=== PATIENT | male | born 1945 | race Caucasian/White ===

== ENCOUNTER 2023-02-07 00:52 | Inpatient (IN) | payer BC, MEDICARE ==
[2023-02-07] MEDS ORDERED: LABETALOL 5 MG/ML VIAL MDV IVP STA (01:27)
--- NOTE | 2023-02-07 01:27 | ED ---
Chest Pain HPI - General Chief Complaint: Chest Pain Stated Complaint: Heart Pain Time Seen by Provider: 02/07/23 01:04 Source: patient, RN notes reviewed, old records reviewed Mode of arrival: wheelchair Limitations: no limitations - History of Present Illness Initial Comments: This is a 78-year-old male to the emergency department today. Patient has a for evaluation of chest pain severe anterior chest pain sharp chest pain to his back shoulders and down into his buttock. Patient has history of high blood pressure here in the emergency department. But no heart history no history of high blood pressure cholesterol diabetes or family history or history of smoking. Patient denying current shortness of breath MD Complaint: chest pain -: hour(s) Onset: during rest Pain Location: substernal, left chest Pain Radiation: back Severity: moderate Severity scale (1-10): 7 Quality: sharp Consistency: constant Worsens With: nothing Anginal Symptoms: sense of impending doom Other Symptoms: palpitations Treatments Prior to Arrival: none - Related Data Home Medications Medication Instructions Recorded Confirmed Albuterol Sulfate [Albuterol 2 puff INHALATION RT-Q6H PRN 02/07/23 02/07/23 Sulfate Hfa] Brinzolamide [Brinzolamide 1% 1 drop BOTH EYES BID 02/07/23 02/07/23 Ophth Susp] Carboxymethylcellulose Sodium 1 drop BOTH EYES QID PRN 02/07/23 02/07/23 [Refresh Tears] Glimepiride [Amaryl] 2 mg PO DAILY 02/07/23 02/07/23 Ipratropium/Albuter 20-100Mcg 2 puff INHALATION RT-Q6H PRN 02/07/23 02/07/23 [Combivent Respimat 20-100Mcg Inhaler] Previous Rx's Medication Instructions Recorded Aspirin 81 mg PO DAILY tab 02/10/23 Atorvastatin [Lipitor] 80 mg PO HS 30 Days #30 tab 02/10/23 Losartan [Cozaar] 25 mg PO DAILY 30 Days #30 tab 02/10/23 Metoprolol Succinate (ER) [Toprol 25 mg PO DAILY 30 Days #30 tab 02/10/23 XL] Ticagrelor [Brilinta] 90 mg PO BID 30 Days #60 tab 02/10/23 Allergies Allergy/AdvReac Type Severity Reaction Status Date / Time egg Allergy Anaphylaxis Verified 02/08/23 10:44 Review of Systems ROS Statement: Those systems with pertinent positive or pertinent negative responses have been documented in the HPI. ROS Other: All systems not noted in ROS Statement are negative. EKG Findings - EKG Comments: EKG Findings:: EKG sinus 89 TX 205 QRS 100 QTc 478 - EKG Results: EKG: interpreted by SUELLEN Past Medical History Past Medical History: Prostate Disorder, Sleep Apnea/CPAP/BIPAP Additional Past Medical History / Comment(s): occ irregular heartrate,hernia, no cpap used, hx grout, uses a cane, kidney stone, History of Any Multi-Drug Resistant Organisms: None Reported Past Surgical History: Appendectomy, Orthopedic Surgery, Prostate Surgery, Tonsillectomy Additional Past Surgical History / Comment(s): guerita corneal transplant, guerita cataracts, left knee arthroscopy Additional Past Anesthesia/Blood Transfusion Reaction / Comment(s): "hard time waking up" Past Psychological History: No Psychological Hx Reported Smoking Status: Former smoker Past Alcohol Use History: None Reported Past Drug Use History: None Reported General Exam Limitations: no limitations General appearance: alert, in no apparent distress, anxious Head exam: Present: atraumatic, normocephalic, normal inspection Eye exam: Present: normal appearance, PERRL, EOMI. Absent: scleral icterus, conjunctival injection, periorbital swelling ENT exam: Present: normal exam, mucous membranes moist Neck exam: Present: normal inspection. Absent: tenderness, meningismus, lymphadenopathy Respiratory exam: Present: normal lung sounds bilaterally. Absent: respiratory distress, wheezes, rales, rhonchi, stridor Cardiovascular Exam: Present: normal rhythm, tachycardia, normal heart sounds. Absent: systolic murmur, diastolic murmur, rubs, gallop, clicks GI/Abdominal exam: Present: soft, normal bowel sounds. Absent: distended, tenderness, guarding, rebound, rigid Extremities exam: Present: normal inspection, full ROM, normal capillary refill. Absent: tenderness, pedal edema, joint swelling, calf tenderness Back exam: Present: normal inspection Neurological exam: Present: alert, oriented X3, CN II-XII intact Psychiatric exam: Present: normal affect, normal mood Skin exam: Present: warm, dry, intact, normal color. Absent: rash Course Vital Signs 02/07/23 02/07/23 02/07/23 00:54 02:02 02:40 Temperature 98.3 F Pulse Rate 103 H 73 64 Respiratory 18 16 18 Rate Blood Pressure 212/115 148/73 125/76 O2 Sat by Pulse 98 95 95 Oximetry 02/07/23 02/07/23 02/07/23 03:36 05:05 05:26 Temperature Pulse Rate 67 60 67 Respiratory 16 16 16 Rate Blood Pressure 137/73 149/94 182/94 O2 Sat by Pulse 99 99 97 Oximetry - Reevaluation(s) Reevaluation #1: 02/07/23 03:13 Medical records reviewed Reevaluation #2: 02/07/23 03:13 Patient's symptoms improving 02/07/23 04:43 Reevaluation patient states his chest pain is resolved Reevaluation #3: 02/07/23 03:13 Patient informed results questions answered 02/07/23 05:[address] angios chest is negative for acute disease 1 Reevaluation #4: 02/07/23 03:13 Was pt. sent in by a medical professional or institution (, PA, [facility], urgent care, hospital, or [facility]...) When possible be specific @ -no Did you speak to anyone other than the patient for history (EMS, parent, family, police, friend...)? What history was obtained from this source @ -no Did you review nursing and triage notes (agree or disagree)? Why? @ -agree Are old charts reviewed (outside hosp., previous admission, EMS record, old EKG, old radiological studies, urgent care reports/EKG's, [facility] records)? Report findings @ -yes Differential Diagnosis (chest pain, altered mental status, abdominal pain women, abdominal pain men, vaginal bleeding, weakness, fever, dyspnea, syncope, headache, dizziness, GI bleed, back pain, seizure, CVA, palpatations, mental health, musculoskeletal)? @ -prior EKG interpreted by me (3pts min.). @ -yes X-rays interpreted by me (1pt min.). @ -yes CT interpreted by me (1pt min.). @ -no U/S interpreted by me (1pt. min.). @ -no What testing was considered but not performed or refused? (CT, X-rays, U/S, labs)? Why? @ -none What meds were considered but not given or refused? Why? @ -none Did you discuss the management of the patient with other professionals (professionals i.e. , PA, [facility], lab, RT, psych nurse, hospice social worker, barrel coater, teacher, correction officer supervisor, field case manager)? Give summary @ -no Was smoking cessation discussed for >3mins.? @ -no Was critical care preformed (if so, how long)? @ -yes31 Were there social determinants of health that impacted care today? How? (Homelessness, low income, unemployed, alcoholism, drug addiction, transportation, low edu. Level, literacy, decrease access to med. care, [facility], rehab)? @ -none Was there de-escalation of care discussed even if they declined (Discuss DNR or withdrawal of care, Hospice)? DNR status @ -no What co-morbidities impacted this encounter? (DM, HTN, Smoking, COPD, CAD, Cancer, CVA, ARF, Chemo, Hep., AIDS, mental health diagnosis, sleep apnea, morbid obesity)? @ -none Was patient admitted / discharged? Hospital course, mention meds given and route, prescriptions, significant lab abnormalities, going to OR and other pertinent info. @ - 78 male to the emergency department for evaluation today. Patient presents today for evaluation regards to chest pain severe anterior chest pain started as prior to coming to the ER today. Patient's symptoms began while watching TV pain is in his chest back shoulder blades shoulders arm and down into his buttock. Patient has no CT evidence of dissection does have elevated troponin put on ACS treatment with heparin aspirin and admitted for cardiology Admitted Undiagnosed new problem with uncertain prognosis? @ -no Drug Therapy requiring intensive monitoring for toxicity (Heparin, Nitro, Insulin, Cardizem)? @ -no Were any procedures done? @ -no Diagnosis/symptom? @ -Non-STEMI hypertensive emergency Acute, or Chronic, or Acute on Chronic? @ -Acute Uncomplicated (without systemic symptoms) or Complicated (systemic symptoms)? @ -Complicated Side effects of treatment? @ -no Exacerbation, Progression, or Severe Exacerbation? @ -exacerbation Poses a threat to life or bodily function? How? (Chest pain, USA, VT, pneumonia, PE, COPD, DKA, ARF, appy, cholecystitis, CVA, Diverticulitis, Homicidal, Suicidal, threat to staff... and all critical care pts) @ -yes with ACS Reevaluation #5: 02/07/23 03:13 Differential Chest Pain: Stable Angina, Unstable Angina, STEMI, NSTEMI Aortic Dissection, Pneumothorax, Musculoskeletal, Esophageal Spasm GERD, Cholecystitis, Pancreatitis, Zoster, this is not meant to be an all-inclusive list. - Consultations Consultation #1: Spoke with [facility] were agreeable for this patient Consultation #2: Spoke with Dr. Roque who is aware of patient's EKG is elevated troponin Chest Pain MDM - MDM 78 male to the emergency department for evaluation today. Patient presents today for evaluation regards to chest pain severe anterior chest pain started as prior to coming to the ER today. Patient's symptoms began while watching TV pain is in his chest back shoulder blades shoulders arm and down into his buttock. Patient has no CT evidence of dissection does have elevated troponin put on ACS treatment with heparin aspirin and admitted for cardiology Critical Care Time Critical Care Time: Yes Total Critical Care Time: 31 Disposition Clinical Impression: Chest pain, Acute non-ST elevation myocardial infarction (NSTEMI), Hypertensive emergency Disposition: ADMITTED IP TO THIS HOSP Condition: Serious Is patient prescribed a controlled substance at d/c from ED?: No Time of Disposition: 03:00
[2023-02-07 01:28] LABS: Basophils % (A) 0 %; Eosinophils # (A) 0.1 k/uL (0-0.7); Eosinophils % (A) 1 %; HCT 54.1 % (39.0-53.0); HGB 17.9 gm/dL (13.0-17.5); Lymphocytes # (A) 1.3 k/uL (1.0-4.8); Lymphocytes % (A) 8 %; MCH 29.1 pg (25.0-35.0); MCHC 33.1 g/dL (31.0-37.0); MCV 88.1 fL (80.0-100.0); Mean Platelet Volume 6.9; Monocytes # (A) 0.2 k/uL (0-1.0); Monocytes % (A) 1 %; Neutrophils # (A) 14.7 k/uL (1.3-7.7); Neutrophils % (A) 90 %; Platelet Count 288 k/uL (150-450); RBC 6.13 m/uL (4.30-5.90); RDW 13.6 % (11.5-15.5); WBC 16.4 k/uL (3.8-10.6)
[2023-02-07 01:34] LABS: Glucose,Whole Blood 263 mg/dL (70-110)
[2023-02-07] MEDS: MORPHINE SULFATE 4 MG/ML SYRINGE IVP STA ×2 (01:34→06:02)
[2023-02-07 01:39] LABS: ALT 32 U/L (4-49); AST 44 U/L (17-59); African American GFR (CKD) 83 (>60 ml/min/1.73 sqM); Albumin 4.9 g/dL (3.5-5.0); Alkaline Phosphatase 70 U/L (38-126); Anion Gap 14 mmol/L; Blood Urea Nitrogen 25 mg/dL (9-20); Calcium 10.2 mg/dL (8.4-10.2); Carbon Dioxide 20 mmol/L (22-30); Chloride 101 mmol/L (98-107); Glucose 317 mg/dL (74-99); Lipase 109 U/L (23-300); Magnesium 2.1 mg/dL (1.6-2.3); Non-African American GFR(CKD) 72 (>60 ml/min/1.73 sqM); Potassium 4.6 mmol/L (3.5-5.1); Sodium 135 mmol/L (137-145); Total Bilirubin 0.5 mg/dL (0.2-1.3); Total Protein 8.4 g/dL (6.3-8.2)
[2023-02-07 01:48] LABS: NT-Pro-B-Type Natriuretic Pept 441 pg/mL
[2023-02-07 02:15] LABS: Partial Thromboplastin Time 26.1 sec (22.0-30.0); Prothrombin Time 10.5 sec (9.0-12.0)
--- NOTE | 2023-02-07 02:59 | XR ---
EXAM: XR Chest, 2 Views CLINICAL HISTORY: ITS.REASON XR Reason: Chest Pain TECHNIQUE: Frontal and lateral views of the chest. COMPARISON: No relevant prior studies available. FINDINGS: Lungs: Haziness in the left lower lobe is favored to be secondary to epicardial fat. Pleural space: Unremarkable. No pneumothorax. No pleural effusions. Heart: Unremarkable. No cardiomegaly. Mediastinum: Unremarkable. Bones/joints: No acute osseous abnormalities. IMPRESSION: No acute cardiopulmonary disease.
[2023-02-07] MEDS ORDERED: ASPIRIN 81 MG PO STA (03:10)
[2023-02-07] MEDS ORDERED: MORPHINE SULFATE 4 MG/ML SYRINGE IV PRN (03:10)
[2023-02-07] MEDS ORDERED: HEPARIN SODIUM 1,000 UN/ML (10ML VL) IV PRN (03:10)
[2023-02-07] MEDS ORDERED: HEPARIN SODIUM 1,000 UN/ML (10ML VL) IV ONE (03:10)
[2023-02-07] MEDS ORDERED: HEPARIN SOD,PORK IN 0.45% NACL 25,000 UNIT in 0.45% NACL 1 250ML.BAG IV SCH (03:15)
--- NOTE | 2023-02-07 04:12 | CT ---
EXAM: CT Angiography Chest Without and With Intravenous Contrast CLINICAL HISTORY: ITS.REASON CT Reason: dissection TECHNIQUE: Axial computed tomographic angiography images of the chest without and with intravenous contrast. CTDI is 13.3 mGy and DLP is 935.5 mGy-cm. This CT exam was performed using one or more of the following dose reduction techniques: automated exposure control, adjustment of the mA and/or kV according to patient size, and/or use of iterative reconstruction technique. MIP reconstructed images were created and reviewed. COMPARISON: No relevant prior studies available. FINDINGS: Pulmonary arteries: Unremarkable. No CT evidence of pulmonary embolism. Aorta: Mild atherosclerotic disease of the thoracic aorta without evidence of dissection or aneurysmal dilatation. Lungs: Centrilobular emphysema. Bilateral dependent atelectasis. No mass. Pleural space: Unremarkable. No significant effusion. No pneumothorax. Heart: Unremarkable. No cardiomegaly. No significant pericardial effusion. No evidence of RV dysfunction. Bones/joints: No acute fracture. No dislocation. Soft tissues: Unremarkable. Lymph nodes: Unremarkable. No enlarged lymph nodes. IMPRESSION: 1. Mild atherosclerotic disease of the thoracic aorta without evidence of dissection or aneurysmal dilatation. 2. No CT evidence of pulmonary embolism. EXAM: CT Angiography Abdomen and Pelvis Without and With Intravenous Contrast CLINICAL HISTORY: ITS.REASON CT Reason: dissection TECHNIQUE: Axial computed tomographic angiography images of the abdomen and pelvis without and with intravenous contrast. CTDI is 13.3 mGy and DLP is 935.5 mGy-cm. This CT exam was performed using one or more of the following dose reduction techniques: automated exposure control, adjustment of the mA and/or kV according to patient size, and/or use of iterative reconstruction technique. MIP reconstructed images were created and reviewed. COMPARISON: No relevant prior studies available. FINDINGS: VASCULATURE: Aorta: Moderate diffuse atherosclerotic disease of the infrarenal abdominal aorta with irregular plaque. No aneurysmal dilatation, dissection, or hemodynamically significant stenosis. Celiac trunk and mesenteric arteries: No acute findings. No occlusion or significant stenosis. Renal arteries: No acute findings. No occlusion or significant stenosis. Iliac arteries: 50% stenosis of the proximal right common iliac artery. Mild atherosclerotic disease of the left common iliac artery without hemodynamically significant stenosis. ABDOMEN: Liver: Unremarkable. No mass. Gallbladder and bile ducts: Unremarkable. No calcified stones. No ductal dilation. Pancreas: Unremarkable. No ductal dilation. No mass. Spleen: Unremarkable. No splenomegaly. Adrenals: Unremarkable. No mass. Kidneys and ureters: Simple bilateral renal cysts measuring up to 6.4 cm in the lower pole of the left kidney. No further workup is required. No obstructing stones. No hydronephrosis. Stomach and bowel: Moderate sigmoid diverticulosis without evidence of diverticulitis. No obstruction. PELVIS: Appendix: Appendix is not identified but there are no secondary signs of acute appendicitis. Bladder: Unremarkable. No stones. No mass. Reproductive: Unremarkable as visualized. ABDOMEN and PELVIS: Intraperitoneal space: Unremarkable. No significant fluid collection. No free air. Bones/joints: No acute fracture. No dislocation. Soft tissues: Unremarkable. Lymph nodes: Unremarkable. No enlarged lymph nodes. IMPRESSION: No acute findings in the arteries of the abdomen and pelvis. Moderate diffuse atherosclerotic disease of the infrarenal abdominal aorta with irregular plaque. No aneurysmal dilatation, dissection, or hemodynamically significant stenosis. 50% stenosis of the proximal right common iliac artery. Mild atherosclerotic disease of the left common iliac artery without hemodynamically significant stenosis.
[2023-02-07] MEDS ORDERED: NITROGLYCERIN SL TABS 0.4 MG TAB SUBLINGUAL STA (05:38)
[2023-02-07] MEDS: NITROGLYCERIN OINT 1 INCH/GM PACKET TOPICAL SCH ×3 (05:39→16:44)
[2023-02-07] MEDS ORDERED: NITROGLYCERIN SL TABS 0.4 MG TAB SUBLINGUAL PRN (05:41)
[2023-02-07] MEDS ORDERED: hydrALAZINE HCL 20 MG/ML 1 ML VIAL IVP STA (05:42)
[2023-02-07] MEDS ORDERED: MORPHINE SULFATE 2 MG/ML SYRINGE IVP STA (05:42)
[2023-02-07] MEDS ORDERED: fentaNYL (PF) 50 MCG/ML 2 ML AMP ONE (05:56)
[2023-02-07] MEDS ORDERED: MORPHINE SULFATE 4 MG/ML SYRINGE IVP STA (06:00)
--- NOTE | 2023-02-07 06:02 | P.CRDCN ---
History of Present Illness History of present illness: HISTORY OF PRESENTING ILLNESS Patient is a pleasant 78-year-old male with history of obesity, obstructive sleep apnea, diabetes mellitus type 2, hypertension, family history of coronary artery disease who presents secondary to chest pain which started approximately 10 PM last night. He was changed on some of his blood pressure medications over last week. Apparently the clonidine was discontinued approximately a week and a half ago and he was started on amlodipine 5 mg 2 days ago. When he presented to the ER blood pressure 212/115 and was given labetalol. I was notified with abnormal troponin 1.0 and reviewed EKGs with EKG showing Q waves in 3, aVF with minimal 0.[address] elevation inferiorly. Repeat EKG showing continued Q waves as well as Q wave V1 through V3 , possibly related to be positioning with report by ER the patient had 0 chest pain. Discussed with ER doctor regarding monitoring for any chest pain and heparin drip, aspirin, nitrates, morphine, blood pressure control. I was really notified with increased troponin of 6.8 and upon further questioning by ER staff patient stating he had 4 at 10 chest pressure. Therefore catheterization lab was activated. D-dimer 0.5, creatinine 1.0, proBNP 441, white blood cell count 16.4, hemoglobin 17.9. CT chest abdomen pelvis showed mild atherosclerotic disease of the thoracic aorta with no dissection and no PE, no acute findings of the abdomen and pelvis and 50% stenosis of the right common iliac artery. He has strong family history with father and older brother having bypass as well as another brother having type stents. He has never had any heart catheterization. 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 REVIEW OF SYSTEMS At the time of my exam: CONSTITUTIONAL: Denies fever or chills. CARDIOVASCULAR: +chest pain, +shortness of breath, no orthopnea, PND or palpitations. RESPIRATORY: Denies cough. GASTROINTESTINAL: Denies abdominal pain, diarrhea, constipation, nausea or vomiting. MUSCULOSKELETAL: Denies myalgias. NEUROLOGIC: Denies numbness, tingling or weakness. ENDOCRINE: Denies fatigue, weight change, polydipsia or polyurina. GENITOURINARY: Denies burning, hematuria or urgency with micturation. HEMATOLOGIC: Denies history of anemia or bleeding. PHYSICAL EXAMINATION Vital signs reviewed. CONSTITUTIONAL: No apparent distress. HEENT: Head is normocephalic. Pupils are equal, round. Sclerae anicteric. Mucous membranes of the mouth are moist. No JVD. No carotid bruit. CHEST EXAMINATION: Lungs are clear to auscultation. No chest wall tenderness is noted on palpation or with deep breathing. HEART EXAMINATION: Regular rate and rhythm. S1, S2 heard. No murmurs, gallops or rub. ABDOMEN: Soft, nontender. Positive bowel sounds. EXTREMITIES: 2+ peripheral pulses, no lower extremity edema and no calf tenderness. NEUROLOGIC EXAMINATION: Patient is awake, alert and oriented x3. ASSESSMENT 1. Non-STEMI 2. Hypertensive emergency 3. Diabetes mellitus type 2 4. Abnormal EKG concerning for previous inferior infarct 5. Family history of CAD 6. Obstructive sleep apnea 7. Remote tobacco abuse quit 30 years ago PLAN Patient with non-STEMI and extremely elevated blood pressures. Patient with recent blood pressure changes and initially non-STEMI thought related to type II mechanism from uncontrolled hypertension and reported improvement and chest pain by ER with nitro, morphine. On further investigation patient still having active chest pain 4 out of 10 and therefore urgent heart catheterization. Check 2-D echo. Beta valerie, home blood pressure medications as tolerated. Further recommendations to follow. Past Medical History Past Medical History: Prostate Disorder, Sleep Apnea/CPAP/BIPAP Additional Past Medical History / Comment(s): occ irregular heartrate,hernia, no cpap used, hx grout, uses a cane, kidney stone, History of Any Multi-Drug Resistant Organisms: None Reported Past Surgical History: Appendectomy, Orthopedic Surgery, Prostate Surgery, Tonsillectomy Additional Past Surgical History / Comment(s): guerita corneal transplant, guerita cataracts, left knee arthroscopy Additional Past Anesthesia/Blood Transfusion Reaction / Comment(s): "hard time waking up" Past Psychological History: No Psychological Hx Reported Smoking Status: Former smoker Past Alcohol Use History: None Reported Past Drug Use History: None Reported Medications and Allergies Home Medications Medication Instructions Recorded Confirmed Type Docusate [Colace] 100 mg PO DAILY #30 capsule 08/14/14 Rx Hydrocodone/Acetaminophen [[place] 1 each PO Q6H PRN #60 tab 08/14/14 Rx 10-325] Rivaroxaban [Xarelto] 10 mg PO AC-SUPPER #12 tab 08/14/14 Rx hydrOXYzine pamoate [Vistaril] 25 mg PO Q6HR #60 capsule 08/14/14 Rx polyethylene glycoL 3350 [Miralax] 17 gm PO DAILY #30 packet 08/14/14 Rx Allergies Allergy/AdvReac Type Severity Reaction Status Date / Time eggs-only. Not within food Allergy Unknown Uncoded 02/07/23 00:54 Physical Exam Vitals: Vital Signs Temp Pulse Resp BP Pulse Ox 02/07/23 05:26 67 16 182/94 97 02/07/23 05:05 60 16 149/94 99 02/07/23 03:36 67 16 137/73 99 02/07/23 02:40 64 18 125/76 95 02/07/23 02:02 73 16 148/73 95 02/07/23 00:54 98.3 F 103 H 18 212/115 98 Intake and Output 02/06/23 02/06/23 02/07/23 14:59 22:59 06:59 Other: Weight 108.862 kg Results 02/07/23 01:10 02/07/23 01:10 Cardiac Enzymes 02/07/23 02/07/23 02/07/23 Range/Units 01:10 01:10 04:20 AST 44 (17-59) U/L Troponin I 1.040 H* 6.850 H* (0.000-0.034) ng/mL Coagulation 02/07/23 Range/Units 01:10 PT 10.5 (9.0-12.0) sec APTT 26.1 (22.0-30.0) sec CBC 02/07/23 Range/Units 01:10 WBC 16.4 H (3.8-10.6) k/uL RBC 6.13 H (4.30-5.90) m/uL Hgb 17.9 H (13.0-17.5) gm/dL Hct 54.1 H (39.0-53.0) % Plt Count 288 (150-450) k/uL Comprehensive Metabolic Panel 02/07/23 Range/Units 01:10 Sodium 135 L (137-145) mmol/L Potassium 4.6 (3.5-5.1) mmol/L Chloride 101 (98-107) mmol/L Carbon Dioxide 20 L (22-30) mmol/L BUN 25 H (9-20) mg/dL Creatinine 1.01 (0.66-1.25) mg/dL Glucose 317 H (74-99) mg/dL Calcium 10.2 (8.4-10.2) mg/dL AST 44 (17-59) U/L ALT 32 (4-49) U/L Alkaline Phosphatase 70 (38-126) U/L Total Protein 8.4 H (6.3-8.2) g/dL Albumin 4.9 (3.5-5.0) g/dL Current Medications Generic Name Dose Route Start Last Admin Trade Name Freq PRN Reason Stop Dose Admin Aspirin 325 mg 02/08/23 09:00 Aspirin 325 Mg Tab PO DAILY [facility] Atorvastatin Calcium 80 mg 02/07/23 09:00 Atorvastatin 80 Mg Tab PO DAILY [facility] Heparin Sodium (Porcine) 0 unit 02/07/23 03:10 Heparin Sodium 1,000 Un/Ml (10ml Vl) IV PER PROTOCOL PRN Low PTT Protocol Heparin Sodium/Sodium Chloride 250 mls @ 10 mls/hr 02/07/23 03:15 02/07/23 03:33 25,000 unit/ Sodium Chloride IV 9.186 units/kg/hr .Q24H SUDHEER 10 mls/hr Administration Protocol 9.186 UNITS/KG/HR Metoprolol Tartrate 25 mg 02/07/23 09:00 Metoprolol Tartrate 25 Mg Tab PO BID [facility] Morphine Sulfate 4 mg 02/07/23 03:10 Morphine Sulfate 4 Mg/Ml Syringe IV Q4HR PRN Chest Pain Nitroglycerin 1 inch 02/07/23 06:00 02/07/23 05:39 Nitroglycerin Oint 1 Inch/Gm Packet TOPICAL Not Given Q6HR [facility] Nitroglycerin 0.4 mg 02/07/23 05:41 Nitroglycerin Sl Tabs 0.4 Mg Tab SUBLINGUAL Q5M PRN Chest Pain Intake and Output 02/06/23 02/06/23 02/07/23 14:59 22:59 06:59 Other: Weight 108.862 kg Patient Weight 02/07/23 06:59 Weight 108.862 kg 02/07/23 01:10 02/07/23 01:10
[2023-02-07] MEDS ORDERED: fentaNYL (PF) 50 MCG/1 ML VIAL IVP ONE ×2 (06:03)
[2023-02-07] MEDS ORDERED: MIDAZOLAM 2 MG/2 ML VIAL IVP ONE ×2 (06:03)
[2023-02-07] MEDS ORDERED: LIDOCAINE 1% INJ 10MG/ML (30 ML VIAL-PF) SQ ONE (06:04)
[2023-02-07] MEDS ORDERED: IV FLUID CONTINUATION 1,000 ML IV ONE (06:11)
[2023-02-07] MEDS ORDERED: VERAPAMIL SYRINGE (5 MG/10 ML) INTRAARTER ONE (06:21)
[2023-02-07] MEDS: HEPARIN SODIUM 1,000 UN/ML (10ML VL) IV ONE ×3 (06:25→07:38)
[2023-02-07] MEDS ORDERED: NITROGLYCERIN-D5W PMX 50 MG in DEXTROSE/WATER 1 250ML.BAG IV ONE (06:30)
[2023-02-07] MEDS ORDERED: TICAGRELOR 90 MG TAB ONE (06:38)
[2023-02-07] MEDS ORDERED: TICAGRELOR 90 MG TAB PO ONE (06:40)
[2023-02-07] MEDS ORDERED: NITROGLYCERIN 1000MCG/10ML SYRINGE INTRACORON ONE (06:41)
[2023-02-07] MEDS ORDERED: IOPAMIDOL-370 100ML BTL INJ ONE ×3 (06:48→07:59)
[2023-02-07] MEDS: niCARdipine Syringe (1,000 mcg/10 mL) INTRACORON ONE ×4 (07:31→07:36)
[2023-02-07] MEDS ORDERED: niCARdipine Syringe (1,000 mcg/10 mL) INTRACORON ONE (07:45)
[2023-02-07 08:42] LABS: Glucose,Whole Blood 152 mg/dL (70-110)
[2023-02-07] MEDS ORDERED: ATORVASTATIN 80 MG TAB PO SCH (09:00)
[2023-02-07] MEDS ORDERED: METOPROLOL TARTRATE 25 MG TAB PO SCH (09:00)
--- NOTE | 2023-02-07 09:31 | P.PRCINT ---
Percutaneous Coronary Int. - Percutaneous Coronary Intervention Percutaneous Coronary Intervention: PROCEDURES PERFORMED: Bilateral coronary angiography, ultrasound guided arterial access, PCI mid LAD with a 3.0 x 28 mm Xience ROCKY, PCI apical LAD with a 2.25 x 23mm Xience ROCKY, PCI proximal circumflex with a 3.5 x 18mm Xience ROCKY and mid circumflex with a 3.5 x 15mm Xience ROCKY, IVUS LAD, IVUS circumflex INDICATION: NSTEMI CONSENT:I have discussed the risks, benefits and alternative therapies for the above-mentioned procedure and for both sedation/analgesia as well as necessary blood product administration, if indicated, as they pertain to this patient. The patient has indicated understanding and acceptance of the risks and procedures discussed. PROCEDURE: After the risks, benefits and alternatives of the above mentioned procedure explained in detail with the patient, informed consent was obtained. Patient was taken to the catheterization lab and prepped and draped in usual fashion. Patient initially treated as non-STEMI and initial report of improvement and chest pain however EKG in labor relations or personnel negotiator shows Q waves anterior septal leads. Ultrasound guidance was used to assess for arterial access. 1% lidocaine was used to anesthetize the right radial artery. A 6-[place] sheath was placed in the right radial artery using modified Seldinger technique and ultrasound guidance. There was a right radial loop which was navigated and able to advance the F45 catheter up to the arch however patient had severe tortuosity which was prohibitive for a right approach. Given loop was in the right radial artery decision was made to go left ulnar arterial access. Left coronary angiography was performed with a 5-[place] JL 3.5 catheter and right coronary angiography was performed with a 5-[place] JR5 catheter in various views. Culprit lesion appeared to be LAD with Q waves developing anterior septal leads throughout ER visit. The decision was made to perform PCI of LAD. A 6-[place] CLS 3.5 guide was used to engage the left main. There was dampening noted with engaging the left main. Heparin was given. A 0.014 BMW wire was advanced in the distal LAD. Predilation was performed with a 2.5 x 12 mm balloon and then a 2.5 x 15 mm noncompliant balloon. PCI was performed of the mid LAD just past the diagonal branch with a 3.0 x 28 mm Xience ROCKY. There was additional apical LAD disease and therefore predilation was performed with a 2.0 balloon and then a 2.25 x 23 mm Xience ROCKY was placed in the apical LAD. Intravascular ultrasound showed diffuse disease, well-expanded stents, no dissection as well as ostial LAD 60% stenosis with additional 40% left main stenosis. Preintervention there was 99% mid LAD stenosis and apical LAD 95% stenosis with SRI 2 flow. Postintervention there was less than 10% stenosis with SRI 3 flow. Patient was still having chest pain and felt possibly related to the circumflex disease as well. Therefore decision was made to perform PCI of the circumflex. A 0.014 BMW wire was advanced into the distal OM1 branch. Predilation was performed with a 3.5 x 12 mm balloon. Next a 3.5 x 18 mm Xience ROCKY was placed in the proximal circumflex. There was some no reflow and this was treated with nicardipene. Additionally a 3.5 x 15 mm Xience ROCKY was placed in the mid circumflex. The right radial and left ulnar sheath was removed and a TR band was placed with hemostasis achieved. The patient had developed swelling in the left forearm felt possibly related to bleed from advancing wire through the forearm. Therefore blood pressure cuff was inflated on that side and pressure held. The patient tolerated the procedure well. Patient was transported back to the post catheterization holding area in stable condition. Conscious Sedation: Patient was monitored under the direct supervision of myself for conscious sedation using Versed and fentanyl for a total duration of 106 minutes HEMODYNAMICS: Aorta: 144/76 SELECTIVE CORONARY ARTERIOGRAPHY: LEFT MAIN: The left main is a large caliber vessel which bifurcates into the LAD and circumflex. There is distal left main 40% stenosis LEFT ANTERIOR DESCENDING CORONARY ARTERY: LAD is a large caliber vessel which wraps around to the apex. There is ostial LAD 60% stenosis mainly noted on intravascular ultrasound, 99% mid LAD stenosis just after diagonal 1 branch, diffuse mid 20-30% stenosis, apical LAD 95% stenosis, diagonal 1 70% stenosis. LEFT CIRCUMFLEX CORONARY ARTERY: Left circumflex is a large caliber vessel with a proximal circumflex 95% stenosis followed by a mid circumflex 80% stenosis. There is a 50% stenosis at a tortuous mid to distal circumflex. There are left to right collaterals. RIGHT CORONARY ARTERY: The right coronary artery is a moderate to large caliber vessel which gives off a PDA and PLV branch and is the dominant vessel. There is a high takeoff of an acute marginal branch. Just distal to the marginal branch there is a 100% stenosis of the proximal RCA. FINAL IMPRESSION: 1. CAD as described above including left main 40% stenosis, ostial LAD 60% sten osis, 99% mid LAD stenosis, 95% apical LAD, 95% proximal circumflex, 80% mid circumflex, 100% proximal RCA stenosis 2. S/p PCI mid LAD with a 3.0 x 28 mm Xience ROCKY, PCI apical LAD with a 2.25 x 23mm Xience ROCKY, PCI proximal circumflex with a 3.5 x 18mm Xience ROCKY and mid circumflex with a 3.5 x 15mm Xience ROCKY, IVUS LAD 3. Right radial loop, extreme right subclavian tortuosity PLAN: 1. Aggressive risk factor modification per most recent ACC/AHA guidelines. 2. Continue dual antiplatelets with aspirin and Brilinta for 12 months
[2023-02-07] MEDS ORDERED: ZOLPIDEM 5 MG TAB PO PRN (09:36)
[2023-02-07] MEDS ORDERED: RX INFO: IV CONTRAST WAS GIVEN 1 EACH MISC MISCELLANE PRN (09:36)
[2023-02-07] MEDS ORDERED: LOSARTAN 25 MG TAB PO SCH (09:45)
[2023-02-07] MEDS ORDERED: SODIUM CHLORIDE 0.9% 1,000 ML in EMPTY BAG 1 BAG IV SCH (09:45)
[2023-02-07] MEDS: METOPROLOL SUCCINATE (ER) 25 MG TAB.ER.24H PO SCH (10:24)
--- NOTE | 2023-02-07 14:22 | P.HPIM ---
History of Present Illness H&P Date: 02/07/23 History of present illness; patient is 78-year-old gentleman with past medical h istory significant for obesity, obstructive sleep apnea, diabetes mellitus type 2, hypertension, family history of coronary artery disease who presented to the ER because of chest pain. Patient stated he was all right last night when he developed chest pain was central in location, severe in intensity, radiating to his back. No aggravating or relieving factors associated with chest pain. Denied any shortness of breath at that time. Because this chest pain, patient came to the ER, initial workup in the ER showed patient to have elevated blood pressure Initial lab work done in the ER showed WBC 14, hemoglobin 71 9, platelet count 288, sodium 135, potassium 4.6, BUN 25, creatinine 1.01, troponin 1.040 EKG done in the ER showed heart rate of 99, Q waves in 3 and aVF, no ST segment elevation noticeable. Patient admitted to medicine service REVIEW OF SYSTEMS: CONSTITUTIONAL: No fever, no malaise, no fatigue. HEENT: No recent visual problems or hearing problems. Denied any sore throat. CARDIOVASCULAR: As in HPI PULMONARY: As mentioned in HPI GASTROINTESTINAL: No diarrhea, no nausea, no vomiting, no abdominal pain. NEUROLOGICAL: No headaches, no weakness, no numbness. HEMATOLOGICAL: Denies any bleeding or petechiae. GENITOURINARY: Denies any burning micturition, frequency, or urgency. MUSCULOSKELETAL/RHEUMATOLOGICAL: Denies any joint pain, swelling, or any muscle pain. ENDOCRINE: Denies any polyuria or polydipsia. The rest of the 14-point review of systems is negative. PHYSICAL EXAMINATION: GENERAL: The patient is alert and oriented x3, not in any acute distress. Well developed, well nourished. HEENT: Pupils are round and equally reacting to light. EOMI. No scleral icterus. No conjunctival pallor. Normocephalic, atraumatic. No pharyngeal erythema. No thyromegaly. CARDIOVASCULAR: S1 and S2 present. No murmurs, rubs, or gallops. PULMONARY: Chest is clear to auscultation, no wheezing or crackles. ABDOMEN: Soft, nontender, nondistended, normoactive bowel sounds. No palpable organomegaly. MUSCULOSKELETAL: No joint swelling or deformity. EXTREMITIES: No cyanosis, clubbing, or pedal edema. NEUROLOGICAL: Gross neurological examination did not reveal any focal deficits. SKIN: No rashes. Assessment and plan Non-STEMI Hypertensive emergency Diabetes mellitus type 2 Abnormal EKG concerning for previous inferior infarct Family history of CAD Obstructive sleep apnea Remote tobacco abuse quit 30 years ago Monitor vital signs Monitor CBC Monitor CMP Continue telemetry monitoring Continue pharmacy dose heparin Trend troponins Hand Presser was activated, patient went to cardiac cath showing left main 40% stenosis, ostial LAD 60% stenosis, 99% mid LAD stenosis, 95% apical LAD, 95% proximal circumflex, 80% mid circumflex, 100% proximal RCA stenosis S/p PCI mid LAD with a 3.0 x 28 mm Xience ROCKY, PCI apical LAD with a 2.25 x 23mm Xience ROCKY, PCI proximal circumflex with a 3.5 x 18mm Xience ROCKY and mid circumflex with a 3.5 x 15mm Xience ROCKY, IVUS LAD Continue dual antiplatelets with aspirin and brilinta Cardiology following Critical care Following Labs and medication were reviewed.. Continue same treatment. Continue with symptomatic treatment. Resume home medication. Monitor labs and vitals. DVT and GI prophylaxis. Further recommendations as per clinical course of the patient Dictation was produced using [employer] dictation software. please excuse any grammatical, word or spelling errors. Past Medical History Past Medical History: Prostate Disorder, Sleep Apnea/CPAP/BIPAP Additional Past Medical History / Comment(s): occ irregular heartrate,hernia, no cpap used, hx grout, uses a cane, kidney stone, History of Any Multi-Drug Resistant Organisms: None Reported Past Surgical History: Appendectomy, Orthopedic Surgery, Prostate Surgery, Tonsillectomy Additional Past Surgical History / Comment(s): guerita corneal transplant, guerita cataracts, left knee arthroscopy Additional Past Anesthesia/Blood Transfusion Reaction / Comment(s): "hard time waking up" Past Psychological History: No Psychological Hx Reported Smoking Status: Former smoker Past Alcohol Use History: None Reported Past Drug Use History: None Reported Medications and Allergies Home Medications Medication Instructions Recorded Confirmed Type Albuterol Sulfate [Albuterol 2 puff INHALATION RT-Q6H PRN 02/07/23 02/07/23 History Sulfate Hfa] Brinzolamide [Brinzolamide 1% 1 drop BOTH EYES BID 02/07/23 02/07/23 History Ophth Susp] Carboxymethylcellulose Sodium 1 drop BOTH EYES QID PRN 02/07/23 02/07/23 History [Refresh Tears] Glimepiride [Amaryl] 2 mg PO DAILY 02/07/23 02/07/23 History Ipratropium/Albuter 20-100Mcg 2 puff INHALATION RT-Q6H PRN 02/07/23 02/07/23 History [Combivent Respimat 20-100Mcg Inhaler] Losartan Potassium [Cozaar] 100 mg PO DAILY 02/07/23 02/07/23 History amLODIPine [Norvasc] 5 mg PO DAILY 02/07/23 02/07/23 History cloNIDine HCL [Catapres] 0.1 mg PO BID 02/07/23 02/07/23 History methylPREDNISolone Dose Pack See Taper PO DIRECTED 02/07/23 02/07/23 History [Medrol Dose Pack] Allergies Allergy/AdvReac Type Severity Reaction Status Date / Time eggs-only. Not within food Allergy See comment Uncoded 02/07/23 10:04 Physical Exam Vitals: Vital Signs Temp Pulse Resp BP Pulse Ox 02/07/23 10:30 62 154/93 94 L 02/07/23 10:15 60 150/98 95 02/07/23 10:00 61 20 149/96 94 L 02/07/23 09:45 68 12 145/87 92 L 02/07/23 09:30 22 157/89 95 02/07/23 09:15 67 16 143/89 95 02/07/23 09:00 67 143/89 95 02/07/23 08:45 97.6 F 64 14 144/88 93 L 02/07/23 08:36 66 10 L 02/07/23 05:26 67 16 182/94 97 02/07/23 05:05 60 16 149/94 99 02/07/23 03:36 67 16 137/73 99 02/07/23 02:40 64 18 125/76 95 02/07/23 02:02 73 16 148/73 95 02/07/23 00:54 98.3 F 103 H 18 212/115 98 Intake and Output 02/06/23 02/07/23 02/07/23 22:59 06:59 14:59 Intake Total 500 200 Output Total 175 Balance 500 25 Intake: IV 500 200 Sodium Chloride 0.9% 1, 200 000 ml In Empty Bag 1 bag @ 80 mls/hr IV .[id number] [facility] Rx#:[id number] Output: Urine 175 Other: Weight 108.862 kg Results CBC & Chem 7: 02/07/23 01:10 02/07/23 01:10 Labs: Abnormal Lab Results - Last 24 Hours (Table) 02/07/23 02/07/23 02/07/23 Range/Units 01:10 01:10 01:10 WBC 16.4 H (3.8-10.6) k/uL RBC 6.13 H (4.30-5.90) m/uL Hgb 17.9 H (13.0-17.5) gm/dL Hct 54.1 H (39.0-53.0) % Neutrophils # 14.7 H (1.3-7.7) k/uL Sodium 135 L (137-145) mmol/L Carbon Dioxide 20 L (22-30) mmol/L BUN 25 H (9-20) mg/dL Glucose 317 H (74-99) mg/dL POC Glucose (mg/dL) (70-110) mg/dL Troponin I 1.040 H* (0.000-0.034) ng/mL Total Protein 8.4 H (6.3-8.2) g/dL 02/07/23 02/07/23 02/07/23 Range/Units 01:32 04:20 08:39 WBC (3.8-10.6) k/uL RBC (4.30-5.90) m/uL Hgb (13.0-17.5) gm/dL Hct (39.0-53.0) % Neutrophils # (1.3-7.7) k/uL Sodium (137-145) mmol/L Carbon Dioxide (22-30) mmol/L BUN (9-20) mg/dL Glucose (74-99) mg/dL POC Glucose (mg/dL) 263 H 152 H (70-110) mg/dL Troponin I 6.850 H* (0.000-0.034) ng/mL Total Protein (6.3-8.2) g/dL
--- NOTE | 2023-02-07 14:27 | P.EN ---
Received a page from patient's contract driver Dr.brian sharma [phone], patient was following up outpatient with him again had blood work done, there was concern of GCA. Patient's contract driver was considering doing a temporal artery biopsy and was wondering if that could be entertained at this time. Discussed with him that at this time patient has stents placed in light of his coronary disease, patient needs to be on dual antiplatelet therapy at this time. Decision was made to keep repeating CRP and ESR and consider biopsy outpatient once patient can have it done safely from cardiology perspective
[2023-02-07 14:36] VITALS: BMI 34.4
[2023-02-07 15:35] LABS: HGB 15.6 gm/dL (13.0-17.5); MCH 29.4 pg (25.0-35.0); MCHC 33.2 g/dL (31.0-37.0); MCV 88.6 fL (80.0-100.0); Mean Platelet Volume 6.9; Platelet Count 274 k/uL (150-450); RBC 5.31 m/uL (4.30-5.90); RDW 13.7 % (11.5-15.5); WBC 20.5 k/uL (3.8-10.6)
[2023-02-07 17:11] LABS: Glucose,Whole Blood 147 mg/dL (70-110)
[2023-02-07] MEDS ORDERED: DEXTROSE 50% SYRINGE 50 ML IVP PRN ×2 (19:50)
[2023-02-07 19:52] LABS: Glucose,Whole Blood 207 mg/dL (70-110)
[2023-02-07] MEDS: INSULIN ASPART (NovoLOG) 100 UNIT/ML VIAL SQ SCH (20:51)
[2023-02-07] MEDS: TICAGRELOR 90 MG TAB PO SCH (20:51)
[2023-02-08] MEDS: NITROGLYCERIN OINT 1 INCH/GM PACKET TOPICAL SCH ×4 (03:10→18:38)
[2023-02-08 07:02] LABS: Glucose,Whole Blood 126 mg/dL (70-110)
--- NOTE | 2023-02-08 07:02 | P.PN ---
Subjective Progress Note Date: 02/08/23 HISTORY OF PRESENTING ILLNESS Patient is a pleasant 78-year-old male with history of obesity, obstructive sleep apnea, diabetes mellitus type 2, hypertension, family history of coronary artery disease who presents secondary to chest pain which started approximately 10 PM last night. He was changed on some of his blood pressure medications over last week. Apparently the clonidine was discontinued approximately a week and a half ago and he was started on amlodipine 5 mg 2 days ago. When he presented to the ER blood pressure 212/115 and was given labetalol. I was notified with abnormal troponin 1.0 and reviewed EKGs with EKG showing Q waves in 3, aVF with minimal 0.[address] elevation inferiorly. Repeat EKG showing continued Q waves as well as Q wave V1 through V3 , possibly related to be positioning with report by ER the patient had 0 chest pain. Discussed with ER doctor regarding monitoring for any chest pain and heparin drip, aspirin, nitrates, morphine, blood pressure control. I was really notified with increased troponin of 6.8 and upon further questioning by ER staff patient stating he had 4 at 10 chest pressure. Therefore catheterization lab was activated. D-dimer 0.5, creatinine 1.0, proBNP 441, white blood cell count 16.4, hemoglobin 17.9. CT chest abdomen pelvis showed mild atherosclerotic disease of the thoracic aorta with no dissection and no PE, no acute findings of the abdomen and pelvis and 50% stenosis of the right common iliac artery. He has strong family history with father and older brother having bypass as well as another brother having type stents. He has never had any heart catheterization. He saw planning rn a number of years ago. PHYSICAL EXAMINATION Vital signs reviewed. CONSTITUTIONAL: No apparent distress. HEENT: Head is normocephalic. Pupils are equal, round. Sclerae anicteric. Mucous membranes of the mouth are moist. No JVD. No carotid bruit. CHEST EXAMINATION: Lungs are clear to auscultation. No chest wall tenderness is noted on palpation or with deep breathing. HEART EXAMINATION: Regular rate and rhythm. S1, S2 heard. No murmurs, gallops or rub. ABDOMEN: Soft, nontender. Positive bowel sounds. EXTREMITIES: 2+ peripheral pulses, no lower extremity edema and no calf tenderness. NEUROLOGIC EXAMINATION: Patient is awake, alert and oriented x3. Progress note 02/08/2023 Patient is seen and examined at bedside this a.m. He denies having any chest pain chest pressure or shortness of breath. His right radial access site still be healthy with good healing. Patient reports that overnight he has had hematuria with concerns of passing clots. His hemoglobin has stayed stable overnight. ASSESSMENT 1. Non-STEMI 2. Hypertensive emergency 3. Diabetes mellitus type 2 4. Abnormal EKG concerning for previous inferior infarct 5. Family history of CAD 6. Obstructive sleep apnea 7. Remote tobacco abuse quit 30 years ago PLAN Continue aspirin 81 mg, atorvastatin 80 mg, Brilinta 90 mg twice a day Continue metoprolol tartrate 25 mg twice a day, losartan 25 mg daily Await echocardiogram results Consult urology because of hematuria Objective - Vital Signs Vital signs: Vital Signs Temp 97.3 F L 02/08/23 04:00 Pulse 70 02/08/23 04:00 Resp 17 02/08/23 04:00 BP 149/79 02/08/23 04:00 Pulse Ox 91 L 02/08/23 04:00 FiO2 Intake & Output 02/07/23 02/08/23 02/08/23 18:59 06:59 18:59 Intake Total 520 750 Output Total 550 600 Balance -30 150 Weight 108.862 kg 111.5 kg Intake: IV 520 Sodium Chloride 0.9% 1, 520 000 ml In Empty Bag 1 bag @ 80 mls/hr IV .[id number] [facility] Rx#:[id number] Oral 750 Output: Urine 550 600 Other: Voiding Method Toilet Toilet Urinal Urinal # Voids 1 - Labs CBC & Chem 7: 02/07/23 15:20 02/07/23 01:10 Labs: Abnormal Lab Results - Last 24 Hours (Table) 02/07/23 02/07/23 02/07/23 Range/Units 08:39 15:20 17:09 WBC 20.5 H (3.8-10.6) k/uL POC Glucose (mg/dL) 152 H 147 H (70-110) mg/dL 02/07/23 Range/Units 19:51 WBC (3.8-10.6) k/uL POC Glucose (mg/dL) 207 H (70-110) mg/dL
[2023-02-08] MEDS: INSULIN ASPART (NovoLOG) 100 UNIT/ML VIAL SQ SCH ×4 (08:16→20:20)
[2023-02-08] MEDS: METOPROLOL SUCCINATE (ER) 25 MG TAB.ER.24H PO SCH (08:29)
[2023-02-08] MEDS: ASPIRIN 81 MG PO SCH (08:29)
[2023-02-08] MEDS: LOSARTAN 25 MG TAB PO SCH (08:29)
[2023-02-08] MEDS: TICAGRELOR 90 MG TAB PO SCH ×2 (08:29→20:30)
[2023-02-08] MEDS ORDERED: ASPIRIN 325 MG TAB PO SCH (09:00)
[2023-02-08] MEDS ORDERED: LOSARTAN 50 MG TAB PO SCH (09:00)
[2023-02-08 11:35] LABS: Glucose,Whole Blood 125 mg/dL (70-110)
[2023-02-08 13:00] LABS: Amorphous Sediment,Urine Moderate /hpf; Mucus,Urine Many /hpf; RBC,Urine >182 /hpf (0-5); WBC,Urine >182 /hpf (0-5)
--- NOTE | 2023-02-08 13:01 | P.PN ---
Subjective Progress Note Date: 02/08/23 * 78-year-old gentleman with past medical history significant for obesity, obstructive sleep apnea, diabetes mellitus type 2, hypertension, family history of coronary artery disease who presented to the ER because of chest pain. Patient stated he was all right last night when he developed chest pain was central in location, severe in intensity, radiating to his back. No aggravating or relieving factors associated with chest pain. Denied any shortness of breath at that time. Because this chest pain, patient came to the ER, initial workup in the ER showed patient to have elevated blood pressure * Initial lab work done in the ER showed WBC 14, hemoglobin 71 9, platelet count 288, sodium 135, potassium 4.6, BUN 25, creatinine 1.01, troponin 1.040 * EKG done in the ER showed heart rate of 99, Q waves in 3 and aVF, no ST segment elevation noticeable. Patient admitted to medicine service * 02/08/23: Patient seen and evaluated bedside. Patient underwent cardiac catheterization yesterday. Please see cath report for details. Continue anti-platelet postprocedure. Patient noted to have hematuria requested neurology evaluation. Patient counseled not to leave AGAINST MEDICAL ADVICE.. Patient had lost hematuria and still cannot be discharged if cleared on 10 hematuria resolves Objective - Vital Signs Vital signs: Vital Signs Temp 98.3 F 02/08/23 12:00 Pulse 70 02/08/23 12:00 Resp 12 02/08/23 12:00 BP 104/65 02/08/23 12:00 Pulse Ox 93 L 02/08/23 12:00 FiO2 Intake & Output 02/07/23 02/08/23 02/08/23 18:59 06:59 18:59 Intake Total 520 750 Output Total 550 600 0 Balance -30 150 0 Weight 108.862 kg 111.5 kg Intake: IV 520 Sodium Chloride 0.9% 1, 520 000 ml In Empty Bag 1 bag @ 80 mls/hr IV .[id number] [facility] Rx#:[id number] Oral 750 Output: Urine 550 600 0 Other: Voiding Method Toilet Toilet Toilet Urinal Urinal Urinal # Voids 1 1 - Exam PHYSICAL EXAMINATION: GENERAL: The patient is alert and oriented x3, not in any acute distress. Well developed, well nourished. HEENT: Pupils are round and equally reacting to light. EOMI. No scleral icterus. CARDIOVASCULAR: S1 and S2 present. No murmurs, rubs, or gallops. PULMONARY: Chest is clear to auscultation, no wheezing or crackles. ABDOMEN: Soft, nontender, nondistended, normoactive bowel sounds. No palpable organomegaly. MUSCULOSKELETAL: Bilateral lower extremity edema EXTREMITIES: No cyanosis, clubbing, or pedal edema. NEUROLOGICAL: Gross neurological examination did not reveal any focal deficits. SKIN: Left arm bruising noted. - Labs CBC & Chem 7: 02/07/23 15:20 02/07/23 01:10 Labs: Abnormal Lab Results - Last 24 Hours (Table) 02/07/23 02/07/23 02/07/23 Range/Units 15:20 17:09 19:51 WBC 20.5 H (3.8-10.6) k/uL ESR (0-20) mm/Hr POC Glucose (mg/dL) 147 H 207 H (70-110) mg/dL Hemoglobin A1c (<=6.0) % 02/08/23 02/08/23 02/08/23 Range/Units 05:50 05:50 07:00 WBC (3.8-10.6) k/uL ESR 23 H (0-20) mm/Hr POC Glucose (mg/dL) 126 H (70-110) mg/dL Hemoglobin A1c 6.7 H (<=6.0) % 02/08/23 Range/Units 11:34 WBC (3.8-10.6) k/uL ESR (0-20) mm/Hr POC Glucose (mg/dL) 125 H (70-110) mg/dL Hemoglobin A1c (<=6.0) % Assessment and Plan Assessment: Assessment and plan * Coronary artery disease with Non-STEMI * Hypertensive emergency * Hematuria * Diabetes mellitus type 2 * Obstructive sleep apnea * Remote tobacco abuse quit 30 years ago * In regards to coronary artery disease Objects Conservator was activated, patient went to cardiac cath showing left main 40% stenosis, ostial LAD 60% stenosis, 99% mid LAD stenosis, 95% apical LAD, 95% proximal circumflex, 80% mid circumflex, 100% proximal RCA stenosis S/p PCI mid LAD with a 3.0 x 28 mm Xience ROCKY, PCI apical LAD with a 2.25 x 23mm Xience ROCKY, PCI proximal circumflex with a 3.5 x 18mm Xience ROCKY and mid circumflex with a 3.5 x 15mm Xience ROCKY, IVUS LAD Continue dual antiplatelets with aspirin and brilinta Cardiology following * Regards to hematuria urology consulted, recommendations * In regards to history of diabetes continue patient on correctional insulin. Monitor for hypoglycemia
[2023-02-08 13:11] LABS: Appearance,Urine Bloody (Clear); Color,Urine Dark Red
[2023-02-08 16:26] LABS: Glucose,Whole Blood 95 mg/dL (70-110)
--- NOTE | 2023-02-08 18:53 | CA ---
Transthoracic Echo Report Name: Ganesh Waldrop Age: 78 Gender: M : 1945 Exam Date: 02/07/2023 10:41 Exam Location: [facility] Ht (in): 70 Wt (lb): 240 Ordering Physician: Lauro Roque DO ([email or web address]) Attending/Referring Phys: Case Planner Sherry Stone RDCS Procedure CPT: Indications: re: LV function Cardiac Hx: Technical Quality: Fair, Technically difficult study Contrast 1: Lumason Total Dose (mL): 4 Contrast 2: Total Dose (mL): MEASUREMENTS (Male / Female) Normal Values 2D ECHO LV Diastolic Diameter PLAX 3.6 cm 4.2 - 5.9 / 3.9 - 5.3 cm LV Systolic Diameter PLAX 2.2 cm IVS Diastolic Thickness 1.4 cm 0.6 - 1.0 / 0.6 - 0.9 cm LVPW Diastolic Thickness 1.2 cm 0.6 - 1.0 / 0.6 - 0.9 cm LV Relative Wall Thickness 0.7 RV Internal Dim ED PLAX 2.4 cm LA Volume 53.2 cm??? 18 - 58 / 22 - 52 cm??? LA Volume Index 22.6 cm???/m??? 16 - 28 cm???/m??? M-MODE Aortic Root Diameter MM 3.2 cm LA Systolic Diameter MM 5.8 cm LA Ao Ratio MM 1.8 AV Cusp Separation MM 1.6 cm DOPPLER AV Peak Velocity 154.7 cm/s AV Peak Gradient 9.6 mmHg AV Mean Velocity 104.8 cm/s AV Mean Gradient 5.1 mmHg AV Velocity Time Integral 36.7 cm LVOT Peak Velocity 68.6 cm/s LVOT Peak Gradient 1.9 mmHg LVOT Velocity Time Integral 16.5 cm MV Area PHT 2.9 cm??? Mitral E Point Velocity 30.4 cm/s Mitral A Point Velocity 88.0 cm/s Mitral E to A Ratio 0.3 MV Deceleration Time 260.9 ms MV E' Velocity 3.1 cm/s Mitral E to MV E' Ratio 9.8 FINDINGS Left Ventricle Moderately increased left ventricular wall thickness. Left ventricular cavity size normal. Inferior and inferior septum wall hypokinesis. Apical septal wall hypokinesis. Mildly decreased systolic function. Left ventricular ejection fraction is estimated at 40-45 %. Right Ventricle Normal right ventricular size and function. Right ventricular systolic pressure within normal limits. Right Atrium Right atrium not well visualized. Left Atrium Mildly increased left atrial area. Mitral Valve Structurally normal mitral valve. No mitral stenosis. No evidence for mitral valve prolapse. Trace to mild mitral regurgitation. Aortic Valve No aortic valve stenosis or regurgitation. Tricuspid Valve Structurally normal tricuspid valve. Mild tricuspid regurgitation. Pulmonic Valve Trace pulmonic regurgitation. Pericardium No pericardial effusion. Aorta Normal size aortic root and proximal ascending aorta. CONCLUSIONS Reduced LV systolic function ejection fraction 40-45% Septal akinesis extending to the apex Previewed by: Dr. Eliseo Michele MD (Electronically Signed) Final Date: 08 February 2023 18:52
[2023-02-08 20:09] LABS: Glucose,Whole Blood 136 mg/dL (70-110)
[2023-02-08] MEDS: ATORVASTATIN 80 MG TAB PO SCH (20:30)
[2023-02-09] MEDS: NITROGLYCERIN OINT 1 INCH/GM PACKET TOPICAL SCH ×6 (00:30→22:10)
[2023-02-09 05:21] LABS: HCT 44.7 % (39.0-53.0); HGB 14.6 gm/dL (13.0-17.5); MCH 28.8 pg (25.0-35.0); MCHC 32.6 g/dL (31.0-37.0); MCV 88.5 fL (80.0-100.0); Mean Platelet Volume 6.8; Platelet Count 275 k/uL (150-450); RBC 5.05 m/uL (4.30-5.90); WBC 13.9 k/uL (3.8-10.6)
[2023-02-09 05:37] LABS: African American GFR (CKD) >90 (>60 ml/min/1.73 sqM); Anion Gap 10 mmol/L; Blood Urea Nitrogen 20 mg/dL (9-20); Calcium 8.9 mg/dL (8.4-10.2); Carbon Dioxide 23 mmol/L (22-30); Chloride 102 mmol/L (98-107); Glucose 135 mg/dL (74-99); Non-African American GFR(CKD) 80 (>60 ml/min/1.73 sqM); Potassium 4.2 mmol/L (3.5-5.1); Sodium 135 mmol/L (137-145)
[2023-02-09] MEDS: INSULIN ASPART (NovoLOG) 100 UNIT/ML VIAL SQ SCH ×4 (07:13→20:05)
[2023-02-09] MEDS: METOPROLOL SUCCINATE (ER) 25 MG TAB.ER.24H PO SCH (08:38)
[2023-02-09] MEDS: LOSARTAN 25 MG TAB PO SCH (08:38)
[2023-02-09] MEDS: TICAGRELOR 90 MG TAB PO SCH ×2 (08:38→20:16)
[2023-02-09] MEDS: ASPIRIN 81 MG PO SCH (08:38)
[2023-02-09] MEDS ORDERED: FUROSEMIDE 10 MG/ML 4 ML VIAL IV STA ×2 (09:20→09:24)
[2023-02-09 11:58] LABS: Glucose,Whole Blood 180 mg/dL (70-110)
--- NOTE | 2023-02-09 14:44 | P.GSCN ---
History of Present Illness Consult date: 02/09/23 Reason for Consult: Gross hematuria History of present illness: this is a 78-year-old male that underwent a cardiac cath on February 07. He is currently on dual antiplatelet therapy. Urology is consulted for gross hematuria. He noticed gross hematuria post his cardiac cath. He does have history of BPH and underwent A TURP with Dr Davila. he did have some gross hematuria post operatively, but has not had any since that time. Post TURP he is voiding w/o issue. on presentation he did undergo a CT abdomen and pelvis which showed no upper tract pathology. he did have a Doshi catheter placed yesterday for PVR 500 mL on evaluation this afternoon his urine is light pink, there are some clots in the doshi bag Review of Systems - Constitutional Denies fever, Denies weight loss - EENT Ears, nose, mouth and throat: Denies dysphagia - Cardiovascular Denies chest pain, Denies shortness of breath - Gastrointestinal Reports as per HPI - Genitourinary Reports hematuria, Denies dysuria, Denies flank pain, Denies urinary retention - Integumentary Denies rash, Denies unusual bruising Past Medical History Past Medical History: Prostate Disorder, Sleep Apnea/CPAP/BIPAP Additional Past Medical History / Comment(s): occ irregular heartrate,hernia, no cpap used, hx grout, uses a cane, kidney stone, History of Any Multi-Drug Resistant Organisms: None Reported Past Surgical History: Appendectomy, Orthopedic Surgery, Prostate Surgery, Tonsillectomy Additional Past Surgical History / Comment(s): gueirta corneal transplant, guerita cataracts, left knee arthroscopy Additional Past Anesthesia/Blood Transfusion Reaction / Comm: "hard time waking up" Smoking Status: Former smoker Medications and Allergies Home Medications Medication Instructions Recorded Confirmed Type Albuterol Sulfate [Albuterol 2 puff INHALATION RT-Q6H PRN 02/07/23 02/07/23 History Sulfate Hfa] Brinzolamide [Brinzolamide 1% 1 drop BOTH EYES BID 02/07/23 02/07/23 History Ophth Susp] Carboxymethylcellulose Sodium 1 drop BOTH EYES QID PRN 02/07/23 02/07/23 History [Refresh Tears] Glimepiride [Amaryl] 2 mg PO DAILY 02/07/23 02/07/23 History Ipratropium/Albuter 20-100Mcg 2 puff INHALATION RT-Q6H PRN 02/07/23 02/07/23 History [Combivent Respimat 20-100Mcg Inhaler] Losartan Potassium [Cozaar] 100 mg PO DAILY 02/07/23 02/07/23 History amLODIPine [Norvasc] 5 mg PO DAILY 02/07/23 02/07/23 History cloNIDine HCL [Catapres] 0.1 mg PO BID 02/07/23 02/07/23 History methylPREDNISolone Dose Pack See Taper PO DIRECTED 02/07/23 02/07/23 History [Medrol Dose Pack] Allergies Allergy/AdvReac Type Severity Reaction Status Date / Time egg Allergy Anaphylaxis Verified 02/08/23 10:44 Surgical - Exam Vital Signs Temp Pulse Resp BP Pulse Ox 98.3 F 103 H 18 212/115 98 02/07/23 00:54 02/07/23 00:54 02/07/23 00:54 02/07/23 00:54 02/07/23 00:54 - General no distress, no pain - Eyes normal ocular movement, no pale - ENT normal nares, normal mucosa - Respiratory normal expansion, normal respiratory effort - Abdomen Abdomen: soft, non tender, no distended - Psychiatric oriented to time, oriented to person, oriented to place Results - Labs 02/09/23 04:55 02/09/23 04:55 Abnormal Lab Results - Last 24 Hours (Table) 02/08/23 02/09/23 02/09/23 Range/Units 20:07 04:55 04:55 WBC 13.9 H (3.8-10.6) k/uL Sodium 135 L (137-145) mmol/L Glucose 135 H (74-99) mg/dL POC Glucose (mg/dL) 136 H (70-110) mg/dL 02/09/23 Range/Units 11:52 WBC (3.8-10.6) k/uL Sodium (137-145) mmol/L Glucose (74-99) mg/dL POC Glucose (mg/dL) 180 H (70-110) mg/dL Diabetes panel 02/09/23 Range/Units 04:55 Sodium 135 L (137-145) mmol/L Potassium 4.2 (3.5-5.1) mmol/L Chloride 102 (98-107) mmol/L Carbon Dioxide 23 (22-30) mmol/L BUN 20 (9-20) mg/dL Creatinine 0.92 (0.66-1.25) mg/dL Glucose 135 H (74-99) mg/dL Calcium 8.9 (8.4-10.2) mg/dL Calcium panel 02/09/23 Range/Units 04:55 Calcium 8.9 (8.4-10.2) mg/dL Pituitary panel 02/09/23 Range/Units 04:55 Sodium 135 L (137-145) mmol/L Potassium 4.2 (3.5-5.1) mmol/L Chloride 102 (98-107) mmol/L Carbon Dioxide 23 (22-30) mmol/L BUN 20 (9-20) mg/dL Creatinine 0.92 (0.66-1.25) mg/dL Glucose 135 H (74-99) mg/dL Calcium 8.9 (8.4-10.2) mg/dL Adrenal panel 02/09/23 Range/Units 04:55 Sodium 135 L (137-145) mmol/L Potassium 4.2 (3.5-5.1) mmol/L Chloride 102 (98-107) mmol/L Carbon Dioxide 23 (22-30) mmol/L BUN 20 (9-20) mg/dL Creatinine 0.92 (0.66-1.25) mg/dL Glucose 135 H (74-99) mg/dL Calcium 8.9 (8.4-10.2) mg/dL Assessment and Plan Assessment: 78-year-old male developed gross hematuria post cardiac cath currently on dual antiplatelet therapy. History of TURP with Dr. Davila. His hematuria is resolving, hemoglobin stable. his urinary retention is most likely secondary to clots within the bladder. Given resolving gross hematuria, most likely should be able to void 1. Urinary retention -Doshi can be removed prior to discharge 2. Gross hematuria -Follow-up as an outpatient with Dr. Davila for cystoscopy
[2023-02-09 16:57] LABS: Glucose,Whole Blood 99 mg/dL (70-110)
[2023-02-09] MEDS ORDERED: ACETAMINOPHEN TAB 325 MG TAB PO PRN (17:42)
--- NOTE | 2023-02-09 17:54 | P.PN ---
Subjective Progress Note Date: 02/09/23 * 78-year-old gentleman with past medical history significant for obesity, obstructive sleep apnea, diabetes mellitus type 2, hypertension, family history of coronary artery disease who presented to the ER because of chest pain. Patient stated he was all right last night when he developed chest pain was central in location, severe in intensity, radiating to his back. No aggravating or relieving factors associated with chest pain. Denied any shortness of breath at that time. Because this chest pain, patient came to the ER, initial workup in the ER showed patient to have elevated blood pressure * Initial lab work done in the ER showed WBC 14, hemoglobin 71 9, platelet count 288, sodium 135, potassium 4.6, BUN 25, creatinine 1.01, troponin 1.040 * EKG done in the ER showed heart rate of 99, Q waves in 3 and aVF, no ST segment elevation noticeable. Patient admitted to medicine service * * * 02/09/2023 * Patient is seen and evaluated in room at bedside; complains of back pain; requesting some Tylenol; continues to have hematuria; patient remains on Dual antiplatelet therapy * -- Patient has been evaluated by urology for gross hematuria; patient has history of BPH and underwent TURP with gross hematuria postoperatively but not any since that; CT of the abdomen and pelvis is unremarkable; patient did have a Regalado catheter placed yesterday; urology recommending to continue with Regalado catheter but needs to be removed prior to discharge; patient will follow up with urology as outpatient for cystoscopy Objective - Vital Signs Vital signs: Vital Signs Temp 98 F 02/09/23 16:00 Pulse 76 02/09/23 16:00 Resp 20 02/09/23 16:00 BP 132/73 02/09/23 16:00 Pulse Ox 94 L 02/09/23 16:00 FiO2 Intake & Output 02/08/23 02/09/23 02/09/23 18:59 06:59 18:59 Intake Total 240 Output Total 1150 1950 2500 Balance -1150 -1950 -2260 Intake: Oral 240 Output: Urine 650 1950 2500 Post Void Residual 500 Other: Voiding Method Toilet Toilet Indwelling Catheter Urinal Urinal # Voids 1 - Exam GENERAL: The patient is alert and oriented x3, not in any acute distress. Well developed, well nourished. HEENT: Pupils are round and equally reacting to light. EOMI. No scleral icterus. CARDIOVASCULAR: S1 and S2 present. No murmurs, rubs, or gallops. PULMONARY: Chest is clear to auscultation, no wheezing or crackles. ABDOMEN: Soft, nontender, nondistended, normoactive bowel sounds. No palpable organomegaly. MUSCULOSKELETAL: Bilateral lower extremity edema EXTREMITIES: No cyanosis, clubbing, or pedal edema. NEUROLOGICAL: Gross neurological examination did not reveal any focal deficits. SKIN: Left arm bruising noted. - Labs CBC & Chem 7: 02/09/23 04:55 02/09/23 04:55 Labs: Abnormal Lab Results - Last 24 Hours (Table) 02/08/23 02/09/23 02/09/23 Range/Units 20:07 04:55 04:55 WBC 13.9 H (3.8-10.6) k/uL Sodium 135 L (137-145) mmol/L Glucose 135 H (74-99) mg/dL POC Glucose (mg/dL) 136 H (70-110) mg/dL 02/09/23 Range/Units 11:52 WBC (3.8-10.6) k/uL Sodium (137-145) mmol/L Glucose (74-99) mg/dL POC Glucose (mg/dL) 180 H (70-110) mg/dL Assessment and Plan Assessment: * Coronary artery disease with Non-STEMI * Hypertensive emergency * Hematuria * Diabetes mellitus type 2 * Obstructive sleep apnea * Remote tobacco abuse quit 30 years ago * In regards to coronary artery disease Turbine Subassembler was activated, patient went to cardiac cath showing left main 40% stenosis, ostial LAD 60% stenosis, 99% mid LAD stenosis, 95% apical LAD, 95% proximal circumflex, 80% mid circumflex, 100% proximal RCA stenosis S/p PCI mid LAD with a 3.0 x 28 mm Xience ROCKY, PCI apical LAD with a 2.25 x 23mm Xience ROCKY, PCI proximal circumflex with a 3.5 x 18mm Xience ROCKY and mid circumflex with a 3.5 x 15mm Xience ROCKY, IVUS LAD Continue dual antiplatelets with aspirin and brilinta Cardiology following * Regards to hematuria urology consulted, recommendations * In regards to history of diabetes continue patient on correctional insulin. Monitor for hypoglycemia
--- NOTE | 2023-02-09 18:11 | P.PN ---
Subjective Progress Note Date: 02/09/23 HISTORY OF PRESENTING ILLNESS Patient is a pleasant 78-year-old male with history of obesity, obstructive sleep apnea, diabetes mellitus type 2, hypertension, family history of coronary artery disease who presents secondary to chest pain which started approximately 10 PM last night. He was changed on some of his blood pressure medications over last week. Apparently the clonidine was discontinued approximately a week and a half ago and he was started on amlodipine 5 mg 2 days ago. When he presented to the ER blood pressure 212/115 and was given labetalol. I was notified with abnormal troponin 1.0 and reviewed EKGs with EKG showing Q waves in 3, aVF with minimal 0.[address] elevation inferiorly. Repeat EKG showing continued Q waves as well as Q wave V1 through V3 , possibly related to be positioning with report by ER the patient had 0 chest pain. Discussed with ER doctor regarding monitoring for any chest pain and heparin drip, aspirin, nitrates, morphine, blood pressure control. I was really notified with increased troponin of 6.8 and upon further questioning by ER staff patient stating he had 4 at 10 chest pressure. Therefore catheterization lab was activated. D-dimer 0.5, creatinine 1.0, proBNP 441, white blood cell count 16.4, hemoglobin 17.9. CT chest abdomen pelvis showed mild atherosclerotic disease of the thoracic aorta with no dissection and no PE, no acute findings of the abdomen and pelvis and 50% stenosis of the right common iliac artery. He has strong family history with father and older brother having bypass as well as another brother having type stents. He has never had any heart catheterization. He saw coremaker experimental a number of years ago. PHYSICAL EXAMINATION Vital signs reviewed. CONSTITUTIONAL: No apparent distress. HEENT: Head is normocephalic. Pupils are equal, round. Sclerae anicteric. Mucous membranes of the mouth are moist. No JVD. No carotid bruit. CHEST EXAMINATION: Lungs are clear to auscultation. No chest wall tenderness is noted on palpation or with deep breathing. HEART EXAMINATION: Regular rate and rhythm. S1, S2 heard. No murmurs, gallops or rub. ABDOMEN: Soft, nontender. Positive bowel sounds. EXTREMITIES: 2+ peripheral pulses, no lower extremity edema and no calf tenderness. NEUROLOGIC EXAMINATION: Patient is awake, alert and oriented x3. Progress note 02/08/2023 Patient is seen and examined at bedside this a.m. He denies having any chest pain chest pressure or shortness of breath. His right radial access site still be healthy with good healing. Patient reports that overnight he has had hematuria with concerns of passing clots. His hemoglobin has stayed stable overnight. 02/09/2023 Patient reported having hematuria. He was evaluated by urologist who doesn't feel that he needs better indication at this time. His urine is clearing up. His echo showed an EF of 40-45% with reduced septal wall motion. ASSESSMENT 1. Non-STEMI 2. Hypertensive emergency 3. Diabetes mellitus type 2 4. Abnormal EKG concerning for previous inferior infarct 5. Family history of CAD 6. Obstructive sleep apnea 7. Remote tobacco abuse quit 30 years ago 8. Cardiomyopathy with EF of 40-45% 9. Mild congestive heart failure PLAN Continue aspirin 81 mg, atorvastatin 80 mg, Brilinta 90 mg twice a day Continue metoprolol tartrate 25 mg twice a day, losartan 25 mg daily Start Lasix 40 mg IV daily Consult urology because of hematuria Objective - Vital Signs Vital signs: Vital Signs Temp 98 F 02/09/23 16:00 Pulse 76 02/09/23 16:00 Resp 20 02/09/23 16:00 BP 132/73 02/09/23 16:00 Pulse Ox 94 L 02/09/23 16:00 FiO2 Intake & Output 02/08/23 02/09/23 02/09/23 18:59 06:59 18:59 Intake Total 240 Output Total 1150 1950 2500 Balance -1150 -1950 -2260 Intake: Oral 240 Output: Urine 650 1950 2500 Post Void Residual 500 Other: Voiding Method Toilet Toilet Indwelling Catheter Urinal Urinal # Voids 1 - Labs CBC & Chem 7: 02/09/23 04:55 02/09/23 04:55 Labs: Abnormal Lab Results - Last 24 Hours (Table) 02/08/23 02/09/23 02/09/23 Range/Units 20:07 04:55 04:55 WBC 13.9 H (3.8-10.6) k/uL Sodium 135 L (137-145) mmol/L Glucose 135 H (74-99) mg/dL POC Glucose (mg/dL) 136 H (70-110) mg/dL 02/09/23 Range/Units 11:52 WBC (3.8-10.6) k/uL Sodium (137-145) mmol/L Glucose (74-99) mg/dL POC Glucose (mg/dL) 180 H (70-110) mg/dL
[2023-02-09 20:04] LABS: Glucose,Whole Blood 129 mg/dL (70-110)
[2023-02-09] MEDS: ATORVASTATIN 80 MG TAB PO SCH (20:16)
[2023-02-09 22:25] VITALS: TEMP 97.9
[2023-02-10 05:10] VITALS: RESP 18
[2023-02-10] MEDS: INSULIN ASPART (NovoLOG) 100 UNIT/ML VIAL SQ SCH ×2 (06:02→11:43)
[2023-02-10 06:03] LABS: Glucose,Whole Blood 135 mg/dL (70-110)
[2023-02-10] MEDS: ASPIRIN 81 MG PO SCH (09:11)
[2023-02-10] MEDS: LOSARTAN 25 MG TAB PO SCH (09:11)
[2023-02-10] MEDS: METOPROLOL SUCCINATE (ER) 25 MG TAB.ER.24H PO SCH (09:11)
[2023-02-10] MEDS: TICAGRELOR 90 MG TAB PO SCH (09:11)
--- NOTE | 2023-02-10 10:17 | P.PN ---
Subjective Progress Note Date: 02/10/23 no acute overnight events, urine is clear this morning Objective - Vital Signs Vital signs: Vital Signs Temp 97.9 F 02/09/23 20:00 Pulse 78 02/10/23 08:00 Resp 18 02/10/23 08:00 BP 109/66 02/10/23 08:00 Pulse Ox 95 02/10/23 08:00 FiO2 Intake & Output 02/09/23 02/10/23 02/10/23 18:59 06:59 18:59 Intake Total 600 Output Total 2500 780 Balance -1900 -780 Intake: Oral 600 Output: Urine 2500 780 Other: Voiding Method Indwelling Catheter Indwelling Catheter Indwelling Catheter - Constitutional General appearance: Present: no acute distress - Gastrointestinal General gastrointestinal: Present: soft. Absent: distended, tenderness - Psychiatric Psychiatric: Present: A&O x's 3 - Labs CBC & Chem 7: 02/09/23 04:55 02/09/23 04:55 Labs: Abnormal Lab Results - Last 24 Hours (Table) 02/09/23 02/09/23 02/10/23 Range/Units 11:52 20:03 06:02 POC Glucose (mg/dL) 180 H 129 H 135 H (70-110) mg/dL Assessment and Plan Assessment: 78-year-old male developed gross hematuria post cardiac cath currently on dual antiplatelet therapy. History of TURP with Dr. Davila. His hematuria is resolving, hemoglobin stable. his urinary retention is most likely secondary to clots within the bladder. Urine is clear this morning -Regalado can be removed this morning from urology standpoint, check a postvoid residual -He is okay for discharge from urology standpoint if able to void -Follow-up as an outpatient with Dr. Davila for cystoscopy
[2023-02-10 11:33] LABS: Glucose,Whole Blood 170 mg/dL (70-110)
[2023-02-10] MEDS: NITROGLYCERIN OINT 1 INCH/GM PACKET TOPICAL SCH (11:40)
[2023-02-10 12:26] LABS: Basophils % (A) 0 %; Eosinophils # (A) 0.2 k/uL (0-0.7); Eosinophils % (A) 2 %; HCT 45.6 % (39.0-53.0); HGB 15.3 gm/dL (13.0-17.5); Lymphocytes # (A) 2.6 k/uL (1.0-4.8); Lymphocytes % (A) 19 %; MCH 29.6 pg (25.0-35.0); MCHC 33.5 g/dL (31.0-37.0); MCV 88.4 fL (80.0-100.0); Mean Platelet Volume 6.7; Monocytes # (A) 0.6 k/uL (0-1.0); Monocytes % (A) 4 %; Neutrophils # (A) 10.3 k/uL (1.3-7.7); Neutrophils % (A) 74 %; Platelet Count 294 k/uL (150-450); RBC 5.16 m/uL (4.30-5.90); RDW 13.7 % (11.5-15.5); WBC 13.9 k/uL (3.8-10.6)
[2023-02-10 12:34] LABS: African American GFR (CKD) 83 (>60 ml/min/1.73 sqM); Anion Gap 10 mmol/L; Blood Urea Nitrogen 22 mg/dL (9-20); Calcium 9.2 mg/dL (8.4-10.2); Carbon Dioxide 23 mmol/L (22-30); Chloride 102 mmol/L (98-107); Glucose 156 mg/dL (74-99); Non-African American GFR(CKD) 72 (>60 ml/min/1.73 sqM); Sodium 135 mmol/L (137-145)
[2023-02-10 13:20] VITALS: BP 102/64; PULSE 65
--- NOTE | 2023-02-10 13:29 | P.PN ---
Subjective Progress Note Date: 02/10/23 Progress note Patient isn't cleared by urology to be discharged. He is not having any further hematuria. He is okay to be discharged from cardiac vessel standpoint PHYSICAL EXAMINATION Vital signs reviewed. CONSTITUTIONAL: No apparent distress. HEENT: Head is normocephalic. Pupils are equal, round. Sclerae anicteric. Mucous membranes of the mouth are moist. No JVD. No carotid bruit. CHEST EXAMINATION: Lungs are clear to auscultation. No chest wall tenderness is noted on palpation or with deep breathing. HEART EXAMINATION: Regular rate and rhythm. S1, S2 heard. No murmurs, gallops or rub. ABDOMEN: Soft, nontender. Positive bowel sounds. EXTREMITIES: 2+ peripheral pulses, no lower extremity edema and no calf tenderness. NEUROLOGIC EXAMINATION: Patient is awake, alert and oriented x3. ASSESSMENT 1. Non-STEMI 2. Hypertensive emergency 3. Diabetes mellitus type 2 4. Abnormal EKG concerning for previous inferior infarct 5. Family history of CAD 6. Obstructive sleep apnea 7. Remote tobacco abuse quit 30 years ago 8. Cardiomyopathy with EF of 40-45% 9. Mild congestive heart failure PLAN Patient isn't cleared by urology to be discharged. He is not having any further hematuria. He is okay to be discharged from cardiac vessel standpoint Continue aspirin 81 mg, atorvastatin 80 mg, Brilinta 90 mg twice a day Continue metoprolol tartrate 25 mg twice a day, losartan 25 mg daily Continue Lasix 20mg daily on discharge Outpatient follow-up with Dr. Roque Objective - Vital Signs Vital signs: Vital Signs Temp 97.9 F 02/09/23 20:00 Pulse 65 02/10/23 12:00 Resp 18 02/10/23 12:00 BP 102/64 02/10/23 12:00 Pulse Ox 95 02/10/23 12:00 FiO2 Intake & Output 02/09/23 02/10/23 02/10/23 18:59 06:59 18:59 Intake Total 600 1020 Output Total 2500 780 400 Balance -1900 -780 620 Intake: Oral 600 1020 Output: Urine 2500 780 400 Other: Voiding Method Indwelling Catheter Indwelling Catheter Indwelling Catheter - Labs CBC & Chem 7: 02/10/23 12:12 02/10/23 12:12 Labs: Abnormal Lab Results - Last 24 Hours (Table) 02/09/23 02/10/23 02/10/23 Range/Units 20:03 06:02 11:32 WBC (3.8-10.6) k/uL Neutrophils # (1.3-7.7) k/uL Sodium (137-145) mmol/L BUN (9-20) mg/dL Glucose (74-99) mg/dL POC Glucose (mg/dL) 129 H 135 H 170 H (70-110) mg/dL 02/10/23 02/10/23 Range/Units 12:12 12:12 WBC 13.9 H (3.8-10.6) k/uL Neutrophils # 10.3 H (1.3-7.7) k/uL Sodium 135 L (137-145) mmol/L BUN 22 H (9-20) mg/dL Glucose 156 H (74-99) mg/dL POC Glucose (mg/dL) (70-110) mg/dL
--- NOTE | 2023-02-13 19:43 | CDI ---
Documentation Clarification Form Date: 02/13/2023 07:34:46 PM From: Saray Mccormack Phone: Admit Date: 02/07/2023 03:12:00 AM Patient Name: Ganesh Waldrop Visit Number: [id number] Discharge Date: 02/10/2023 02:19:00 PM ATTENTION: The Clinical Documentation Specialists (CDI) and [facility] Coding Staff appreciate your assistance in clarifying documentation. Please respond to the clarification below the line at the bottom and electronically sign. The CDI & [facility] Coding staff will review the response and follow-up if needed. Please note: Queries are made part of the Legal Health Record. If you have any questions, please contact the author of this message via ITS. Dr. Lang Kat Your patient has the documented diagnosis of Mildcongestive heart failureer Progress Note 02/09. Additional information regarding the type of CHF is requested. History/Risk Factors: 78yo M, Non-STEMI, HTN w emergency, DMII, Hx TN w FHX, SHAKILA, former smoker, CM, CHF Clinical Indicators: VS/Pulse OX: 92-95 per HP BNP: 441 Echocardiogram Results: ReducedLV systolic function ejection fraction 40-45%. Septalakinesisextending to the apex Chest X Ray: No acute cardiopulmonary disease. Treatment: Continue aspirin 81 mg, atorvastatin 80 mg, Brilinta 90 mg 2x day Continue metoprolol tartrate 25 mg 2x day, losartan 25 mg daily. Start Lasix 40 mg IV daily In your professional opinion, can you please clarify the type of CHF if known? [ X] Acute Systolic Heart Failure (reduced EF) [ ] Chronic Systolic Heart Failure (reduced EF) [ ] Acute on Chronic Systolic Heart Failure (reduced EF) [ ] Acute Diastolic Heart Failure (preserved EF) [ ] Chronic Diastolic Heart Failure (preserved EF) [ ] Acute on Chronic Diastolic Heart Failure (preserved EF) [ ] Acute Systolic & Diastolic Heart Failure [ ] Chronic Systolic & Diastolic Heart Failure [ ] Acute on Chronic Heart Failure Systolic & Diastolic Heart Failure [ ] Other, please specify [ ] Unable to determine (Template Last Revised: May 2020) MTDD
== END 2023-02-10 14:19 | disposition home or self-care (01) | DRG 321 ==
LOC: EC 00:52 → 3SCARD 03:12 → 2SICU 06:02 → UNDODISIN 07:08 → 2SICU 07:56 → 3SCARD 02-09 09:47
PROVIDERS: ADMIT Hospitalist; ATTEND Hospitalist
DX: I21.4 Non-ST elevation (NSTEMI) myocardial infarction (principal); I50.21 Acute systolic (congestive) heart failure; I42.9 Cardiomyopathy, unspecified; I16.1 Hypertensive emergency; I11.0 Hypertensive heart disease with heart failure; E66.9 Obesity, unspecified; E11.9 Type 2 diabetes mellitus without complications; I25.10 Atherosclerotic heart disease of native coronary artery without angina pectoris; G47.33 Obstructive sleep apnea (adult) (pediatric); R31.0 Gross hematuria; N40.1 Benign prostatic hyperplasia with lower urinary tract symptoms; R33.8 Other retention of urine; N32.89 Other specified disorders of bladder; Z68.35 Body mass index [BMI] 35.0-35.9, adult; Z79.82 Long term (current) use of aspirin; Z79.02 Long term (current) use of antithrombotics/antiplatelets; Z87.891 Personal history of nicotine dependence; Z79.01 Long term (current) use of anticoagulants; Z82.49 Family history of ischemic heart disease and other diseases of the circulatory system; Z90.79 Acquired absence of other genital organ(s); Z94.7 Corneal transplant status; Z79.84 Long term (current) use of oral hypoglycemic drugs; Z79.899 Other long term (current) drug therapy; Z91.012 Allergy to eggs
CPT/HCPCS: 36415; 71046; 71275; 74174; 80048; 80053; 81001; 83036; 83690; 83735; 83880; 84484; 85025; 85027; 85379; 85610; 85652; 85730; 86140; 92978; 93005; 93306; 93458; 96365; 96366; 96375; 96376; 99291

== ENCOUNTER → 2024-02-20 | Day surgery (SDC) | payer MEDICARE ==
[~2024-02-20] MED LIST: LACTATED RINGERS 1,000 ML IV SCH; TETRACAINE 0.5% OPHTH (PF) DROPS 4 ML BTL OP PRN; fentaNYL (PF) 50 MCG/ML 2 ML AMP ONE
[2024-02-20] MEDS: IV FLUID CONTINUATION 1,000 ML IV ONE (07:46)
[2024-02-20] MEDS: CYCLOPENTOLATE 1% OPHTH SOLN 2 ML BTL OP PRN (07:53)
[2024-02-20] MEDS: PHENYLEPHRINE 2.5% OPHTH DRP 2ML OP PRN (07:58)
[2024-02-20 08:12] LABS: Glucose,Whole Blood 128 mg/dL (70-110)
[2024-02-20 08:14] VITALS: RESP 16; TEMP 97.3
[2024-02-20] MEDS: BALANCED SALT IRRIG SOLN COMB2 15 ML IRRIG.SOLN INTRAOCULA ONE (09:03)
[2024-02-20] MEDS: LIDOCAINE 1% (PF) 10MG/ML VIAL MISCELLANE ONE (09:03)
[2024-02-20] MEDS: MOXIFLOXACIN HCL 0.5% DROPS 3 ML BTL OP PRN (09:04)
[2024-02-20] MEDS: TIMOLOL 0.5% OPHTH DROPS 5 ML BTL OP PRN (09:04)
[2024-02-20] MEDS: EPINEPHrine (PF) 0.3 ML in BALANCED SALT IRRIG SOLN COMB2 500 ML IRRIGATION ONE (09:04)
--- NOTE | 2024-02-20 09:12 | P.OP ---
Date of Procedure: 02/20/24 Preoperative Diagnosis: lens material in anterior chamber occluding vision Postoperative Diagnosis: same Procedure(s) Performed: irrigation and aspiration of anterior chamber contents Implants: none Anesthesia: MAC Surgeon: Emanuel Stevens Pathology: none sent Condition: stable Disposition: same day Indications for Procedure: occluded vision Operative Findings: no complications
[2024-02-20 09:33] VITALS: BP 123/73; PULSE 73
--- NOTE | 2024-02-20 19:07 | OP ---
OPERATIVE REPORT DATE OF SERVICE : 02/20/2024 PROCEDURE: Irrigation and aspiration of lens cortical material of the right eye. PREOPERATIVE DIAGNOSIS: Blurred vision, secondary to lenticular cortical material in the anterior chamber. POSTOPERATIVE DIAGNOSIS: Blurred vision, secondary to lenticular cortical material in the anterior chamber. ANESTHESIA: Topical. ESTIMATED BLOOD LOSS: None. SPECIMEN TAKEN: None. DESCRIPTION OF PROCEDURE: After obtaining the appropriate consent, the patient was brought to the operating room. There, he was placed under cardiac monitoring, prepped and draped in the usual sterile manner. He was approached from his right temporal side, and at the 11 o'clock position, an MVR blade was used to create a paracentesis port. Through this opening, 1% Xylocaine MPF 50:50 mix with balanced salt solution was injected into the anterior chamber. At the 9 o'clock position, a 2.5 mm keratome was used to create a self- sealing corneal flap incision. Under irrigation and aspiration, the cortical material from within the anterior chamber that was able to be identified and removed with the irrigation instrument was accomplished with little difficulty. The intraocular lens was gently probed for stability. Any remaining cortical material between the lens and the anterior capsular leaflet was also checked for stability, and a vacuum was drawn on it to attempt to remove any remaining cortical remnants from the previous cataract surgery. Once the irrigation aspiration tip was removed, the eye was brought to normal intraocular pressure through the paracentesis port. All wounds were confirmed watertight. At this point, he received 2 drops of 0.5% timolol, followed by 2 drops of 0.5% moxifloxacin and he was lightly patched and shielded in the usual manner. There were no complications from the procedure. He tolerated the procedure well and was returned to [facility] in good condition. MMODL / IJN: [id number] /
== END | disposition home or self-care (01) ==
LOC: OR 07:04
PROVIDERS: ATTEND Ophthalmology

== ENCOUNTER 2024-03-05 05:56 | Day surgery (SDC) | payer MEDICARE ==
[2024-02-29 12:42] VITALS: BMI 33.0
[2024-03-05] MEDS ORDERED: NITROGLYCERIN SL TABS 0.4 MG TAB SUBLINGUAL PRN (06:10)
[2024-03-05] MEDS ORDERED: ALPRAZolam 0.5 MG TAB PO PRN (06:10)
[2024-03-05] MEDS ORDERED: HEPARIN SODIUM,PORCINE (1 ML) 2,500 UNIT in SODIUM CHLORIDE 0.9% 250 ML IRRIGATION PRN (06:10)
[2024-03-05] MEDS ORDERED: ALPRAZolam 0.25 MG TAB PO PRN (06:10)
[2024-03-05] MEDS ORDERED: HEPARIN SODIUM,PORCINE 10,000 UNIT in SODIUM CHLORIDE 0.9% 1,000 ML IRRIGATION PRN (06:10)
[2024-03-05] MEDS ORDERED: ASPIRIN 325 MG TAB PO STA (06:10)
[2024-03-05] MEDS ORDERED: ATORVASTATIN 80 MG TAB PO STA (06:10)
[2024-03-05 06:25] LABS: Glucose,Whole Blood 113 mg/dL (70-110)
[2024-03-05] MEDS: SODIUM CHLORIDE 0.9% 1,000 ML in EMPTY BAG 1 BAG IV SCH (06:36)
[2024-03-05 06:37] VITALS: RESP 18; TEMP 98.4
[2024-03-05] MEDS: IV FLUID CONTINUATION 1,000 ML IV ONE (06:37)
[2024-03-05 06:38] LABS: Basophils # (A) 0.1 k/uL (0-0.2); Basophils % (A) 1 %; Eosinophils # (A) 0.2 k/uL (0-0.7); Eosinophils % (A) 2 %; HCT 45.7 % (39.0-53.0); HGB 14.3 gm/dL (13.0-17.5); Hypochromasia Slight; Lymphocytes # (A) 2.6 k/uL (1.0-4.8); Lymphocytes % (A) 28 %; MCH 26.8 pg (25.0-35.0); MCHC 31.3 g/dL (31.0-37.0); MCV 85.6 fL (80.0-100.0); Mean Platelet Volume 6.8; Monocytes # (A) 0.5 k/uL (0-1.0); Monocytes % (A) 6 %; Neutrophils # (A) 5.8 k/uL (1.3-7.7); Neutrophils % (A) 62 %; Platelet Count 279 k/uL (150-450); RBC 5.35 m/uL (4.30-5.90); WBC 9.4 k/uL (3.8-10.6)
[2024-03-05 07:01] LABS: African American GFR (CKD) 73 (>60 ml/min/1.73 sqM); Anion Gap 9 mmol/L; Blood Urea Nitrogen 14 mg/dL (9-20); Calcium 9.6 mg/dL (8.4-10.2); Carbon Dioxide 24 mmol/L (22-30); Chloride 105 mmol/L (98-107); Glucose 125 mg/dL (74-99); Non-African American GFR(CKD) 63 (>60 ml/min/1.73 sqM); Potassium 4.6 mmol/L (3.5-5.1); Sodium 138 mmol/L (137-145)
[2024-03-05] MEDS: fentaNYL (PF) 50 MCG/ML 2 ML AMP IVP ONE (07:47)
[2024-03-05] MEDS: MIDAZOLAM 2 MG/2 ML VIAL IVP ONE (07:47)
[2024-03-05] MEDS: LIDOCAINE 1% INJ 10MG/ML (20 ML MDV) SQ ONE (07:52)
[2024-03-05] MEDS: VERAPAMIL SYRINGE (5 MG/10 ML) INTRAARTER ONE (07:54)
[2024-03-05] MEDS: HEPARIN SODIUM 1,000 UN/ML (10ML VL) IVP ONE (07:59)
[2024-03-05] MEDS: IOPAMIDOL-370 100ML BTL INJ ONE (08:34)
--- NOTE | 2024-03-05 08:58 | IR ---
EXAMINATION TYPE: IR angio carotid cerv BILAT DATE OF EXAM: 03/05/2024 COMPARISON: NONE CLINICAL INDICATION: Male, 79 years old with history of Possible stenosis, 9.9m/56.2DAP Lt radial 15c c; Fluoroscopy was provided to the referring clinician. [facility], , 03/05/2024 8:56 AM
--- NOTE | 2024-03-05 09:43 | P.CARDCATH ---
Description of Procedure: PROCEDURES PERFORMED: Left heart catheterization, bilateral coronary angiography, ultrasound guided arterial access, iFR left main, left carotid angiogram, ascending aortic angiogram INDICATION: Unstable angina, abnormal carotid artery ultrasound CONSENT:I have discussed the risks, benefits and alternative therapies for the above-mentioned procedure and for both sedation/analgesia as well as necessary blood product administration, if indicated, as they pertain to this patient. The patient has indicated understanding and acceptance of the risks and procedures discussed. PROCEDURE: After the risks, benefits and alternatives of the above mentioned procedure explained in detail with the patient, informed consent was obtained. Patient was taken to the catheterization lab and prepped and draped in usual fashion. Ultrasound guidance was used to assess for arterial access. Patient previously has significant tortuosity from the right radial approach and therefore left radial was used. 1% lidocaine was used to anesthetize the left radial artery. A 6-Pashto sheath was placed in the left radial artery using modified Seldinger technique and ultrasound guidance. Left coronary angiography was performed with a 5-Pashto JL 4.0 catheter and right coronary angiography was performed with a 5-Pashto FR5 catheter in various views. A 5-Pashto FR5 catheter was inserted into the left ventricle and pressure measurements were obtained. The decision was made to perform functional assessment of the left main. Heparin was given. A 0.014 pressure wire was advanced into the proximal left main and normalized. It was then advanced into the proximal LAD and was initially normal at 0.91. It was then renormalized and advanced into the proximal circumflex and this was abnormal at 0.88. An ascending aortic angiogram was performed with a 5Fr pigtail catheter. Next a Sim 2 catheter was used to engage the left common carotid artery. Left carotid angiogram was performed. The left radial sheath was removed and a TR band was placed with hemostasis achieved. The patient tolerated the procedure well. Patient was transported back to the post catheterization holding area in stable condition. Conscious Sedation: Patient was monitored under the direct supervision of myself for conscious sedation using Versed and fentanyl for a total duration of 41 minutes HEMODYNAMICS: Ao: 95/78 LV: 100/10, LVEDP 22 SELECTIVE CORONARY ARTERIOGRAPHY: LEFT MAIN: The left main is a large caliber vessel which bifurcates into the LAD and circumflex. There is distal left main 50% stenosis. LEFT ANTERIOR DESCENDING CORONARY ARTERY: LAD is a large caliber vessel which wraps around to the apex. There is mild diffuse 20-30% proximal LAD stenosis and patent mid LAD stent as well as distal LAD stent. There is a mid LAD 60-70% stenosis in between the stents. Diagonal 1 has 40-50% proximal stenosis and diagonal 2 has proximal 40-50% stenosis. There are left to right collaterals to the PDA. LEFT CIRCUMFLEX CORONARY ARTERY: Left circumflex is a moderate caliber vessel with OM1 patent stents proximally and at the distal edge of the stent, 90% mid OM1 stenosis. After OM1, the circumflex gives off a small caliber AV groove branch. RIGHT CORONARY ARTERY: The right coronary artery is a large caliber vessel which gives off a PDA and PLV branch and is the dominant vessel. There is high bifurcation and after giving off PLV branch there is 100% RCA stenosis which appears to give off the PDA (collateralized by the LAD). Ascending aortic angiogram: There is no significant aneurysm or dissection. There is a bovine arch. Left carotid angiogram: The common carotid has no significant stenosis. The internal carotid artery has a 99% stenosis. FINAL IMPRESSION: 1. CAD as described above including 50% left main, mid LAD 60-70% stenosis, OM1 90%, RCA 100% with left to right collaterals. 2. iFR left main to LAD 0.91, iFR left main to circumflex 0.88 3. 99% left internal carotid artery stenosis 4. Elevated left sided filling pressures PLAN: 1. Aggressive risk factor modification per most recent ACC/AHA guidelines. 2. CABG eval given left main disease. If felt higher risk, or poor targets, culprit artery appears to be OM1 and consider PCI OM1, possible carotid stenting vs endarterectomy.
[2024-03-05] MEDS: ACETAMINOPHEN TAB 500 MG TAB PO PRN (10:02)
--- NOTE | 2024-03-05 11:26 | P.GSCN ---
History of Present Illness Consult date: 03/05/24 Reason for Consult: Coronary artery disease Requesting physician: Lauro Roque History of present illness: This is a 79-year-old gentleman who follows outpatient with Dr. Villarreal for primary care and Dr. Roque for cardiology. He has a previous medical history of coronary artery disease with previous myocardial infarction and PCI, hypertension, hyperlipidemia with statin/Repatha/Zetia intolerance, severe left internal carotid artery stenosis, headaches with recommendation for biopsy to rule out giant cell arteritis, type 2 diabetes, obstructive sleep apnea without home CPAP use, BPH, previous heavy tobacco dependence, and significant family history of coronary artery disease including premature coronary artery disease as his brother had open heart surgery in his 40s. This gentleman experienced chest pain and shortness of breath in January 2023, he came into the hospital and was ruled in for non-STEMI, taken to the [facility] with stents placed to the LAD as well as circumflex coronary artery. He is continue to follow-up with Dr. Roque since then. Unfortunately he continues to experience chest pain and shortness of breath with exertion as well as occasional lightheadedness. He was brought in for elective heart catheterization and left carotid angiogram by Dr. Roque. He was found to have coronary artery disease including 50% left main, mid LAD 60 to 70% stenosis, OM1 90% stenosis, RCA 100% stenosis with szdp-nx-tyels collaterals, IFR of the left main to the LAD was 0.91, IFR of the left main to the circumflex was 0.88, and left internal carotid artery stenosis was 99%. Due to these findings consultation was placed to Dr. Polanco from cardiothoracic surgery for revascularization recommendations. Of note patient had a transthoracic echocardiogram at the cardiology office on January 22, 2024 revealing normal left ventricular systolic function with EF 55 to 60%, mild aortic stenosis with valve area 1.63 cm along with peak/mean gradient 13/7 mmHg, mild mitral regurgitation, and mild tricuspid regurgitation. Carotid dopplers have also been completed. Review of Systems Review of systems was completed and was negative except as noted - Cardiovascular Reports as per HPI, Reports chest pain, Reports dyspnea on exertion Past Medical History Past Medical History: Coronary Artery Disease (CAD), Chest Pain / Angina, Diabetes Mellitus, Eye Disorder, Hyperlipidemia, Hypertension, Myocardial Infarction (RI), Prostate Disorder, Sleep Apnea/CPAP/BIPAP Additional Past Medical History / Comment(s): Occasional irregular heart rate("extra beat"), hernia, no cpap used, hx gout, kidney stone. Last Myocardial Infarction Date:: 02/07/23 History of Any Multi-Drug Resistant Organisms: None Reported Past Surgical History: Appendectomy, Heart Catheterization With Stent, Orthopedic Surgery, Prostate Surgery, Tonsillectomy Additional Past Surgical History / Comment(s): Bilateral corneal transplant, bilateral cataract surgery, left knee replacement,TURP, cardiac stents X4, 2nd right eye surgery after cataract removed. Past Anesthesia/Blood Transfusion Reactions: No Reported Reaction Additional Past Anesthesia/Blood Transfusion Reaction / Comm: "Hard time waking up." - with one surgery. Date of Last Stent Placement:: 02/07/23 Past Psychological History: No Psychological Hx Reported Smoking Status: Former smoker Past Alcohol Use History: None Reported Past Drug Use History: None Reported Additional History: Quit smoking in 1982, prior to that smoked 3 packs/day for 15 years - Past Family History Father Family Medical History: Coronary Artery Disease (CAD) Additional Family Medical History / Comment(s): Triple bypass in his 80s ( at 93 years old) Brother(s) Family Medical History: Coronary Artery Disease (CAD) Additional Family Medical History / Comment(s): Triple bypass in his 40s (still alive in his 80s) Mother Additional Family Medical History / Comment(s): Medications and Allergies Home Medications Medication Instructions Recorded Confirmed Type Albuterol Sulfate [Albuterol 2 puff INHALATION RT-Q6H PRN 02/07/23 03/05/24 History Sulfate Hfa] Brinzolamide [Brinzolamide 1% 1 drop BOTH EYES BID 02/07/23 03/05/24 History Ophth Susp] Carboxymethylcellulose Sodium 1 drop BOTH EYES QID PRN 02/07/23 03/05/24 History [Refresh Tears] Glimepiride [Amaryl] 2 mg PO DAILY 02/07/23 03/05/24 History Aspirin 81 mg PO DAILY tab 02/10/23 03/05/24 Rx Metoprolol Succinate (ER) [Toprol 25 mg PO DAILY 30 Days #30 tab 02/10/23 03/05/24 Rx XL] Clopidogrel [Plavix] 75 mg PO HS 02/19/24 03/05/24 History Losartan [Cozaar] 25 mg PO HS 02/19/24 03/05/24 History Nitroglycerin 1 tab SL DIRECTED PRN 02/19/24 03/05/24 History Umeclidinium Brm/Vilanterol Tr 1 inh INHALATION BID PRN 02/19/24 03/05/24 History [Anoro Ellipta 62.5-25 Mcg INH] Allergies Allergy/AdvReac Type Severity Reaction Status Date / Time No Known Allergies Allergy Verified 03/05/24 06:17 Surgical - Exam Vital Signs Temp Pulse Resp BP Pulse Ox 98.4 F 56 L 18 146/81 94 L 03/05/24 06:33 03/05/24 06:33 03/05/24 06:33 03/05/24 06:33 03/05/24 06:33 CONSTITUTIONAL: Awake and alert, appears comfortable, cooperative, well- developed, well-nourished, no pain, no acute distress EYES: Pupils equal, round, normal ocular movement ENT: Moist mucous membranes without oral lesions present NECK: No masses, no bruits, trachea midline RESPIRATORY: Lungs sounds clear to auscultation bilaterally. Respirations even , nonlabored. Currently on room air with oxygen saturation 90%. Strong cough. No chest wall deformities. No clubbing or cyanosis present CARDIOVASCULAR: S1, S2 present. Regular rate and rhythm, sinus rhythm on telemetry. Palpable peripheral pulses bilaterally. No edema present. No calf pain or tenderness noted. No significant lower extremity varicosities noted GASTROINTESTINAL: Abdomen soft, nontender, nondistended without masses or organomegaly noted. There is no rebound or guarding present. Active bowel sounds present 4 quadrants. GENITOURINARY: Deferred INTEGUMENTARY: Skin is warm and dry NEUROLOGIC: Cranial nerves II through XII intact, normal coordination, no obvious motor or sensory deficits, speech is normal MUSKULOSKELETAL: Able to move all extremities, strength equal bilaterally, normal posture PSYCHIATRIC: Alert and oriented to person place and time, appropriate affect, intact judgment and insight CLINICAL FRAILTY SCORE 5 Results - Labs 03/05/24 06:15 03/05/24 06:15 Abnormal Lab Results - Last 24 Hours (Table) 03/05/24 03/05/24 Range/Units 06:15 06:24 Glucose 125 H (74-99) mg/dL POC Glucose (mg/dL) 113 H (70-110) mg/dL Diabetes panel 03/05/24 Range/Units 06:15 Sodium 138 (137-145) mmol/L Potassium 4.6 (3.5-5.1) mmol/L Chloride 105 (98-107) mmol/L Carbon Dioxide 24 (22-30) mmol/L BUN 14 (9-20) mg/dL Creatinine 1.12 (0.66-1.25) mg/dL Glucose 125 H (74-99) mg/dL Calcium 9.6 (8.4-10.2) mg/dL Calcium panel 03/05/24 Range/Units 06:15 Calcium 9.6 (8.4-10.2) mg/dL Pituitary panel 03/05/24 Range/Units 06:15 Sodium 138 (137-145) mmol/L Potassium 4.6 (3.5-5.1) mmol/L Chloride 105 (98-107) mmol/L Carbon Dioxide 24 (22-30) mmol/L BUN 14 (9-20) mg/dL Creatinine 1.12 (0.66-1.25) mg/dL Glucose 125 H (74-99) mg/dL Calcium 9.6 (8.4-10.2) mg/dL Adrenal panel 03/05/24 Range/Units 06:15 Sodium 138 (137-145) mmol/L Potassium 4.6 (3.5-5.1) mmol/L Chloride 105 (98-107) mmol/L Carbon Dioxide 24 (22-30) mmol/L BUN 14 (9-20) mg/dL Creatinine 1.12 (0.66-1.25) mg/dL Glucose 125 H (74-99) mg/dL Calcium 9.6 (8.4-10.2) mg/dL - Imaging Additional studies: Heart catheterization films reviewed Assessment and Plan Assessment: Coronary artery disease with previous myocardial infarction and PCI Severe left internal carotid artery stenosis History of hypertension Hyperlipidemia with statin/Repatha/Zetia intolerance Headaches with recommendation for biopsy to rule out giant cell arteritis Type 2 diabetes Obstructive sleep apnea without home CPAP use BPH Previous heavy tobacco dependence Significant family history of coronary artery disease including premature coronary artery disease as his brother had open heart surgery in his 40s Plan: The patient was seen and examined in the Extended Stay unit sitting up on a cart in no acute distress. Currently in sinus rhythm, hemodynamically stable. States his symptomology is chest pain and shortness of breath with exertion only, he does admit to headaches and occasional lightheadedness. Denies symptoms at rest. The usual perioperative course of open-heart surgery was discussed with the patient, risks and benefits were reviewed, all questions were answered. Will discuss the case with Dr. Polanco and make further recommendations as appropriate. Recommend continuing to maximize medical therapy with aspirin, Plavix, beta-valerie. Would prefer patient be on a statin medication, however the patient is insistent he is not willing to take statins/Zetia/Repatha as he has severe weakness and intolerance when trying these medications in the past. Patient may be discharged to home once seen by Dr. Polanco. More recommendations to follow. Thank you Dr. Roque for this consult. I have personally seen and examined the patient, performed the documentation and the assessment and plan as written. Number of minutes spent on the visit: 30. MARYAM Song
[2024-03-05 15:11] VITALS: BP 140/82; PULSE 65
== END 2024-03-05 15:28 | disposition home or self-care (01) ==
LOC: CATHCVL 05:56
PROVIDERS: ATTEND Internal Medicine
DX: I25.110 Atherosclerotic heart disease of native coronary artery with unstable angina pectoris (principal); I65.22 Occlusion and stenosis of left carotid artery; I25.5 Ischemic cardiomyopathy; E78.2 Mixed hyperlipidemia; I10 Essential (primary) hypertension; G47.33 Obstructive sleep apnea (adult) (pediatric); E11.9 Type 2 diabetes mellitus without complications; F17.200 Nicotine dependence, unspecified, uncomplicated; Z79.84 Long term (current) use of oral hypoglycemic drugs; Z79.899 Other long term (current) drug therapy
CPT/HCPCS: 80048; 85025; 93458; 99152; 99153; J2250; J2003; J3010; J1644; Q9967; 36222; 93567; 93799

== ENCOUNTER 2024-03-19 06:56 | Inpatient (IN) | payer MEDICARE ==
[~2024-03-19 06:56] MED LIST changes: +ALPRAZolam 0.25 MG TAB PO PRN; +ALPRAZolam 0.5 MG TAB PO PRN; -LACTATED RINGERS 1,000 ML IV SCH; +NITROGLYCERIN SL TABS 0.4 MG TAB SUBLINGUAL PRN; -TETRACAINE 0.5% OPHTH (PF) DROPS 4 ML BTL OP PRN; -fentaNYL (PF) 50 MCG/ML 2 ML AMP ONE
[2024-03-19] MEDS ORDERED: CLOPIDOGREL 75 MG TAB PO PRN (07:00)
[2024-03-19] MEDS: SODIUM CHLORIDE 0.9% 1,000 ML in EMPTY BAG 1 BAG IV ONE (07:32)
[2024-03-19] MEDS: ASPIRIN 81 MG PO PRN (07:32)
[2024-03-19] MEDS: IV FLUID CONTINUATION 1,000 ML IV ONE (07:35)
[2024-03-19 07:38] LABS: Glucose,Whole Blood 101 mg/dL (70-110)
[2024-03-19] MEDS ORDERED: RX INFO: IV CONTRAST WAS GIVEN 1 EACH MISC MISCELLANE PRN (09:00)
[2024-03-19] MEDS: LIDOCAINE 1% INJ 10MG/ML (20 ML MDV) SQ ONE ×2 (09:23→09:25)
[2024-03-19] MEDS: VERAPAMIL SYRINGE (5 MG/10 ML) INTRAARTER ONE (09:30)
[2024-03-19] MEDS: MIDAZOLAM 2 MG/2 ML VIAL IVP ONE (09:45)
[2024-03-19] MEDS: fentaNYL (PF) 50 MCG/ML 2 ML AMP IVP ONE (09:45)
[2024-03-19] MEDS: HEPARIN SODIUM 1,000 UN/ML (10ML VL) IV ONE (09:56)
[2024-03-19] MEDS: ATROPINE SULFATE 0.1 MG/ML 10ML SYRINGE IVP ONE (10:26)
[2024-03-19] MEDS: CLOPIDOGREL 75 MG TAB PO ONE (10:30)
[2024-03-19] MEDS: IOPAMIDOL-370 100ML BTL INJ ONE (10:40)
[2024-03-19] MEDS ORDERED: ALBUTEROL NEBULIZED 2.5 MG/3 ML INHALATION PRN (10:48)
[2024-03-19] MEDS ORDERED: ARTIFICIAL TEARS-HYPROMELLOSE DROPS 15 ML BTL BOTH EYES PRN (10:48)
[2024-03-19] MEDS ORDERED: FORMOTEROL FUMARATE 20 MCG/2 ML NEBU INHALATION PRN (10:48)
[2024-03-19] MEDS ORDERED: ATROPINE SULFATE 0.1 MG/ML 10ML SYRINGE IV PRN (10:50)
--- NOTE | 2024-03-19 12:55 | IR ---
EXAMINATION TYPE: IR stent intravas non coronary DATE OF EXAM: 03/19/2024 10:59 AM COMPARISON: Pre Operative Images if available both CT/MRI or plain film CLINICAL INDICATION: Male, 79 years old with history of left carotid stenosis, 13.8min fluoro, 41.407 1GYcm2; TECHNIQUE: IR stent intravas non coronary, multiple fluoroscopic images provided for procedure. Total fluoroscopy time: 13.8 min Total submitted images to PACS: [id number] DAP: 41.4071 mGym2 Gycm2 uGym2 cGycm2 or equivalent. FINDINGS: IMPRESSION: 1. Report was generated for administrative purposes only. 2. Please see the operative/procedural note for further details. [facility], , 03/19/2024 12:53 PM
[2024-03-19] MEDS: ACETAMINOPHEN TAB 325 MG TAB PO PRN (13:01)
[2024-03-19] MEDS ORDERED: IPRATROPIUM 0.5 MG/2.5 ML NEBU INHALATION PRN (14:39)
[2024-03-19 16:20] LABS: Glucose,Whole Blood 103 mg/dL (70-110)
--- NOTE | 2024-03-19 17:19 | P.PCN ---
Description of Procedure: DESCRIPTION OF PROCEDURE(S): PROCEDURES PERFORMED: Ultrasound guided access, left selective carotid angiography, left carotid stent with a 6 x 8 x 40mm XACT stent post dilated with a 5.0mm balloon INDICATION: Severe symptomatic left carotid stenosis HISTORY: Patient is a pleasant 79 yo male with history of CAD and carotid disease. He was deemed high risk for both CABG and high risk for CEA. Therefore recommended to undergo carotid stenting. He has been having new onset of TIA symptoms with episodes of decreased speech and expressive aphasia. CONSENT:I have discussed the risks, benefits and alternative therapies for the above-mentioned procedure and for both sedation/analgesia as well as necessary blood product administration, if indicated, as they pertain to this patient. The patient has indicated understanding and acceptance of the risks and procedures discussed. PROCEDURE: After the risks, benefits and alternatives of the above mentioned procedure explained in detail with the patient, informed consent was obtained. Patient was taken to the catheterization lab and prepped and draped in usual fashion. 1% lidocaine was used to anesthetize the right radial area initially given a bovine arch and Type 3 aortic arch. A 6-Colombian sheath was placed in the right radial artery using modified Seldinger technique and ultrasound. Patient did have significant right radial loop with ability to pass a guide wire however difficulty advancing catheters. Advanced a microcatheter and unable to engage the left common carotid and therefore decided to perform femoral approach. A 6Fr sheath was placed in the right femoral artery. Next using VTK catheter the proximal left common carotid artery was engaged and selective angiography was performed. Angiography showed severe LICA disease. Therefore decision was made to perform stent. A 0.035 stiff glide was advanced into the left external carotid artery. A d estination sheath was advanced to the left common carotid. Heparin was given. A filter wire and filter were advanced into the petrous portion of the left internal carotid artery. Pre dilation was performed with a 3.0mm balloon. A 6-8-40mm XACT stent was placed from the common carotid into the LICA. The stent was post dilated with a 5.0mm balloon. Final angiograms were performed. Preintervention there was 99% stenosis with sluggish antegrade flow and post intervention there was unimpeded blood flow with < 10% stenosis. A right femoral angiogram was performed and anatomoy was suitable for closure. A 6Fr Angioseal was placed with hemostasis achieved. The patient tolerated the procedure well. Patient was transported back to the post catheterization holding area in stable condition. Conscious Sedation: Patient was monitored under the direct supervision of vision of myself for conscious sedation using Versed and fentanyl for a total duration of [] minutes ASCENDING AORTA: There is no significant aneurysm or stenosis. Left common carotid: No significant stenosis Left internal carotid artery: 99% proximal stenosis FINAL IMPRESSION: 1. 99% proximal left internal carotid artery stenosis 2. S/p left carotid stent with a 6 x 8 x 40mm XACT stent post dilated with a 5.0mm balloon PLAN: 1. Aggressive risk factor modification per most recent ACC/AHA guidelines. 2. Continue dual antiplatelets with aspirin and Plavix for 6 months.
[2024-03-19 19:57] LABS: Glucose,Whole Blood 124 mg/dL (70-110)
[2024-03-19] MEDS: DORZOLAMIDE HCL 2% DROPS 10 ML BTL BOTH EYES SCH (20:52)
[2024-03-19] MEDS: LOSARTAN 25 MG TAB PO SCH (20:52)
[2024-03-19] MEDS: CLOPIDOGREL 75 MG TAB PO SCH (20:52)
[2024-03-19] MEDS: ATORVASTATIN 40 MG TAB PO SCH (20:52)
[2024-03-20] MEDS: MAG HYDROX/AL HYDROX/SIMETH 30 ML CUP PO PRN (03:27)
[2024-03-20 05:50] LABS: Glucose,Whole Blood 93 mg/dL (70-110)
[2024-03-20 07:48] LABS: African American GFR (CKD) 84 (>60 ml/min/1.73 sqM); Anion Gap 5 mmol/L; Blood Urea Nitrogen 15 mg/dL (9-20); Calcium 8.4 mg/dL (8.4-10.2); Carbon Dioxide 23 mmol/L (22-30); Chloride 107 mmol/L (98-107); Glucose 92 mg/dL (74-99); Non-African American GFR(CKD) 73 (>60 ml/min/1.73 sqM); Potassium 3.8 mmol/L (3.5-5.1); Sodium 135 mmol/L (137-145)
[2024-03-20 07:53] LABS: Basophils % (A) 1 %; Eosinophils # (A) 0.1 k/uL (0-0.7); Eosinophils % (A) 1 %; HCT 35.2 % (39.0-53.0); Hypochromasia Moderate; Lymphocytes # (A) 1.8 k/uL (1.0-4.8); Lymphocytes % (A) 22 %; MCH 26.4 pg (25.0-35.0); MCHC 31.2 g/dL (31.0-37.0); MCV 84.6 fL (80.0-100.0); Mean Platelet Volume 6.9; Monocytes # (A) 0.4 k/uL (0-1.0); Monocytes % (A) 4 %; Neutrophils # (A) 5.9 k/uL (1.3-7.7); Neutrophils % (A) 71 %; Platelet Count 278 k/uL (150-450); RBC 4.16 m/uL (4.30-5.90); RDW 14.5 % (11.5-15.5); WBC 8.3 k/uL (3.8-10.6)
[2024-03-20] MEDS: ASPIRIN 81 MG PO SCH (09:18)
[2024-03-20] MEDS: GLIMEPIRIDE 2 MG TAB PO SCH (09:18)
[2024-03-20] MEDS: METOPROLOL SUCCINATE (ER) 25 MG TAB.ER.24H PO SCH (09:18)
[2024-03-20 10:45] VITALS: BP 107/62; PULSE 63; RESP 18; TEMP 97.9
[2024-03-20 11:15] LABS: Glucose,Whole Blood 119 mg/dL (70-110)
== END 2024-03-20 12:37 | disposition home or self-care (01) | DRG 36 ==
LOC: 2ORMAIN 06:56 → 3SCARD 14:30
PROVIDERS: ADMIT Internal Medicine; ATTEND Internal Medicine
PROC: B3171ZZ Fluoroscopy of Left Internal Carotid Artery using Low Osmolar Contrast (ICD-10-PCS; 2024-03-19)
PROC: B41F1ZZ Fluoroscopy of Right Lower Extremity Arteries using Low Osmolar Contrast (ICD-10-PCS; 2024-03-19)
PROC: 037L3DZ Dilation of Left Internal Carotid Artery with Intraluminal Device, Percutaneous Approach (ICD-10-PCS; principal; 2024-03-19 09:00)
DX: I65.22 Occlusion and stenosis of left carotid artery (principal); I25.10 Atherosclerotic heart disease of native coronary artery without angina pectoris; E66.9 Obesity, unspecified; G47.33 Obstructive sleep apnea (adult) (pediatric); E11.9 Type 2 diabetes mellitus without complications; I10 Essential (primary) hypertension; I25.5 Ischemic cardiomyopathy; E78.2 Mixed hyperlipidemia; Z98.61 Coronary angioplasty status; Z79.84 Long term (current) use of oral hypoglycemic drugs; Z79.51 Long term (current) use of inhaled steroids; Z79.02 Long term (current) use of antithrombotics/antiplatelets; Z79.899 Other long term (current) drug therapy; Z79.82 Long term (current) use of aspirin; Z68.32 Body mass index [BMI] 32.0-32.9, adult; Z82.49 Family history of ischemic heart disease and other diseases of the circulatory system
CPT/HCPCS: 37215; 80048; 85025

== ENCOUNTER 2024-04-02 10:01 | Day surgery (SDC) | payer MEDICARE ==
[~2024-04-02 10:01] MED LIST changes: +ASPIRIN 325 MG TAB PO ONE; +ATORVASTATIN 80 MG TAB PO ONE
[2024-04-02 10:34] VITALS: RESP 18; TEMP 97
[2024-04-02 10:35] LABS: Glucose,Whole Blood 99 mg/dL (70-110)
[2024-04-02] MEDS: IV FLUID CONTINUATION 1,000 ML IV ONE ×2 (10:37→15:00)
[2024-04-02] MEDS: SODIUM CHLORIDE 0.9% 1,000 ML in EMPTY BAG 1 BAG IV SCH (10:37)
[2024-04-02] MEDS: fentaNYL (PF) 50 MCG/1 ML VIAL IVP ONE (12:10)
[2024-04-02] MEDS: MIDAZOLAM 2 MG/2 ML VIAL IVP ONE (12:10)
[2024-04-02] MEDS: LIDOCAINE 1% INJ 10MG/ML (20 ML MDV) SQ ONE ×2 (12:10→12:11)
[2024-04-02] MEDS: HEPARIN SODIUM 1,000 UN/ML (10ML VL) IV ONE (12:16)
[2024-04-02] MEDS: VERAPAMIL SYRINGE (5 MG/10 ML) INTRAARTER ONE (12:16)
[2024-04-02] MEDS: HEPARIN SODIUM,PORCINE (1 ML) 2,500 UNIT in SODIUM CHLORIDE 0.9% 250 ML IRRIGATION PRN (12:17)
[2024-04-02] MEDS: HEPARIN SODIUM,PORCINE 10,000 UNIT in SODIUM CHLORIDE 0.9% 1,000 ML IRRIGATION PRN (12:17)
[2024-04-02] MEDS: NITROGLYCERIN 1000MCG/10ML SYRINGE INTRACORON ONE (12:32)
[2024-04-02] MEDS: IOPAMIDOL-370 100ML BTL INJ ONE ×2 (12:36→12:45)
[2024-04-02] MEDS ORDERED: ARTIFICIAL TEARS-HYPROMELLOSE DROPS 15 ML BTL BOTH EYES PRN (12:51)
[2024-04-02] MEDS ORDERED: IBUPROFEN 400 MG TAB PO PRN (12:51)
[2024-04-02] MEDS ORDERED: NITROGLYCERIN SL TABS 0.4 MG TAB SUBLINGUAL PRN (12:51)
[2024-04-02] MEDS ORDERED: ALBUTEROL NEBULIZED 2.5 MG/3 ML INHALATION PRN (12:51)
[2024-04-02] MEDS ORDERED: MAG HYDROX/AL HYDROX/SIMETH 30 ML CUP PO PRN (12:53)
[2024-04-02] MEDS ORDERED: ATROPINE SULFATE 0.1 MG/ML 10ML SYRINGE IV PRN (12:53)
[2024-04-02] MEDS ORDERED: RX INFO: IV CONTRAST WAS GIVEN 1 EACH MISC MISCELLANE PRN (12:53)
[2024-04-02] MEDS ORDERED: ZOLPIDEM 5 MG TAB PO PRN (12:53)
--- NOTE | 2024-04-02 14:31 | P.PRCINT ---
Percutaneous Coronary Int. - Percutaneous Coronary Intervention Percutaneous Coronary Intervention: PROCEDURES PERFORMED: Left coronary angiography, ultrasound guided arterial access, PCI circumflex with a 3.25 x 8mm Xience ROCKY INDICATION: NYHA class 3 symptoms, CAD CONSENT:I have discussed the risks, benefits and alternative therapies for the above-mentioned procedure and for both sedation/analgesia as well as necessary blood product administration, if indicated, as they pertain to this patient. The patient has indicated understanding and acceptance of the risks and procedures discussed. PROCEDURE: After the risks, benefits and alternatives of the above mentioned procedure explained in detail with the patient, informed consent was obtained. Patient was taken to the catheterization lab and prepped and draped in usual fashion. Ultrasound guidance was used to assess for arterial access. 1% lidocaine was used to anesthetize the right radial artery. A 6-Qatari sheath was placed in the left radial artery using modified Seldinger technique and ultrasound guidance. The decision was made to perform PCI of the circumflex. Heparin was given. A 6-Qatari FL 4.0 guide was used to engage the left main. There was dampening ventricularization when deep-seated. A 0.014 BMW wire 2 was placed into the d istal circumflex. Predilation was performed with a 1.5 and then a 2.5 by 8 mm balloon. Next PCI was performed with a 3.25 x 8 mm Xience ROCKY. Final angiograms were performed. Prevention there was 90% stenosis with SRI 3 flow and postintervention there was less than 10% stenosis with SRI 3 flow. The radial sheath was removed and a TR band was placed with hemostasis achieved. The patient tolerated the procedure well. Patient was transported back to the post catheterization holding area in stable condition. Conscious Sedation: Patient was monitored under the direct supervision of myself for conscious sedation using Versed and fentanyl for a total duration of 42 minutes HEMODYNAMICS: Ao: 112/71 SELECTIVE CORONARY ARTERIOGRAPHY: LEFT MAIN: The left main is a large caliber vessel which bifurcates into the LAD and circumflex. There is distal left main 50-60% stenosis. LEFT ANTERIOR DESCENDING CORONARY ARTERY: LAD is a large caliber vessel which wraps around to the apex. There is mild diffuse 20-30% proximal LAD stenosis and patent mid LAD stent as well as distal LAD stent. There is a mid LAD 60-70% stenosis in between the stents. Diagonal 1 has 40-50% proximal stenosis and diagonal 2 has proximal 40-50% stenosis. There are left to right collaterals to the PDA. LEFT CIRCUMFLEX CORONARY ARTERY: Left circumflex is a moderate caliber vessel with OM1 patent stents proximally and at the distal edge of the stent, 90% mid OM1 stenosis. After OM1, the circumflex gives off a small caliber AV groove branch. RIGHT CORONARY ARTERY: The right coronary artery is a large caliber vessel which gives off a PDA and PLV branch and is the dominant vessel. There is high bifurcation and after giving off PLV branch there is 100% RCA stenosis which appears to give off the PDA (collateralized by the LAD). FINAL IMPRESSION: 1. CAD as described above including left main 50-60% stenosis, mid LAD 60-70% stenosis, diagonal 40-50% stenosis, 90% mid OM1 stenosis, 100% RCA with left-to- right collaterals. 2. S/p PCI circumflex with a 3.25 x 8mm Xience ROCKY PLAN: 1. Aggressive risk factor modification per most recent ACC/AHA guidelines. 2. If still significantly symptomatic may consider complex PCI left main. 3. Continue dual antiplatelets with aspirin and Plavix for 6 months.
[2024-04-02 16:26] VITALS: BP 104/56; PULSE 74
[2024-04-02] MEDS ORDERED: IPRATROPIUM 0.5 MG/2.5 ML NEBU INHALATION SCH (20:00)
[2024-04-02] MEDS ORDERED: SYMBICORT 160-4.5 MCG INHALER INHALATION SCH (20:00)
[2024-04-02] MEDS ORDERED: METOPROLOL SUCCINATE (ER) 25 MG TAB.ER.24H PO SCH (21:00)
[2024-04-02] MEDS ORDERED: GLIMEPIRIDE 2 MG TAB PO SCH (21:00)
[2024-04-02] MEDS ORDERED: CLOPIDOGREL 75 MG TAB PO SCH (21:00)
[2024-04-02] MEDS ORDERED: LOSARTAN 25 MG TAB PO SCH (21:00)
[2024-04-03] MEDS ORDERED: ATORVASTATIN 40 MG TAB PO SCH (21:00)
[2024-04-03] MEDS ORDERED: ASPIRIN 81 MG PO SCH (21:00)
== END 2024-04-02 16:55 | disposition home or self-care (01) ==
LOC: CATHCVL 10:01
PROVIDERS: ATTEND Internal Medicine
DX: I25.10 Atherosclerotic heart disease of native coronary artery without angina pectoris (principal); Z79.02 Long term (current) use of antithrombotics/antiplatelets; Z95.5 Presence of coronary angioplasty implant and graft
CPT/HCPCS: 99152; 99153; 93454; C1769 ×4; C9600; C1887; C1894 ×2; C1725 ×2; C1874; J2250; J1644 ×3; J2003; Q9967; J3010; J2305

== ENCOUNTER 2024-04-04 12:15 | Inpatient (IN) | payer MEDICARE ==
--- NOTE | 2024-04-04 12:57 | ED ---
General Adult HPI - General Chief complaint: Chest Pain Stated complaint: Chest pain,PRERNA Time Seen by Provider: 04/04/24 12:40 Source: patient, family, RN notes reviewed, old records reviewed Mode of arrival: wheelchair Limitations: no limitations - History of Present Illness Initial comments: Is a 79-year-old male who presents to the emergency department with 5 stents in the past. Patient also has diabetes and hypertension. Patient states he starte d having chest pain and difficulty breathing 5 days ago. Patient states it does worsen with exertion. Patient states the pain radiates down both arms. Patient denies any diaphoretic episodes. Patient denies any nausea. Patient denies any abdominal pain. Patient denies a headache. Patient states that he has had no recent fever chills or cough. Patient states she has been a little more swell ing in his legs - Related Data Home Medications Medication Instructions Recorded Confirmed Albuterol Sulfate [Albuterol 2 puff INHALATION RT-Q6H PRN 02/07/23 04/04/24 Sulfate Hfa] Carboxymethylcellulose Sodium 1 drop BOTH EYES QID PRN 02/07/23 04/04/24 [Refresh Tears] Glimepiride [Amaryl] 2 mg PO HS 02/07/23 04/04/24 Clopidogrel [Plavix] 75 mg PO HS 02/19/24 04/04/24 Losartan [Cozaar] 25 mg PO HS 02/19/24 04/04/24 Nitroglycerin 0.4 mg SL Q5M PRN 02/19/24 04/04/24 Aspirin 81 mg PO HS 03/28/24 04/04/24 Fluticasone/Umeclidin/Vilanter 1 puff INHALATION RT-HS 03/28/24 04/04/24 [Trelegy Ellipta 200-62.5-25] Ibuprofen [Motrin Ib] 400 mg PO Q6H PRN 03/28/24 04/04/24 Metoprolol Succinate (ER) [Toprol 25 mg PO HS 03/28/24 04/04/24 XL] Previous Rx's Medication Instructions Recorded Atorvastatin [Lipitor] 40 mg PO HS #90 tab 03/20/24 Allergies Allergy/AdvReac Type Severity Reaction Status Date / Time No Known Allergies Allergy Verified 04/04/24 13:59 Review of Systems ROS Statement: Those systems with pertinent positive or pertinent negative responses have been documented in the HPI. ROS Other: All systems not noted in ROS Statement are negative. Past Medical History Past Medical History: Coronary Artery Disease (CAD), Chest Pain / Angina, Diabetes Mellitus, Eye Disorder, Hyperlipidemia, Hypertension, Myocardial Infarction ([place]), Prostate Disorder, Sleep Apnea/CPAP/BIPAP Additional Past Medical History / Comment(s): occ irregular heartrate, no cpap used- lost wt, hx grout, kidney stone, glaucoma. Last Myocardial Infarction Date:: unk History of Any Multi-Drug Resistant Organisms: None Reported Past Surgical History: Appendectomy, Heart Catheterization With Stent, Orthopedic Surgery, Prostate Surgery, Tonsillectomy Additional Past Surgical History / Comment(s): Bilateral corneal transplant, bilateral cataract surgery, left knee replacement,TURP, cardiac stents X4, 2nd right eye surgery after cataract removed. cartoid stent left 02/2024 Additional Past Anesthesia/Blood Transfusion Reaction / Comment(s): "hard time waking up" Past Psychological History: No Psychological Hx Reported Smoking Status: Former smoker Past Alcohol Use History: None Reported Past Drug Use History: None Reported - Past Family History Father Additional Family Medical History / Comment(s): Triple bypass in his 80s ( at 93 years old) Brother(s) Additional Family Medical History / Comment(s): Triple bypass in his 40s (still alive in his 80s) Mother Additional Family Medical History / Comment(s): General Exam - General Exam Comments Initial Comments: GENERAL: Patient is well-developed and well-nourished. Patient is nontoxic and well- hydrated and is in mild distress. ENT: Neck is soft and supple. No significant lymphadenopathy is noted. Oropharynx is clear. Moist mucous membranes. Neck has full range of motion without eliciting any pain. EYES: The sclera were anicteric and conjunctiva were pink and moist. Extraocular movements were intact and pupils were equal round and reactive to light. Eyelids were unremarkable. PULMONARY: Unlabored respirations. Good breath sounds bilaterally. No audible rales rhonchi or wheezing was noted. CARDIOVASCULAR: There is a regular rate and rhythm without any murmurs gallops or rubs. ABDOMEN: Soft and nontender with normal bowel sounds. SKIN: Skin is clear with no lesions or rashes and otherwise unremarkable. NEUROLOGIC: Patient is alert and oriented x3. Cranial nerves II through XII are grossly intact. Motor and sensory are also intact. Normal speech, volume and content. Symmetrical smile. MUSCULOSKELETAL: Normal extremities with adequate strength and full range of motion. 1+ edema bilateral LYMPHATICS: No significant lymphadenopathy is noted PSYCHIATRIC: Normal psychiatric evaluation. Limitations: no limitations Course Vital Signs 04/04/24 12:24 Temperature 97.8 F Pulse Rate 125 H Respiratory 22 Rate Blood Pressure 93/67 O2 Sat by Pulse 94 L Oximetry Medical Decision Making - Medical Decision Making EKG is interpreted by myself. EKG shows sinus rhythm at 97 bpm. No interval is 213 QRS 104 QT interval 357 QTc is 411. Patient's EKG shows no ST segment elevation or depression. Was pt. sent in by a medical professional or institution (, REJI, STRUCTURAL ANALYSIS ENGINEER, urgent ca re, hospital, or care home...) When possible be specific @ -No Did you speak to anyone other than the patient for history (EMS, parent, family, police, friend...)? What history was obtained from this source @ -No Did you review nursing and triage notes (agree or disagree)? Why? @ -I reviewed and agree with nursing and triage notes Were old charts reviewed (outside hosp., previous admission, EMS record, old EKG, old radiological studies, urgent care reports/EKG's, care home records)? Report findings @ -No old charts were reviewed Differential Diagnosis? @ -Differential Chest Pain: Stable Angina, Unstable Angina, STEMI, NSTEMI Aortic Dissection, Pneumothorax, Musculoskeletal, Esophageal Spasm GERD, Cholecystitis, Pancreatitis, Zoster, this is not meant to be an all-inclusive list. EKG interpreted by me (3pts min.). @ -As above X-rays interpreted by me (1pt min.). @ -Chest x-ray shows no acute abnormality CT interpreted by me (1pt min.). @ -None done U/S interpreted by me (1pt. min.). @ -None done What testing was considered but not performed or refused? (CT, X-rays, U/S, la bs)? Why? @ -None What meds were considered but not given or refused? Why? @ -None Did you discuss the management of the patient with other professionals (professionals i.e. , REJI, STRUCTURAL ANALYSIS ENGINEER, lab, RT, psych nurse, social media project manager, bead trimmer, teacher, immigration services officer, transplant case manager)? Give summary @ -Spoke with [facility] hospitalist they agreed admit the patient admit the patient wrote admitting her Was smoking cessation discussed for >3mins.? @ -No Was critical care preformed (if so, how long)? @ -No Were there social determinants of health that impacted care today? How? (Homelessness, low income, unemployed, alcoholism, drug addiction, transportation, low edu. Level, literacy, decrease access to med. care, group home, rehab)? @ -No Was there de-escalation of care discussed even if they declined (Discuss DNR or withdrawal of care, Hospice)? DNR status @ -No What co-morbidities impacted this encounter? (DM, HTN, Smoking, COPD, CAD, Cancer, CVA, ARF, Chemo, Hep., AIDS, mental health diagnosis, sleep apnea, morbid obesity)? @ -None Was patient admitted / discharged? Hospital course, mention meds given and route, prescriptions, significant lab abnormalities, going to OR and other pertinent info. @ -Patient will not be placed on heparin because of the decrease in hemoglobin patient has an elevated troponin even though he had a cardiac catheterization 2 days ago which he neglected to tell me about when I first saw the patient today. [facility] Undiagnosed new problem with uncertain prognosis? @ -No Drug Therapy requiring intensive monitoring for toxicity (Heparin, Nitro, Insulin, Cardizem)? @ -No Were any procedures done? @ -No Diagnosis/symptom? @ -NSTEMI Acute, or Chronic, or Acute on Chronic? @ -Acute Uncomplicated (without systemic symptoms) or Complicated (systemic symptoms)? @ -Complicated Side effects of treatment? @ -No Exacerbation, Progression, or Severe Exacerbation? @ -No Poses a threat to life or bodily function? How? (Chest pain, USA, IA, pneumonia, PE, COPD, DKA, ARF, appy, cholecystitis, CVA, Diverticulitis, Homicidal, Suicidal, threat to staff... and all critical care pts) @ -Yes this can lead to dysfunction of the heart and poor perfusion with endorgan dysfunction Diagnosis/symptom? @ -Anemia Acute, or Chronic, or Acute on Chronic? @ -Acute Uncomplicated (without systemic symptoms) or Complicated (systemic symptoms)? @ -Complicated Side effects of treatment? @ -None Exacerbation, Progression, or Severe Exacerbation] @ -No Poses a threat to life or bodily function? @ -No - Lab Data Result diagrams: 04/04/24 12:53 04/04/24 12:53 Lab Results 04/04/24 04/04/24 04/04/24 Range/Units 12:53 12:53 12:53 WBC 8.4 (3.8-10.6) k/uL RBC 3.75 L (4.30-5.90) m/uL Hgb 9.5 L D (13.0-17.5) gm/dL Hct 30.6 L (39.0-53.0) % MCV 81.6 (80.0-100.0) fL MCH 25.4 (25.0-35.0) pg MCHC 31.2 (31.0-37.0) g/dL RDW 15.1 (11.5-15.5) % Plt Count 359 (150-450) k/uL MPV 7.0 Neutrophils % 81 % Lymphocytes % 13 % Monocytes % 5 % Eosinophils % 1 % Basophils % 0 % Neutrophils # 6.8 (1.3-7.7) k/uL Lymphocytes # 1.1 (1.0-4.8) k/uL Monocytes # 0.4 (0-1.0) k/uL Eosinophils # 0.1 (0-0.7) k/uL Basophils # 0.0 (0-0.2) k/uL Hypochromasia Marked Poikilocytosis Slight PT 11.6 (10.0-12.5) sec INR 1.1 (<1.2) APTT 27.0 (22.0-30.0) sec Sodium 137 (137-145) mmol/L Potassium 3.8 (3.5-5.1) mmol/L Chloride 104 (98-107) mmol/L Carbon Dioxide 20 L (22-30) mmol/L Anion Gap 13 mmol/L BUN 14 (9-20) mg/dL Creatinine 1.00 (0.66-1.25) mg/dL Est GFR (CKD-EPI)AfAm 83 (>60 ml/min/1.73 sqM) Est GFR (CKD-EPI)NonAf 72 (>60 ml/min/1.73 sqM) Glucose 188 H (74-99) mg/dL Calcium 8.9 (8.4-10.2) mg/dL Magnesium 2.1 (1.6-2.3) mg/dL Total Bilirubin 0.7 (0.2-1.3) mg/dL AST 24 (17-59) U/L ALT 14 (4-49) U/L Alkaline Phosphatase 52 (38-126) U/L Troponin I (0.000-0.034) ng/mL Total Protein 6.8 (6.3-8.2) g/dL Albumin 4.1 (3.5-5.0) g/dL 04/04/24 Range/Units 12:53 WBC (3.8-10.6) k/uL RBC (4.30-5.90) m/uL Hgb (13.0-17.5) gm/dL Hct (39.0-53.0) % MCV (80.0-100.0) fL MCH (25.0-35.0) pg MCHC (31.0-37.0) g/dL RDW (11.5-15.5) % Plt Count (150-450) k/uL MPV Neutrophils % % Lymphocytes % % Monocytes % % Eosinophils % % Basophils % % Neutrophils # (1.3-7.7) k/uL Lymphocytes # (1.0-4.8) k/uL Monocytes # (0-1.0) k/uL Eosinophils # (0-0.7) k/uL Basophils # (0-0.2) k/uL Hypochromasia Poikilocytosis PT (10.0-12.5) sec INR (<1.2) APTT (22.0-30.0) sec Sodium (137-145) mmol/L Potassium (3.5-5.1) mmol/L Chloride (98-107) mmol/L Carbon Dioxide (22-30) mmol/L Anion Gap mmol/L BUN (9-20) mg/dL Creatinine (0.66-1.25) mg/dL Est GFR (CKD-EPI)AfAm (>60 ml/min/1.73 sqM) Est GFR (CKD-EPI)NonAf (>60 ml/min/1.73 sqM) Glucose (74-99) mg/dL Calcium (8.4-10.2) mg/dL Magnesium (1.6-2.3) mg/dL Total Bilirubin (0.2-1.3) mg/dL AST (17-59) U/L ALT (4-49) U/L Alkaline Phosphatase (38-126) U/L Troponin I 0.590 H* (0.000-0.034) ng/mL Total Protein (6.3-8.2) g/dL Albumin (3.5-5.0) g/dL Critical Care Time Critical Care Time: Yes Total Critical Care Time: 35 Disposition Clinical Impression: Acute non-ST elevation myocardial infarction (NSTEMI), Anemia Disposition: ADMITTED IP TO THIS HOSP Referrals: Alex Villarreal DO [Primary Care Provider] - 1-2 days Time of Disposition: 14:04
[2024-04-04] MEDS: ASPIRIN 81 MG PO STA (13:01)
[2024-04-04] MEDS: NITROGLYCERIN OINT 1 INCH/GM PACKET TOPICAL STA (13:02)
[2024-04-04 13:06] LABS: Basophils % (A) 0 %; Eosinophils # (A) 0.1 k/uL (0-0.7); Eosinophils % (A) 1 %; HCT 30.6 % (39.0-53.0); Hypochromasia Marked; Lymphocytes # (A) 1.1 k/uL (1.0-4.8); Lymphocytes % (A) 13 %; MCH 25.4 pg (25.0-35.0); MCHC 31.2 g/dL (31.0-37.0); MCV 81.6 fL (80.0-100.0); Monocytes # (A) 0.4 k/uL (0-1.0); Monocytes % (A) 5 %; Neutrophils # (A) 6.8 k/uL (1.3-7.7); Neutrophils % (A) 81 %; Platelet Count 359 k/uL (150-450); Poikilocytosis Slight; RBC 3.75 m/uL (4.30-5.90); RDW 15.1 % (11.5-15.5); WBC 8.4 k/uL (3.8-10.6)
[2024-04-04 13:14] LABS: ALT 14 U/L (4-49); AST 24 U/L (17-59); African American GFR (CKD) 83 (>60 ml/min/1.73 sqM); Albumin 4.1 g/dL (3.5-5.0); Alkaline Phosphatase 52 U/L (38-126); Anion Gap 13 mmol/L; Blood Urea Nitrogen 14 mg/dL (9-20); Calcium 8.9 mg/dL (8.4-10.2); Carbon Dioxide 20 mmol/L (22-30); Chloride 104 mmol/L (98-107); Glucose 188 mg/dL (74-99); Magnesium 2.1 mg/dL (1.6-2.3); Non-African American GFR(CKD) 72 (>60 ml/min/1.73 sqM); Potassium 3.8 mmol/L (3.5-5.1); Sodium 137 mmol/L (137-145); Total Bilirubin 0.7 mg/dL (0.2-1.3); Total Protein 6.8 g/dL (6.3-8.2)
--- NOTE | 2024-04-04 13:17 | XR ---
EXAMINATION TYPE: XR chest 2V DATE OF EXAM: 04/04/2024 1:11 PM COMPARISON: Chest radiographs from 02/07/2023 CLINICAL INDICATION: Male, 79 years old with history of Chest Pain; TECHNIQUE: XR chest 2V Frontal and lateral views of the chest. FINDINGS: Lungs/Pleura: Prominent interstitial lung markings are seen scattered throughout the lungs. No eviden ce of focal consolidation, pneumothorax or pleural effusion. Pulmonary vascularity: Unremarkable. Heart/mediastinum: Cardiomediastinal silhouette is unremarkable. Musculoskeletal: No acute osseous pathology. IMPRESSION: Chronic changes without acute pulmonary process. No significant change from prior. [facility], , 04/04/2024 1:14 PM
[2024-04-04 13:21] LABS: HGB 9.5 gm/dL (13.0-17.5)
[2024-04-04 13:45] LABS: INR 1.1 (<1.2); Prothrombin Time 11.6 sec (10.0-12.5)
[2024-04-04] MEDS ORDERED: NITROGLYCERIN SL TABS 0.4 MG TAB SUBLINGUAL PRN (16:25)
[2024-04-04] MEDS: NITROGLYCERIN OINT 1 INCH/GM PACKET TOPICAL SCH (18:27)
[2024-04-04] MEDS: HEPARIN SOD,PORK IN 0.45% NACL 25,000 UNIT in 0.45% NACL 1 250ML.BAG IV SCH (18:31)
[2024-04-04] MEDS: HEPARIN SODIUM 1,000 UN/ML (10ML VL) IV ONE (18:33)
[2024-04-04 19:31] LABS: Basophils # (A) 0.1 k/uL (0-0.2); Basophils % (A) 1 %; Eosinophils # (A) 0.1 k/uL (0-0.7); Eosinophils % (A) 2 %; HCT 30.5 % (39.0-53.0); HGB 9.4 gm/dL (13.0-17.5); Hypochromasia Marked; Lymphocytes # (A) 1.9 k/uL (1.0-4.8); Lymphocytes % (A) 23 %; MCH 25.2 pg (25.0-35.0); MCHC 30.8 g/dL (31.0-37.0); MCV 81.8 fL (80.0-100.0); Mean Platelet Volume 6.8; Monocytes # (A) 0.4 k/uL (0-1.0); Monocytes % (A) 5 %; Neutrophils # (A) 5.7 k/uL (1.3-7.7); Neutrophils % (A) 69 %; Platelet Count 354 k/uL (150-450); Poikilocytosis Slight; RBC 3.73 m/uL (4.30-5.90); RDW 15.2 % (11.5-15.5); WBC 8.2 k/uL (3.8-10.6)
[2024-04-04] MEDS ORDERED: NON FORMULARY DRUG (Fluticasone/Umeclidin/Vilanter [Trelegy Ellipta 200-62.5-25] 1 EACH Bl INHALATION SCH (20:00)
[2024-04-04] MEDS: IPRATROPIUM 0.5 MG/2.5 ML NEBU INHALATION SCH (20:15)
[2024-04-04] MEDS: SYMBICORT 160-4.5 MCG INHALER INHALATION SCH (20:15)
[2024-04-04 20:36] LABS: Glucose,Whole Blood 170 mg/dL (70-110)
[2024-04-04] MEDS: LOSARTAN 25 MG TAB PO SCH (20:42)
[2024-04-04] MEDS: METOPROLOL SUCCINATE (ER) 25 MG TAB.ER.24H PO SCH (20:42)
[2024-04-04] MEDS: ATORVASTATIN 40 MG TAB PO SCH (20:43)
[2024-04-04] MEDS: INSULIN ASPART (NovoLOG) 100 UNIT/ML VIAL SQ SCH (20:43)
[2024-04-05 00:46] LABS: Basophils # (A) 0.1 k/uL (0-0.2); Basophils % (A) 1 %; Eosinophils # (A) 0.1 k/uL (0-0.7); Eosinophils % (A) 1 %; HCT 30.2 % (39.0-53.0); HGB 9.2 gm/dL (13.0-17.5); Hypochromasia Marked; Lymphocytes # (A) 1.8 k/uL (1.0-4.8); Lymphocytes % (A) 20 %; MCH 24.9 pg (25.0-35.0); MCHC 30.4 g/dL (31.0-37.0); Mean Platelet Volume 7.4; Monocytes # (A) 0.5 k/uL (0-1.0); Monocytes % (A) 5 %; Neutrophils # (A) 6.3 k/uL (1.3-7.7); Neutrophils % (A) 71 %; Platelet Count 370 k/uL (150-450); Poikilocytosis Moderate; RBC 3.68 m/uL (4.30-5.90); WBC 8.8 k/uL (3.8-10.6)
[2024-04-05] MEDS: HEPARIN SODIUM 1,000 UN/ML (10ML VL) IV PRN (01:26)
[2024-04-05 03:59] LABS: Appearance,Urine Cloudy (Clear); Bacteria,Urine Rare /hpf; Bilirubin,Urine Negative (Negative); Blood,Urine Moderate (Negative); Color,Urine Yellow; Glucose,Urine (UA) Negative (Negative); Ketones,Urine Negative (Negative); Leukocyte Esterase,Urine Moderate (Negative); Mucus,Urine Many /hpf; Nitrite,Urine Negative (Negative); PH, Urine 5.5 (5.0-8.0); Protein,Urine Trace (Negative); RBC,Urine >182 /hpf (0-5); Specific Gravity,Urine 1.019 (1.001-1.035); Squamous Epithelial Cell,Urine 3 /hpf (0-4); Urobilinogen,Urine <2.0 mg/dL (<2.0); WBC,Urine 40 /hpf (0-5)
[2024-04-05 06:14] LABS: Glucose,Whole Blood 104 mg/dL (70-110)
[2024-04-05 07:34] LABS: African American GFR (CKD) 74 (>60 ml/min/1.73 sqM); Anion Gap 8 mmol/L; Blood Urea Nitrogen 16 mg/dL (9-20); Calcium 8.8 mg/dL (8.4-10.2); Carbon Dioxide 22 mmol/L (22-30); Chloride 107 mmol/L (98-107); Glucose 106 mg/dL (74-99); Non-African American GFR(CKD) 64 (>60 ml/min/1.73 sqM); Potassium 3.8 mmol/L (3.5-5.1); Sodium 137 mmol/L (137-145)
[2024-04-05] MEDS: ASPIRIN 325 MG TAB PO SCH (08:19)
[2024-04-05] MEDS: ASPIRIN 81 MG PO SCH (09:18)
[2024-04-05] MEDS: CLOPIDOGREL 75 MG TAB PO SCH (09:23)
--- NOTE | 2024-04-05 11:06 | P.CRDCN ---
History of Present Illness Consult date: 04/05/24 Reason for Consult (text): NSTEMI History of present illness: This is a 79-year-old male patient of Dr. Roque with past medical history of coronary artery disease, carotid artery disease, obesity, obstructive sleep apnea, diabetes mellitus type 2, hypertension. We have been asked to evaluate the patient for NSTEMI. Patient states that he had onset of chest pain on the day after having cardiac catheterization and stent placement. On Sunday, 04/02, patient underwent cardiac catheterization which revealed left main 50 to 60% stenosis, mid LAD 60 to 70% stenosis, diagonal 40 to 50% stenosis, 90% mid OM1 stenosis, 100% RCA with [id number] collaterals. Patient underwent PCI of the circumflex with ROCKY. Patient had a previous cardiac catheterization on 02/03/2024 and he was referred to cardiothoracic surgery for CABG evaluation of the left main disease. He met with Dr. Polanco and was deemed high risk and therefore referred for stenting and not CABG. Patient states the chest pain started on at home. It did not seem to be too bad and then on Sunday he decided to come into the hospital for evaluation. Nitropaste did not take the pain away. He states the chest pain is now gone. He also states he has had lower extremity edema ever since he had the stent of the carotid done on 03/19. Patient has been started on a heparin drip. Blood pressure 99/58, heart rate 68, pulse ox 97% on room air. Patient has been started on a heparin drip. -EKG: Sinus rhythm with first-degree block -Chest x-ray: Chronic changes without acute pulmonary process. No significant change from prior. -Laboratory studies: WBC 8.8, hemoglobin 9.2. Electrolytes within normal limits. Creatinine 1.1. Troponin 0.59, 1.18, 1.5. Urinalysis positive for RBCs and WBCs. -Home cardiac medications: Aspirin 81 mg daily, atorvastatin 40 mg at bedtime, Plavix 75 mg at bedtime, losartan 25 mg at bedtime, Toprol XL 25 mg at bedtime, nitroglycerin sublingual. -03/19/2024: Carotid artery stenosis 99% proximal left internal status post left carotid stent. -Echocardiogram performed in the office on 01/18/2024 revealed EF of 55 to 60%, severe LVH, mild aortic stenosis, mild mitral regurgitation, mild tricuspid regurgitation, PASP 42 mmHg. Review Of Systems: At the time of my exam: CONSTITUTIONAL: Denies fever or chills. HEENT: Denies blurred vision, vision changes, or eye pain. Denies hemoptysis CARDIOVASCULAR: Denies chest pain. Denies orthopnea. Denies PND. Denies palpitations RESPIRATORY: Denies shortness of breath. GASTROINTESTINAL: Denies abdominal pain. Denies nausea or vomiting. HEMATOLOGIC: Denies bleeding disorders. GENITOURINARY: Denies any blood in urine. SKIN: Denies puritis. Denies rash. Physical examination: Gen: This is a 79-year-old male patient in no acute distress VS: reviewed HEENT: Head is atraumatic, normocephalic. Pupils equal, round. Sclerae is anicteric. NECK: Supple. No JVD. LUNGS: Clear to auscultation. No wheezes or rhonchi. No intercostal retractions. HEART: Regular rate and rhythm. No murmur. ABDOMEN: Soft No tenderness. EXTREMITIES: No pedal edema. No calf tenderness. Diminished pulses bilateral radial and bilateral femoral NEUROLOGICAL: Patient is awake, alert and oriented x3. Assessment: NSTEMI History of NSTEMI with PCI of the LAD and circumflex 02/07/2023 PCI of the circumflex 04/02/2024 History of mild ischemic cardiomyopathy with previous EF of 40 to 45% Hypertension Hyperlipidemia Obstructive sleep apnea Diabetes mellitus type 2 Carotid artery surgery with left carotid stent 03/19/2024 Plan: Resume patient's home cardiac medications except hold losartan due to low blood pressure readings Continue heparin drip Continue Nitropaste Make patient n.p.o. for possible left heart cath Obtain 2-D echocardiogram and Doppler study to assess cardiac structure and function Further recommendations to follow based upon clinical course Thank you kindly for this consultation. Nurse practitioner note has been reviewed, I agree with documented findings and plan of care. Patient was seen and examined. Past Medical History Past Medical History: Coronary Artery Disease (CAD), Chest Pain / Angina, Diabetes Mellitus, Eye Disorder, Hyperlipidemia, Hypertension, Myocardial Infarction ([place]), Prostate Disorder, Sleep Apnea/CPAP/BIPAP Additional Past Medical History / Comment(s): occ irregular heartrate, no cpap used- lost wt, hx grout, kidney stone, glaucoma. Last Myocardial Infarction Date:: unk History of Any Multi-Drug Resistant Organisms: None Reported Past Surgical History: Appendectomy, Heart Catheterization With Stent, Orthopedic Surgery, Prostate Surgery, Tonsillectomy Additional Past Surgical History / Comment(s): Bilateral corneal transplant, bilateral cataract surgery, left knee replacement,TURP, cardiac stents X4, 2nd right eye surgery after cataract removed. cartoid stent left 02/2024 Additional Past Anesthesia/Blood Transfusion Reaction / Comment(s): "hard time waking up" Date of Last Stent Placement:: 04/02/2024 Past Psychological History: No Psychological Hx Reported Smoking Status: Former smoker Past Alcohol Use History: None Reported Past Drug Use History: None Reported - Past Family History Father Additional Family Medical History / Comment(s): Triple bypass in his 80s ( at 93 years old) Brother(s) Additional Family Medical History / Comment(s): Triple bypass in his 40s (still alive in his 80s) Mother Additional Family Medical History / Comment(s): Medications and Allergies Home Medications Medication Instructions Recorded Confirmed Type Albuterol Sulfate [Albuterol 2 puff INHALATION RT-Q6H PRN 02/07/23 04/04/24 History Sulfate Hfa] Carboxymethylcellulose Sodium 1 drop BOTH EYES QID PRN 02/07/23 04/04/24 History [Refresh Tears] Glimepiride [Amaryl] 2 mg PO HS 02/07/23 04/04/24 History Clopidogrel [Plavix] 75 mg PO HS 02/19/24 04/04/24 History Losartan [Cozaar] 25 mg PO HS 02/19/24 04/04/24 History Nitroglycerin 0.4 mg SL Q5M PRN 02/19/24 04/04/24 History Atorvastatin [Lipitor] 40 mg PO HS #90 tab 03/20/24 04/04/24 Rx Aspirin 81 mg PO HS 03/28/24 04/04/24 History Fluticasone/Umeclidin/Vilanter 1 puff INHALATION RT-HS 03/28/24 04/04/24 History [Trelegy Ellipta 200-62.5-25] Ibuprofen [Motrin Ib] 400 mg PO Q6H PRN 03/28/24 04/04/24 History Metoprolol Succinate (ER) [Toprol 25 mg PO HS 03/28/24 04/04/24 History XL] Allergies Allergy/AdvReac Type Severity Reaction Status Date / Time No Known Allergies Allergy Verified 04/04/24 13:59 Physical Exam Vitals: Vital Signs Temp Pulse Pulse Resp BP BP Pulse Ox 04/05/24 08:06 70 04/05/24 07:54 68 04/05/24 05:00 99/58 04/05/24 04:00 68 16 83/54 97 04/04/24 23:15 98.3 F 78 16 115/66 91 L 04/04/24 22:23 98.1 F 77 19 100/69 94 L 04/04/24 22:18 98.1 F 77 19 100/69 94 L 04/04/24 20:22 70 04/04/24 20:17 68 04/04/24 18:39 98.0 F 73 19 116/73 100 04/04/24 14:26 82 17 100/80 99 04/04/24 12:24 97.8 F 125 H 22 93/67 94 L Intake and Output 04/04/24 04/05/24 04/05/24 22:59 06:59 14:59 Intake Total 309.361 Balance 309.361 Intake: Intake, IV Titration 69.361 Amount Heparin Sod,Pork in 0.45% 69.361 NaCl 25,000 unit In 0.45 % NaCl 1 250ml.bag @ 9.89 UNITS/KG/HR 10.004 mls/ hr IV .Q24H COUNTS INCLUDE 234 BEDS AT THE [facility] Rx#: [id number] Oral 240 Other: Voiding Method Toilet # Voids 1 Weight 101.151 kg 101.9 kg Results 04/05/24 00:12 04/05/24 05:56 Cardiac Enzymes 04/04/24 04/04/24 04/04/24 Range/Units 12:53 12:53 16:38 AST 24 (17-59) U/L Troponin I 0.590 H* 1.180 H* (0.000-0.034) ng/mL 04/04/24 Range/Units 19:10 AST (17-59) U/L Troponin I 1.500 H* (0.000-0.034) ng/mL Coagulation 04/04/24 04/05/24 04/05/24 Range/Units 12:53 00:04 05:56 PT 11.6 (10.0-12.5) sec APTT 27.0 36.6 H 58.8 H (22.0-30.0) sec CBC 04/04/24 04/04/24 04/05/24 Range/Units 12:53 19:10 00:12 WBC 8.4 8.2 8.8 (3.8-10.6) k/uL RBC 3.75 L 3.73 L 3.68 L (4.30-5.90) m/uL Hgb 9.5 L D 9.4 L 9.2 L (13.0-17.5) gm/dL Hct 30.6 L 30.5 L 30.2 L (39.0-53.0) % Plt Count 359 354 370 (150-450) k/uL Comprehensive Metabolic Panel 04/04/24 04/05/24 Range/Units 12:53 05:56 Sodium 137 137 (137-145) mmol/L Potassium 3.8 3.8 (3.5-5.1) mmol/L Chloride 104 107 (98-107) mmol/L Carbon Dioxide 20 L 22 (22-30) mmol/L BUN 14 16 (9-20) mg/dL Creatinine 1.00 1.10 (0.66-1.25) mg/dL Glucose 188 H 106 H (74-99) mg/dL Calcium 8.9 8.8 (8.4-10.2) mg/dL AST 24 (17-59) U/L ALT 14 (4-49) U/L Alkaline Phosphatase 52 (38-126) U/L Total Protein 6.8 (6.3-8.2) g/dL Albumin 4.1 (3.5-5.0) g/dL Current Medications Generic Name Dose Route Start Last Admin Trade Name Freq PRN Reason Stop Dose Admin Aspirin 325 mg 04/05/24 09:00 04/05/24 08:19 Aspirin 325 Mg Tab PO 325 mg DAILY SUDHEER Administration Atorvastatin Calcium 40 mg 04/04/24 21:00 04/04/24 20:43 Atorvastatin 40 Mg Tab PO 40 mg HS SUDHEER Administration Budesonide/Formoterol Fumarate 2 puff 04/04/24 20:00 04/05/24 07:51 Symbicort 160-4.5 Mcg Inhaler INHALATION 2 puff RT-BID SUDHEER Administration Heparin Sodium (Porcine) 0 unit 04/04/24 17:30 04/05/24 01:26 Heparin Sodium 1,000 Un/Ml (10ml Vl) IV 2,500 unit PER PROTOCOL PRN Administration Low PTT Protocol Heparin Sodium/Sodium Chloride 250 mls @ 10.004 mls/hr 04/04/24 17:30 04/05/24 01:27 25,000 unit/ Sodium Chloride IV 11.89 units/kg/hr .Q24H SUDHEER 12.027 mls/hr Titration Protocol 9.89 UNITS/KG/HR Insulin Aspart 0 unit 04/04/24 21:00 04/05/24 06:13 Insulin Aspart (Novolog) 100 Unit/Ml Vial SQ 04/11/24 20:59 Not Given ACHS COUNTS INCLUDE 234 BEDS AT THE [facility] Protocol Ipratropium Canmer 0.5 mg 04/04/24 20:00 04/05/24 07:51 Ipratropium 0.5 Mg/2.5 Ml Nebu INHALATION 0.5 mg RT-QID SUDHEER Administration Losartan Potassium 25 mg 04/04/24 21:00 04/04/24 20:42 Losartan 25 Mg Tab PO 25 mg HS SUDHEER Administration Metoprolol Succinate 25 mg 04/04/24 21:00 04/04/24 20:42 Metoprolol Succinate (Er) 25 Mg Tab.Er.24h PO 25 mg HS SUDHEER Administration Nitroglycerin 0.4 mg 04/04/24 16:25 Nitroglycerin Sl Tabs 0.4 Mg Tab SUBLINGUAL Q5M PRN Chest Pain Nitroglycerin 1 inch 04/04/24 18:00 04/05/24 05:57 Nitroglycerin Oint 1 Inch/Gm Packet TOPICAL Not Given Q6HR SUDHEER Intake and Output 04/04/24 04/05/24 04/05/24 22:59 06:59 14:59 Intake Total 309.361 Balance 309.361 Intake: Intake, IV Titration 69.361 Amount Heparin Sod,Pork in 0.45% 69.361 NaCl 25,000 unit In 0.45 % NaCl 1 250ml.bag @ 9.89 UNITS/KG/HR 10.004 mls/ hr IV .Q24H SUDHEER Rx#: [id number] Oral 240 Other: Voiding Method Toilet # Voids 1 Weight 101.151 kg 101.9 kg 04/05/24 00:12 04/05/24 05:56
[2024-04-05 11:35] LABS: Glucose,Whole Blood 181 mg/dL (70-110)
[2024-04-05 13:43] LABS: Chol/HDL Ratio 5.53 Ratio; LDL Cholesterol,Calculated 95.3 mg/dL (0.0-131.0)
--- NOTE | 2024-04-05 15:36 | P.HPIM ---
History of Present Illness H&P Date: 04/04/24 Chief Complaint: Chest pain/PRERNA 79-year-old male, history of coronary artery disease, carotid artery disease, obstructive sleep apnea, diabetes mellitus type 2, hypertension, who presents to the emergency department with history of recent cardiac catheterization on 02/03/2024 with 5 stents in the past. Patient states he started having chest pain and difficulty breathing 5 days ago. Patient states it does worsen with exertion. Patient states the pain radiates down both arms. Patient denies any diaphoretic episodes. Patient denies any nausea. Patient denies any abdominal pain. Patient denies a headache. Patient states that he has had no recent fever chills or cough. Patient states she has been a little more swelling in his legs Patient had a previous cardiac catheterization on 02/03/2024 and he was referred to cardiothoracic surgery for CABG evaluation of the left main disease. He met with Dr. Polanco and was deemed high risk and therefore referred for stenting and not CABG. Patient states the chest pain started on at home. It did not seem to be too bad and then on Sunday he decided to come into the hospital for evaluation. Nitropaste did not take the pain away. He states the chest pain is now gone. He also states he has had lower extremity edema ever since he had the stent of the carotid done on 03/19. Patient has been started on a h eparin drip. Blood pressure 99/58, heart rate 68, pulse ox 97% on room air. Patient has been started on a heparin drip. -EKG: Sinus rhythm with first-degree block -Chest x-ray: Chronic changes without acute pulmonary process. No significant change from prior. -Laboratory studies: WBC 8.8, hemoglobin 9.2. Electrolytes within normal limits. Creatinine 1.1. Troponin 0.59, 1.18, 1.5. Urinalysis positive for RBCs and WBCs. -Home cardiac medications: Aspirin 81 mg daily, atorvastatin 40 mg at bedtime, Plavix 75 mg at bedtime, losartan 25 mg at bedtime, Toprol XL 25 mg at bedtime, nitroglycerin sublingual. -03/19/2024: Carotid artery stenosis 99% proximal left internal status post left carotid stent. -Echocardiogram performed in the office on 01/18/2024 revealed EF of 55 to 60%, severe LVH, mild aortic stenosis, mild mitral regurgitation, mild tricuspid regurgitation, PASP 42 mmHg. Review of Systems REVIEW OF SYSTEMS: CONSTITUTIONAL: No fever, no malaise, no fatigue. HEENT: No recent visual problems or hearing problems. Denied any sore throat. CARDIOVASCULAR: No chest pain, orthopnea, PND, no palpitations, no syncope. PULMONARY: No shortness of breath, no cough, no hemoptysis. GASTROINTESTINAL: No diarrhea, no nausea, no vomiting, no abdominal pain. NEUROLOGICAL: No headaches, no weakness, no numbness. HEMATOLOGICAL: Denies any bleeding or petechiae. GENITOURINARY: Denies any burning micturition, frequency, or urgency. MUSCULOSKELETAL/RHEUMATOLOGICAL: Denies any joint pain, swelling, or any muscle pain. ENDOCRINE: Denies any polyuria or polydipsia. The rest of the 14-point review of systems is negative. Past Medical History Past Medical History: Coronary Artery Disease (CAD), Chest Pain / Angina, Diabetes Mellitus, Eye Disorder, Hyperlipidemia, Hypertension, Myocardial Infarction (AK), Prostate Disorder, Sleep Apnea/CPAP/BIPAP Additional Past Medical History / Comment(s): occ irregular heartrate, no cpap used- lost wt, hx grout, kidney stone, glaucoma. Last Myocardial Infarction Date:: unk History of Any Multi-Drug Resistant Organisms: None Reported Past Surgical History: Appendectomy, Heart Catheterization With Stent, Orthopedic Surgery, Prostate Surgery, Tonsillectomy Additional Past Surgical History / Comment(s): Bilateral corneal transplant, bilateral cataract surgery, left knee replacement,TURP, cardiac stents X4, 2nd right eye surgery after cataract removed. cartoid stent left 02/2024 Additional Past Anesthesia/Blood Transfusion Reaction / Comment(s): "hard time waking up" Past Psychological History: No Psychological Hx Reported Smoking Status: Former smoker Past Alcohol Use History: None Reported Past Drug Use History: None Reported - Past Family History Father Additional Family Medical History / Comment(s): Triple bypass in his 80s ( at 93 years old) Brother(s) Additional Family Medical History / Comment(s): Triple bypass in his 40s (still alive in his 80s) Mother Additional Family Medical History / Comment(s): Medications and Allergies Home Medications Medication Instructions Recorded Confirmed Type Albuterol Sulfate [Albuterol 2 puff INHALATION RT-Q6H PRN 02/07/23 04/04/24 History Sulfate Hfa] Carboxymethylcellulose Sodium 1 drop BOTH EYES QID PRN 02/07/23 04/04/24 History [Refresh Tears] Glimepiride [Amaryl] 2 mg PO HS 02/07/23 04/04/24 History Clopidogrel [Plavix] 75 mg PO HS 02/19/24 04/04/24 History Losartan [Cozaar] 25 mg PO HS 02/19/24 04/04/24 History Nitroglycerin 0.4 mg SL Q5M PRN 02/19/24 04/04/24 History Atorvastatin [Lipitor] 40 mg PO HS #90 tab 03/20/24 04/04/24 Rx Aspirin 81 mg PO HS 03/28/24 04/04/24 History Fluticasone/Umeclidin/Vilanter 1 puff INHALATION RT-HS 03/28/24 04/04/24 History [Trelegy Ellipta 200-62.5-25] Ibuprofen [Motrin Ib] 400 mg PO Q6H PRN 03/28/24 04/04/24 History Metoprolol Succinate (ER) [Toprol 25 mg PO HS 03/28/24 04/04/24 History XL] Allergies Allergy/AdvReac Type Severity Reaction Status Date / Time No Known Allergies Allergy Verified 04/04/24 13:59 Physical Exam Vitals: Vital Signs Temp Pulse Resp BP Pulse Ox 04/04/24 14:26 82 17 100/80 99 04/04/24 12:24 97.8 F 125 H 22 93/67 94 L Intake and Output 04/04/24 04/04/24 04/04/24 06:59 14:59 22:59 Other: Weight 101.151 kg VS: reviewed HEENT: Head is atraumatic, normocephalic. Pupils equal, round. Sclerae is anicteric. NECK: Supple. No JVD. LUNGS: Clear to auscultation. No wheezes or rhonchi. No intercostal retraction s. HEART: Regular rate and rhythm. No murmur. ABDOMEN: Soft No tenderness. EXTREMITIES: No pedal edema. No calf tenderness. Diminished pulses bilateral radial and bilateral femoral NEUROLOGICAL: Patient is awake, alert and oriented x3. Results CBC & Chem 7: 04/05/24 00:12 04/05/24 05:56 Labs: Abnormal Lab Results - Last 24 Hours (Table) 04/04/24 04/04/24 04/04/24 Range/Units 12:53 12:53 12:53 RBC 3.75 L (4.30-5.90) m/uL Hgb 9.5 L D (13.0-17.5) gm/dL Hct 30.6 L (39.0-53.0) % Carbon Dioxide 20 L (22-30) mmol/L Glucose 188 H (74-99) mg/dL Troponin I 0.590 H* (0.000-0.034) ng/mL 04/04/24 Range/Units 16:38 RBC (4.30-5.90) m/uL Hgb (13.0-17.5) gm/dL Hct (39.0-53.0) % Carbon Dioxide (22-30) mmol/L Glucose (74-99) mg/dL Troponin I 1.180 H* (0.000-0.034) ng/mL Assessment and Plan Assessment: 1. Chest pain/NSTEMI -History of NSTEMI with PCI of the LAD and circumflex 02/07/2023 PCI of the circumflex 04/02/2024 History of mild ischemic cardiomyopathy with previous EF of 40 to 45% -- Patient has been admitted to telemetry; monitor EKG and trend troponin; currently on IV heparin infusion and Nitropaste in ED -Patient is currently on aspirin, Lipitor, Plavix and metoprolol -Cardiology consulted 2. Hyperglycemia/diabetes mellitus; patient takes Amaryl 2 mg p.o. nightly which will be placed on hold while inpatient; -- we will plan to monitor Accu-Cheks before every meal and at bedtime with insulin sliding scale while inpatient 3. Hypertension; metoprolol XL 25 mg p.o. nightly; losartan 25 mg nightly 4. COPD/asthma; Symbicort 160-4.5 mcg 2 puffs twice daily; Atrovent nebulizer treatments 4 times daily and as needed 5. Hyperlipidemia; Lipitor 40 mg daily DVT prophylaxis; SCDs/IV heparin CODE STATUS; full code
--- NOTE | 2024-04-05 15:37 | P.PN ---
Subjective Progress Note Date: 04/05/24 79-year-old male, history of coronary artery disease, carotid artery disease, obstructive sleep apnea, diabetes mellitus type 2, hypertension, who presents to the emergency department with history of recent cardiac catheterization on 02/03/2024 with 5 stents in the past. Patient states he started having chest pain and difficulty breathing 5 days ago. Patient states it does worsen with exertion. Patient states the pain radiates down both arms. Patient denies any diaphoretic episodes. Patient denies any nausea. Patient denies any abdominal pain. Patient denies a headache. Patient states that he has had no recent fever chills or cough. Patient states she has been a little more swelling in his legs Patient had a previous cardiac catheterization on 02/03/2024 and he was referred to cardiothoracic surgery for CABG evaluation of the left main disease. He met with Dr. Polanco and was deemed high risk and therefore referred for stenting and not CABG. Patient states the chest pain started on at home. It did not seem to be too bad and then on Sunday he decided to come into the hospital for evaluation. Nitropaste did not take the pain away. He states the chest pain is now gone. He also states he has had lower extremity edema ever since he had the stent of the carotid done on 03/19. Patient has been started on a heparin drip. Blood pressure 99/58, heart rate 68, pulse ox 97% on room air. Patient has been started on a heparin drip. -EKG: Sinus rhythm with first-degree block -Chest x-ray: Chronic changes without acute pulmonary process. No significant change from prior. -Laboratory studies: WBC 8.8, hemoglobin 9.2. Electrolytes within normal limits. Creatinine 1.1. Troponin 0.59, 1.18, 1.5. Urinalysis positive for RBCs and WBCs. -Home cardiac medications: Aspirin 81 mg daily, atorvastatin 40 mg at bedtime, Plavix 75 mg at bedtime, losartan 25 mg at bedtime, Toprol XL 25 mg at bedtime, nitroglycerin sublingual. -03/19/2024: Carotid artery stenosis 99% proximal left internal status post left carotid stent. -Echocardiogram performed in the office on 01/18/2024 revealed EF of 55 to 60%, severe LVH, mild aortic stenosis, mild mitral regurgitation, mild tricuspid regurgitation, PASP 42 mmHg. Objective - Vital Signs Vital signs: Vital Signs Temp 97.8 F 04/05/24 08:15 Pulse 70 04/05/24 12:30 Resp 18 04/05/24 12:00 BP 83/59 04/05/24 12:00 Pulse Ox 93 L 04/05/24 12:00 FiO2 Intake & Output 04/04/24 04/05/24 04/05/24 18:59 06:59 18:59 Intake Total 309.361 Balance 309.361 Weight 101.151 kg 101.9 kg Intake: Intake, IV Titration 69.361 Amount Heparin Sod,Pork in 0.45% 69.361 NaCl 25,000 unit In 0.45 % NaCl 1 250ml.bag @ 9.89 UNITS/KG/HR 10.004 mls/ hr IV .Q24H [facility] Rx#: [id number] Oral 240 Other: Voiding Method Toilet Toilet # Voids 1 - Exam VS: reviewed HEENT: Head is atraumatic, normocephalic. Pupils equal, round. Sclerae is anicteric. NECK: Supple. No JVD. LUNGS: Clear to auscultation. No wheezes or rhonchi. No intercostal retractions. HEART: Regular rate and rhythm. No murmur. ABDOMEN: Soft No tenderness. EXTREMITIES: No pedal edema. No calf tenderness. Diminished pulses bilateral radial and bilateral femoral NEUROLOGICAL: Patient is awake, alert and oriented x3. - Labs CBC & Chem 7: 04/05/24 00:12 04/05/24 05:56 Labs: Abnormal Lab Results - Last 24 Hours (Table) 04/04/24 04/04/24 04/04/24 Range/Units 12:53 12:53 12:53 RBC 3.75 L (4.30-5.90) m/uL Hgb 9.5 L D (13.0-17.5) gm/dL Hct 30.6 L (39.0-53.0) % MCH (25.0-35.0) pg MCHC (31.0-37.0) g/dL APTT (22.0-30.0) sec Carbon Dioxide 20 L (22-30) mmol/L Glucose 188 H (74-99) mg/dL POC Glucose (mg/dL) (70-110) mg/dL Troponin I 0.590 H* (0.000-0.034) ng/mL Urine Protein (Negative) Urine Blood (Negative) Ur Leukocyte Esterase (Negative) Urine RBC (0-5) /hpf Urine WBC (0-5) /hpf Urine Bacteria (None) /hpf Urine Mucus (None) /hpf 04/04/24 04/04/24 04/04/24 Range/Units 16:38 19:10 19:10 RBC 3.73 L (4.30-5.90) m/uL Hgb 9.4 L (13.0-17.5) gm/dL Hct 30.5 L (39.0-53.0) % MCH (25.0-35.0) pg MCHC 30.8 L (31.0-37.0) g/dL APTT (22.0-30.0) sec Carbon Dioxide (22-30) mmol/L Glucose (74-99) mg/dL POC Glucose (mg/dL) (70-110) mg/dL Troponin I 1.180 H* 1.500 H* (0.000-0.034) ng/mL Urine Protein (Negative) Urine Blood (Negative) Ur Leukocyte Esterase (Negative) Urine RBC (0-5) /hpf Urine WBC (0-5) /hpf Urine Bacteria (None) /hpf Urine Mucus (None) /hpf 04/04/24 04/05/24 04/05/24 Range/Units 20:35 00:04 00:12 RBC 3.68 L (4.30-5.90) m/uL Hgb 9.2 L (13.0-17.5) gm/dL Hct 30.2 L (39.0-53.0) % MCH 24.9 L (25.0-35.0) pg MCHC 30.4 L (31.0-37.0) g/dL APTT 36.6 H (22.0-30.0) sec Carbon Dioxide (22-30) mmol/L Glucose (74-99) mg/dL POC Glucose (mg/dL) 170 H (70-110) mg/dL Troponin I (0.000-0.034) ng/mL Urine Protein (Negative) Urine Blood (Negative) Ur Leukocyte Esterase (Negative) Urine RBC (0-5) /hpf Urine WBC (0-5) /hpf Urine Bacteria (None) /hpf Urine Mucus (None) /hpf 04/05/24 04/05/24 04/05/24 Range/Units 03:40 05:56 05:56 RBC (4.30-5.90) m/uL Hgb (13.0-17.5) gm/dL Hct (39.0-53.0) % MCH (25.0-35.0) pg MCHC (31.0-37.0) g/dL APTT 58.8 H (22.0-30.0) sec Carbon Dioxide (22-30) mmol/L Glucose 106 H (74-99) mg/dL POC Glucose (mg/dL) (70-110) mg/dL Troponin I (0.000-0.034) ng/mL Urine Protein Trace H (Negative) Urine Blood Moderate H (Negative) Ur Leukocyte Esterase Moderate H (Negative) Urine RBC >182 H (0-5) /hpf Urine WBC 40 H (0-5) /hpf Urine Bacteria Rare H (None) /hpf Urine Mucus Many H (None) /hpf 04/05/24 Range/Units 11:33 RBC (4.30-5.90) m/uL Hgb (13.0-17.5) gm/dL Hct (39.0-53.0) % MCH (25.0-35.0) pg MCHC (31.0-37.0) g/dL APTT (22.0-30.0) sec Carbon Dioxide (22-30) mmol/L Glucose (74-99) mg/dL POC Glucose (mg/dL) 181 H (70-110) mg/dL Troponin I (0.000-0.034) ng/mL Urine Protein (Negative) Urine Blood (Negative) Ur Leukocyte Esterase (Negative) Urine RBC (0-5) /hpf Urine WBC (0-5) /hpf Urine Bacteria (None) /hpf Urine Mucus (None) /hpf Assessment and Plan Assessment: 1. Chest pain/NSTEMI -History of NSTEMI with PCI of the LAD and circumflex 02/07/2023 PCI of the circumflex 04/02/2024 History of mild ischemic cardiomyopathy with previous EF of 40 to 45% -- Patient has been admitted to telemetry; monitor EKG and trend troponin; currently on IV heparin infusion and Nitropaste in ED -Patient is currently on aspirin, Lipitor, Plavix and metoprolol -Cardiology consulted 2. Hyperglycemia/diabetes mellitus; patient takes Amaryl 2 mg p.o. nightly which will be placed on hold while inpatient; -- we will plan to monitor Accu-Cheks before every meal and at bedtime with insulin sliding scale while inpatient 3. Hypertension; metoprolol XL 25 mg p.o. nightly; losartan 25 mg nightly 4. COPD/asthma; Symbicort 160-4.5 mcg 2 puffs twice daily; Atrovent nebulizer treatments 4 times daily and as needed 5. Hyperlipidemia; Lipitor 40 mg daily DVT prophylaxis; SCDs/IV heparin CODE STATUS; full code
[2024-04-05 16:15] LABS: Glucose,Whole Blood 158 mg/dL (70-110)
[2024-04-05 20:20] LABS: Glucose,Whole Blood 133 mg/dL (70-110)
[2024-04-06 06:05] LABS: Glucose,Whole Blood 136 mg/dL (70-110)
[2024-04-06 08:12] LABS: HCT 25.5 % (39.0-53.0); HGB 7.8 gm/dL (13.0-17.5); Hypochromasia Marked; MCH 24.5 pg (25.0-35.0); MCHC 30.5 g/dL (31.0-37.0); MCV 80.4 fL (80.0-100.0); Mean Platelet Volume 7.7; Platelet Count 325 k/uL (150-450); Poikilocytosis Moderate; RBC 3.17 m/uL (4.30-5.90); RDW 15.1 % (11.5-15.5); WBC 9.6 k/uL (3.8-10.6)
[2024-04-06 08:20] LABS: African American GFR (CKD) 81 (>60 ml/min/1.73 sqM); Anion Gap 5 mmol/L; Blood Urea Nitrogen 16 mg/dL (9-20); Calcium 8.4 mg/dL (8.4-10.2); Carbon Dioxide 23 mmol/L (22-30); Chloride 108 mmol/L (98-107); Glucose 125 mg/dL (74-99); Non-African American GFR(CKD) 70 (>60 ml/min/1.73 sqM); Potassium 3.8 mmol/L (3.5-5.1); Sodium 136 mmol/L (137-145)
--- NOTE | 2024-04-06 09:13 | CA ---
Transthoracic Echo Report Name: Ganesh Waldrop Age: 79 Gender: M : 1945 Exam Date: 04/05/2024 11:33 Exam Location: [facility] Ht (in): 69 Wt (lb): 224 Ordering Physician: Divya Mustafa Attending/Referring Phys: [id number], [employer] Worker Maren Mcneil RDCS Procedure CPT: Indications: LVH, MV Cardiac Hx: Technical Quality: Fair Contrast 1: Total Dose (mL): Contrast 2: Total Dose (mL): MEASUREMENTS (Male / Female) Normal Values 2D ECHO LV Diastolic Diameter PLAX 5.4 cm 4.2 - 5.9 / 3.9 - 5.3 cm LV Systolic Diameter PLAX 3.3 cm IVS Diastolic Thickness 1.3 cm 0.6 - 1.0 / 0.6 - 0.9 cm LVPW Diastolic Thickness 1.3 cm 0.6 - 1.0 / 0.6 - 0.9 cm LV Relative Wall Thickness 0.5 RV Internal Dim ED PLAX 3.5 cm LVOT Diameter 2.2 cm LA Systolic Diameter LX 4.6 cm 3.0 - 4.0 / 2.7 - 3.8 cm LA Volume 125.2 cm??? 18 - 58 / 22 - 52 cm??? LA Volume Index 55.4 cm???/m??? 16 - 28 cm???/m??? M-MODE Aortic Root Diameter MM 3.5 cm AV Cusp Separation MM 1.7 cm DOPPLER AV Peak Velocity 199.3 cm/s AV Peak Gradient 15.9 mmHg AV Mean Velocity 121.6 cm/s AV Mean Gradient 7.0 mmHg AV Velocity Time Integral 37.5 cm LVOT Peak Velocity 98.0 cm/s LVOT Peak Gradient 3.8 mmHg LVOT Velocity Time Integral 23.0 cm LVOT Stroke Volume 88.1 cm??? LVOT Stroke Volume Index 40.7 ml/m??? LVOT Cardiac Index 3239.2 cm???/min???m??? AV Area Cont Eq vti 2.3 cm??? AV Area Cont Eq pk 1.9 cm??? MV Area PHT 4.8 cm??? MR Peak Velocity 518.7 cm/s MR Peak Gradient 107.6 mmHg Mitral E Point Velocity 145.6 cm/s Mitral A Point Velocity 121.1 cm/s Mitral E to A Ratio 1.2 MV Deceleration Time 156.5 ms TR Peak Velocity 417.3 cm/s TR Peak Gradient 69.7 mmHg Right Ventricular Systolic Press 74.6 mmHg FINDINGS Left Ventricle Left ventricular ejection fraction is estimated at 60-65 %. Left ventricular cavity size normal. Mild concentric left ventricular hypertrophy. Normal left ventricular wall motion. Right Ventricle Right ventricular dilatation. Severe pulmonary hypertension. Right ventricular systolic pressure estimated at 75 mm hg. Right Atrium Normal right atrial size. No right atrial thrombus or mass seen. Left Atrium Mildly increased left atrial diameter. Severely increased left atrial volume. Moderately increased left atrial area. Mitral Valve Prolapse of the anterior mitral valve leaflet. Vzmnfqae-uw-hwerwh mitral regurgitation. Posteriorly directed mitral regurgitation jet. Aortic Valve Trileaflet aortic valve. Thickened aortic valve without stenosis. Tricuspid Valve Structurally normal tricuspid valve. [id number] tricuspid regurgitation. Pulmonic Valve Structurally normal pulmonic valve. No pulmonic regurgitation. Pericardium No pericardial or pleural effusion. Aorta Normal size aortic root and proximal ascending aorta. CONCLUSIONS Normal LV systolic function with an ejection fraction of 60% Severe pulmonary hypertension Moderate to severe mitral regurgitation Mild to moderate tricuspid regurgitation Previewed by: Dr. Leonardo Pena MD (Electronically Signed) Final Date: 06 April 2024 09:12
[2024-04-06] MEDS ORDERED: ALPRAZolam 0.25 MG TAB PO PRN (09:48)
[2024-04-06] MEDS ORDERED: NITROGLYCERIN SL TABS 0.4 MG TAB SUBLINGUAL PRN (09:48)
[2024-04-06] MEDS ORDERED: ALPRAZolam 0.5 MG TAB PO PRN (09:48)
[2024-04-06 11:44] LABS: Glucose,Whole Blood 138 mg/dL (70-110)
[2024-04-06] MEDS: ACETAMINOPHEN TAB 325 MG TAB PO PRN (12:06)
[2024-04-06] MEDS: PANTOPRAZOLE 40 MG/10 ML VIAL IVP SCH (12:07)
[2024-04-06 12:24] LABS: HCT 26.8 % (39.0-53.0); HGB 8.3 gm/dL (13.0-17.5); Hypochromasia Marked; MCH 25.1 pg (25.0-35.0); MCHC 31.2 g/dL (31.0-37.0); MCV 80.4 fL (80.0-100.0); Mean Platelet Volume 7.3; Platelet Count 334 k/uL (150-450); Poikilocytosis Slight; RBC 3.33 m/uL (4.30-5.90); RDW 15.2 % (11.5-15.5); WBC 8.9 k/uL (3.8-10.6)
--- NOTE | 2024-04-06 12:27 | P.PN ---
Subjective Progress Note Date: 04/06/24 Reason for Consult (text): NSTEMI History of present illness: This is a 79-year-old male patient of Dr. Roque with past medical history of coronary artery disease, carotid artery disease, obesity, obstructive sleep apnea, diabetes mellitus type 2, hypertension. We have been asked to evaluate the patient for NSTEMI. Patient states that he had onset of chest pain on the day after having cardiac catheterization and stent placement. On , 04/02, patient underwent cardiac catheterization which revealed left main 50 to 60% stenosis, mid LAD 60 to 70% stenosis, diagonal 40 to 50% stenosis, 90% mid OM1 stenosis, 100% RCA with pyth-zx-pwier collaterals. Patient underwent PCI of the circumflex with ROCKY. Patient had a previous [facility] catheterization on 02/03/2024 and he was referred to cardiothoracic surgery for CABG evaluation of the left main disease. He met with Dr. Polanco and was deemed high risk and therefore referred for stenting and not CABG. Patient states the chest pain started on at home. It did not seem to be too bad and then on Sunday he decided to come into the hospital for evaluation. Nitropaste did not take the pain away. He states the chest pain is now gone. He also states he has had lower extremity edema ever since he had the stent of the carotid done on 03/19. Patient has been started on a heparin drip. Blood pressure 99/58, heart rate 68, pulse ox 97% on room air. Patient has been started on a heparin drip. -EKG: Sinus rhythm with first-degree block -Chest x-ray: Chronic changes without acute pulmonary process. No significant change from prior. -Laboratory studies: WBC 8.8, hemoglobin 9.2. Electrolytes within normal limits. Creatinine 1.1. Troponin 0.59, 1.18, 1.5. Urinalysis positive for RBCs and WBCs. -Home cardiac medications: Aspirin 81 mg daily, atorvastatin 40 mg at bedtime, Plavix 75 mg at bedtime, losartan 25 mg at bedtime, Toprol XL 25 mg at bedtime, nitroglycerin sublingual. -03/19/2024: Carotid artery stenosis 99% proximal left internal status post left carotid stent. -Echocardiogram performed in the office on 01/18/2024 revealed EF of 55 to 60%, severe LVH, mild aortic stenosis, mild mitral regurgitation, mild tricuspid regurgitation, PASP 42 mmHg. 04/06/2024 Patient seen and examined. Patient denies having any chest pain no shortness of breath. He has been maintained on a heparin drip. Patient is on nitro paste which seems to control his chest pain. Blood pressure 102/66, heart rate 77, pulse ox 94% on room air. Repeat blood work reveals hemoglobin 7.8, sodium 136, potassium 3.8, BUN 16 creatinine 1.02. Echocardiogram reveals EF of 60 to 65%, severe pulmonary hypertension, moderate to severe mitral regurgitation, mild to moderate tricuspid regurgitation. Physical examination: Gen: This is a 79-year-old male patient in no acute distress VS: reviewed HEENT: Head is atraumatic, normocephalic. Pupils equal, round. Sclerae is anic teric. NECK: Supple. No JVD. LUNGS: Clear to auscultation. No wheezes or rhonchi. No intercostal retractions. HEART: Regular rate and rhythm. No murmur. ABDOMEN: Soft No tenderness. EXTREMITIES: No pedal edema. No calf tenderness. Diminished pulses bilateral radial and bilateral femoral NEUROLOGICAL: Patient is awake, alert and oriented x3. Assessment: NSTEMI History of NSTEMI with PCI of the LAD and circumflex 02/07/2023 PCI of the circumflex 04/02/2024 History of mild ischemic cardiomyopathy with previous EF of 40 to 45%, EF now 60 to 65% Hypertension Hyperlipidemia Obstructive sleep apnea Diabetes mellitus type 2 Carotid artery surgery with left carotid stent 03/19/2024 Severe pulmonary hypertension Moderate to severe mitral regurgitation and mild to moderate tricuspid regurgita tion Anemia Plan: Continue patient's home cardiac medications except hold losartan due to low blood pressure readings Continue heparin drip Continue Nitropaste Make patient n.p.o. after midnight Schedule patient for left heart cath on Sunday with Dr. Roque Recheck lab work prior to cardiac catheterization Further recommendations to follow based upon clinical course Nurse practitioner note has been reviewed, I agree with documented findings and plan of care. Patient was seen and examined. Objective - Vital Signs Vital signs: Vital Signs Temp 98 F 04/06/24 08:20 Pulse 77 04/06/24 08:20 Resp 18 04/06/24 08:20 BP 102/66 04/06/24 08:20 Pulse Ox 94 L 04/06/24 08:20 FiO2 Intake & Output 04/05/24 04/06/24 04/06/24 18:59 06:59 18:59 Intake Total 389.18 540 Output Total 550 Balance -160.82 540 Weight 102.4 kg Intake: Intake, IV Titration 169.18 Amount Heparin Sod,Pork in 0.45% 169.18 NaCl 25,000 unit In 0.45 % NaCl 1 250ml.bag @ 9.89 UNITS/KG/HR 10.004 mls/ hr IV .Q24H [facility] Rx#: [id number] Oral 220 540 Output: Urine 550 Other: Voiding Method Toilet Toilet Toilet # Voids 1 - Labs CBC & Chem 7: 04/06/24 07:44 04/06/24 07:44 Labs: Abnormal Lab Results - Last 24 Hours (Table) 04/05/24 04/05/24 04/05/24 Range/Units 05:56 11:33 16:13 RBC (4.30-5.90) m/uL Hgb (13.0-17.5) gm/dL Hct (39.0-53.0) % MCH (25.0-35.0) pg MCHC (31.0-37.0) g/dL APTT (22.0-30.0) sec Sodium (137-145) mmol/L Chloride (98-107) mmol/L Glucose (74-99) mg/dL POC Glucose (mg/dL) 181 H 158 H (70-110) mg/dL HDL Cholesterol 25.70 L (40.00-60.00) mg/dL 04/05/24 04/06/24 04/06/24 Range/Units 20:19 06:03 07:44 RBC (4.30-5.90) m/uL Hgb (13.0-17.5) gm/dL Hct (39.0-53.0) % MCH (25.0-35.0) pg MCHC (31.0-37.0) g/dL APTT (22.0-30.0) sec Sodium 136 L (137-145) mmol/L Chloride 108 H (98-107) mmol/L Glucose 125 H (74-99) mg/dL POC Glucose (mg/dL) 133 H 136 H (70-110) mg/dL HDL Cholesterol (40.00-60.00) mg/dL 04/06/24 04/06/24 Range/Units 07:44 07:44 RBC 3.17 L (4.30-5.90) m/uL Hgb 7.8 L (13.0-17.5) gm/dL Hct 25.5 L (39.0-53.0) % MCH 24.5 L (25.0-35.0) pg MCHC 30.5 L (31.0-37.0) g/dL APTT 45.8 H (22.0-30.0) sec Sodium (137-145) mmol/L Chloride (98-107) mmol/L Glucose (74-99) mg/dL POC Glucose (mg/dL) (70-110) mg/dL HDL Cholesterol (40.00-60.00) mg/dL
--- NOTE | 2024-04-06 15:48 | P.PN ---
Subjective Progress Note Date: 04/06/24 79-year-old male, history of coronary artery disease, carotid artery disease, obstructive sleep apnea, diabetes mellitus type 2, hypertension, who presents to the emergency department with history of recent cardiac catheterization on 02/03/2024 with 5 stents in the past. Patient states he started having chest pain and difficulty breathing 5 days ago. Patient states it does worsen with exertion. Patient states the pain radiates down both arms. Patient denies any diaphoretic episodes. Patient denies any nausea. Patient denies any abdominal pain. Patient denies a headache. Patient states that he has had no recent fever chills or cough. Patient states she has been a little more swelling in his legs Patient had a previous cardiac catheterization on 02/03/2024 and he was referred to cardiothoracic surgery for CABG evaluation of the left main disease. He met with Dr. Polanco and was deemed high risk and therefore referred for stenting and not CABG. Patient states the chest pain started on at home. It did not seem to be too bad and then on Sunday he decided to come into the hospital for evaluation. Nitropaste did not take the pain away. He states the chest pain is now gone. He also states he has had lower extremity edema ever since he had the stent of the carotid done on 03/19. Patient has been started on a heparin drip. Blood pressure 99/58, heart rate 68, pulse ox 97% on room air. Patient has been started on a heparin drip. -EKG: Sinus rhythm with first-degree block -Chest x-ray: Chronic changes without acute pulmonary process. No significant change from prior. -Laboratory studies: WBC 8.8, hemoglobin 9.2. Electrolytes within normal limits. Creatinine 1.1. Troponin 0.59, 1.18, 1.5. Urinalysis positive for RBCs and WBCs. -Home cardiac medications: Aspirin 81 mg daily, atorvastatin 40 mg at bedtime, Plavix 75 mg at bedtime, losartan 25 mg at bedtime, Toprol XL 25 mg at bedtime, nitroglycerin sublingual. -03/19/2024: Carotid artery stenosis 99% proximal left internal status post left carotid stent. -Echocardiogram performed in the office on 01/18/2024 revealed EF of 55 to 60%, severe LVH, mild aortic stenosis, mild mitral regurgitation, mild tricuspid regurgitation, PASP 42 mmHg. 24-hour interval change 04/06/2024 Patient seen and examined in room at bedside. Patient denies having any chest pain no shortness of breath. He has been maintained on a heparin drip. Patient is on nitro paste which seems to control his chest pain. Vital signs are reviewed and remained stable with blood pressure 102/66, heart rate 77, pulse ox 94% on room air. -- blood work reveals hemoglobin 7.8, sodium 136, potassium 3.8, BUN 16 cr eatinine 1.02. - Echocardiogram reveals EF of 60 to 65%, severe pulmonary hypertension, moderate to severe mitral regurgitation, mild to moderate tricuspid regurgitation. Make patient n.p.o. after midnight Schedule patient for left heart cath on Sunday with Dr. Roque Objective - Vital Signs Vital signs: Vital Signs Temp 98 F 04/06/24 08:20 Pulse 77 04/06/24 08:20 Resp 18 04/06/24 08:20 BP 102/66 04/06/24 08:20 Pulse Ox 94 L 04/06/24 08:20 FiO2 Intake & Output 04/05/24 04/06/24 04/06/24 18:59 06:59 18:59 Intake Total 389.18 540 Output Total 550 Balance -160.82 540 Weight 102.4 kg Intake: Intake, IV Titration 169.18 Amount Heparin Sod,Pork in 0.45% 169.18 NaCl 25,000 unit In 0.45 % NaCl 1 250ml.bag @ 9.89 UNITS/KG/HR 10.004 mls/ hr IV .Q24H [facility] Rx#: [id number] Oral 220 540 Output: Urine 550 Other: Voiding Method Toilet Toilet Toilet # Voids 1 - Exam VS: reviewed HEENT: Head is atraumatic, normocephalic. Pupils equal, round. Sclerae is anicteric. NECK: Supple. No JVD. LUNGS: Clear to auscultation. No wheezes or rhonchi. No intercostal retractions. HEART: Regular rate and rhythm. No murmur. ABDOMEN: Soft No tenderness. EXTREMITIES: No pedal edema. No calf tenderness. Diminished pulses bilateral radial and bilateral femoral NEUROLOGICAL: Patient is awake, alert and oriented x3. - Labs CBC & Chem 7: 04/06/24 12:06 04/06/24 07:44 Labs: Abnormal Lab Results - Last 24 Hours (Table) 04/05/24 04/05/24 04/05/24 Range/Units 05:56 11:33 16:13 RBC (4.30-5.90) m/uL Hgb (13.0-17.5) gm/dL Hct (39.0-53.0) % MCH (25.0-35.0) pg MCHC (31.0-37.0) g/dL APTT (22.0-30.0) sec Sodium (137-145) mmol/L Chloride (98-107) mmol/L Glucose (74-99) mg/dL POC Glucose (mg/dL) 181 H 158 H (70-110) mg/dL HDL Cholesterol 25.70 L (40.00-60.00) mg/dL 04/05/24 04/06/24 04/06/24 Range/Units 20:19 06:03 07:44 RBC (4.30-5.90) m/uL Hgb (13.0-17.5) gm/dL Hct (39.0-53.0) % MCH (25.0-35.0) pg MCHC (31.0-37.0) g/dL APTT (22.0-30.0) sec Sodium 136 L (137-145) mmol/L Chloride 108 H (98-107) mmol/L Glucose 125 H (74-99) mg/dL POC Glucose (mg/dL) 133 H 136 H (70-110) mg/dL HDL Cholesterol (40.00-60.00) mg/dL 04/06/24 04/06/24 Range/Units 07:44 07:44 RBC 3.17 L (4.30-5.90) m/uL Hgb 7.8 L (13.0-17.5) gm/dL Hct 25.5 L (39.0-53.0) % MCH 24.5 L (25.0-35.0) pg MCHC 30.5 L (31.0-37.0) g/dL APTT 45.8 H (22.0-30.0) sec Sodium (137-145) mmol/L Chloride (98-107) mmol/L Glucose (74-99) mg/dL POC Glucose (mg/dL) (70-110) mg/dL HDL Cholesterol (40.00-60.00) mg/dL Assessment and Plan Assessment: 1. Chest pain/NSTEMI -History of NSTEMI with PCI of the LAD and circumflex 02/07/2023 PCI of the circumflex 04/02/2024 History of mild ischemic cardiomyopathy with previous EF of 40 to 45% -- Patient has been admitted to telemetry; monitor EKG and trend troponin; currently on IV heparin infusion and Nitropaste in ED -Patient is currently on aspirin, Lipitor, Plavix and metoprolol -Cardiology consulted 2. Hyperglycemia/diabetes mellitus; patient takes Amaryl 2 mg p.o. nightly which will be placed on hold while inpatient; -- we will plan to monitor Accu-Cheks before every meal and at bedtime with insulin sliding scale while inpatient 3. Hypertension; metoprolol XL 25 mg p.o. nightly; losartan 25 mg nightly 4. COPD/asthma; Symbicort 160-4.5 mcg 2 puffs twice daily; Atrovent nebulizer treatments 4 times daily and as needed 5. Hyperlipidemia; Lipitor 40 mg daily DVT prophylaxis; SCDs/IV heparin CODE STATUS; full code
[2024-04-06 16:46] LABS: Glucose,Whole Blood 201 mg/dL (70-110)
[2024-04-06 20:17] LABS: Glucose,Whole Blood 100 mg/dL (70-110)
[2024-04-07] MEDS: SODIUM CHLORIDE 0.9% 1,000 ML in EMPTY BAG 1 BAG IV SCH (01:08)
[2024-04-07] MEDS: ASPIRIN 325 MG TAB PO ONE (05:02)
[2024-04-07] MEDS: ATORVASTATIN 80 MG TAB PO ONE (05:02)
[2024-04-07 06:28] LABS: Glucose,Whole Blood 151 mg/dL (70-110)
[2024-04-07 08:05] LABS: African American GFR (CKD) 78 (>60 ml/min/1.73 sqM); Anion Gap 13 mmol/L; Blood Urea Nitrogen 14 mg/dL (9-20); Calcium 8.4 mg/dL (8.4-10.2); Carbon Dioxide 18 mmol/L (22-30); Chloride 108 mmol/L (98-107); Glucose 133 mg/dL (74-99); Non-African American GFR(CKD) 67 (>60 ml/min/1.73 sqM); Potassium 4.3 mmol/L (3.5-5.1); Sodium 139 mmol/L (137-145)
[2024-04-07 08:23] LABS: Basophils # (A) 0.1 k/uL (0-0.2); Basophils % (A) 1 %; Eosinophils # (A) 0.1 k/uL (0-0.7); Eosinophils % (A) 1 %; HCT 29.6 % (39.0-53.0); HGB 8.5 gm/dL (13.0-17.5); Hypochromasia Marked; Lymphocytes # (A) 1.4 k/uL (1.0-4.8); Lymphocytes % (A) 18 %; MCH 25.2 pg (25.0-35.0); MCHC 28.5 g/dL (31.0-37.0); Mean Platelet Volume 7.6; Monocytes # (A) 0.4 k/uL (0-1.0); Monocytes % (A) 5 %; Neutrophils # (A) 5.4 k/uL (1.3-7.7); Neutrophils % (A) 72 %; Platelet Count 308 k/uL (150-450); Poikilocytosis Slight; RBC 3.36 m/uL (4.30-5.90); RDW 15.2 % (11.5-15.5); WBC 7.5 k/uL (3.8-10.6)
[2024-04-07 08:24] LABS: MCV 88.3 fL (80.0-100.0)
[2024-04-07] MEDS ORDERED: polyethylene glycoL 3350 17 GM POWD.PACK PO PRN (09:27)
[2024-04-07] MEDS: bisacodyL 10 MG SUPP RECTAL STA (09:37)
[2024-04-07] MEDS: FUROSEMIDE 10 MG/ML 4 ML VIAL IV STA (09:37)
--- NOTE | 2024-04-07 09:39 | P.PN ---
Subjective 79-year-old male, history of coronary artery disease, carotid artery disease, obstructive sleep apnea, diabetes mellitus type 2, hypertension, who presents to the emergency department with history of recent cardiac catheterization on 02/03/2024 with 5 stents in the past. Patient states he started having chest pain and difficulty breathing 5 days ago. Patient states it does worsen with exertion. Patient states the pain radiates down both arms. Patient denies any diaphoretic episodes. Patient denies any nausea. Patient denies any abdominal pain. Patient denies a headache. Patient states that he has had no recent fever chills or cough. Patient states she has been a little more swelling in his legs Patient had a previous cardiac catheterization on 02/03/2024 and he was referred to cardiothoracic surgery for CABG evaluation of the left main disease. He met with Dr. Polanco and was deemed high risk and therefore referred for stenting and not CABG. Patient states the chest pain started on at home. It did not seem to be too bad and then on Sunday he decided to come into the hospital for evaluation. Nitropaste did not take the pain away. He states the chest pain is now gone. He also states he has had lower extremity edema ever since he had the stent of the carotid done on 03/19. Patient has been started on a heparin drip. Blood pressure 99/58, heart rate 68, pulse ox 97% on room air. Patient has been started on a heparin drip. -EKG: Sinus rhythm with first-degree block -Chest x-ray: Chronic changes without acute pulmonary process. No significant change from prior. -Laboratory studies: WBC 8.8, hemoglobin 9.2. Electrolytes within normal limits. Creatinine 1.1. Troponin 0.59, 1.18, 1.5. Urinalysis positive for RBCs and WBCs. -Home cardiac medications: Aspirin 81 mg daily, atorvastatin 40 mg at bedtime, Plavix 75 mg at bedtime, losartan 25 mg at bedtime, Toprol XL 25 mg at bedtime, nitroglycerin sublingual. -03/19/2024: Carotid artery stenosis 99% proximal left internal status post left carotid stent. -Echocardiogram performed in the office on 01/18/2024 revealed EF of 55 to 60%, severe LVH, mild aortic stenosis, mild mitral regurgitation, mild tricuspid regurgitation, PASP 42 mmHg. 24-hour interval change 04/06/2024 Patient seen and examined in room at bedside. Patient denies having any chest pain no shortness of breath. He has been maintained on a heparin drip. Patient is on nitro paste which seems to control his chest pain. Vital signs are reviewed and remained stable with blood pressure 102/66, heart rate 77, pulse ox 94% on room air. -- blood work reveals hemoglobin 7.8, sodium 136, potassium 3.8, BUN 16 creatinine 1.02. - Echocardiogram reveals EF of 60 to 65%, severe pulmonary hypertension, moderate to severe mitral regurgitation, mild to moderate tricuspid regurgitation. Make patient n.p.o. after midnight Schedule patient for left heart cath on Sunday with Dr. Roque 04/07 This is a pleasant 79 years old male who presents with signs symptoms of chest pain suspicious for non-STEMI. He had recently diagnosed with non-STEMI and he underwent PCI to left circumflex on 04/02 Also patient had shortness of breath on admission and coughing up blood. Chest x-ray on admission read as chronic changes without acute pulmonary process per radiologist. Today he still complaining from shortness of breath. We are going to repeat the chest x-ray Cardiology team also planning to repeat cardiac cath today. Patient confirms to me he has been using aspirin and Plavix at home which are resumed currently. Also he is on a heparin drip. Anemia this admission is 8-9.5, he had recent baseline about 14-15 more than 1 month ago. Patient denies any signs of overt bleeding recently. Patient states he has been constipated since last Sunday. Will going to start him on laxative Will do an anemia workup Echocardiogram is showing EF 60 to 65% with severe pulmonary hypertension and moderate to severe mitral regurgitation and mild to moderate tricuspid regurgitation Review of systems CONSTITUTIONAL: No fever, no malaise, no fatigue. HEENT: No recent visual problems or hearing problems. Denied any sore throat. GASTROINTESTINAL: No diarrhea, no nausea, no vomiting, no abdominal pain. Normoactive bowel sounds. NEUROLOGICAL: No headaches, no weakness, no numbness. HEMATOLOGICAL: Denies any bleeding or petechiae. GENITOURINARY: Denies any burning micturition, frequency, or urgency. Active Medications Generic Name Dose Route Start Last Admin Trade Name Freq PRN Reason Stop Dose Admin Acetaminophen 650 mg 04/06/24 12:02 04/06/24 12:06 Acetaminophen Tab 325 Mg Tab PO 650 mg Q6HR PRN Administration Fever and/ or Pain Alprazolam 0.25 mg 04/06/24 09:48 Alprazolam 0.25 Mg Tab PO Q6HR PRN Mild Anxiety Alprazolam 0.5 mg 04/06/24 09:48 Alprazolam 0.5 Mg Tab PO Q6HR PRN Moderate Anxiety Aspirin 81 mg 04/05/24 09:15 04/07/24 08:41 Aspirin 81 Mg PO 81 mg DAILY SUDHEER Administration Atorvastatin Calcium 40 mg 04/04/24 21:00 04/06/24 20:26 Atorvastatin 40 Mg Tab PO 40 mg HS SUDHEER Administration Budesonide/Formoterol Fumarate 2 puff 04/04/24 20:00 04/07/24 08:54 Symbicort 160-4.5 Mcg Inhaler INHALATION 2 puff RT-BID SUDHEER Administration Clopidogrel Bisulfate 75 mg 04/05/24 09:15 04/07/24 08:41 Clopidogrel 75 Mg Tab PO 75 mg DAILY SUDHEER Administration Docusate Sodium 100 mg 04/07/24 21:00 Docusate 100 Mg Cap PO BID SUDHEER Heparin Sodium (Porcine) 0 unit 04/04/24 17:30 04/05/24 01:26 Heparin Sodium 1,000 Un/Ml (10ml Vl) IV 2,500 unit PER PROTOCOL PRN Administration Low PTT Protocol Heparin Sodium/Sodium Chloride 250 mls @ 10.004 mls/hr 04/04/24 17:30 04/07/24 08:41 25,000 unit/ Sodium Chloride IV 13.89 units/kg/hr .Q24H SUDHEER 14.05 mls/hr Administration Protocol 9.89 UNITS/KG/HR Heparin Sodium (Porcine) 10, 1,001 mls @ 999 mls/hr 04/07/24 07:00 000 unit/ Sodium Chloride IRRIGATION 04/07/24 23:00 ONCE PRN INTRA-OP Heparin Sodium (Porcine) 2,500 250.5 mls @ 250 mls/hr 04/07/24 07:00 unit/ Sodium Chloride IRRIGATION 04/07/24 23:00 ONCE PRN INTRA-OP Sodium Chloride 1,000 ml/ IV 1,000 mls @ 102.4 mls/hr 04/06/24 10:00 04/07/24 05:03 Solution IV Not Given .Q9H46M SUDHEER 1 ML/KG/HR Insulin Aspart 0 unit 04/04/24 21:00 04/07/24 06:34 Insulin Aspart (Novolog) 100 Unit/Ml Vial SQ 04/11/24 20:59 Not Given ACHS [facility] Protocol Ipratropium [place] 0.5 mg 04/04/24 20:00 04/07/24 08:54 Ipratropium 0.5 Mg/2.5 Ml Nebu INHALATION 0.5 mg RT-QID SUDHEER Administration Metoprolol Succinate 25 mg 04/04/24 21:00 04/06/24 20:26 Metoprolol Succinate (Er) 25 Mg Tab.Er.24h PO 25 mg HS SUDHEER Administration Nitroglycerin 0.4 mg 04/04/24 16:25 Nitroglycerin Sl Tabs 0.4 Mg Tab SUBLINGUAL Q5M PRN Chest Pain Nitroglycerin 1 inch 04/04/24 18:00 04/07/24 05:02 Nitroglycerin Oint 1 Inch/Gm Packet TOPICAL 1 inch Q6HR SUDHEER Administration Pantoprazole Sodium 40 mg 04/06/24 11:30 04/07/24 08:41 Pantoprazole 40 Mg/10 Ml Vial IVP 40 mg DAILY SUDHEER Administration Polyethylene Glycol 17 gm 04/07/24 09:27 Polyethylene Glycol 3350 17 Gm Powd.Pack PO DAILY PRN Constipation Objective - Vital Signs Vital signs: Vital Signs Temp 98.2 F 04/06/24 20:10 Pulse 84 04/07/24 09:08 Resp 16 04/07/24 09:08 BP 92/58 04/07/24 03:30 Pulse Ox 90 L 04/07/24 03:30 FiO2 Intake & Output 04/06/24 04/07/24 04/07/24 18:59 06:59 18:59 Intake Total 250 218.097 Balance 250 218.097 Weight 103.7 kg Intake: Intake, IV Titration 250 218.097 Amount Heparin Sod,Pork in 0.45% 250 218.097 NaCl 25,000 unit In 0.45 % NaCl 1 250ml.bag @ 9.89 UNITS/KG/HR 10.004 mls/ hr IV .Q24H [facility] Rx#: [id number] Other: Voiding Method Toilet Toilet # Voids 1 - Exam -GENERAL: The patient is alert and oriented x3, not in any acute distress. Well developed, well nourished. Obese HEENT: Pupils are round and equally reacting to light. EOMI. No scleral icterus. No conjunctival pallor. Normocephalic, atraumatic. No pharyngeal erythema. No thyromegaly. CARDIOVASCULAR: S1 and S2 present. No murmurs, rubs, or gallops. -PULMONARY: Chest is clear to auscultation, no wheezing , bilateral basal crackles. Tachypneic ABDOMEN: Soft, nontender, nondistended, normoactive bowel sounds. No palpable organomegaly. MUSCULOSKELETAL: No joint swelling or deformity. EXTREMITIES: No cyanosis, clubbing, or pedal edema. NEUROLOGICAL: Gross neurological examination did not reveal any focal deficits. SKIN: No rashes. no petechiae. - Labs CBC & Chem 7: 04/07/24 06:21 04/07/24 06:21 Labs: Abnormal Lab Results - Last 24 Hours (Table) 04/06/24 04/06/24 04/06/24 Range/Units 11:43 12:06 16:44 RBC 3.33 L (4.30-5.90) m/uL Hgb 8.3 L (13.0-17.5) gm/dL Hct 26.8 L (39.0-53.0) % MCHC (31.0-37.0) g/dL APTT (22.0-30.0) sec Chloride (98-107) mmol/L Carbon Dioxide (22-30) mmol/L Glucose (74-99) mg/dL POC Glucose (mg/dL) 138 H 201 H (70-110) mg/dL 04/07/24 04/07/24 04/07/24 Range/Units 06:21 06:21 06:21 RBC 3.36 L (4.30-5.90) m/uL Hgb 8.5 L (13.0-17.5) gm/dL Hct 29.6 L (39.0-53.0) % MCHC 28.5 L (31.0-37.0) g/dL APTT 37.9 H (22.0-30.0) sec Chloride 108 H (98-107) mmol/L Carbon Dioxide 18 L (22-30) mmol/L Glucose 133 H (74-99) mg/dL POC Glucose (mg/dL) (70-110) mg/dL 04/07/24 Range/Units 06:27 RBC (4.30-5.90) m/uL Hgb (13.0-17.5) gm/dL Hct (39.0-53.0) % MCHC (31.0-37.0) g/dL APTT (22.0-30.0) sec Chloride (98-107) mmol/L Carbon Dioxide (22-30) mmol/L Glucose (74-99) mg/dL POC Glucose (mg/dL) 151 H (70-110) mg/dL Microbiology - Last 24 Hours (Table) 04/05/24 03:40 Urine Culture - Final Urine,Voided Assessment and Plan Assessment: #. Chest pain/NSTEMI -History of NSTEMI with PCI of the LAD and circumflex 02/07/2023 #. possible Acute systolic CHF ,with ischemic cardiomyopathy with EF of 45% #. Normochromic, normocytic anemia #. Hyperglycemia/diabetes mellitus; sliding scale while inpatient #. Hypertension; #. COPD/asthma; #. Hyperlipidemia; DVT prophylaxis; SCDs/IV heparin CODE STATUS; full code Plan: Continue with heparin drip Continue with dual antiplatelet therapy of aspirin and Plavix which are home medication MRI is on hold, will start insulin sliding scale, glucose currently controlled Plan for cardiac cath today with cardiology team Repeat chest x-ray Monitor hemoglobin and do anemia workup Give laxative Cardiology team following closely with plan for cardiac cath to be repeated on 04/07 Labs and medication were reviewed.. Continue same treatment. Continue with symptomatic treatment. Resume home medication. Monitor labs and vitals. DVT and GI prophylaxis. Further recommendations as per clinical course of the patient DVT prophylaxis: heparin GI Prophylaxis: protonix Prognosis is guarded
[2024-04-07] MEDS: IV FLUID CONTINUATION 1,000 ML IV ONE (11:10)
[2024-04-07] MEDS: MIDAZOLAM 2 MG/2 ML VIAL IVP ONE (11:21)
[2024-04-07] MEDS: fentaNYL (PF) 50 MCG/ML 2 ML AMP IVP ONE (11:23)
[2024-04-07] MEDS: LIDOCAINE 1% INJ 10MG/ML (20 ML MDV) SQ ONE (11:25)
[2024-04-07] MEDS: HEPARIN SODIUM,PORCINE 10,000 UNIT in SODIUM CHLORIDE 0.9% 1,000 ML IRRIGATION PRN (11:26)
[2024-04-07] MEDS: HEPARIN SODIUM,PORCINE (1 ML) 2,500 UNIT in SODIUM CHLORIDE 0.9% 250 ML IRRIGATION PRN (11:26)
[2024-04-07] MEDS: SODIUM CHLORIDE 0.9% 1,000 ML IV ONE ×2 (11:30→17:42)
[2024-04-07] MEDS: NITROGLYCERIN 1000MCG/10ML SYRINGE INTRACORON ONE (12:08)
[2024-04-07] MEDS: IOPAMIDOL-370 100ML BTL INJ ONE ×2 (13:11→13:38)
[2024-04-07] MEDS: SODIUM CHLORIDE 0.9% 250 ML IV ONE (13:15)
[2024-04-07] MEDS ORDERED: ATROPINE SULFATE 0.1 MG/ML 10ML SYRINGE IV PRN (13:45)
[2024-04-07] MEDS ORDERED: ZOLPIDEM 5 MG TAB PO PRN (13:45)
[2024-04-07] MEDS ORDERED: MAG HYDROX/AL HYDROX/SIMETH 30 ML CUP PO PRN (13:45)
[2024-04-07] MEDS ORDERED: RX INFO: IV CONTRAST WAS GIVEN 1 EACH MISC MISCELLANE PRN (13:45)
[2024-04-07 14:17] LABS: Glucose,Whole Blood 134 mg/dL (70-110)
[2024-04-07 15:20] LABS: Ferritin 36.6 ng/mL (22.0-322.0); Iron 16 UG/DL (65-175); Total Iron Binding Capacity 364 UG/DL (228-460)
--- NOTE | 2024-04-07 15:51 | P.PRCINT ---
Percutaneous Coronary Int. - Percutaneous Coronary Intervention Percutaneous Coronary Intervention: PROCEDURES PERFORMED: Left heart catheterization, bilateral coronary angiography, ultrasound guided arterial access, Impella protected PCI left main into LAD/ circumflex using DK crush technique with 3.5 x 15mm Xience ROCKY into circumflex and 4.0 x 18mm Xience ROCKY left main into LAD, post dilated with 4.5mm NC balloon proximally, Shockwave lithotripsy left main 4.0mm balloon, IVUS left main, LAD and circumflex INDICATION: NSTEMI, deemed high surgical risk for CABG CONSENT:I have discussed the risks, benefits and alternative therapies for the above-mentioned procedure and for both sedation/analgesia as well as necessary blood product administration, if indicated, as they pertain to this patient. The patient has indicated understanding and acceptance of the risks and procedures discussed. PROCEDURE: After the risks, benefits and alternatives of the above mentioned procedure explained in detail with the patient, informed consent was obtained. Patient was taken to the catheterization lab and prepped and draped in usual fashion. Ultrasound guidance was used to assess for arterial access. 1% lidocaine was used to anesthetize the right femoral artery. A 6-[place] sheath was placed in the right femoral artery using modified Seldinger technique and ultrasound guidance. Left coronary angiography was performed with a 6-[place] JL 4.0 catheter and right coronary angiography was performed with a 6-[place] FR4 catheter in various views. A 6-[place] FR4 catheter was inserted into the left ventricle and pressure measurements were obtained. Remainder of patient's anatomy appeared similar to prior angiograms with major significant CAD mainly of the left main into LAD. I had prior discussions of high risk PCI left main and given no other significant progression with patent stents. 2 Percloses at the 10:00 and 2 o'clock position were placed in the right femoral artery. Over the stiff 0.035 wire a 14-[place] sheath was placed. Next a pigtail catheter was placed the left ventricle and over a 0.018 wire this was exchanged for an in [place] CP device. The and [place] CP was turned on with adequate function and output. Decision was made to perform PCI of the left main. A 0.014 BMW wire was advanced the distal LAD and then an additional 0.014 BMW wire was advanced the distal circumflex. Predilatation was performed both the circumflex as well as LAD with a 3.0 mm balloon. Next annual vascular ultrasound showed reference vessel 4.5 mm in the left main, 4.0 mm of LAD and 3.5 mm in the circumflex. There was diffuse distal left main calcification therefore lithotripsy was recommended. Shock wave lithotripsy was performed 2 runs the left main with a 4.0 balloon. A 3.5 x 15 mm drug-eluting stent was placed from the origin of the left main and of the circumflex. The proximal portion of the stent was crushed with a 3.5 x 12 mm noncompliant balloon in the left main and LAD. A 0.014 whisper wire was used to recross the crushed stent. The stent was postdilated with a 1.5 then 2.5 mm balloon. Next first casein balloon angioplasty was performed with a 3.5 by 8mm NC balloon in the circumflex and a 3.5 x 12 mm noncompliant balloon in the left main and LAD. Next a 4.0 x 18 mm Xience ROCKY was placed from the left main into the LAD. The 0.014 wire was used to recross the circumflex. Predilation was performed with 1.5 and 2.5 mm balloons. Next a 3.5 x 8 mm noncompliant balloon was placed in the circumflex and an additional 3.5 x 12 mm noncompliant balloon was placed in the left main and LAD and second kissing balloon angioplasty was performed. The proximal left main portion of the stent was postdilated with a 4.5 x 8 mm noncompliant balloon. Repeat intravascular ultrasound showed excellent stent apposition with no dissection and no significant stenosis. Final angiograms were performed. Preintervention there was 70% left main stenosis and SRI-3 flow and postintervention there is less than 10% stenosis with SRI 3 flow. The pre-close per closes were deployed with hemostasis achieved. The patient tolerated the procedure well. Patient was transported back to the post catheterization holding area in stable condition. Conscious Sedation: Patient was monitored under the direct supervision of myself for conscious sedation using Versed and fentanyl for a total duration of 137 minutes HEMODYNAMICS: Ao: 109/71 LV: 104/12, LVEDP 24 SELECTIVE CORONARY ARTERIOGRAPHY: LEFT MAIN: The left main is a large caliber vessel which bifurcates into the LAD and circumflex. There is distal left main 70% stenosis. LEFT ANTERIOR DESCENDING CORONARY ARTERY: LAD is a large caliber vessel which wraps around to the apex. There is mild diffuse 20-30% proximal LAD stenosis and patent mid LAD stent as well as distal LAD stent. There is a mid LAD 60-70% stenosis in between the stents. Diagonal 1 has 40-50% proximal stenosis and diagonal 2 has proximal 40-50% stenosis. There are left to right collaterals to the PDA. LEFT CIRCUMFLEX CORONARY ARTERY: Left circumflex is a moderate caliber vessel with OM1 patent stents proximally and at the distal stent is patent with mild 30% stenosis. After OM1, the circumflex gives off a small caliber AV groove branch. RIGHT CORONARY ARTERY: The right coronary artery is a large caliber vessel which gives off a PDA and PLV branch and is the dominant vessel. There is high bifurcation and after giving off PLV branch there is 100% RCA stenosis which appears to give off the PDA (collateralized by the LAD). FINAL IMPRESSION: 1. CAD as described above including 70% left main stenosis, 20-30% proximal LAD stenosis, mid LAD 60-70% stenosis, circumflex 30% stenosis, RCA 100% stenosis with left to right collaterals 2. Elevated left sided filling pressures 3. S/p Impella protected PCI left main into LAD/ circumflex using DK crush technique with 3.5 x 15mm Xience ROCKY into circumflex and 4.0 x 18mm Xience ROCKY left main into LAD, post dilated with 4.5mm NC balloon proximally PLAN: 1. Aggressive risk factor modification per most recent ACC/AHA guidelines. 2. Continue dual antiplatelets with aspirin and Plavix for 12 months.
[2024-04-07] MEDS: SODIUM CHLORIDE 0.9% 500 ML 500 ML IV ONE (16:00)
[2024-04-07 16:04] LABS: Glucose,Whole Blood 137 mg/dL (70-110)
--- NOTE | 2024-04-07 16:35 | CT ---
EXAMINATION TYPE: CODE STROKE: CT brain wo contr DATE OF EXAM: 04/07/2024 4:30 PM COMPARISON: None. 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 Contrast used: None. Oral contrast used: None. CT DLP: 1197.4 mGycm, Automated exposure control for dose reduction was used. FINDINGS: Brain: Extra-axial spaces: No abnormal extra-axial fluid collections. Ventricular system: Within normal limits Cerebral parenchyma: Cerebral atrophy. No acute intraparenchymal hemorrhage or mass effect. The bermeo -white junction is well differentiated. Scattered hypoattenuating areas are seen within the white mat ter. Cerebellum: Unremarkable. Mass effect: No evidence of midline shift. Intracranial vasculature: Atherosclerotic calcifications of the intracranial vessels. Soft tissues: Normal. Calvarium/osseous structures: No depressed skull fracture. Paranasal sinuses and mastoid air cells: Mild scattered paranasal sinus disease. Visualized orbits: Orbital contents are intact. IMPRESSION: 1. No acute intracranial process. 2. Nonspecific white matter changes, likely secondary to chronic small vessel ischemic disease. [facility], , 04/07/2024 4:33 PM
[2024-04-07 17:24] LABS: Glucose,Whole Blood 127 mg/dL (70-110)
[2024-04-07] MEDS: SODIUM CHLORIDE 0.9% 1,000 ML IV SCH ×2 (17:42→21:00)
[2024-04-07 18:27] LABS: Mucus,Urine Rare /hpf; RBC,Urine >182 /hpf (0-5); Squamous Epithelial Cell,Urine <1 /hpf (0-4); WBC,Urine 5 /hpf (0-5)
[2024-04-07 18:45] LABS: Appearance,Urine Clear (Clear); Color,Urine Colorless; Specific Gravity,Urine 1.033 (1.001-1.035)
[2024-04-07 18:46] LABS: Bilirubin,Urine Negative (Negative); Blood,Urine Negative (Negative); Glucose,Urine (UA) Negative (Negative); Ketones,Urine Negative (Negative); Leukocyte Esterase,Urine Negative (Negative); Nitrite,Urine Negative (Negative); Protein,Urine Negative (Negative); Urobilinogen,Urine <2.0 mg/dL (<2.0)
[2024-04-07] MEDS: NOREPINEPHRINE 4 MG in SODIUM CHLORIDE 0.9% 250 ML IV SCH (21:13)
[2024-04-07] MEDS: DOCUSATE 100 MG CAP PO SCH (21:17)
--- NOTE | 2024-04-07 21:30 | XR ---
EXAMINATION TYPE: XR chest 1V DATE OF EXAM: 04/07/2024 7:49 PM CLINICAL INDICATION:Male, 79 years old with history of sob; [facility] COMPARISON: Chest radiographs from 04/04/2024. TECHNIQUE: XR chest 1V Frontal view of the chest. FINDINGS: Lungs/Pleura: Low lung volumes are present with more conspicuous prominence of the interstitial nader ngs. There is no evidence of pneumothorax. Pulmonary vascularity: Unremarkable. Heart/mediastinum: Cardiomediastinal silhouette is unremarkable. Musculoskeletal: No acute osseous pathology. Other findings: None IMPRESSION: Mild prominence of the interstitial markings when compared to the recent chest x-ray may relate to de veloping infectious/inflammatory process. Correlate with clinical evaluation. [facility], , 04/07/2024 9:28 PM
[2024-04-07 21:32] LABS: Glucose,Whole Blood 137 mg/dL (70-110)
--- NOTE | 2024-04-07 21:41 | US ---
EXAMINATION TYPE: US carotid duplex BILAT DATE OF EXAM: 04/07/2024 COMPARISON: NONE CLINICAL INDICATION: Male, 79 years old with history of stroke symptoms; Patient states left stent pl aced on Sunday Additional History: .... TECHNIQUE: Grayscale, color Doppler and spectral Doppler evaluation of the bilateral carotid systems and vertebral arteries. Indirect Doppler criteria was utilized. FINDINGS: EXAM MEASUREMENTS: RIGHT: Peak Systolic Velocity (PSV) cm/sec ----- Right CCA: 103.1 ----- Right ICA: 111.8 ----- Right ECA: 119.4 ICA/CCA ratio: 1.1 RIGHT: End Diastole cm/sec ----- Right CCA: 18.8 ----- Right ICA: 24.6 ----- Right ECA: 0.0 LEFT: Peak Systolic Velocity (PSV) cm/sec ----- Left CCA: 82.2 ----- Left ICA: 103.2 ----- Left ECA: 104.8 ICA/CCA ratio: 1.3 LEFT: End Diastole cm/sec ----- Left CCA: 20.8 ----- Left ICA: 28.9 ----- Left ECA: 0.0 VERTEBRALS (direction of flow): Right Vertebral: Unable to visualize Left Vertebral: Antegrade Rhythm: Normal SAW OFFBEARER NOTES: Exam done portable in ICU. Slightly limited due to movement with breathing No si gnificant velocity elevations visualized today. Left stent visualized. Color Doppler imaging shows patency with blood flow throughout the carotid artery. Spectral waveforms are within normal limits. IMPRESSION: Right: No hemodynamically significant stenosis. Left: No hemodynamically significant stenosis. Left common carotid artery stent noted. The right vertebral artery was not visualized on exam. Further evaluation and characterization can be obtained with dedicated CTA neck if clinically warranted. [facility], , 04/07/2024 9:38 PM
--- NOTE | 2024-04-08 00:03 | P.PCN ---
Date of Procedure: 04/08/24 Preoperative Diagnosis: Symptomatic hypotension requiring vasopressors Postoperative Diagnosis: Symptomatic hypotension requiring vasopressors Procedure(s) Performed: Insertion of a left radial arterial line Indications for Procedure: Hemodynamic monitoring Description of Procedure: Informed consent was obtained, and a procedural timeout was performed . The patient was placed in supine position. The left radial region was prepared in a sterile fashion, and a sterile drape was applied. Left radial area was locally anesthetized with 1% lidocaine. The left radial artery was palpated, easily cannulated, and a guidewire was placed. A Cook catheter was inserted over the guidewire, and the guidewire was removed. There was good arterial blood flow, good arterial waveform, and no complications. The line was secured with using a 3-0 silk suture.
[2024-04-08 04:21] LABS: Basophils # (A) 0.1 k/uL (0-0.2); Basophils % (A) 1 %; Eosinophils # (A) 0.1 k/uL (0-0.7); Eosinophils % (A) 1 %; HCT 23.7 % (39.0-53.0); HGB 7.3 gm/dL (13.0-17.5); Hypochromasia Marked; Lymphocytes # (A) 1.9 k/uL (1.0-4.8); Lymphocytes % (A) 17 %; MCH 24.9 pg (25.0-35.0); MCHC 30.7 g/dL (31.0-37.0); Mean Platelet Volume 8.1; Monocytes # (A) 0.5 k/uL (0-1.0); Monocytes % (A) 5 %; Neutrophils # (A) 8.4 k/uL (1.3-7.7); Neutrophils % (A) 76 %; Platelet Count 342 k/uL (150-450); Poikilocytosis Slight; RBC 2.92 m/uL (4.30-5.90); RDW 15.5 % (11.5-15.5); WBC 11.1 k/uL (3.8-10.6)
[2024-04-08 04:32] LABS: ALT 16 U/L (4-49); AST 25 U/L (17-59); African American GFR (CKD) 84 (>60 ml/min/1.73 sqM); Albumin 3.3 g/dL (3.5-5.0); Alkaline Phosphatase 52 U/L (38-126); Anion Gap 9 mmol/L; Bilirubin, Delta 0.1 mg/dL (0.0-0.2); Bilirubin,Unconjugated 0.7 mg/dL (0.0-1.1); Blood Urea Nitrogen 13 mg/dL (9-20); Carbon Dioxide 13 mmol/L (22-30); Chloride 112 mmol/L (98-107); Glucose 175 mg/dL (74-99); Non-African American GFR(CKD) 73 (>60 ml/min/1.73 sqM); Sodium 134 mmol/L (137-145); Total Bilirubin 0.8 mg/dL (0.2-1.3); Total Protein 5.7 g/dL (6.3-8.2)
--- NOTE | 2024-04-08 05:07 | P.CNPUL ---
History of Present Illness Consult date: 04/08/24 Requesting physician: Ronaldo Ortiz Reason for consult: other (ICU management: Vasopressor management) Chief complaint: Chest pain, shortness of breath History of present illness: Patient is a 79-year-old male with past medical history significant for coronary artery disease with previous PCI/stenting, carotid artery disease with previous left carotid stent, diabetes mellitus, hypertension, hyperlipidemia, previous TURP, SHAKILA no longer using CPAP at home, former tobacco smoker. Of note, patient states that he has significant coronary artery disease with previous 4 stents done in January 2023. More recently, in February patient was brought and had a heart catheterization done March 05, 2024. He is found to have coronary disease including 50% stenosis left main, mid LAD 60 to 70% stenosis, OM1 90% stenosis, RCA night 100% stenosis with collaterals. He was also found to have 99% stenosis of left internal carotid artery. Patient was evaluated by cardiothoracic surgery, felt to be a poor surgical candidate. On March 19, 2024 patient was brought in and underwent left carotid artery stenting and balloon angioplasty. Patient was brought in April 02 and received a stent to the left circumflex artery. While at home, patient developed substernal chest pain and difficulty in breathing, which was worse on exertion. He did present to the ED back on 04/04/2024. He was found to have non-ST elevation NC. Echocardiogram estimating left ventricular ejection fraction of 60 to 65%. Mild concentric LVH. Moderate to severe mitral regurgitation as well as severe pu lmonary hypertension and mild to moderate tricuspid regurgitation. Patient had subsequent heart catheterization which was Impella assisted, he had PCI/stenting x 2 to the left main into LAD/circumflex. He was brought to the intensive care unit following the procedure. At 1535 patient developed CVI/TIA symptoms including left-sided facial droop and dysarthria. His NIH was initially scored at an 8 per nursing. Code stroke was called. Brain CT did not show any acute findings. Patient's blood pressure was noted to be hypotensive during this event. Blood pressure was reportedly 80s over 40s. He did receive 1.5 L fluid bolus in the form of normal saline. Blood pressure remains marginal. Neurology recommended vasopressors to improve hypotension and hopefully neurological symptoms. Follow-up carotid Doppler did not show any hemodynamically significant stenosis of right or left internal carotid arteries. The left common carotid artery stent was noted. Right vertebral artery was not visualized. Patient was started on norepinephrine which is infusing at 0.1 mcg/kg/min. Blood pressure is currently 96/58 mmHg. I did insert a left wrist radial arterial line. Patient is currently being evaluated in the intensive care unit room 258. He is alert and oriented at this time. No focal neurologic deficit on my evaluation. On 2 L/min nasal cannula. No respiratory distress. Follow-up chest x-ray showing interstitial prominence, possible pulmonary edema. He does have 2+ pitting edema to his lower extremities. He does have a urinary catheter with small amount of hematuria and urine output is in the order of 40 ml/hr. Most recent CBC: WBC count 7.5, hemoglobin 8.5, hematocrit 29.6, platelets 308. BMP: Sodium 139, testing 4.3, chloride 108, serum bicarb 18, BUN 14, creatinine 1.06, glucose 133. Troponins on arrival are elevated at 0.59, 1.18, and 1.5 respectively. Heparin since been discontinued after his heart catheterization, currently on dual antiplatelet medications including Plavix and aspirin. Right femoral access site is soft without hematoma. Review of Systems Constitutional: Reports fatigue, Reports weight gain, Denies chills, Denies fever, Denies poor appetite, Denies weight loss Ears, nose, mouth and throat: Denies epistaxis, Denies nasal congestion, Denies nasal discharge, Denies post-nasal drip, Denies sinus pain, Denies sinus pressure, Denies sore throat Cardiovascular: Reports leg edema, Denies chest pain, Denies irregular heart beat, Denies lightheadedness, Denies orthopnea, Denies palpitations, Denies paroxysmal nocturnal dyspnea, Denies syncope Respiratory: Denies congestion, Denies cough, Denies home oxygen, Denies wheezing Gastrointestinal: Denies abdominal pain, Denies change in bowel habits, Denies hematochezia, Denies melena, Denies nausea, Denies vomiting Genitourinary: Denies dysuria Musculoskeletal: Denies limitation of motion Integumentary: Denies rash, Denies unusual bruising Neurological: Reports paresthesias, Denies ataxia, Denies confusion, Denies head injury, Denies headaches, Denies hearing difficulties, Denies numbness, Denies paralysis, Denies seizures, Denies syncope, Denies tremors, Denies visual changes Psychiatric: Denies anxiety, Denies depression Past Medical History Past Medical History: Coronary Artery Disease (CAD), Chest Pain / Angina, Diabetes Mellitus, Eye Disorder, Hyperlipidemia, Hypertension, Myocardial Infarction (NC), Prostate Disorder, Sleep Apnea/CPAP/BIPAP Additional Past Medical History / Comment(s): occ irregular heartrate, no cpap used- lost wt, hx grout, kidney stone, glaucoma. Last Myocardial Infarction Date:: unk History of Any Multi-Drug Resistant Organisms: None Reported Past Surgical History: Appendectomy, Heart Catheterization With Stent, Orthope dic Surgery, Prostate Surgery, Tonsillectomy Additional Past Surgical History / Comment(s): Bilateral corneal transplant, bilateral cataract surgery, left knee replacement,TURP, cardiac stents X4, 2nd right eye surgery after cataract removed. cartoid stent left 02/2024 Additional Past Anesthesia/Blood Transfusion Reaction / Comment(s): "hard time w aking up" Date of Last Stent Placement:: 04/02/2024 Past Psychological History: No Psychological Hx Reported Smoking Status: Former smoker Past Alcohol Use History: None Reported Past Drug Use History: None Reported - Past Family History Father Additional Family Medical History / Comment(s): Triple bypass in his 80s ( at 93 years old) Brother(s) Additional Family Medical History / Comment(s): Triple bypass in his 40s (still alive in his 80s) Mother Additional Family Medical History / Comment(s): Medications and Allergies Home Medications Medication Instructions Recorded Confirmed Type Albuterol Sulfate [Albuterol 2 puff INHALATION RT-Q6H PRN 02/07/23 04/04/24 History Sulfate Hfa] Carboxymethylcellulose Sodium 1 drop BOTH EYES QID PRN 02/07/23 04/04/24 History [Refresh Tears] Glimepiride [Amaryl] 2 mg PO HS 02/07/23 04/04/24 History Clopidogrel [Plavix] 75 mg PO HS 02/19/24 04/04/24 History Losartan [Cozaar] 25 mg PO HS 02/19/24 04/04/24 History Nitroglycerin 0.4 mg SL Q5M PRN 02/19/24 04/04/24 History Atorvastatin [Lipitor] 40 mg PO HS #90 tab 03/20/24 04/04/24 Rx Aspirin 81 mg PO HS 03/28/24 04/04/24 History Fluticasone/Umeclidin/Vilanter 1 puff INHALATION RT-HS 03/28/24 04/04/24 History [Trelegy Ellipta 200-62.5-25] Ibuprofen [Motrin Ib] 400 mg PO Q6H PRN 03/28/24 04/04/24 History Metoprolol Succinate (ER) [Toprol 25 mg PO HS 03/28/24 04/04/24 History XL] Allergies Allergy/AdvReac Type Severity Reaction Status Date / Time No Known Allergies Allergy Verified 04/04/24 13:59 Physical Exam Vitals: Vital Signs Temp Pulse Pulse Pulse Resp BP BP 04/07/24 23:15 71 18 96/58 04/07/24 23:00 74 19 117/50 04/07/24 22:45 80 21 110/72 04/07/24 22:30 80 12 108/60 04/07/24 22:15 74 18 102/79 04/07/24 22:00 81 17 117/82 04/07/24 21:45 74 15 118/66 04/07/24 21:30 77 17 111/68 04/07/24 21:15 78 12 95/58 04/07/24 21:00 79 15 104/72 04/07/24 20:45 74 14 109/74 04/07/24 20:30 77 15 111/56 04/07/24 20:15 79 16 104/56 04/07/24 20:00 98.7 F 68 22 99/57 04/07/24 19:45 78 22 100/61 04/07/24 19:30 72 20 109/56 04/07/24 19:15 77 23 105/71 04/07/24 19:00 78 23 102/61 04/07/24 18:45 77 17 90/54 04/07/24 18:30 76 21 98/58 04/07/24 18:15 67 16 102/58 04/07/24 18:00 72 18 96/50 04/07/24 17:45 74 20 99/59 04/07/24 17:30 77 15 98/57 04/07/24 17:15 78 19 105/61 04/07/24 17:00 80 16 109/68 04/07/24 16:45 81 19 103/71 04/07/24 16:30 78 103/61 04/07/24 16:15 78 103/68 04/07/24 16:00 80 18 87/56 04/07/24 15:45 70 17 91/57 04/07/24 15:30 79 21 87/59 04/07/24 15:15 98.3 F 79 20 96/57 04/07/24 14:45 73 18 93/62 04/07/24 14:31 77 22 04/07/24 14:13 80 22 92/61 04/07/24 11:00 77 16 100/60 04/07/24 09:08 84 16 04/07/24 08:54 74 16 04/07/24 08:00 98 F 78 18 92/57 04/07/24 03:30 79 18 92/58 Pulse Ox 04/07/24 23:15 98 04/07/24 23:00 100 04/07/24 22:45 100 04/07/24 22:30 97 04/07/24 22:15 97 04/07/24 22:00 100 04/07/24 21:45 98 04/07/24 21:30 99 04/07/24 21:15 95 04/07/24 21:00 98 04/07/24 20:45 100 04/07/24 20:30 95 04/07/24 20:15 96 04/07/24 20:00 97 04/07/24 19:45 96 04/07/24 19:30 96 04/07/24 19:15 95 04/07/24 19:00 97 04/07/24 18:45 93 L 04/07/24 18:30 94 L 04/07/24 18:15 100 04/07/24 18:00 100 04/07/24 17:45 99 04/07/24 17:30 100 04/07/24 17:15 100 04/07/24 17:00 99 04/07/24 16:45 100 04/07/24 16:30 04/07/24 16:15 04/07/24 16:00 96 04/07/24 15:45 99 04/07/24 15:30 94 L 04/07/24 15:15 94 L 04/07/24 14:45 94 L 04/07/24 14:31 93 L 04/07/24 14:13 93 L 04/07/24 11:00 96 04/07/24 09:08 04/07/24 08:54 04/07/24 08:00 92 L 04/07/24 03:30 90 L Intake and Output 04/07/24 04/07/24 04/08/24 14:59 22:59 06:59 Intake Total 195.874 0510.028 Output Total 1400 Balance 248.603 8476.028 Intake: IV 350 525 Sodium Chloride 0.9% 1, 300 000 ml @ 100 mls/hr IV . Q10H SUDHEER Rx#:[id number] ns 225 Intake, IV Titration 739.392 5900.028 Amount Heparin Sod,Pork in 0.45% 249.241 NaCl 25,000 unit In 0.45 % NaCl 1 250ml.bag @ 9.89 UNITS/KG/HR 10.004 mls/ hr IV .Q24H SUDHEER Rx#: [id number] Norepinephrine 4 mg In 30.028 Sodium Chloride 0.9% 250 ml @ 0.03 MCG/KG/MIN 11. 853 mls/hr IV .[id number] [facility] Rx#:[id number] Sodium Chloride 0.9% 1, 150 000 ml @ 75 mls/hr IV . [id number] [facility] Rx#:[id number] Sodium Chloride 0.9% 1, 1000 000 ml @ 999 mls/hr IV . Q1H1M ONE Rx#:[id number] Sodium Chloride 0.9% 1, 75 000 ml In Empty Bag 1 bag @ 100 mls/hr IV .Q10H SUDHEER Rx#:[id number] Sodium Chloride 0.9% 500 500 ml 500 ml @ 999 mls/hr IV .Q31M ONE Rx#:[id number] Oral 240 240 Output: Urine 1400 Other: Voiding Method Toilet # Voids 1 GENERAL EXAM: Alert, 79-year-old obese male, comfortable in no apparent distress. HEAD: Normocephalic and atraumatic EYES: Normal reaction of pupils, equal size. No nystagmus. Nonicteric sclera. NOSE: Clear with pink turbinates. THROAT: No erythema or exudates. NECK: No masses, no JVD. CHEST: No chest wall deformity. LUNGS: Equal air entry with no crackles, wheeze, rhonchi or dullness. On 2 L/min nasal cannula. No conversational dyspnea or accessory muscle use.. CVS: S1 and S2 normal with grade 2 harsh systolic murmur, regular rhythm. No other extra heart sounds ABDOMEN: No hepatosplenomegaly, active bowel sounds, no guarding or rigidity. SPINE: No scoliosis or deformity SKIN: No rashes CENTRAL NERVOUS SYSTEM: Alert and oriented. No dysarthria. Cranial nerves II through XII intact. Bilateral upper and lower extremities without focal weakness, strength 5/5 throughout. No ataxia. Right patellar DTR 2, left patellar DTR nonreactive, previous surgical knee incision noted. EXTREMITIES: There is bilateral lower extremity 2+ pitting edema. No clubbing, or cyanosis. Peripheral pulses are intact. Prior right femoral access site is soft without hematoma. Results - Laboratory Findings CBC and BMP: 04/07/24 06:21 04/08/24 03:55 ABG WBC 7.5 k/uL (3.8-10.6) 04/07/24 06:21 RBC 3.36 m/uL (4.30-5.90) L 04/07/24 06:21 Hgb 8.5 gm/dL (13.0-17.5) L 04/07/24 06:21 Hct 29.6 % (39.0-53.0) L 04/07/24 06:21 MCV 88.3 fL (80.0-100.0) D 04/07/24 06:21 MCH 25.2 pg (25.0-35.0) 04/07/24 06:21 MCHC 28.5 g/dL (31.0-37.0) L 04/07/24 06:21 RDW 15.2 % (11.5-15.5) 04/07/24 06:21 Plt Count 308 k/uL (150-450) 04/07/24 06:21 MPV 7.6 04/07/24 06:21 Neutrophils % 72 % 04/07/24 06:21 Lymphocytes % 18 % 04/07/24 06:21 Monocytes % 5 % 04/07/24 06:21 Eosinophils % 1 % 04/07/24 06:21 Basophils % 1 % 04/07/24 06:21 Neutrophils # 5.4 k/uL (1.3-7.7) 04/07/24 06:21 Lymphocytes # 1.4 k/uL (1.0-4.8) 04/07/24 06:21 Monocytes # 0.4 k/uL (0-1.0) 04/07/24 06:21 Eosinophils # 0.1 k/uL (0-0.7) 04/07/24 06:21 Basophils # 0.1 k/uL (0-0.2) 04/07/24 06:21 Hypochromasia Marked 04/07/24 06:21 Poikilocytosis Slight 04/07/24 06:21 PT 11.6 sec (10.0-12.5) 04/04/24 12:53 INR 1.1 (<1.2) 04/04/24 12:53 APTT 37.9 sec (22.0-30.0) H 04/07/24 06:21 Sodium 139 mmol/L (137-145) 04/07/24 06:21 Potassium 4.3 mmol/L (3.5-5.1) 04/07/24 06:21 Chloride 108 mmol/L (98-107) H 04/07/24 06:21 Carbon Dioxide 18 mmol/L (22-30) L 04/07/24 06:21 Anion Gap 13 mmol/L 04/07/24 06:21 BUN 14 mg/dL (9-20) 04/07/24 06:21 Creatinine 1.06 mg/dL (0.66-1.25) 04/07/24 06:21 Est GFR (CKD-EPI)AfAm 78 (>60 ml/min/1.73 sqM) 04/07/24 06:21 Est GFR (CKD-EPI)NonAf 67 (>60 ml/min/1.73 sqM) 04/07/24 06:21 Glucose 133 mg/dL (74-99) H 04/07/24 06:21 POC Glucose (mg/dL) 137 mg/dL (70-110) H 04/07/24 21:30 POC Glu Character Artist ID Shea Ham 04/07/24 21:30 Calcium 8.4 mg/dL (8.4-10.2) 04/07/24 06:21 Magnesium 2.1 mg/dL (1.6-2.3) 04/04/24 12:53 Iron 16 UG/DL (65-175) L 04/07/24 06:21 TIBC 364 UG/DL (228-460) 04/07/24 06:21 % Saturation 4.40 (15.00-50.00) L 04/07/24 06:21 Transferrin 260.0 mg/dL (204.0-354.0) 04/07/24 06:21 Ferritin 36.6 ng/mL (22.0-322.0) 04/07/24 06:21 Total Bilirubin 0.7 mg/dL (0.2-1.3) 04/04/24 12:53 AST 24 U/L (17-59) 04/04/24 12:53 ALT 14 U/L (4-49) 04/04/24 12:53 Alkaline Phosphatase 52 U/L (38-126) 04/04/24 12:53 Troponin I 1.500 ng/mL (0.000-0.034) H* 04/04/24 19:10 Total Protein 6.8 g/dL (6.3-8.2) 04/04/24 12:53 Albumin 4.1 g/dL (3.5-5.0) 04/04/24 12:53 Triglycerides 105.00 mg/dL (0.00-149.00) 04/05/24 05:56 Cholesterol 142.00 mg/dL (0.00-200.00) 04/05/24 05:56 LDL Cholesterol, Calc 95.3 mg/dL (0.0-131.0) 04/05/24 05:56 VLDL Cholesterol, Calc 21.00 mg/dL (5.00-40.00) 04/05/24 05:56 HDL Cholesterol 25.70 mg/dL (40.00-60.00) L 04/05/24 05:56 Cholesterol/HDL Ratio 5.53 Ratio 04/05/24 05:56 Vitamin B12 380.0 pg/mL (200.0-944.0) 04/07/24 06:21 Folate 14.00 ng/mL (4.40-31.00) 04/07/24 06:21 Urine Color Colorless 04/07/24 17:30 Urine Appearance Clear (Clear) 04/07/24 17:30 Urine pH 5.0 (5.0-8.0) 04/07/24 17:30 Ur Specific [place] 1.033 (1.001-1.035) 04/07/24 17:30 Urine Protein Negative (Negative) 04/07/24 17:30 Urine Glucose (UA) Negative (Negative) 04/07/24 17:30 Urine Ketones Negative (Negative) 04/07/24 17:30 Urine Blood Negative (Negative) 04/07/24 17:30 Urine Nitrite Negative (Negative) 04/07/24 17:30 Urine Bilirubin Negative (Negative) 04/07/24 17:30 Urine Urobilinogen <2.0 mg/dL (<2.0) 04/07/24 17:30 Ur Leukocyte Esterase Negative (Negative) 04/07/24 17:30 Urine RBC >182 /hpf (0-5) H 04/07/24 17:30 Urine WBC 5 /hpf (0-5) 04/07/24 17:30 Ur Squamous Epith Cells <1 /hpf (0-4) 04/07/24 17:30 Urine Bacteria Rare /hpf (None) H 04/05/24 03:40 Urine Mucus Rare /hpf (None) H 04/07/24 17:30 PT/INR, D-dimer PT 11.6 sec (10.0-12.5) 04/04/24 12:53 INR 1.1 (<1.2) 04/04/24 12:53 Abnormal lab findings: Abnormal Labs 04/04/24 04/04/24 04/04/24 12:53 12:53 12:53 RBC 3.75 L Hgb 9.5 L D Hct 30.6 L MCH MCHC APTT Sodium Chloride Carbon Dioxide 20 L Glucose 188 H POC Glucose (mg/dL) Iron % Saturation Troponin I 0.590 H* HDL Cholesterol Urine Protein Urine Blood Ur Leukocyte Esterase Urine RBC Urine WBC Urine Bacteria Urine Mucus 04/04/24 04/04/24 04/04/24 16:38 19:10 19:10 RBC 3.73 L Hgb 9.4 L Hct 30.5 L MCH MCHC 30.8 L APTT Sodium Chloride Carbon Dioxide Glucose POC Glucose (mg/dL) Iron % Saturation Troponin I 1.180 H* 1.500 H* HDL Cholesterol Urine Protein Urine Blood Ur Leukocyte Esterase Urine RBC Urine WBC Urine Bacteria Urine Mucus 04/04/24 04/05/24 04/05/24 20:35 00:04 00:12 RBC 3.68 L Hgb 9.2 L Hct 30.2 L MCH 24.9 L MCHC 30.4 L APTT 36.6 H Sodium Chloride Carbon Dioxide Glucose POC Glucose (mg/dL) 170 H Iron % Saturation Troponin I HDL Cholesterol Urine Protein Urine Blood Ur Leukocyte Esterase Urine RBC Urine WBC Urine Bacteria Urine Mucus 04/05/24 04/05/24 04/05/24 03:40 05:56 05:56 RBC Hgb Hct MCH MCHC APTT 58.8 H Sodium Chloride Carbon Dioxide Glucose 106 H POC Glucose (mg/dL) Iron % Saturation Troponin I HDL Cholesterol 25.70 L Urine Protein Trace H Urine Blood Moderate H Ur Leukocyte Esterase Moderate H Urine RBC >182 H Urine WBC 40 H Urine Bacteria Rare H Urine Mucus Many H 04/05/24 04/05/24 04/05/24 11:33 16:13 20:19 RBC Hgb Hct MCH MCHC APTT Sodium Chloride Carbon Dioxide Glucose POC Glucose (mg/dL) 181 H 158 H 133 H Iron % Saturation Troponin I HDL Cholesterol Urine Protein Urine Blood Ur Leukocyte Esterase Urine RBC Urine WBC Urine Bacteria Urine Mucus 04/06/24 04/06/24 04/06/24 06:03 07:44 07:44 RBC Hgb Hct MCH MCHC APTT 45.8 H Sodium 136 L Chloride 108 H Carbon Dioxide Glucose 125 H POC Glucose (mg/dL) 136 H Iron % Saturation Troponin I HDL Cholesterol Urine Protein Urine Blood Ur Leukocyte Esterase Urine RBC Urine WBC Urine Bacteria Urine Mucus 04/06/24 04/06/24 04/06/24 07:44 11:43 12:06 RBC 3.17 L 3.33 L Hgb 7.8 L 8.3 L Hct 25.5 L 26.8 L MCH 24.5 L MCHC 30.5 L APTT Sodium Chloride Carbon Dioxide Glucose POC Glucose (mg/dL) 138 H Iron % Saturation Troponin I HDL Cholesterol Urine Protein Urine Blood Ur Leukocyte Esterase Urine RBC Urine WBC Urine Bacteria Urine Mucus 04/06/24 04/07/24 04/07/24 16:44 06:21 06:21 RBC Hgb Hct MCH MCHC APTT 37.9 H Sodium Chloride 108 H Carbon Dioxide 18 L Glucose 133 H POC Glucose (mg/dL) 201 H Iron 16 L % Saturation 4.40 L Troponin I HDL Cholesterol Urine Protein Urine Blood Ur Leukocyte Esterase Urine RBC Urine WBC Urine Bacteria Urine Mucus 04/07/24 04/07/24 04/07/24 06:21 06:27 14:16 RBC 3.36 L Hgb 8.5 L Hct 29.6 L MCH MCHC 28.5 L APTT Sodium Chloride Carbon Dioxide Glucose POC Glucose (mg/dL) 151 H 134 H Iron % Saturation Troponin I HDL Cholesterol Urine Protein Urine Blood Ur Leukocyte Esterase Urine RBC Urine WBC Urine Bacteria Urine Mucus 04/07/24 04/07/24 04/07/24 16:00 17:22 17:30 RBC Hgb Hct MCH MCHC APTT Sodium Chloride Carbon Dioxide Glucose POC Glucose (mg/dL) 137 H 127 H Iron % Saturation Troponin I HDL Cholesterol Urine Protein Urine Blood Ur Leukocyte Esterase Urine RBC >182 H Urine WBC Urine Bacteria Urine Mucus Rare H 04/07/24 21:30 RBC Hgb Hct MCH MCHC APTT Sodium Chloride Carbon Dioxide Glucose POC Glucose (mg/dL) 137 H Iron % Saturation Troponin I HDL Cholesterol Urine Protein Urine Blood Ur Leukocyte Esterase Urine RBC Urine WBC Urine Bacteria Urine Mucus - Diagnostic Findings Chest x-ray: image reviewed Assessment and Plan Assessment: Acute non-ST elevation NC status postoperative day #1 following Impella assisted heart catheterization involving PCI to the left main into the LAD/circumflex using DK crush technique with 3.5 x 1.5 mm Xience ROCKY into circumflex and 4.0 x 18 mm Xience ROCKY left main into LAD, postdilated with 4.5 mm in CE balloon proximally. Possible TIA, patient reportedly had focal neurological deficits noted at 1535 yesterday afternoon, patient underwent code stroke protocol, brain CT did not show any acute findings. Patient was noted to be hypotensive during this event, he was fluid resuscitated with a total of 1.5 L crystalloid fluid. Subsequently, neurology had recommended vasopressors to maintain a SBP of 140- 160. Symptomatic hypotension, currently requiring norepinephrine infusion History of left carotid artery stenosis status post carotid artery stent done March 19, 2024. Follow-up Carotid artery Doppler did not show any hemodynamically significant stenosis of right or left internal carotid arteries. The left common carotid artery stent was noted. Right vertebral artery was not visualized. Severe multivessel coronary artery disease, patient has had multiple PCI/stents. Previously worked up by cardiothoracic surgery and not felt to be a good surgical candidate, subsequently going additional PCI/stenting on April 02 to the left circumflex artery and subsequently on this hospitalization as noted above Acute hypoxemic respiratory failure, currently on 2 L/min nasal cannula, chest x-ray showing cardiomegaly with interstitial densities, consistent with Diastolic CHF Echocardiogram estimating left ventricular ejection fraction of 60 to 65%. Mild concentric LVH. Moderate to severe mitral regurgitation, as well as, severe pulmonary hypertension, and mild to moderate tricuspid regurgitation. Anemia, without any acute blood loss noted History of diabetes mellitus History of hypertension History of hyperlipidemia History of TURP History of obstructive sleep apnea, no longer uses CPAP at home Obesity, with a BMI of 33.8 kg/m Former tobacco dependence, quit smoking in 1983. Plan: Patient's medications, labs, chest x-ray reviewed Continue norepinephrine to maintain SBP between 140 and 160 per neurology recommendation I did insert a left radial arterial line for close blood pressure monitoring Neurochecks per protocol Follow-up brain MRI is planned Neurology is following Continue on supplemental oxygen maintain oxygen saturation of 92% or greater Beta-valerie has been resumed, losartan on hold due to hypotension, and patient started on dual antiplatelet medication in the form of Plavix and aspirin Cardiology is following We will also continue to follow the patient while in the intensive care unit I have personally seen and examined the patient, performed the documentation and the assessment and plan as written. Number of minutes spent on the visit:20 Time with Patient: Greater than 30
[2024-04-08 05:35] LABS: MCV 81.2 fL (80.0-100.0)
[2024-04-08 06:22] LABS: Glucose,Whole Blood 198 mg/dL (70-110)
[2024-04-08] MEDS: bisacodyL 5 MG TABLET.DR PO PRN (08:42)
--- NOTE | 2024-04-08 08:54 | P.PN ---
Subjective 79-year-old male, history of coronary artery disease, carotid artery disease, obstructive sleep apnea, diabetes mellitus type 2, hypertension, who presents to the emergency department with history of recent cardiac catheterization on 02/03/2024 with 5 stents in the past. Patient states he started having chest pain and difficulty breathing 5 days ago. Patient states it does worsen with exertion. Patient states the pain radiates down both arms. Patient denies any diaphoretic episodes. Patient denies any nausea. Patient denies any abdominal pain. Patient denies a headache. Patient states that he has had no recent fever chills or cough. Patient states she has been a little more swelling in his legs Patient had a previous cardiac catheterization on 02/03/2024 and he was referred to cardiothoracic surgery for CABG evaluation of the left main disease. He met with Dr. Polanco and was deemed high risk and therefore referred for stenting and not CABG. Patient states the chest pain started on at home. It did not seem to be too bad and then on Sunday he decided to come into the hospital for evaluation. Nitropaste did not take the pain away. He states the chest pain is now gone. He also states he has had lower extremity edema ever since he had the stent of the carotid done on 03/19. Patient has been started on a heparin drip. Blood pressure 99/58, heart rate 68, pulse ox 97% on room air. Patient has been started on a heparin drip. -EKG: Sinus rhythm with first-degree block -Chest x-ray: Chronic changes without acute pulmonary process. No significant change from prior. -Laboratory studies: WBC 8.8, hemoglobin 9.2. Electrolytes within normal limits. Creatinine 1.1. Troponin 0.59, 1.18, 1.5. Urinalysis positive for RBCs and WBCs. -Home cardiac medications: Aspirin 81 mg daily, atorvastatin 40 mg at bedtime, Plavix 75 mg at bedtime, losartan 25 mg at bedtime, Toprol XL 25 mg at bedtime, nitroglycerin sublingual. -03/19/2024: Carotid artery stenosis 99% proximal left internal status post left carotid stent. -Echocardiogram performed in the office on 01/18/2024 revealed EF of 55 to 60%, severe LVH, mild aortic stenosis, mild mitral regurgitation, mild tricuspid regurgitation, PASP 42 mmHg. 24-hour interval change 04/06/2024 Patient seen and examined in room at bedside. Patient denies having any chest pain no shortness of breath. He has been maintained on a heparin drip. Patient is on nitro paste which seems to control his chest pain. Vital signs are reviewed and remained stable with blood pressure 102/66, heart rate 77, pulse ox 94% on room air. -- blood work reveals hemoglobin 7.8, sodium 136, potassium 3.8, BUN 16 creatinine 1.02. - Echocardiogram reveals EF of 60 to 65%, severe pulmonary hypertension, moderate to severe mitral regurgitation, mild to moderate tricuspid regurgitation. Make patient n.p.o. after midnight Schedule patient for left heart cath on Sunday with Dr. Roque 04/07 This is a pleasant 79 years old male who presents with signs symptoms of chest pain suspicious for non-STEMI. He had recently diagnosed with non-STEMI and he underwent PCI to left circumflex on 04/02 Also patient had shortness of breath on admission and coughing up blood. Chest x-ray on admission read as chronic changes without acute pulmonary process per radiologist. Today he still complaining from shortness of breath. We are going to repeat the chest x-ray Cardiology team also planning to repeat cardiac cath today. Patient confirms to me he has been using aspirin and Plavix at home which are resumed currently. Also he is on a heparin drip. Anemia this admission is 8-9.5, he had recent baseline about 14-15 more than 1 month ago. Patient denies any signs of overt bleeding recently. Patient states he has been constipated since last Sunday. Will going to start him on laxative Will do an anemia workup Echocardiogram is showing EF 60 to 65% with severe pulmonary hypertension and moderate to severe mitral regurgitation and mild to moderate tricuspid regurgitation 04/08 Patient yesterday underwent cardiac cath per cardiology team showing coronary artery disease with 70% left main stenosis, 20 to 30% proximal LAD stenosis, 60 to 70% mid LAD stenosis, 30% stenosis of the circumflex artery and 100% stenosis of the right coronary artery. Patient is S/p Impella protected PCI left main into LAD/ circumflex using DK crush technique with 3.5 x 15mm Xience ROCKY into circumflex and 4.0 x 18mm Xience ROCKY left main into LAD After the procedure patient was sent to the ICU where he had transient symptoms of difficulty talking and slurred speech associated with mild weakness on the right side as patient tells me, the symptoms lasted for about an hour. Code stroke was called and CT of the brain and carotid duplex ordered which were basically negative for acute findings to explain patient's symptoms. Neurology was contacted and recommended to keep her blood pressure elevated so patient was started on Levophed. However patient chronically blood pressure is 90s to 100. Prior to the procedure patient was already on aspirin, Plavix and heparin drip Hemoglobin is 7.3, anemia workup showing iron deficiency anemia. Vitamin B12 also borderline. Will give one-time dose of Furric gluconate. Monitor hemoglobin closely Review of systems CONSTITUTIONAL: No fever, + fatigue. HEENT: No recent visual problems or hearing problems. Denied any sore throat. GASTROINTESTINAL: No diarrhea, no nausea, no vomiting, no abdominal pain. Normoactive bowel sounds. NEUROLOGICAL: No headaches, no weakness, no numbness. HEMATOLOGICAL: Denies any bleeding or petechiae. GENITOURINARY: Denies any burning micturition, frequency, or urgency. Active Medications Generic Name Dose Route Start Last Admin Trade Name Mayra PRN Reason Stop Dose Admin Acetaminophen 650 mg 04/06/24 12:02 04/07/24 21:17 Acetaminophen Tab 325 Mg Tab PO 650 mg Q6HR PRN Administration Fever and/ or Pain Al Hydroxide/Mg Hydroxide 30 ml 04/07/24 13:45 Mag Hydrox/Al Hydrox/Simeth 30 Ml Cup PO Q4HR PRN Heartburn Alprazolam 0.25 mg 04/06/24 09:48 Alprazolam 0.25 Mg Tab PO Q6HR PRN Mild Anxiety Alprazolam 0.5 mg 04/06/24 09:48 Alprazolam 0.5 Mg Tab PO Q6HR PRN Moderate Anxiety Aspirin 81 mg 04/05/24 09:15 04/08/24 08:39 Aspirin 81 Mg PO 81 mg DAILY [facility] Administration Atorvastatin Calcium 40 mg 04/04/24 21:00 04/07/24 21:18 Atorvastatin 40 Mg Tab PO 40 mg HS [facility] Administration Atropine Sulfate 0.5 mg 04/07/24 13:45 Atropine Sulfate 0.1 Mg/Ml 10ml Syringe IV ONCE PRN Symptomatic Bradycardia Bisacodyl 10 mg 04/08/24 08:30 04/08/24 08:42 Bisacodyl 5 Mg Tablet.Dr PO 10 mg DAILY PRN Administration Constipation Budesonide/Formoterol Fumarate 2 puff 04/04/24 20:00 04/08/24 08:14 Symbicort 160-4.5 Mcg Inhaler INHALATION 2 puff RT-BID [facility] Administration Clopidogrel Bisulfate 75 mg 04/05/24 09:15 04/08/24 08:39 Clopidogrel 75 Mg Tab PO 75 mg DAILY [facility] Administration Docusate Sodium 100 mg 04/07/24 21:00 04/08/24 08:39 Docusate 100 Mg Cap PO 100 mg BID [facility] Administration Heparin Sodium (Porcine) 0 unit 04/04/24 17:30 04/05/24 01:26 Heparin Sodium 1,000 Un/Ml (10ml Vl) IV 2,500 unit PER PROTOCOL PRN Administration Low PTT Protocol Heparin Sodium/Sodium Chloride 250 mls @ 10.004 mls/hr 04/04/24 17:30 04/07/24 10:54 25,000 unit/ Sodium Chloride IV 0 units/kg/hr .Q24H [facility] 0 mls/hr Titration Protocol 9.89 UNITS/KG/HR Sodium Chloride 1,000 mls @ 20 mls/hr 04/07/24 19:45 04/08/24 06:59 Saline 0.9% IV Not Given .Q24H [facility] Norepinephrine Bitartrate 4 mg 254 mls @ 11.853 mls/hr 04/07/24 21:00 04/08/24 08:28 / Sodium Chloride IV 0.18 mcg/kg/min .[id number] [facility] 71.117 mls/hr Titration Protocol 0.03 MCG/KG/MIN Insulin Aspart 0 unit 04/04/24 21:00 04/08/24 07:04 Insulin Aspart (Novolog) 100 Unit/Ml Vial SQ 04/11/24 20:59 2 unit ACHS [facility] Administration Protocol Ipratropium Mora 0.5 mg 04/04/24 20:00 04/08/24 08:14 Ipratropium 0.5 Mg/2.5 Ml Nebu INHALATION 0.5 mg RT-QID [facility] Administration Metoprolol Succinate 25 mg 04/04/24 21:00 04/07/24 22:34 Metoprolol Succinate (Er) 25 Mg Tab.Er.24h PO Not Given HS [facility] Miscellaneous Information 1 each 04/07/24 13:45 Rx Info: Iv Contrast Was Given 1 Each Misc MISCELLANE 04/09/24 13:46 DAILY PRN Per Protocol Nitroglycerin 0.4 mg 04/04/24 16:25 Nitroglycerin Sl Tabs 0.4 Mg Tab SUBLINGUAL Q5M PRN Chest Pain Nitroglycerin 1 inch 04/04/24 18:00 04/08/24 07:01 Nitroglycerin Oint 1 Inch/Gm Packet TOPICAL Not Given Q6HR [facility] Pantoprazole Sodium 40 mg 04/06/24 11:30 04/08/24 08:39 Pantoprazole 40 Mg/10 Ml Vial IVP 40 mg DAILY [facility] Administration Polyethylene Glycol 17 gm 04/07/24 09:27 Polyethylene Glycol 3350 17 Gm Powd.Pack PO DAILY PRN Constipation Zolpidem Tartrate 5 mg 04/07/24 13:45 Zolpidem 5 Mg Tab PO HS PRN Insomnia Objective - Vital Signs Vital signs: Vital Signs Temp 98.5 F 04/08/24 04:00 Pulse 96 04/08/24 08:26 Resp 14 04/08/24 07:15 BP 127/85 04/08/24 07:15 Pulse Ox 99 04/08/24 08:16 FiO2 Intake & Output 04/07/24 04/08/24 04/08/24 18:59 06:59 18:59 Intake Total 2954.241 1636.702 132.602 Output Total 975 670 0 Balance 1979.241 966.702 132.602 Weight 110 kg Intake: IV 575 940 20 Sodium Chloride 0.9% 1, 940 20 000 ml @ 20 mls/hr IV . Q24H [facility] Rx#:[id number] ns 225 Intake, IV Titration 1899.241 546.702 112.602 Amount Heparin Sod,Pork in 0.45% 249.241 NaCl 25,000 unit In 0.45 % NaCl 1 250ml.bag @ 9.89 UNITS/KG/HR 10.004 mls/ hr IV .Q24H [facility] Rx#: [id number] Norepinephrine 4 mg In 471.702 112.602 Sodium Chloride 0.9% 250 ml @ 0.03 MCG/KG/MIN 11. 853 mls/hr IV .[id number] [facility] Rx#:[id number] Sodium Chloride 0.9% 1, 75 75 000 ml @ 75 mls/hr IV . [id number] [facility] Rx#:[id number] Sodium Chloride 0.9% 1, 1000 000 ml @ 999 mls/hr IV . Q1H1M [facility] Rx#:[id number] Sodium Chloride 0.9% 1, 75 000 ml In Empty Bag 1 bag @ 100 mls/hr IV .Q10H [facility] Rx#:[id number] Sodium Chloride 0.9% 500 500 ml 500 ml @ 999 mls/hr IV .Q31M [facility] Rx#:[id number] Oral 480 150 Output: Urine 975 670 0 Other: Voiding Method Toilet Indwelling Catheter # Voids 1 ABP, PAP, CO, CI - Last Documented Arterial Blood Pressure 127/58 - Exam -GENERAL: The patient is alert and oriented x3, not in any acute distress. Well developed, well nourished. Obese HEENT: Pupils are round and equally reacting to light. EOMI. No scleral icterus. No conjunctival pallor. Normocephalic, atraumatic. No pharyngeal erythema. No thyromegaly. CARDIOVASCULAR: S1 and S2 present. No murmurs, rubs, or gallops. -PULMONARY: Chest is clear to auscultation, no wheezing , bilateral basal crackles. Tachypneic ABDOMEN: Soft, nontender, nondistended, normoactive bowel sounds. No palpable organomegaly. MUSCULOSKELETAL: No joint swelling or deformity. EXTREMITIES: No cyanosis, clubbing, or pedal edema. NEUROLOGICAL: Gross neurological examination did not reveal any focal deficits. SKIN: No rashes. no petechiae. - Labs CBC & Chem 7: 04/08/24 03:55 04/08/24 03:55 Labs: Abnormal Lab Results - Last 24 Hours (Table) 04/07/24 04/07/24 04/07/24 Range/Units 06:21 14:16 16:00 WBC (3.8-10.6) k/uL RBC (4.30-5.90) m/uL Hgb (13.0-17.5) gm/dL Hct (39.0-53.0) % MCH (25.0-35.0) pg MCHC (31.0-37.0) g/dL Neutrophils # (1.3-7.7) k/uL Sodium (137-145) mmol/L Chloride (98-107) mmol/L Carbon Dioxide (22-30) mmol/L Glucose (74-99) mg/dL POC Glucose (mg/dL) 134 H 137 H (70-110) mg/dL Calcium (8.4-10.2) mg/dL Iron 16 L (65-175) UG/DL % Saturation 4.40 L (15.00-50.00) Total Protein (6.3-8.2) g/dL Albumin (3.5-5.0) g/dL Urine RBC (0-5) /hpf Urine Mucus (None) /hpf 04/07/24 04/07/24 04/07/24 Range/Units 17:22 17:30 21:30 WBC (3.8-10.6) k/uL RBC (4.30-5.90) m/uL Hgb (13.0-17.5) gm/dL Hct (39.0-53.0) % MCH (25.0-35.0) pg MCHC (31.0-37.0) g/dL Neutrophils # (1.3-7.7) k/uL Sodium (137-145) mmol/L Chloride (98-107) mmol/L Carbon Dioxide (22-30) mmol/L Glucose (74-99) mg/dL POC Glucose (mg/dL) 127 H 137 H (70-110) mg/dL Calcium (8.4-10.2) mg/dL Iron (65-175) UG/DL % Saturation (15.00-50.00) Total Protein (6.3-8.2) g/dL Albumin (3.5-5.0) g/dL Urine RBC >182 H (0-5) /hpf Urine Mucus Rare H (None) /hpf 04/08/24 04/08/24 04/08/24 Range/Units 03:55 03:55 06:21 WBC 11.1 H (3.8-10.6) k/uL RBC 2.92 L (4.30-5.90) m/uL Hgb 7.3 L (13.0-17.5) gm/dL Hct 23.7 L (39.0-53.0) % MCH 24.9 L (25.0-35.0) pg MCHC 30.7 L (31.0-37.0) g/dL Neutrophils # 8.4 H (1.3-7.7) k/uL Sodium 134 L (137-145) mmol/L Chloride 112 H (98-107) mmol/L Carbon Dioxide 13 L (22-30) mmol/L Glucose 175 H (74-99) mg/dL POC Glucose (mg/dL) 198 H (70-110) mg/dL Calcium 8.0 L (8.4-10.2) mg/dL Iron (65-175) UG/DL % Saturation (15.00-50.00) Total Protein 5.7 L (6.3-8.2) g/dL Albumin 3.3 L (3.5-5.0) g/dL Urine RBC (0-5) /hpf Urine Mucus (None) /hpf Assessment and Plan Assessment: #. Chest pain/NSTEMI -History of NSTEMI with PCI of the LAD and circumflex 02/07/2023 -Patient had cardiac cath on 04/07: Showing 70% left main stenosis, 20 to 30% proximal LAD stenosis, 60 to 70% mid LAD stenosis, 30% stenosis of the circumflex artery and 100% stenosis of the right coronary artery. Patient is S/p Impella protected PCI left main into LAD/ circumflex using DK crush technique with 3.5 x 15mm Xience ROCKY into circumflex and 4.0 x 18mm Xience ROCKY left main into LAD #. Postcardiac cath neurological symptoms of slurred speech and mild right side weakness, currently completely resolved. CT of the brain is negative. Neurology consulted to rule out stroke or others. -Could be related to hypotension postprocedure. #. possible Acute systolic CHF ,with ischemic cardiomyopathy with EF of 45% #. Normochromic, normocytic anemia, workup showing iron deficiency anemia #. Hyperglycemia/diabetes mellitus; sliding scale while inpatient #. Hypertension; #. COPD/asthma; #. Hyperlipidemia; DVT prophylaxis; SCDs/IV heparin CODE STATUS; full code Plan: Continue patient in the ICU with pulmonary/critical care team consult Continue with heparin drip per cardiology team recommendation Continue with dual antiplatelet therapy of aspirin and Plavix which are home medication. Blood pressure stable condition A amaryl is on hold, c/w insulin sliding scale, glucose currently controlled s/p cardiac cath with cardiology team (04/07) Repeat chest x-ray Monitor hemoglobin and do anemia workup. Transfuse if hemoglobin less than 7 or if patient becomes symptomatic Give laxative Neurology consult Labs and medication were reviewed.. Continue same treatment. Continue with symptomatic treatment. Resume home medication. Monitor labs and vitals. DVT and GI prophylaxis. Further recommendations as per clinical course of the patient DVT prophylaxis: heparin GI Prophylaxis: protonix Prognosis is guarded
--- NOTE | 2024-04-08 10:06 | P.PN ---
Subjective Progress Note Date: 04/08/24 Patient is a 79-year-old male who is currently admitted with a non-ST elevated myocardial infarction. Yesterday he underwent stenting of his left main and left circumflex with Dr. Roque. This was a long, complex procedure with Impella. Patient did well. Patient states his chest pain has resolved. He still has shortness of breath. He states upon returning from the OR he did have speech disturbances and will be undergoing MRI later today GENERAL: Well-appearing, well-nourished and in no acute distress. NECK: Supple without JVD or thyromegaly. LUNGS: Breath sounds clear to auscultation bilaterally. Respiration equal and unlabored. No wheezes, rales or rhonchi. HEART: Regular rate and rhythm. Systolic murmur. No rubs or gallops. S1 and S2 heard. EXTREMITIES: Normal range of motion, no edema. No clubbing or cyanosis. Peripheral pulses intact and strong. TELEMETRY: Sinus rhythm overnight IMPRESSION: NSTEMI Status post stenting of the left main and left circumflex History of mild ischemic cardiomyopathy, EF 60 to 65% Possible TIA, MRI pending Obstructive sleep apnea Diabetes mellitus type 2 Carotid artery surgery with left carotid stent 03/19/2024 Severe pulmonary hypertension Moderate to severe mitral regurgitation and mild to moderate tricuspid regurgitation Anemia PLAN: Continue supportive treatment Wean off of Levophed Further recommendations to be based upon clinical course I am dictating on behalf of Dr Eliseo Michele's history/physical and assessment/plan. Objective - Vital Signs Vital signs: Vital Signs Temp 98.5 F 04/08/24 04:00 Pulse 96 04/08/24 08:26 Resp 14 04/08/24 07:15 BP 127/85 04/08/24 07:15 Pulse Ox 99 04/08/24 08:16 FiO2 Intake & Output 04/07/24 04/08/24 04/08/24 18:59 06:59 18:59 Intake Total 2954.241 1636.702 132.602 Output Total 975 670 0 Balance 1979.241 966.702 132.602 Weight 110 kg Intake: IV 575 940 20 Sodium Chloride 0.9% 1, 940 20 000 ml @ 20 mls/hr IV . Q24H [facility] Rx#:[id number] ns 225 Intake, IV Titration 1899.241 546.702 112.602 Amount Heparin Sod,Pork in 0.45% 249.241 NaCl 25,000 unit In 0.45 % NaCl 1 250ml.bag @ 9.89 UNITS/KG/HR 10.004 mls/ hr IV .Q24H [facility] Rx#: [id number] Norepinephrine 4 mg In 471.702 112.602 Sodium Chloride 0.9% 250 ml @ 0.03 MCG/KG/MIN 11. 853 mls/hr IV .[id number] [facility] Rx#:[id number] Sodium Chloride 0.9% 1, 75 75 000 ml @ 75 mls/hr IV . [id number] [facility] Rx#:[id number] Sodium Chloride 0.9% 1, 1000 000 ml @ 999 mls/hr IV . Q1H1M [facility] Rx#:[id number] Sodium Chloride 0.9% 1, 75 000 ml In Empty Bag 1 bag @ 100 mls/hr IV .Q10H [facility] Rx#:[id number] Sodium Chloride 0.9% 500 500 ml 500 ml @ 999 mls/hr IV .Q31M [facility] Rx#:[id number] Oral 480 150 Output: Urine 975 670 0 Other: Voiding Method Toilet Indwelling Catheter # Voids 1 ABP, PAP, CO, CI - Last Documented Arterial Blood Pressure 127/58 - Labs CBC & Chem 7: 04/08/24 03:55 04/08/24 03:55 Labs: Abnormal Lab Results - Last 24 Hours (Table) 04/07/24 04/07/24 04/07/24 Range/Units 06:21 14:16 16:00 WBC (3.8-10.6) k/uL RBC (4.30-5.90) m/uL Hgb (13.0-17.5) gm/dL Hct (39.0-53.0) % MCH (25.0-35.0) pg MCHC (31.0-37.0) g/dL Neutrophils # (1.3-7.7) k/uL Sodium (137-145) mmol/L Chloride (98-107) mmol/L Carbon Dioxide (22-30) mmol/L Glucose (74-99) mg/dL POC Glucose (mg/dL) 134 H 137 H (70-110) mg/dL Calcium (8.4-10.2) mg/dL Iron 16 L (65-175) UG/DL % Saturation 4.40 L (15.00-50.00) Total Protein (6.3-8.2) g/dL Albumin (3.5-5.0) g/dL Urine RBC (0-5) /hpf Urine Mucus (None) /hpf 04/07/24 04/07/24 04/07/24 Range/Units 17:22 17:30 21:30 WBC (3.8-10.6) k/uL RBC (4.30-5.90) m/uL Hgb (13.0-17.5) gm/dL Hct (39.0-53.0) % MCH (25.0-35.0) pg MCHC (31.0-37.0) g/dL Neutrophils # (1.3-7.7) k/uL Sodium (137-145) mmol/L Chloride (98-107) mmol/L Carbon Dioxide (22-30) mmol/L Glucose (74-99) mg/dL POC Glucose (mg/dL) 127 H 137 H (70-110) mg/dL Calcium (8.4-10.2) mg/dL Iron (65-175) UG/DL % Saturation (15.00-50.00) Total Protein (6.3-8.2) g/dL Albumin (3.5-5.0) g/dL Urine RBC >182 H (0-5) /hpf Urine Mucus Rare H (None) /hpf 04/08/24 04/08/24 04/08/24 Range/Units 03:55 03:55 06:21 WBC 11.1 H (3.8-10.6) k/uL RBC 2.92 L (4.30-5.90) m/uL Hgb 7.3 L (13.0-17.5) gm/dL Hct 23.7 L (39.0-53.0) % MCH 24.9 L (25.0-35.0) pg MCHC 30.7 L (31.0-37.0) g/dL Neutrophils # 8.4 H (1.3-7.7) k/uL Sodium 134 L (137-145) mmol/L Chloride 112 H (98-107) mmol/L Carbon Dioxide 13 L (22-30) mmol/L Glucose 175 H (74-99) mg/dL POC Glucose (mg/dL) 198 H (70-110) mg/dL Calcium 8.0 L (8.4-10.2) mg/dL Iron (65-175) UG/DL % Saturation (15.00-50.00) Total Protein 5.7 L (6.3-8.2) g/dL Albumin 3.3 L (3.5-5.0) g/dL Urine RBC (0-5) /hpf Urine Mucus (None) /hpf
[2024-04-08] MEDS: SODIUM FERRIC GLUCONAT-SUCROSE 125 MG in SODIUM CHLORIDE 0.9% 100 ML IVPB ONE (10:33)
[2024-04-08 11:34] LABS: Glucose,Whole Blood 199 mg/dL (70-110)
[2024-04-08 12:57] LABS: Chol/HDL Ratio 4.68 Ratio; LDL Cholesterol,Calculated 76.8 mg/dL (0.0-131.0)
[2024-04-08 16:54] LABS: Glucose,Whole Blood 189 mg/dL (70-110)
--- NOTE | 2024-04-08 17:13 | P.CNNES ---
History of Present Illness Consult date: 04/08/24 Requesting physician: Ronaldo Ortiz Reason for Consult: stroke symptoms History of Present Illness: This is a 79-year-old gentleman significant cardiac issues who presented to the emergency department on 04/04/2024 for chest pain and difficulty breathing for 5 days prior to present to hospital. Neurology is consulted for strokelike symptoms. Some of the history is obtained from the patient's nurse was at bedside. According to the nurse yesterday after his cardiac stent he was doing fine in the ICU then around 430 he developed left facial weakness and was slurring his speech. His last normal was around 4 PM. His NIH stroke scale was a 8 yesterday but currently he is back to baseline. Patient denies any history of stroke. As stated earlier patient has significant cardiac issues and he has significant coronary artery disease at multiple vessel. He has a history of diabetes, hypertension hyperlipidemia obstructive sleep apnea. He had a recent carotid stenting by the miner operator on March 19, 2024. Seems March for patient received stent to the left circumflex artery and then discharged home and while at home he developed substernal chest pain difficulty breathing worsen with exertion. He was found to be an non-STEMI. Patient went for cardiac cath yesterday and had Impella assisted and had PCI/stenting x 2 to the left main LAD/circumflex and per the ICU attending it seems the patient symptoms began at 335 with left facial droop and dysarthria. And per the ICU attending it seems that NIH stroke scale was an 8 as a result a code stroke was activated. CT of the head was negative for any acute process. Patient was noted to be hypotensive 80s over 40s and he received fluids. Patient continues to be norepinephrine to keep the blood pressure elevated. No IV thrombolytic since patient is back to baseline and patient had recent surgery as well as received heparin drip. He is currently on aspirin and Plavix. Some of the workup during this hospital visit consisted of: Lipid panel is triglyceride of 127, cholesterol 130, LDL 76 and HDL is 27 Vitamin B12 is 380 Folate is 14 Patient hemoglobin is trending down currently 7.3. CT of the head is reported as no acute intracranial process. I personally reviewed the CT and I agree with the report. Carotid duplex is reported as no hemodynamic significant stenosis over the right or left. Left common carotid artery stent is noted. The right vertebral artery was not visualized on exam. 2D echo was reported as normal left ventricle systolic function with ejection fraction of 60%. Severe pulmonary hypertension. Moderate to severe mitral regurgitation. Review of Systems As per HPI. Past Medical History Past Medical History: Coronary Artery Disease (CAD), Chest Pain / Angina, Diabetes Mellitus, Eye Disorder, Hyperlipidemia, Hypertension, Myocardial Infarction (NC), Prostate Disorder, Sleep Apnea/CPAP/BIPAP Additional Past Medical History / Comment(s): occ irregular heartrate, no cpap used- lost wt, hx grout, kidney stone, glaucoma. Last Myocardial Infarction Date:: unk History of Any Multi-Drug Resistant Organisms: None Reported Past Surgical History: Appendectomy, Heart Catheterization With Stent, Orthopedic Surgery, Prostate Surgery, Tonsillectomy Additional Past Surgical History / Comment(s): Bilateral corneal transplant, bilateral cataract surgery, left knee replacement,TURP, cardiac stents X4, 2nd right eye surgery after cataract removed. cartoid stent left 02/2024 Additional Past Anesthesia/Blood Transfusion Reaction / Comment(s): "hard time waking up" Date of Last Stent Placement:: 04/02/2024 Past Psychological History: No Psychological Hx Reported Smoking Status: Former smoker Past Alcohol Use History: None Reported Past Drug Use History: None Reported - Past Family History Father Additional Family Medical History / Comment(s): Triple bypass in his 80s ( at 93 years old) Brother(s) Additional Family Medical History / Comment(s): Triple bypass in his 40s (still alive in his 80s) Mother Additional Family Medical History / Comment(s): Medications and Allergies Home Medications Medication Instructions Recorded Confirmed Type Albuterol Sulfate [Albuterol 2 puff INHALATION RT-Q6H PRN 02/07/23 04/04/24 History Sulfate Hfa] Carboxymethylcellulose Sodium 1 drop BOTH EYES QID PRN 02/07/23 04/04/24 History [Refresh Tears] Glimepiride [Amaryl] 2 mg PO HS 02/07/23 04/04/24 History Clopidogrel [Plavix] 75 mg PO HS 02/19/24 04/04/24 History Losartan [Cozaar] 25 mg PO HS 02/19/24 04/04/24 History Nitroglycerin 0.4 mg SL Q5M PRN 02/19/24 04/04/24 History Atorvastatin [Lipitor] 40 mg PO HS #90 tab 03/20/24 04/04/24 Rx Aspirin 81 mg PO HS 03/28/24 04/04/24 History Fluticasone/Umeclidin/Vilanter 1 puff INHALATION RT-HS 03/28/24 04/04/24 History [Trelegy Ellipta 200-62.5-25] Ibuprofen [Motrin Ib] 400 mg PO Q6H PRN 03/28/24 04/04/24 History Metoprolol Succinate (ER) [Toprol 25 mg PO HS 03/28/24 04/04/24 History XL] Allergies Allergy/AdvReac Type Severity Reaction Status Date / Time No Known Allergies Allergy Verified 04/04/24 13:59 Physical Examination - Vital Signs Vital Signs: Vital Signs Temp Pulse Pulse Resp BP BP Pulse Ox 04/08/24 16:23 92 04/08/24 16:15 90 04/08/24 16:00 97.2 F L 82 17 95 04/08/24 15:45 79 16 95 04/08/24 15:30 84 29 H 98 04/08/24 15:15 82 22 131/77 96 04/08/24 15:00 82 25 H 123/65 96 04/08/24 14:45 83 18 123/65 96 04/08/24 14:30 87 16 114/89 95 04/08/24 14:15 80 23 114/89 97 04/08/24 14:00 98.5 F 80 15 119/65 97 04/08/24 13:45 86 27 H 119/65 87 L 04/08/24 13:30 89 22 136/74 95 04/08/24 13:15 94 29 H 136/74 97 04/08/24 13:00 80 20 128/66 96 04/08/24 12:45 74 21 128/66 97 04/08/24 12:30 84 18 111/74 96 04/08/24 12:15 78 16 111/74 94 L 04/08/24 12:00 85 26 H 96 04/08/24 11:59 82 04/08/24 11:49 84 04/08/24 11:45 85 16 96 04/08/24 11:15 81 14 94 L 04/08/24 11:00 77 15 111/72 93 L 04/08/24 10:45 87 18 111/72 93 L 04/08/24 10:30 85 20 126/81 93 L 04/08/24 10:15 87 19 126/81 93 L 04/08/24 10:00 83 22 109/85 93 L 04/08/24 09:45 76 16 109/85 90 L 04/08/24 09:30 82 17 118/76 96 04/08/24 09:15 87 23 118/76 95 04/08/24 09:00 99 23 127/72 97 04/08/24 08:45 96 18 127/72 94 L 04/08/24 08:30 94 27 H 125/76 96 04/08/24 08:26 96 04/08/24 08:16 96 99 04/08/24 08:15 94 18 116/62 99 04/08/24 08:00 98.9 F 86 19 128/82 99 04/08/24 07:45 88 22 105/81 99 04/08/24 07:30 90 17 117/36 98 04/08/24 07:15 84 14 127/85 97 04/08/24 07:00 86 12 109/97 95 04/08/24 06:45 75 18 98 04/08/24 06:30 80 16 104/82 98 04/08/24 06:15 99 18 105/54 98 04/08/24 06:00 92 16 99/60 99 04/08/24 05:45 82 15 132/58 100 04/08/24 05:30 83 12 135/78 97 04/08/24 05:15 80 14 114/63 96 04/08/24 05:00 84 22 118/87 96 04/08/24 04:45 73 17 135/78 96 04/08/24 04:30 17 139/129 94 L 04/08/24 04:15 92 18 117/78 04/08/24 04:00 98.5 F 17 93/79 94 L 04/08/24 03:45 101 H 18 121/77 95 04/08/24 03:30 88 14 97 04/08/24 03:15 93 16 112/73 96 04/08/24 03:00 86 12 96 04/08/24 02:45 84 16 93 L 04/08/24 02:30 91 15 131/68 96 04/08/24 02:15 85 13 131/68 96 04/08/24 02:00 87 16 124/71 95 04/08/24 01:45 86 21 97 04/08/24 01:31 81 20 123/59 98 04/08/24 01:30 84 20 101/62 98 04/08/24 01:15 84 15 99 04/08/24 01:05 80 04/08/24 01:00 78 20 99 04/08/24 00:45 79 22 100 04/08/24 00:30 83 15 100 04/08/24 00:15 82 22 97 04/08/24 00:00 98.5 F 86 19 120/79 99 04/07/24 23:45 84 18 100 04/07/24 23:30 86 20 107/72 97 04/07/24 23:17 66 19 98 04/07/24 23:15 71 18 96/58 98 04/07/24 23:00 74 19 117/50 100 04/07/24 22:45 80 21 110/72 100 04/07/24 22:30 80 12 108/60 97 04/07/24 22:15 74 18 102/79 97 04/07/24 22:00 81 17 117/82 100 04/07/24 21:45 74 15 118/66 98 04/07/24 21:30 77 17 111/68 99 04/07/24 21:15 78 12 95/58 95 04/07/24 21:00 79 15 104/72 98 04/07/24 20:45 74 14 109/74 100 04/07/24 20:30 77 15 111/56 95 04/07/24 20:15 79 16 104/56 96 04/07/24 20:00 98.7 F 68 22 99/57 97 04/07/24 19:45 78 22 100/61 96 04/07/24 19:30 72 20 109/56 96 04/07/24 19:15 77 23 105/71 95 04/07/24 19:00 78 23 102/61 97 04/07/24 18:45 77 17 90/54 93 L 04/07/24 18:30 76 21 98/58 94 L 04/07/24 18:15 67 16 102/58 100 04/07/24 18:00 72 18 96/50 100 04/07/24 17:45 74 20 99/59 99 04/07/24 17:30 77 15 98/57 100 04/07/24 17:15 78 19 105/61 100 04/07/24 17:00 80 16 109/68 99 Intake and Output 04/08/24 04/08/24 04/08/24 06:59 14:59 22:59 Intake Total 1231.674 474.000 306.182 Output Total 245 500 0 Balance 986.674 -26.000 306.182 Intake: IV 640 20 40 Sodium Chloride 0.9% 1, 640 20 40 000 ml @ 20 mls/hr IV . Q24H [facility] Rx#:[id number] Intake, IV Titration 441.674 254.000 266.182 Amount Norepinephrine 4 mg In 441.674 254.000 266.182 Sodium Chloride 0.9% 250 ml @ 0.03 MCG/KG/MIN 11. 853 mls/hr IV .[id number] [facility] Rx#:[id number] Oral 150 200 Output: Urine 245 500 0 Other: Voiding Method Indwelling Catheter Urinal # Bowel Movements 0 Weight 110 kg 110 kg ABP, PAP, CO, CI - Last 8 Hours Arterial Blood Pressure 127/50 Arterial Blood Pressure 139/57 Arterial Blood Pressure 128/56 Arterial Blood Pressure 123/53 Arterial Blood Pressure 124/57 Arterial Blood Pressure 125/56 Arterial Blood Pressure 117/52 Arterial Blood Pressure 124/56 Arterial Blood Pressure 110/52 Arterial Blood Pressure 118/56 Arterial Blood Pressure 108/57 Arterial Blood Pressure 116/63 Arterial Blood Pressure 135/59 Arterial Blood Pressure 130/56 Arterial Blood Pressure 113/57 Arterial Blood Pressure 134/59 Arterial Blood Pressure 132/60 Arterial Blood Pressure 128/58 Arterial Blood Pressure 129/59 Arterial Blood Pressure 134/58 Arterial Blood Pressure 124/61 Arterial Blood Pressure 118/57 Arterial Blood Pressure 130/58 Arterial Blood Pressure 111/54 Arterial Blood Pressure 134/60 Arterial Blood Pressure 123/63 Arterial Blood Pressure 116/59 Arterial Blood Pressure 141/69 GENERAL: The patient is lying in bed and is not in acute distress. LUNG: Slight dyspneic (per nurse this is chronic). NEUROLOGICAL: Higher mental function: The patient is awake, alert, oriented to self, place and time. Patient is following commands. No aphasia and no neglect. Cranial nerves: The pupils are round, equal and reactive to light and accommodation. Visual wiggins are full to confrontation throughout. Extraocular movement is intact no nystagmus is noted. Facial sensation is normal to touch throughout. The facial strength is normal throughout. Hearing is moderately decreased bilaterally to hand rub. Tongue is midline and moved [id number] without any difficulty. No dysarthria is noted. Shoulder shrug is normal bilaterally. Motor: The strength is 5 over 5 throughout. Normal tone and bulk. Cerebellum: Normal finger to nose bilaterally. Sensation: Sensation is normal to touch throughout. Reflexes (right/left): 2+ throughout. Plantars are downgoing bilaterally. Results - Laboratory Findings CBC and BMP: 04/08/24 03:55 04/08/24 03:55 Abnormal Lab Findings: Abnormal Labs 04/04/24 04/04/24 04/04/24 12:53 12:53 12:53 WBC RBC 3.75 L Hgb 9.5 L D Hct 30.6 L MCH MCHC Neutrophils # APTT Sodium Chloride Carbon Dioxide 20 L Glucose 188 H POC Glucose (mg/dL) Calcium Iron % Saturation Troponin I 0.590 H* Total Protein Albumin HDL Cholesterol Urine Protein Urine Blood Ur Leukocyte Esterase Urine RBC Urine WBC Urine Bacteria Urine Mucus 04/04/24 04/04/24 04/04/24 16:38 19:10 19:10 WBC RBC 3.73 L Hgb 9.4 L Hct 30.5 L MCH MCHC 30.8 L Neutrophils # APTT Sodium Chloride Carbon Dioxide Glucose POC Glucose (mg/dL) Calcium Iron % Saturation Troponin I 1.180 H* 1.500 H* Total Protein Albumin HDL Cholesterol Urine Protein Urine Blood Ur Leukocyte Esterase Urine RBC Urine WBC Urine Bacteria Urine Mucus 04/04/24 04/05/24 04/05/24 20:35 00:04 00:12 WBC RBC 3.68 L Hgb 9.2 L Hct 30.2 L MCH 24.9 L MCHC 30.4 L Neutrophils # APTT 36.6 H Sodium Chloride Carbon Dioxide Glucose POC Glucose (mg/dL) 170 H Calcium Iron % Saturation Troponin I Total Protein Albumin HDL Cholesterol Urine Protein Urine Blood Ur Leukocyte Esterase Urine RBC Urine WBC Urine Bacteria Urine Mucus 04/05/24 04/05/24 04/05/24 03:40 05:56 05:56 WBC RBC Hgb Hct MCH MCHC Neutrophils # APTT 58.8 H Sodium Chloride Carbon Dioxide Glucose 106 H POC Glucose (mg/dL) Calcium Iron % Saturation Troponin I Total Protein Albumin HDL Cholesterol 25.70 L Urine Protein Trace H Urine Blood Moderate H Ur Leukocyte Esterase Moderate H Urine RBC >182 H Urine WBC 40 H Urine Bacteria Rare H Urine Mucus Many H 04/05/24 04/05/24 04/05/24 11:33 16:13 20:19 WBC RBC Hgb Hct MCH MCHC Neutrophils # APTT Sodium Chloride Carbon Dioxide Glucose POC Glucose (mg/dL) 181 H 158 H 133 H Calcium Iron % Saturation Troponin I Total Protein Albumin HDL Cholesterol Urine Protein Urine Blood Ur Leukocyte Esterase Urine RBC Urine WBC Urine Bacteria Urine Mucus 04/06/24 04/06/24 04/06/24 06:03 07:44 07:44 WBC RBC Hgb Hct MCH MCHC Neutrophils # APTT 45.8 H Sodium 136 L Chloride 108 H Carbon Dioxide Glucose 125 H POC Glucose (mg/dL) 136 H Calcium Iron % Saturation Troponin I Total Protein Albumin HDL Cholesterol Urine Protein Urine Blood Ur Leukocyte Esterase Urine RBC Urine WBC Urine Bacteria Urine Mucus 04/06/24 04/06/24 04/06/24 07:44 11:43 12:06 WBC RBC 3.17 L 3.33 L Hgb 7.8 L 8.3 L Hct 25.5 L 26.8 L MCH 24.5 L MCHC 30.5 L Neutrophils # APTT Sodium Chloride Carbon Dioxide Glucose POC Glucose (mg/dL) 138 H Calcium Iron % Saturation Troponin I Total Protein Albumin HDL Cholesterol Urine Protein Urine Blood Ur Leukocyte Esterase Urine RBC Urine WBC Urine Bacteria Urine Mucus 04/06/24 04/07/24 04/07/24 16:44 06:21 06:21 WBC RBC Hgb Hct MCH MCHC Neutrophils # APTT 37.9 H Sodium Chloride 108 H Carbon Dioxide 18 L Glucose 133 H POC Glucose (mg/dL) 201 H Calcium Iron 16 L % Saturation 4.40 L Troponin I Total Protein Albumin HDL Cholesterol Urine Protein Urine Blood Ur Leukocyte Esterase Urine RBC Urine WBC Urine Bacteria Urine Mucus 04/07/24 04/07/24 04/07/24 06:21 06:21 06:27 WBC RBC 3.36 L Hgb 8.5 L Hct 29.6 L MCH MCHC 28.5 L Neutrophils # APTT Sodium Chloride Carbon Dioxide Glucose POC Glucose (mg/dL) 151 H Calcium Iron % Saturation Troponin I Total Protein Albumin HDL Cholesterol 27.80 L Urine Protein Urine Blood Ur Leukocyte Esterase Urine RBC Urine WBC Urine Bacteria Urine Mucus 04/07/24 04/07/24 04/07/24 14:16 16:00 17:22 WBC RBC Hgb Hct MCH MCHC Neutrophils # APTT Sodium Chloride Carbon Dioxide Glucose POC Glucose (mg/dL) 134 H 137 H 127 H Calcium Iron % Saturation Troponin I Total Protein Albumin HDL Cholesterol Urine Protein Urine Blood Ur Leukocyte Esterase Urine RBC Urine WBC Urine Bacteria Urine Mucus 04/07/24 04/07/24 04/08/24 17:30 21:30 03:55 WBC 11.1 H RBC 2.92 L Hgb 7.3 L Hct 23.7 L MCH 24.9 L MCHC 30.7 L Neutrophils # 8.4 H APTT Sodium Chloride Carbon Dioxide Glucose POC Glucose (mg/dL) 137 H Calcium Iron % Saturation Troponin I Total Protein Albumin HDL Cholesterol Urine Protein Urine Blood Ur Leukocyte Esterase Urine RBC >182 H Urine WBC Urine Bacteria Urine Mucus Rare H 04/08/24 04/08/24 04/08/24 03:55 06:21 11:32 WBC RBC Hgb Hct MCH MCHC Neutrophils # APTT Sodium 134 L Chloride 112 H Carbon Dioxide 13 L Glucose 175 H POC Glucose (mg/dL) 198 H 199 H Calcium 8.0 L Iron % Saturation Troponin I Total Protein 5.7 L Albumin 3.3 L HDL Cholesterol Urine Protein Urine Blood Ur Leukocyte Esterase Urine RBC Urine WBC Urine Bacteria Urine Mucus Assessment and Plan Assessment: This is a 79-year-old gentleman with significant cardiac issues who presents emergency department on 04/04/2024 for shortness of breath and chest pain. Patient had cardiac cath yesterday and had stenting while in the ICU he had dysarthria and left facial droop. His NIH stroke scale was 7 and a code stroke was activated. His symptoms has resolved. Patient has hypotensive episodes and he is on norepinephrine as well as he has slight hypoxia some tachypnea Probable transient ischemic stroke Acute non-STEMI and patient had Impella assisted cardiac cath PCI to the left main LAD/circumflex on 04/07/2024 Somatic hypotension and patient is on norepinephrine Recent history of left carotid stent over the carotid artery on March 19, 2020 Severe multivessel coronary artery disease had multiple PCI/stents Acute hypoxic respiratory failure on nasal cannula Diastolic heart failure Anemia History of diabetes History of hypertension History of TURP History of obstructive sleep apnean Plan: The patient is more stable then recommend the patient to pursue MRI of the brain. I will obtain a repeat CT of the head tomorrow morning to assess if there is any acute or subacute changes not seen on initial CT. Is on aspirin 81 mg as well as Plavix 75 mg per the cardiology team. Patient is on Lipitor 40 mg nightly. Continue neurochecks Cardiac monitoring Recommend avoiding hypotensive episode and patient is currently on norepinephrine recommend a blood pressure goal to be between 120-1 60. PT OT are consulted as will as I consulted [facility] Cardiology is on board For the rest of the medical management the primary and other specialist For DVT prophylaxis patient was on heparin drip but seems it was stopped. Recommend Lovenox or subcu heparin and will defer management to the primary/cardiology team Plan discussed with the patient and the ICU nurse Thank for the consultation Time with Patient: Greater than 30
[2024-04-08 18:43] LABS: HCT 23.3 % (39.0-53.0); HGB 7.2 gm/dL (13.0-17.5); Hypochromasia Marked; MCV 80.8 fL (80.0-100.0); Mean Platelet Volume 8.3; Platelet Count 296 k/uL (150-450); Poikilocytosis Moderate; RBC 2.88 m/uL (4.30-5.90); RDW 15.4 % (11.5-15.5); WBC 10.5 k/uL (3.8-10.6)
[2024-04-08] MEDS: FUROSEMIDE 10 MG/ML 2 ML VIAL IV ONE (19:55)
[2024-04-08] MEDS: SODIUM BICARB 8.4% 50 ML SYR (1 MEQ/ML) IV STA (19:56)
[2024-04-08 20:10] LABS: Glucose,Whole Blood 191 mg/dL (70-110)
[2024-04-09 05:07] LABS: Basophils % (A) 0 %; Eosinophils % (A) 0 %; Hypochromasia Marked; Lymphocytes # (A) 1.3 k/uL (1.0-4.8); Lymphocytes % (A) 12 %; MCH 23.7 pg (25.0-35.0); MCHC 29.6 g/dL (31.0-37.0); MCV 79.9 fL (80.0-100.0); Mean Platelet Volume 7.9; Monocytes # (A) 0.6 k/uL (0-1.0); Monocytes % (A) 6 %; Neutrophils # (A) 8.7 k/uL (1.3-7.7); Neutrophils % (A) 80 %; Platelet Count 309 k/uL (150-450); Poikilocytosis Moderate; RBC 2.88 m/uL (4.30-5.90); RDW 15.6 % (11.5-15.5); WBC 10.9 k/uL (3.8-10.6)
[2024-04-09 05:24] LABS: African American GFR (CKD) >90 (>60 ml/min/1.73 sqM); Anion Gap 9 mmol/L; Blood Urea Nitrogen 8 mg/dL (9-20); Calcium 8.1 mg/dL (8.4-10.2); Carbon Dioxide 18 mmol/L (22-30); Chloride 108 mmol/L (98-107); Glucose 190 mg/dL (74-99); Non-African American GFR(CKD) 83 (>60 ml/min/1.73 sqM); Potassium 3.5 mmol/L (3.5-5.1); Sodium 135 mmol/L (137-145)
[2024-04-09 05:34] LABS: HGB 6.8 gm/dL (13.0-17.5)
[2024-04-09] MEDS ORDERED: Potassium Replacement Protocol 1 EACH MISC MISCELLANE PRN ×2 (05:34→22:28)
[2024-04-09] MEDS: POTASSIUM CHLORIDE ER 20 MEQ TAB.ER PO SCH ×3 (06:07→22:57)
--- NOTE | 2024-04-09 08:34 | P.PN ---
Subjective 79-year-old male, history of coronary artery disease, carotid artery disease, obstructive sleep apnea, diabetes mellitus type 2, hypertension, who presents to the emergency department with history of recent cardiac catheterization on 02/03/2024 with 5 stents in the past. Patient states he started having chest pain and difficulty breathing 5 days ago. Patient states it does worsen with exertion. Patient states the pain radiates down both arms. Patient denies any diaphoretic episodes. Patient denies any nausea. Patient denies any abdominal pain. Patient denies a headache. Patient states that he has had no recent fever chills or cough. Patient states she has been a little more swelling in his legs Patient had a previous cardiac catheterization on 02/03/2024 and he was referred to cardiothoracic surgery for CABG evaluation of the left main disease. He met with Dr. Polanco and was deemed high risk and therefore referred for stenting and not CABG. Patient states the chest pain started on at home. It did not seem to be too bad and then on Sunday he decided to come into the hospital for evaluation. Nitropaste did not take the pain away. He states the chest pain is now gone. He also states he has had lower extremity edema ever since he had the stent of the carotid done on 03/19. Patient has been started on a heparin drip. Blood pressure 99/58, heart rate 68, pulse ox 97% on room air. Patient has been started on a heparin drip. -EKG: Sinus rhythm with first-degree block -Chest x-ray: Chronic changes without acute pulmonary process. No significant change from prior. -Laboratory studies: WBC 8.8, hemoglobin 9.2. Electrolytes within normal limits. Creatinine 1.1. Troponin 0.59, 1.18, 1.5. Urinalysis positive for RBCs and WBCs. -Home cardiac medications: Aspirin 81 mg daily, atorvastatin 40 mg at bedtime, Plavix 75 mg at bedtime, losartan 25 mg at bedtime, Toprol XL 25 mg at bedtime, nitroglycerin sublingual. -03/19/2024: Carotid artery stenosis 99% proximal left internal status post left carotid stent. -Echocardiogram performed in the office on 01/18/2024 revealed EF of 55 to 60%, severe LVH, mild aortic stenosis, mild mitral regurgitation, mild tricuspid regurgitation, PASP 42 mmHg. 24-hour interval change 04/06/2024 Patient seen and examined in room at bedside. Patient denies having any chest pain no shortness of breath. He has been maintained on a heparin drip. Patient is on nitro paste which seems to control his chest pain. Vital signs are reviewed and remained stable with blood pressure 102/66, heart rate 77, pulse ox 94% on room air. -- blood work reveals hemoglobin 7.8, sodium 136, potassium 3.8, BUN 16 creatinine 1.02. - Echocardiogram reveals EF of 60 to 65%, severe pulmonary hypertension, moderate to severe mitral regurgitation, mild to moderate tricuspid regurgitation. Make patient n.p.o. after midnight Schedule patient for left heart cath on Sunday with Dr. Roque 04/07 This is a pleasant 79 years old male who presents with signs symptoms of chest pain suspicious for non-STEMI. He had recently diagnosed with non-STEMI and he underwent PCI to left circumflex on 04/02 Also patient had shortness of breath on admission and coughing up blood. Chest x-ray on admission read as chronic changes without acute pulmonary process per radiologist. Today he still complaining from shortness of breath. We are going to repeat the chest x-ray Cardiology team also planning to repeat cardiac cath today. Patient confirms to me he has been using aspirin and Plavix at home which are resumed currently. Also he is on a heparin drip. Anemia this admission is 8-9.5, he had recent baseline about 14-15 more than 1 month ago. Patient denies any signs of overt bleeding recently. Patient states he has been constipated since last Sunday. Will going to start him on laxative Will do an anemia workup Echocardiogram is showing EF 60 to 65% with severe pulmonary hypertension and moderate to severe mitral regurgitation and mild to moderate tricuspid regurgitation 04/08 Patient yesterday underwent cardiac cath per cardiology team showing coronary artery disease with 70% left main stenosis, 20 to 30% proximal LAD stenosis, 60 to 70% mid LAD stenosis, 30% stenosis of the circumflex artery and 100% stenosis of the right coronary artery. Patient is S/p Impella protected PCI left main into LAD/ circumflex using DK crush technique with 3.5 x 15mm Xience ROCKY into circumflex and 4.0 x 18mm Xience ROCKY left main into LAD After the procedure patient was sent to the ICU where he had transient symptoms of difficulty talking and slurred speech associated with mild weakness on the right side as patient tells me, the symptoms lasted for about an hour. Code stroke was called and CT of the brain and carotid duplex ordered which were basically negative for acute findings to explain patient's symptoms. Neurology was contacted and recommended to keep her blood pressure elevated so patient was started on Levophed. However patient chronically blood pressure is 90s to 100. Prior to the procedure patient was already on aspirin, Plavix and heparin drip Hemoglobin is 7.3, anemia workup showing iron deficiency anemia. Vitamin B12 also borderline. Will give one-time dose of Furric gluconate. Monitor hemoglobin closely 06/10 Patient is tachypneic this morning with no chest pain He denies bleeding from anywhere. Hemoglobin today 6.8, 1 unit of blood transfusion is ordered. He received small dose of IV Lasix 20 mg yesterday. Currently blood pressure 118/78, also he is on Levophed 0.3 to support blood pressure given his stroke symptoms post cardiac cath. Patient is mildly tachycardic. Afebrile. Has good oxygen saturation 99 4% on 3 L. Other labs looks unremarkable. We will increase Protonix to twice daily CT of the brain and MRI of the brain are pending for his recent neurological symptoms which looks resolved now with the control of the blood pressure. I discussed with the patient his problem and management plan and all his que stions were answered Review of systems CONSTITUTIONAL: No fever, + fatigue. HEENT: No recent visual problems or hearing problems. Denied any sore throat. GASTROINTESTINAL: No diarrhea, no nausea, no vomiting, no abdominal pain. Normoactive bowel sounds. NEUROLOGICAL: No headaches, no new weakness, no numbness. HEMATOLOGICAL: Denies any bleeding or petechiae. GENITOURINARY: Denies any burning micturition, frequency, or urgency. Active Medications Generic Name Dose Route Start Last Admin Trade Name Freq PRN Reason Stop Dose Admin Acetaminophen 650 mg 04/06/24 12:02 04/07/24 21:17 Acetaminophen Tab 325 Mg Tab PO 650 mg Q6HR PRN Administration Fever and/ or Pain Al Hydroxide/Mg Hydroxide 30 ml 04/07/24 13:45 Mag Hydrox/Al Hydrox/Simeth 30 Ml Cup PO Q4HR PRN Heartburn Alprazolam 0.25 mg 04/06/24 09:48 Alprazolam 0.25 Mg Tab PO Q6HR PRN Mild Anxiety Alprazolam 0.5 mg 04/06/24 09:48 Alprazolam 0.5 Mg Tab PO Q6HR PRN Moderate Anxiety Aspirin 81 mg 04/05/24 09:15 04/08/24 08:39 Aspirin 81 Mg PO 81 mg DAILY [facility] Administration Atorvastatin Calcium 40 mg 04/04/24 21:00 04/08/24 20:59 Atorvastatin 40 Mg Tab PO 40 mg HS [facility] Administration Atropine Sulfate 0.5 mg 04/07/24 13:45 Atropine Sulfate 0.1 Mg/Ml 10ml Syringe IV ONCE PRN Symptomatic Bradycardia Bisacodyl 10 mg 04/08/24 08:30 04/08/24 08:42 Bisacodyl 5 Mg Tablet.Dr PO 10 mg DAILY PRN Administration Constipation Budesonide/Formoterol Fumarate 2 puff 04/04/24 20:00 04/08/24 21:59 Symbicort 160-4.5 Mcg Inhaler INHALATION 2 puff RT-BID [facility] Administration Clopidogrel Bisulfate 75 mg 04/05/24 09:15 04/08/24 08:39 Clopidogrel 75 Mg Tab PO 75 mg DAILY [facility] Administration Docusate Sodium 100 mg 04/07/24 21:00 04/08/24 20:59 Docusate 100 Mg Cap PO 100 mg BID [facility] Administration Sodium Chloride 1,000 mls @ 20 mls/hr 04/07/24 19:45 04/09/24 07:03 Saline 0.9% IV Not Given .Q24H [facility] Norepinephrine Bitartrate 4 mg 254 mls @ 11.853 mls/hr 04/07/24 21:00 04/09/24 01:52 / Sodium Chloride IV 0.2 mcg/kg/min .[id number] [facility] 79.019 mls/hr Administration Protocol 0.03 MCG/KG/MIN Insulin Aspart 0 unit 04/04/24 21:00 04/09/24 06:08 Insulin Aspart (Novolog) 100 Unit/Ml Vial SQ 04/11/24 20:59 3 unit ACHS [facility] Administration Protocol Ipratropium [place] 0.5 mg 04/04/24 20:00 04/08/24 21:59 Ipratropium 0.5 Mg/2.5 Ml Nebu INHALATION 0.5 mg RT-QID [facility] Administration Metoprolol Succinate 25 mg 04/04/24 21:00 04/08/24 21:00 Metoprolol Succinate (Er) 25 Mg Tab.Er.24h PO Not Given HS [facility] Miscellaneous Information 1 each 04/07/24 13:45 Rx Info: Iv Contrast Was Given 1 Each [facility] 04/09/24 13:46 DAILY PRN Per Protocol Miscellaneous Information 1 each 04/09/24 05:34 Potassium Replacement Protocol 1 Each [facility] [place] [facility] DAILY PRN Per Protocol Protocol Nitroglycerin 0.4 mg 04/04/24 16:25 Nitroglycerin Sl Tabs 0.4 Mg Tab SUBLINGUAL Q5M PRN Chest Pain Nitroglycerin 1 inch 04/04/24 18:00 04/09/24 05:38 Nitroglycerin Oint 1 Inch/Gm Packet TOPICAL Not Given Q6HR [facility] Pantoprazole Sodium 40 mg 04/09/24 09:00 Pantoprazole 40 Mg/10 Ml Vial IVP BID [facility] Polyethylene Glycol 17 gm 04/07/24 09:27 Polyethylene Glycol 3350 17 Gm Powd.Pack PO DAILY PRN Constipation Zolpidem Tartrate 5 mg 04/07/24 13:45 Zolpidem 5 Mg Tab PO HS PRN Insomnia Objective - Vital Signs Vital signs: Vital Signs Temp 97.9 F 04/09/24 00:00 Pulse 103 H 04/09/24 07:00 Resp 24 04/09/24 07:00 BP 118/78 04/09/24 07:00 Pulse Ox 99 04/09/24 07:00 FiO2 Intake & Output 04/08/24 04/09/24 04/09/24 18:59 06:59 18:59 Intake Total 1210.563 394 520 Output Total 500 1700 600 Balance 710.563 -1306 -80 Weight 110 kg 111.4 kg Intake: IV 120 140 20 Sodium Chloride 0.9% 1, 120 140 20 000 ml @ 20 mls/hr IV . Q24H [facility] Rx#:[id number] Intake, IV Titration 650.563 254 Amount Norepinephrine 4 mg In 650.563 254 Sodium Chloride 0.9% 250 ml @ 0.03 MCG/KG/MIN 11. 853 mls/hr IV .[id number] [facility] Rx#:[id number] Oral 440 500 Output: Urine 500 1700 600 Other: Voiding Method Urinal Urinal # Bowel Movements 0 ABP, PAP, CO, CI - Last Documented Arterial Blood Pressure 112/56 - Exam -GENERAL: The patient is alert and oriented x3, not in any acute distress. Well developed, well nourished. Obese HEENT: Pupils are round and equally reacting to light. EOMI. No scleral icterus. No conjunctival pallor. Normocephalic, atraumatic. No pharyngeal erythema. No thyromegaly. CARDIOVASCULAR: S1 and S2 present. No murmurs, rubs, or gallops. -PULMONARY: Chest is clear to auscultation, no wheezing , bilateral basal crackles. Tachypneic ABDOMEN: Soft, nontender, nondistended, normoactive bowel sounds. No palpable organomegaly. MUSCULOSKELETAL: No joint swelling or deformity. EXTREMITIES: No cyanosis, clubbing, or pedal edema. NEUROLOGICAL: Gross neurological examination did not reveal any focal deficits. SKIN: No rashes. no petechiae. - Labs CBC & Chem 7: 04/09/24 04:46 04/09/24 04:46 Labs: Abnormal Lab Results - Last 24 Hours (Table) 04/07/24 04/08/24 04/08/24 Range/Units 06:21 11:32 16:52 WBC (3.8-10.6) k/uL RBC (4.30-5.90) m/uL Hgb (13.0-17.5) gm/dL Hct (39.0-53.0) % MCV (80.0-100.0) fL MCH (25.0-35.0) pg MCHC (31.0-37.0) g/dL RDW (11.5-15.5) % Neutrophils # (1.3-7.7) k/uL Sodium (137-145) mmol/L Chloride (98-107) mmol/L Carbon Dioxide (22-30) mmol/L BUN (9-20) mg/dL Glucose (74-99) mg/dL POC Glucose (mg/dL) 199 H 189 H (70-110) mg/dL Calcium (8.4-10.2) mg/dL HDL Cholesterol 27.80 L (40.00-60.00) mg/dL Crossmatch 04/08/24 04/08/24 04/09/24 Range/Units 18:00 20:09 04:46 WBC 10.9 H (3.8-10.6) k/uL RBC 2.88 L 2.88 L (4.30-5.90) m/uL Hgb 7.2 L 6.8 L* (13.0-17.5) gm/dL Hct 23.3 L 23.0 L (39.0-53.0) % MCV 79.9 L (80.0-100.0) fL MCH 23.7 L (25.0-35.0) pg MCHC 29.6 L (31.0-37.0) g/dL RDW 15.6 H (11.5-15.5) % Neutrophils # 8.7 H (1.3-7.7) k/uL Sodium (137-145) mmol/L Chloride (98-107) mmol/L Carbon Dioxide (22-30) mmol/L BUN (9-20) mg/dL Glucose (74-99) mg/dL POC Glucose (mg/dL) 191 H (70-110) mg/dL Calcium (8.4-10.2) mg/dL HDL Cholesterol (40.00-60.00) mg/dL Crossmatch 04/09/24 04/09/24 Range/Units 04:46 06:37 WBC (3.8-10.6) k/uL RBC (4.30-5.90) m/uL Hgb (13.0-17.5) gm/dL Hct (39.0-53.0) % MCV (80.0-100.0) fL MCH (25.0-35.0) pg MCHC (31.0-37.0) g/dL RDW (11.5-15.5) % Neutrophils # (1.3-7.7) k/uL Sodium 135 L (137-145) mmol/L Chloride 108 H (98-107) mmol/L Carbon Dioxide 18 L (22-30) mmol/L BUN 8 L (9-20) mg/dL Glucose 190 H (74-99) mg/dL POC Glucose (mg/dL) (70-110) mg/dL Calcium 8.1 L (8.4-10.2) mg/dL HDL Cholesterol (40.00-60.00) mg/dL Crossmatch See Detail Assessment and Plan Assessment: #. Chest pain/NSTEMI -History of NSTEMI with PCI of the LAD and circumflex 02/07/2023 -Patient had cardiac cath on 04/07: Showing 70% left main stenosis, 20 to 30% proximal LAD stenosis, 60 to 70% mid LAD stenosis, 30% stenosis of the circumf [place] artery and 100% stenosis of the right coronary artery. Patient is S/p Impella protected PCI left main into LAD/ circumflex using DK crush technique with 3.5 x 15mm Xience ROCKY into circumflex and 4.0 x 18mm Xience ROCKY left main into LAD #. Postcardiac cath neurological symptoms of slurred speech and mild right side weakness, currently completely resolved. CT of the brain is negative. Neuro logy consulted to rule out stroke or others. -Could be related to hypotension postprocedure. #. Acute systolic CHF ,with ischemic cardiomyopathy with EF of 45% #. Normochromic, normocytic anemia, workup showing iron deficiency anemia. Patient s/p 1 unit of blood transfusion on 04/09 #. Hyperglycemia/diabetes mellitus; sliding scale while inpatient #. Hypertension; #. COPD/asthma; #. Hyperlipidemia; DVT prophylaxis; SCDs/IV heparin CODE STATUS; full code Plan: Continue patient in the ICU with pulmonary/critical care team consult Continue with heparin drip per cardiology team recommendation Continue with dual antiplatelet therapy of aspirin and Plavix which are home medication. Blood pressure stable condition A amaryl is on hold, c/w insulin sliding scale, glucose currently controlled s/p cardiac cath with cardiology team (04/07) Repeat chest x-ray Monitor hemoglobin and do anemia workup. Transfuse if hemoglobin less than 7 or if patient becomes symptomatic Give laxative Neurology consult Labs and medication were reviewed.. Continue same treatment. Continue with symptomatic treatment. Resume home medication. Monitor labs and vitals. DVT and GI prophylaxis. Further recommendations as per clinical course of the patient DVT prophylaxis: heparin GI Prophylaxis: protonix Prognosis is guarded
[2024-04-09] MEDS ORDERED: FUROSEMIDE 10 MG/ML 2 ML VIAL IV ONE (09:32)
--- NOTE | 2024-04-09 09:40 | P.PN ---
Subjective Progress Note Date: 04/09/24 The patient is a 79-year-old male who is currently admitted with a non-ST elevated myocardial infarction. Yesterday he underwent stenting of his left main and left circumflex with Dr. Roque. This was a long, complex procedure with Impella. Yesterday the patient developed worsening shortness of breath. He was given an amp of bicarbonate as well as furosemide with improvement in his breathing. His hemoglobin dropped this morning to 6.8 and he is currently receiving 1 unit of packed RBCs His labored breathing has worsened and he reports having shortness of breath. No current chest discomfort. GENERAL: Ill-appearing, well-nourished with labored breathing. NECK: Supple without JVD or thyromegaly. LUNGS: Breath sounds diminished to auscultation bilaterally. Respiration equal and labored. No wheezes, rales or rhonchi. HEART: Regular rate and rhythm. Systolic murmur. No rubs or gallops. S1 and S2 heard. EXTREMITIES: Normal range of motion, no edema. No clubbing or cyanosis. Peripheral pulses intact and strong. TELEMETRY: Sinus rhythm overnight IMPRESSION: NSTEMI Status post stenting of the left main and left circumflex History of mild ischemic cardiomyopathy, EF 60 to 65% Possible TIA, MRI pending Obstructive sleep apnea Diabetes mellitus type 2 Carotid artery surgery with left carotid stent 03/19/2024 Severe pulmonary hypertension Moderate to severe mitral regurgitation and mild to moderate tricuspid regurgitation Anemia, 2 g drop in hemoglobin PLAN: 20 mg of Lasix to be given post blood transfusion CT scan abdomen and pelvis to assess for hematoma and rule out retroperitoneal bleed Continue to wean vasopressors as tolerated Further recommendations to be based upon clinical course I am dictating on behalf of Dr Eliseo Michele's history/physical and assessment/plan. Objective - Vital Signs Vital signs: Vital Signs Temp 97.9 F 04/09/24 08:45 Pulse 105 H 04/09/24 09:00 Resp 27 H 04/09/24 09:00 BP 102/71 04/09/24 09:00 Pulse Ox 99 04/09/24 09:00 FiO2 Intake & Output 04/08/24 04/09/24 04/09/24 18:59 06:59 18:59 Intake Total 1210.563 394 520 Output Total 500 1700 600 Balance 710.563 -1306 -80 Weight 110 kg 111.4 kg Intake: IV 120 140 20 Sodium Chloride 0.9% 1, 120 140 20 000 ml @ 20 mls/hr IV . Q24H [facility] Rx#:[id number] Intake, IV Titration 650.563 254 Amount Norepinephrine 4 mg In 650.563 254 Sodium Chloride 0.9% 250 ml @ 0.03 MCG/KG/MIN 11. 853 mls/hr IV .[id number] [facility] Rx#:[id number] Oral 440 500 Blood Product 0 Unit 0 Output: Urine 500 1700 600 Other: Voiding Method Urinal Urinal # Bowel Movements 0 ABP, PAP, CO, CI - Last Documented Arterial Blood Pressure 108/55 - Labs CBC & Chem 7: 04/09/24 04:46 04/09/24 04:46 Labs: Abnormal Lab Results - Last 24 Hours (Table) 04/07/24 04/08/24 04/08/24 Range/Units 06:21 11:32 16:52 WBC (3.8-10.6) k/uL RBC (4.30-5.90) m/uL Hgb (13.0-17.5) gm/dL Hct (39.0-53.0) % MCV (80.0-100.0) fL MCH (25.0-35.0) pg MCHC (31.0-37.0) g/dL RDW (11.5-15.5) % Neutrophils # (1.3-7.7) k/uL Sodium (137-145) mmol/L Chloride (98-107) mmol/L Carbon Dioxide (22-30) mmol/L BUN (9-20) mg/dL Glucose (74-99) mg/dL POC Glucose (mg/dL) 199 H 189 H (70-110) mg/dL Calcium (8.4-10.2) mg/dL HDL Cholesterol 27.80 L (40.00-60.00) mg/dL Crossmatch 04/08/24 04/08/24 04/09/24 Range/Units 18:00 20:09 04:46 WBC 10.9 H (3.8-10.6) k/uL RBC 2.88 L 2.88 L (4.30-5.90) m/uL Hgb 7.2 L 6.8 L* (13.0-17.5) gm/dL Hct 23.3 L 23.0 L (39.0-53.0) % MCV 79.9 L (80.0-100.0) fL MCH 23.7 L (25.0-35.0) pg MCHC 29.6 L (31.0-37.0) g/dL RDW 15.6 H (11.5-15.5) % Neutrophils # 8.7 H (1.3-7.7) k/uL Sodium (137-145) mmol/L Chloride (98-107) mmol/L Carbon Dioxide (22-30) mmol/L BUN (9-20) mg/dL Glucose (74-99) mg/dL POC Glucose (mg/dL) 191 H (70-110) mg/dL Calcium (8.4-10.2) mg/dL HDL Cholesterol (40.00-60.00) mg/dL Crossmatch 04/09/24 04/09/24 Range/Units 04:46 06:37 WBC (3.8-10.6) k/uL RBC (4.30-5.90) m/uL Hgb (13.0-17.5) gm/dL Hct (39.0-53.0) % MCV (80.0-100.0) fL MCH (25.0-35.0) pg MCHC (31.0-37.0) g/dL RDW (11.5-15.5) % Neutrophils # (1.3-7.7) k/uL Sodium 135 L (137-145) mmol/L Chloride 108 H (98-107) mmol/L Carbon Dioxide 18 L (22-30) mmol/L BUN 8 L (9-20) mg/dL Glucose 190 H (74-99) mg/dL POC Glucose (mg/dL) (70-110) mg/dL Calcium 8.1 L (8.4-10.2) mg/dL HDL Cholesterol (40.00-60.00) mg/dL Crossmatch See Detail
[2024-04-09] MEDS: FUROSEMIDE 10 MG/ML 10 ML VIAL IVP ONE (10:11)
--- NOTE | 2024-04-09 11:39 | XR ---
EXAMINATION TYPE: XR chest 1V portable DATE OF EXAM: 04/09/2024 11:30 AM COMPARISON: Chest radiographs from 04/07/2024 CLINICAL INDICATION: Male, 79 years old with history of dyspnea; TECHNIQUE: XR chest 1V portable Frontal view of the chest. FINDINGS: Lungs/Pleura: Similar multifocal airspace opacities. No evidence of pneumothorax or pleural effusion. Pulmonary vascularity: Unremarkable. Heart/mediastinum: Cardiomediastinal silhouette is unremarkable. Musculoskeletal: No acute osseous pathology. Other findings: None Lines/Tubes: Left internal jugular central venous catheter with distal tip at the cavoatrial junction. IMPRESSION: 1. Central venous catheter appropriate position. 2. Similar multifocal airspace opacities. [facility], , 04/09/2024 11:36 AM
[2024-04-09] MEDS: PANTOPRAZOLE 40 MG/10 ML VIAL IVP SCH (11:40)
[2024-04-09 11:46] LABS: Glucose,Whole Blood 236 mg/dL (70-110)
[2024-04-09 11:49] LABS: HCT 25.8 % (39.0-53.0); HGB 8.2 gm/dL (13.0-17.5); Hypochromasia Marked; MCH 26.2 pg (25.0-35.0); MCHC 31.9 g/dL (31.0-37.0); MCV 81.9 fL (80.0-100.0); Mean Platelet Volume 7.4; Platelet Count 331 k/uL (150-450); Poikilocytosis Marked; RBC 3.15 m/uL (4.30-5.90); RDW 15.8 % (11.5-15.5); WBC 14.3 k/uL (3.8-10.6)
--- NOTE | 2024-04-09 11:58 | PCN ---
PROCEDURE NOTE PROCEDURE PERFORMED: Left internal jugular triple-lumen catheter. PREOPERATIVE DIAGNOSIS: Administration of fluids and pressors. POSTOPERATIVE DIAGNOSIS: Administration of fluids and pressors. OPERATORS: Dr. Garcia, Dr. Hilliard and Dr. Helm. There was informed consent and universal timeout. The patient's procedure took place in room 258. TRIPLE LUMEN CATHETER PLACEMENT: Indication: Hemodynamic monitoring/Intravenous access. A time-out was completed verifying correct patient, procedure, site, positioning, and implant(s) or special equipment if applicable. The patient was placed in a dependent position appropriate for triple lumen catheter placement based on the vein to be cannulated. The patient's left shoulder or left neck or left groin was prepped and draped in sterile fashion. 1% Lidocaine was used to anesthetize the surrounding skin area. A triple lumen 9F Cordis catheter was introduced into the left internal jugular vein using Seldinger technique. The catheter was threaded smoothly over the guide wire and appropriate blood return was obtained. Each lumen of the catheter was evacuated of air and flushed with sterile saline. The catheter was then sutured in place to the skin and a sterile dressing applied. Perfusion to the extremity distal to the point of catheter insertion was checked and found to be adequate. We did a posterior approach. There was good blood return from all 3 ports. The catheter was sutured in place. Sterile dressing was applied by the nurse. There was no immediate complication. The patient tolerated the procedure well and a sterile dressing was applied by the nurse. A chest x-ray was ordered. The tip of the catheter was seen at the junction of the superior vena cava and right atrium. MMODL / IJN: [id number] /
[2024-04-09 12:01] LABS: Magnesium 1.8 mg/dL (1.6-2.3); Potassium 3.7 mmol/L (3.5-5.1)
[2024-04-09] MEDS ORDERED: Magnesium Replacement Protocol 1 EACH MISC MISCELLANE PRN (12:12)
[2024-04-09] MEDS: MAGNESIUM SULFATE-D5W PMX 1 GM in DEXTROSE/WATER 1 100ML.BAG IVPB ONE ×2 (12:22→18:56)
[2024-04-09] MEDS: POTASSIUM CHLORIDE 10 MEQ in WATER FOR INJECTION 1 100ML.BAG IVPB SCH (12:22)
[2024-04-09] MEDS: NOREPINEPHRINE 32 MG in SODIUM CHLORIDE 0.9% 218 ML IV SCH (12:35)
--- NOTE | 2024-04-09 14:05 | P.PN ---
Subjective Progress Note Date: 04/09/24 Principal diagnosis: Non-ST segment elevation myocardial infarction. Patient is a 79-year-old male with past medical history significant for coronary artery disease with previous PCI/stenting, carotid artery disease with previous left carotid stent, diabetes mellitus, hypertension, hyperlipidemia, previous TURP, SHAKILA no longer using CPAP at home, former tobacco smoker. Of note, patient states that he has significant coronary artery disease with previous 4 stents do ne in January 2023. More recently, in February patient was brought and had a heart catheterization done March 05, 2024. He is found to have coronary disease including 50% stenosis left main, mid LAD 60 to 70% stenosis, OM1 90% stenosis, RCA night 100% stenosis with collaterals. He was also found to have 99% stenosis of left internal carotid artery. Patient was evaluated by cardiothoracic surgery, felt to be a poor surgical candidate. On March 19, 2024 patient was brought in and underwent left carotid artery stenting and balloon angioplasty. Patient was brought in April 02 and received a stent to the left circumflex artery. While at home, patient developed substernal chest pain and difficulty in breathing, which was worse on exertion. He did present to the ED back on 04/04/2024. He was found to have non-ST elevation MS. Echocardiogram estimating left ventricular ejection fraction of 60 to 65%. Mild concentric LVH. Moderate to severe mitral regurgitation as well as severe pulmonary hypertension and mild to moderate tricuspid regurgitation. Patient had subsequent heart catheterization which was Impella assisted, he had PCI/stenting x 2 to the left main into LAD/circumflex. He was brought to the intensive care unit following the procedure. At 1535 patient developed CVI/TIA symptoms including left-sided facial droop and dysarthria. His NIH was initially scored at an 8 per nursing. Code stroke was called. Brain CT did not show any acute findings. Patient's blood pressure was noted to be hypotensive during this event. Blood pressure was reportedly 80s over 40s. He did receive 1.5 L fluid bolus in the form of normal saline. Blood pressure remains kwaku inal. Neurology recommended vasopressors to improve hypotension and hopefully neurological symptoms. Follow-up carotid Doppler did not show any hemodynamically significant stenosis of right or left internal carotid arteries. The left common carotid artery stent was noted. Right vertebral artery was not visualized. Patient was started on norepinephrine which is infusing at 0.1 mcg/kg/min. Blood pressure is currently 96/58 mmHg. I did insert a left wrist radial arterial line. Patient is currently being evaluated in the intensive care unit room 258. He is alert and oriented at this time. No focal neurologic deficit on my evaluation. On 2 L/min nasal cannula. No respiratory distress. Follow-up chest x-ray showing interstitial prominence, possible pulmonary edema. He does have 2+ pitting edema to his lower extremities. He does have a urinary catheter with small amount of hematuria and urine output is in the order of 40 ml/hr. Most recent CBC: WBC count 7.5, hemoglobin 8.5, hematocrit 29.6, platelets 308. BMP: Sodium 139, testing 4.3, chloride 108, serum bicarb 18, BUN 14, creatinine 1.06, glucose 133. Troponins on arrival are elevated at 0.59, 1.18, and 1.5 respectively. Heparin since been discontinued after his heart catheterization, currently on dual antiplatelet medications including Plavix and aspirin. Right femoral access site is soft without hematoma. Progress note dated April 09, 2024. This is a 79-year-old male who is seen in room 258. He was seen in consultation yesterday. Please see the note above. He was admitted with a diagnosis of non- ST segment elevation myocardial infarction. Subsequent to that, he developed left facial droop, and dysarthria. He was thought to have a CVA. Brain scan was negative. The patient is currently on 3 L of oxygen. He is receiving 1 unit of packed red blood cells. His hemoglobin this morning was 6.8. The patient is also on Levophed at 31 mcg/min. The patient will get Lasix 60 mg IV push. Because of his high vasopressor requirements, the patient will get a TSH level checked, and cortisol level checked. Current labs include a white count 14.3, hemoglobin 8.2, hematocrit 25.8, and a platelet count of 331,000. Sodium 135, potassium 3.7, chlorides 108, CO2 18, anion gap 9, BUN 8, creatinine 0.88. Glucose is 236. Calcium 8.1. Magnesium 1.8. Chest x-ray shows a properly placed central venous catheter. There is diffuse opacities in both lungs. Objective - Vital Signs Vital signs: Vital Signs Temp 98.3 F 04/09/24 12:00 Pulse 98 12/11/24 12:06 Resp 24 04/09/24 12:06 BP 119/58 04/09/24 10:40 Pulse Ox 100 04/09/24 12:00 FiO2 Intake & Output 04/08/24 04/09/24 04/09/24 18:59 06:59 18:59 Intake Total 1210.221 708 3541.632 Output Total 500 1700 2700 Balance 710.563 -1306 -23.368 Weight 110 kg 111.4 kg Intake: IV 120 140 20 Sodium Chloride 0.9% 1, 120 140 20 000 ml @ 20 mls/hr IV . Q24H [facility] Rx#:[id number] Intake, IV Titration 650.563 254 791.632 Amount Norepinephrine 4 mg In 650.563 254 791.632 Sodium Chloride 0.9% 250 ml @ 0.03 MCG/KG/MIN 11. 853 mls/hr IV .[id number] [facility] Rx#:[id number] Oral 440 1580 Blood Product 285 Rc Pheresis 2 As3 Unit 285 [id number] Output: Urine 500 1700 2700 Other: Voiding Method Urinal Urinal Indwelling Catheter # Bowel Movements 0 ABP, PAP, CO, CI - Last Documented Arterial Blood Pressure 119/52 - Exam No acute distress, oriented 3. No respiratory distress. The patient is currently on 3 L. HEENT examination is grossly unremarkable. Mucous membranes are moist. No oral lesions. Neck supple. Full range of motion. No adenopathy thyromegaly or neck vein d istention. Cardiovascular examination reveals regular rhythm rate. S1-S2 normal. No S3 or S4. Harsh systolic murmur is noted. Lungs reveal minimal basilar crackles. No wheezes. No rhonchi. Breath sounds equal. Abdomen soft bowel sounds are heard. No masses or tenderness. Extremities are intact. No cyanosis or clubbing. 2+ lower extremity pitting edema is noted. Skin is without rash or lesion. Neurologic examination is brief but nonfocal. - Labs CBC & Chem 7: 04/09/24 11:30 04/09/24 11:30 Labs: Abnormal Lab Results - Last 24 Hours (Table) 04/08/24 04/08/24 04/08/24 Range/Units 16:52 18:00 20:09 WBC (3.8-10.6) k/uL RBC 2.88 L (4.30-5.90) m/uL Hgb 7.2 L (13.0-17.5) gm/dL Hct 23.3 L (39.0-53.0) % MCV (80.0-100.0) fL MCH (25.0-35.0) pg MCHC (31.0-37.0) g/dL RDW (11.5-15.5) % Neutrophils # (1.3-7.7) k/uL Sodium (137-145) mmol/L Chloride (98-107) mmol/L Carbon Dioxide (22-30) mmol/L BUN (9-20) mg/dL Glucose (74-99) mg/dL POC Glucose (mg/dL) 189 H 191 H (70-110) mg/dL Calcium (8.4-10.2) mg/dL Crossmatch 04/09/24 04/09/24 04/09/24 Range/Units 04:46 04:46 06:37 WBC 10.9 H (3.8-10.6) k/uL RBC 2.88 L (4.30-5.90) m/uL Hgb 6.8 L* (13.0-17.5) gm/dL Hct 23.0 L (39.0-53.0) % MCV 79.9 L (80.0-100.0) fL MCH 23.7 L (25.0-35.0) pg MCHC 29.6 L (31.0-37.0) g/dL RDW 15.6 H (11.5-15.5) % Neutrophils # 8.7 H (1.3-7.7) k/uL Sodium 135 L (137-145) mmol/L Chloride 108 H (98-107) mmol/L Carbon Dioxide 18 L (22-30) mmol/L BUN 8 L (9-20) mg/dL Glucose 190 H (74-99) mg/dL POC Glucose (mg/dL) (70-110) mg/dL Calcium 8.1 L (8.4-10.2) mg/dL Crossmatch See Detail 04/09/24 04/09/24 Range/Units 11:30 11:44 WBC 14.3 H (3.8-10.6) k/uL RBC 3.15 L (4.30-5.90) m/uL Hgb 8.2 L (13.0-17.5) gm/dL Hct 25.8 L (39.0-53.0) % MCV (80.0-100.0) fL MCH (25.0-35.0) pg MCHC (31.0-37.0) g/dL RDW 15.8 H (11.5-15.5) % Neutrophils # (1.3-7.7) k/uL Sodium (137-145) mmol/L Chloride (98-107) mmol/L Carbon Dioxide (22-30) mmol/L BUN (9-20) mg/dL Glucose (74-99) mg/dL POC Glucose (mg/dL) 236 H (70-110) mg/dL Calcium (8.4-10.2) mg/dL Crossmatch Assessment and Plan Assessment: Acute non-ST elevation MS status postoperative day #2 following Impella assisted heart catheterization involving PCI to the left main into the LAD/circumflex using DK crush technique with 3.5 x 1.5 mm Xience ROCYK into circumflex and 4.0 x 18 mm Xience ROCKY left main into LAD. Possible TIA. Symptomatic hypotension. History of left carotid artery stenosis status post carotid artery stent done March 19, 2024. Severe multivessel coronary artery disease, patient has had multiple PCI/stents. Acute hypoxemic respiratory failure. Echocardiogram estimating left ventricular ejection fraction of 60 to 65%. Mild concentric LVH. Moderate to severe mitral regurgitation, as well as, severe pulmonary hypertension, and mild to moderate tricuspid regurgitation. Anemia, chronic. History of diabetes mellitus. History of hypertension. History of hyperlipidemia. History of TURP. History of obstructive sleep apnea, no longer uses CPAP at home. Obesity, with a BMI of 33.8 kg/m. Former tobacco dependence, quit smoking in 1983. Plan: Plan dated April 09, 2024. The patient is seen today in room 258. We placed a left internal jugular triple-lumen catheter in the place. The patient needed the catheter, for fluid administration, blood draws, etc. The patient tolerated the procedure well and there was no pneumothorax after the procedure. The patient is seen today in room 258. He is on 3 L of oxygen. He is receiving 1 unit of PRBCs for hemoglobin of 6.8. He is on norepinephrine at 31 mcg/min. Will check a TSH level, and a cortisol level. In addition, the patient takes Lasix, 60 mg IV push. Labs, x-rays, medications are reviewed. Prognosis is guarded. Will continue to follow the patient, make recommendations along the way. Time with Patient: Greater than 30
--- NOTE | 2024-04-09 14:43 | CT ---
EXAMINATION TYPE: CT brain wo con CT DLP: 1176.4 mGycm, Automated exposure control for dose reduction was used. DATE OF EXAM: 04/09/2024 2:36 PM COMPARISON: Prior CT Brain from 04/07/2024. CLINICAL INDICATION:Male, 79 years old with history of stroke. left facial droop and dysarthria, str omega. left facial droop and dysarthria, recent heart cath TECHNIQUE: Brain: Multiple axial CT images of the brain were obtained without IV contrast. . Coronal and sagitta l reformats reviewed. FINDINGS: Brain: Extra-axial spaces: No abnormal extra-axial fluid collections. Ventricular system: Within normal limits Cerebral parenchyma: Cerebral atrophy. No acute intraparenchymal hemorrhage or mass effect. The bermeo -white junction is well differentiated. Scattered hypoattenuating areas are seen within the periventr icular white matter. Cerebellum: Unremarkable. Mass effect: No evidence of midline shift. Intracranial vasculature: Atherosclerotic calcifications of the intracranial vessels. Soft tissues: Normal. Calvarium/osseous structures: No depressed skull fracture. Paranasal sinuses and mastoid air cells: Clear Visualized orbits: Bilateral aphakia IMPRESSION: 1. No acute intracranial process or significant change from prior. 2. Nonspecific white matter changes, likely secondary to chronic small vessel ischemic disease. [facility], , 04/09/2024 2:41 PM
--- NOTE | 2024-04-09 14:56 | CT ---
EXAMINATION TYPE: CT abdomen pelvis wo con CT DLP: 1347.4 mGycm, Automated exposure control for dose reduction was used. DATE OF EXAM: 04/09/2024 2:36 PM COMPARISON: No direct comparisons. CLINICAL INDICATION:Male, 79 years old with history of hematoma; recent surgery through femoral arter y. Abdominal hematoma TECHNIQUE: Standard CT of the abdomen and pelvis without IV or oral contrast. Lack of IV or oral co ntrast limits evaluation of solid and hollow organ viscera. Coronal and sagittal reformats were perfo rmed. FINDINGS: LOWER CHEST: Moderate bilateral pleural effusions with associated atelectasis. Trace perihilar patchy opacities. Aortic valvular calcifications. Moderate coronary arterial calcifications. No pericardial effusion. ABDOMEN LIVER: Unremarkable noncontrast appearance GALLBLADDER AND BILE DUCTS: Layering hyperintensity within the gallbladder. No inflammatory changes. No biliary duct dilatation. PANCREAS: Lipomatous pseudohypertrophy changes. SPLEEN: Unremarkable noncontrast appearance ADRENAL GLANDS: Unremarkable noncontrast appearance. KIDNEYS AND URETERS: No evidence of hydronephrosis or renal calculus. Bilateral renal cysts with lar gest measuring from the left kidney measuring up to 6.8 cm PELVIS BLADDER: Nondistended with Regalado catheter in place. REPRODUCTIVE: Prostate is enlarged in size measuring 5.2 cm in transverse dimension. ABDOMEN & PELVIS STOMACH AND BOWEL: Stomach and duodenum are unremarkable. Scattered distal colonic diverticulosis wit hout evidence for acute diverticulitis. No focal bowel wall thickening or surrounding inflammatory ch anges. No evidence of bowel obstruction. PERITONEUM/RETROPERITONEUM: No evidence of pneumoperitoneum or free fluid. No evidence for retroperit watson hemorrhage. VASCULATURE: Mild atherosclerotic calcifications are present throughout the abdominal aorta and its b ranches. No evidence of aortic aneurysm. MUSCULOSKELETAL: No acute osseous abnormalities. Degenerative changes of the pubic symphysis. Mild mu ltilevel degenerative disc disease. LYMPH NODES: No gross evidence for lymphadenopathy. SOFT TISSUE/ABDOMINAL WALL: Mild diffuse anasarca. Trace hemorrhage changes identified within the rig ht inguinal canal related to prior vascular access. No sizable hematoma/fluid collection. Small fat f illed umbilical hernia. IMPRESSION: 1. Post right femoral access changes with trace hemorrhage changes within the right inguinal region. No sizable hematoma/fluid collection. No evidence for retroperitoneal hemorrhage. 2. Colonic diverticulosis without evidence for acute diverticulitis. 3. Moderate bilateral pleural effusions with associated atelectasis. Additionally there is mild diff use anasarca. Trace perihilar opacity which may represent pulmonary edema. Correlate for volume overl oad. 4. Layering attenuation within the gallbladder which may represent gallstones and/or vicarious excre tion of contrast from prior heart cath. [facility], , 04/09/2024 2:54 PM
[2024-04-09 17:02] LABS: Glucose,Whole Blood 216 mg/dL (70-110)
[2024-04-09 18:08] LABS: Anisocytosis Slight; HCT 25.9 % (39.0-53.0); HGB 8.3 gm/dL (13.0-17.5); Hypochromasia Marked; MCH 25.3 pg (25.0-35.0); MCHC 31.9 g/dL (31.0-37.0); MCV 79.4 fL (80.0-100.0); Mean Platelet Volume 8.5; Platelet Count 313 k/uL (150-450); Poikilocytosis Marked; RBC 3.27 m/uL (4.30-5.90); RDW 16.4 % (11.5-15.5); WBC 15.2 k/uL (3.8-10.6)
--- NOTE | 2024-04-09 18:22 | P.PN ---
Subjective Progress Note Date: 04/09/24 I am following up with the patient and he denies any new neurological issues. He continues to be on norepinephrine. Objective - Vital Signs Vital signs: Vital Signs Temp 98.2 F 04/09/24 16:00 Pulse 101 H 04/09/24 18:00 Resp 23 04/09/24 18:00 BP 119/58 04/09/24 10:40 Pulse Ox 97 04/09/24 18:00 FiO2 Intake & Output 04/08/24 04/09/24 04/09/24 18:59 06:59 18:59 Intake Total 1210.655 129 3531.632 Output Total 500 1700 6000 Balance 710.563 -1306 -2993.368 Weight 110 kg 111.4 kg Intake: IV 120 140 350 0.9 3cc/hr Pressure Bag 30 Magnesium Sulfate-D5w Pmx 100 1 gm In Dextrose/Water 1 100ml.bag @ 100 mls/hr IVPB ONCE ONE Rx#: [id number] Potassium Chloride 10 meq 200 In Water For Injection 1 100ml.bag @ 100 mls/hr IVPB Q1H [facility] Rx#: [id number] Sodium Chloride 0.9% 1, 120 140 20 000 ml @ 20 mls/hr IV . Q24H [facility] Rx#:[id number] Intake, IV Titration 650.563 254 791.632 Amount Norepinephrine 4 mg In 650.563 254 791.632 Sodium Chloride 0.9% 250 ml @ 0.03 MCG/KG/MIN 11. 853 mls/hr IV .[id number] [facility] Rx#:[id number] Oral 440 1580 Blood Product 285 Rc Pheresis 2 As3 Unit 285 [id number] Output: Urine 500 1700 6000 Other: Voiding Method Urinal Urinal Indwelling Catheter # Bowel Movements 0 0 ABP, PAP, CO, CI - Last Documented Arterial Blood Pressure 121/60 - Exam GENERAL: The patient is lying in bed and is not in acute distress. NEUROLOGICAL: Higher mental function: The patient is awake, alert, oriented to self, place and time. Patient is following commands. No aphasia and no neglect. Cranial nerves: The pupils are round, equal and reactive to light and accommodation. Visual wiggins are full to confrontation throughout. Extraocular movement is intact no nystagmus is noted. Facial sensation is normal to touch throughout. The facial strength is normal throughout. Hearing is moderately decreased bilaterally to hand rub. Tongue is midline and moved [id number] without any difficulty. No dysarthria is noted. Shoulder shrug is normal bilaterally. Motor: The strength is 5 over 5 throughout. Normal tone and bulk. Cerebellum: Normal finger to nose bilaterally. Sensation: Sensation is normal to touch throughout. Reflexes (right/left): 2+ throughout. Plantars are downgoing bilaterally. Some of the workup during this hospital visit consisted of: Lipid panel is triglyceride of 127, cholesterol 130, LDL 76 and HDL is 27 Vitamin B12 is 380 Folate is 14 Patient hemoglobin is trending down currently 7.3. CT of the head is reported as no acute intracranial process. I personally reviewed the CT and I agree with the report. Carotid duplex is reported as no hemodynamic significant stenosis over the right or left. Left common carotid artery stent is noted. The right vertebral artery was not visualized on exam. 2D echo was reported as normal left ventricle systolic function with ejection fraction of 60%. Severe pulmonary hypertension. Moderate to severe mitral regurgitation. Repeat CT of the head is reported as no acute intracranial process or significant change from prior. - Labs CBC & Chem 7: 04/09/24 17:56 04/09/24 11:30 Labs: Abnormal Lab Results - Last 24 Hours (Table) 04/08/24 04/08/24 04/09/24 Range/Units 18:00 20:09 04:46 WBC 10.9 H (3.8-10.6) k/uL RBC 2.88 L 2.88 L (4.30-5.90) m/uL Hgb 7.2 L 6.8 L* (13.0-17.5) gm/dL Hct 23.3 L 23.0 L (39.0-53.0) % MCV 79.9 L (80.0-100.0) fL MCH 23.7 L (25.0-35.0) pg MCHC 29.6 L (31.0-37.0) g/dL RDW 15.6 H (11.5-15.5) % Neutrophils # 8.7 H (1.3-7.7) k/uL Sodium (137-145) mmol/L Chloride (98-107) mmol/L Carbon Dioxide (22-30) mmol/L BUN (9-20) mg/dL Glucose (74-99) mg/dL POC Glucose (mg/dL) 191 H (70-110) mg/dL Calcium (8.4-10.2) mg/dL Crossmatch 04/09/24 04/09/24 04/09/24 Range/Units 04:46 06:37 11:30 WBC 14.3 H (3.8-10.6) k/uL RBC 3.15 L (4.30-5.90) m/uL Hgb 8.2 L (13.0-17.5) gm/dL Hct 25.8 L (39.0-53.0) % MCV (80.0-100.0) fL MCH (25.0-35.0) pg MCHC (31.0-37.0) g/dL RDW 15.8 H (11.5-15.5) % Neutrophils # (1.3-7.7) k/uL Sodium 135 L (137-145) mmol/L Chloride 108 H (98-107) mmol/L Carbon Dioxide 18 L (22-30) mmol/L BUN 8 L (9-20) mg/dL Glucose 190 H (74-99) mg/dL POC Glucose (mg/dL) (70-110) mg/dL Calcium 8.1 L (8.4-10.2) mg/dL Crossmatch See Detail 04/09/24 04/09/24 04/09/24 Range/Units 11:44 17:01 17:56 WBC 15.2 H (3.8-10.6) k/uL RBC 3.27 L (4.30-5.90) m/uL Hgb 8.3 L (13.0-17.5) gm/dL Hct 25.9 L (39.0-53.0) % MCV 79.4 L (80.0-100.0) fL MCH (25.0-35.0) pg MCHC (31.0-37.0) g/dL RDW 16.4 H (11.5-15.5) % Neutrophils # (1.3-7.7) k/uL Sodium (137-145) mmol/L Chloride (98-107) mmol/L Carbon Dioxide (22-30) mmol/L BUN (9-20) mg/dL Glucose (74-99) mg/dL POC Glucose (mg/dL) 236 H 216 H (70-110) mg/dL Calcium (8.4-10.2) mg/dL Crossmatch Assessment and Plan Assessment: This is a 79-year-old gentleman with significant cardiac issues who presents emergency department on 04/04/2024 for shortness of breath and chest pain. Patient had cardiac cath yesterday and had stenting while in the ICU he had dysarthria and left facial droop. His NIH stroke scale was 7 and a code stroke was activated. His symptoms has resolved. Patient has hypotensive episodes and he is on norepinephrine as well as he has slight hypoxia some tachypnea Probable transient ischemic stroke Acute non-STEMI and patient had Impella assisted cardiac cath PCI to the left main LAD/circumflex on 04/07/2024 Somatic hypotension and patient is on norepinephrine Recent history of left carotid stent over the carotid artery on March 19, 2020 Severe multivessel coronary artery disease had multiple PCI/stents Acute hypoxic respiratory failure on nasal cannula Diastolic heart failure Anemia History of diabetes History of hypertension History of TURP History of obstructive sleep apnean Plan: Once the patient is more stable then recommend the patient to pursue MRI of the brain. Is on aspirin 81 mg as well as Plavix 75 mg per the cardiology team. Patient is on Lipitor 40 mg nightly. Continue neurochecks Cardiac monitoring Recommend avoiding hypotensive episode and patient is currently on norepinephrine recommend a blood pressure goal to be between 120-1 60. 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 Time with Patient: Less than 30
[2024-04-09 18:26] LABS: Magnesium 1.9 mg/dL (1.6-2.3); Potassium 3.5 mmol/L (3.5-5.1)
[2024-04-09 21:03] LABS: Glucose,Whole Blood 218 mg/dL (70-110)
[2024-04-09 21:54] LABS: Magnesium 2.1 mg/dL (1.6-2.3); Potassium 3.6 mmol/L (3.5-5.1)
[2024-04-09] MEDS: VASOPRESSIN 60 UNIT in SODIUM CHLORIDE 0.9% 150 ML IV SCH (23:15)
[2024-04-09 23:53] LABS: Glucose,Whole Blood 243 mg/dL (70-110)
[2024-04-10 05:15] LABS: Anisocytosis Slight; Basophils # (A) 0.1 k/uL (0-0.2); Basophils % (A) 0 %; Eosinophils # (A) 0.1 k/uL (0-0.7); Eosinophils % (A) 0 %; HCT 25.5 % (39.0-53.0); Hypochromasia Marked; Lymphocytes # (A) 1.4 k/uL (1.0-4.8); Lymphocytes % (A) 8 %; MCH 25.5 pg (25.0-35.0); MCHC 31.3 g/dL (31.0-37.0); MCV 81.6 fL (80.0-100.0); Mean Platelet Volume 7.3; Monocytes % (A) 6 %; Neutrophils # (A) 13.4 k/uL (1.3-7.7); Neutrophils % (A) 83 %; Platelet Count 316 k/uL (150-450); Poikilocytosis Marked; RBC 3.12 m/uL (4.30-5.90); RDW 16.9 % (11.5-15.5); WBC 16.2 k/uL (3.8-10.6)
[2024-04-10 05:28] LABS: ALT 17 U/L (4-49); AST 21 U/L (17-59); African American GFR (CKD) >90 (>60 ml/min/1.73 sqM); Albumin 3.4 g/dL (3.5-5.0); Alkaline Phosphatase 62 U/L (38-126); Anion Gap 7 mmol/L; Blood Urea Nitrogen 9 mg/dL (9-20); Calcium 8.4 mg/dL (8.4-10.2); Carbon Dioxide 21 mmol/L (22-30); Chloride 104 mmol/L (98-107); Glucose 229 mg/dL (74-99); Non-African American GFR(CKD) 84 (>60 ml/min/1.73 sqM); Potassium 4.1 mmol/L (3.5-5.1); Sodium 132 mmol/L (137-145); Total Bilirubin 1.6 mg/dL (0.2-1.3); Total Protein 5.8 g/dL (6.3-8.2)
[2024-04-10] MEDS ORDERED: Magnesium Replacement Protocol 1 EACH MISC MISCELLANE PRN (06:13)
[2024-04-10] MEDS: MAGNESIUM SULFATE-D5W PMX 1 GM in DEXTROSE/WATER 1 100ML.BAG IVPB ONE (06:27)
--- NOTE | 2024-04-10 08:28 | XR ---
EXAMINATION TYPE: XR chest 1V portable DATE OF EXAM: 04/10/2024 5:17 AM COMPARISON: Chest radiographs from CLINICAL INDICATION: Male, 79 years old with history of dyspnea, bilateral pleural effusions; [facility] TECHNIQUE: XR chest 1V portable Frontal view of the chest. FINDINGS: Lungs/Pleura: Similar multifocal airspace opacities. No evidence of pneumothorax or pleural effusion. Pulmonary vascularity: Unremarkable. Heart/mediastinum: Cardiomediastinal silhouette is unremarkable. Musculoskeletal: No acute osseous pathology. Other findings: None Lines/Tubes: Left internal jugular central venous catheter with distal tip at the cavoatrial junction. IMPRESSION: 1. Central venous catheter appropriate position. 2. Similar multifocal airspace opacities. [facility], , 04/10/2024 8:26 AM
--- NOTE | 2024-04-10 09:35 | P.PN ---
Subjective Progress Note Date: 04/10/24 The patient is a 79-year-old male who is currently admitted with a non-ST elevated myocardial infarction. Yesterday he underwent stenting of his left main and left circumflex with Dr. Roque. This was a long, complex procedure with Impella. Yesterday the patient's hemoglobin dropped and he underwent blood transfusion. Patient's hematoma in right groin also appeared to have worsened. CT scan of the abdomen and pelvis showed no sizable hematoma or fluid collection and no evidence for retroperitoneal hemorrhage. Patient was noted to have moderate bilateral pleural effusions with atelectasis and mild diffuse anasarca. Overnight the patient was started on vasopressin for low blood pressure in a ddition to his Levophed. The patient believes his breathing has improved today. No current chest d iscomfort. GENERAL: Ill-appearing, well-nourished with labored breathing. NECK: Supple without JVD or thyromegaly. LUNGS: Breath sounds diminished to auscultation bilaterally. Respiration equal and labored. No wheezes, rales or rhonchi. HEART: Regular rate and rhythm. Systolic murmur. No rubs or gallops. S1 and S2 heard. EXTREMITIES: Normal range of motion, no edema. No clubbing or cyanosis. Peripheral pulses intact and strong. TELEMETRY: Sinus rhythm overnight LABS: WBC 16.2, hemoglobin 8.0, hematocrit 25.5, platelet 316, sodium 132, potassium 4.1, BUN 9, creatinine 0.85, magnesium 1.9, AST 17, ALT 62 IMPRESSION: NSTEMI Status post stenting of the left main and left circumflex History of mild ischemic cardiomyopathy, EF 60 to 65% Possible TIA, MRI pending Obstructive sleep apnea Diabetes mellitus type 2 Carotid artery surgery with left carotid stent 03/19/2024 Severe pulmonary hypertension Moderate to severe mitral regurgitation and mild to moderate tricuspid regurgitation Anemia, 2 g drop in hemoglobin PLAN: Discontinue vasopressin Titrate vasopressors off of cuff pressures and wean as tolerated Further recommendations to be based on clinical course I am dictating on behalf of Dr Eliseo Michele's history/physical and assessment/plan. Objective - Vital Signs Vital signs: Vital Signs Temp 98.2 F 04/10/24 08:00 Pulse 113 H 04/10/24 08:00 Resp 14 04/10/24 08:00 BP 133/100 04/10/24 08:00 Pulse Ox 96 04/10/24 08:00 FiO2 Intake & Output 04/09/24 04/10/24 04/10/24 18:59 06:59 18:59 Intake Total 3009.632 508.852 6 Output Total 6100 1150 240 Balance -3090.368 -641.148 -234 Weight 110.2 kg Intake: IV 353 33 6 0.9 3cc/hr Pressure Bag 33 33 6 Magnesium Sulfate-D5w Pmx 100 1 gm In Dextrose/Water 1 100ml.bag @ 100 mls/hr IVPB ONCE ONE Rx#: [id number] Potassium Chloride 10 meq 200 In Water For Injection 1 100ml.bag @ 100 mls/hr IVPB Q1H [facility] Rx#: [id number] Sodium Chloride 0.9% 1, 20 000 ml @ 20 mls/hr IV . Q24H [facility] Rx#:[id number] Intake, IV Titration 791.632 225.852 Amount Norepinephrine 32 mg In 225.852 Sodium Chloride 0.9% 218 ml @ 0.03 MCG/KG/MIN 1. 567 mls/hr IV .Q24H [facility] Rx#:[id number] Norepinephrine 4 mg In 791.632 Sodium Chloride 0.9% 250 ml @ 0.03 MCG/KG/MIN 11. 853 mls/hr IV .[id number] [facility] Rx#:[id number] Oral 1580 250 Blood Product 285 Rc Pheresis 2 As3 Unit 285 [id number] Output: Urine 6100 1150 240 Other: Voiding Method Indwelling Catheter Indwelling Catheter Indwelling Catheter # Bowel Movements 0 ABP, PAP, CO, CI - Last Documented Arterial Blood Pressure 115/64 - Labs CBC & Chem 7: 04/11/24 03:55 04/11/24 03:55 Labs: Abnormal Lab Results - Last 24 Hours (Table) 04/09/24 04/09/24 04/09/24 Range/Units 06:37 11:30 11:44 WBC 14.3 H (3.8-10.6) k/uL RBC 3.15 L (4.30-5.90) m/uL Hgb 8.2 L (13.0-17.5) gm/dL Hct 25.8 L (39.0-53.0) % MCV (80.0-100.0) fL RDW 15.8 H (11.5-15.5) % Neutrophils # (1.3-7.7) k/uL Sodium (137-145) mmol/L Carbon Dioxide (22-30) mmol/L Glucose (74-99) mg/dL POC Glucose (mg/dL) 236 H (70-110) mg/dL Total Bilirubin (0.2-1.3) mg/dL Total Protein (6.3-8.2) g/dL Albumin (3.5-5.0) g/dL Crossmatch See Detail 04/09/24 04/09/24 04/09/24 Range/Units 17:01 17:56 20:59 WBC 15.2 H (3.8-10.6) k/uL RBC 3.27 L (4.30-5.90) m/uL Hgb 8.3 L (13.0-17.5) gm/dL Hct 25.9 L (39.0-53.0) % MCV 79.4 L (80.0-100.0) fL RDW 16.4 H (11.5-15.5) % Neutrophils # (1.3-7.7) k/uL Sodium (137-145) mmol/L Carbon Dioxide (22-30) mmol/L Glucose (74-99) mg/dL POC Glucose (mg/dL) 216 H 218 H (70-110) mg/dL Total Bilirubin (0.2-1.3) mg/dL Total Protein (6.3-8.2) g/dL Albumin (3.5-5.0) g/dL Crossmatch 04/09/24 04/10/24 04/10/24 Range/Units 23:51 04:45 04:45 WBC 16.2 H (3.8-10.6) k/uL RBC 3.12 L (4.30-5.90) m/uL Hgb 8.0 L (13.0-17.5) gm/dL Hct 25.5 L (39.0-53.0) % MCV (80.0-100.0) fL RDW 16.9 H (11.5-15.5) % Neutrophils # 13.4 H (1.3-7.7) k/uL Sodium 132 L (137-145) mmol/L Carbon Dioxide 21 L (22-30) mmol/L Glucose 229 H (74-99) mg/dL POC Glucose (mg/dL) 243 H (70-110) mg/dL Total Bilirubin 1.6 H (0.2-1.3) mg/dL Total Protein 5.8 L (6.3-8.2) g/dL Albumin 3.4 L (3.5-5.0) g/dL Crossmatch
[2024-04-10] MEDS: HYDROCORTISONE SUCCINATE 100 MG/2 ML VIAL IVP ONE (09:51)
[2024-04-10 11:34] LABS: Glucose,Whole Blood 260 mg/dL (70-110)
[2024-04-10] MEDS: MIDODRINE 5 MG TAB PO SCH (12:25)
--- NOTE | 2024-04-10 12:39 | P.PN ---
Subjective Progress Note Date: 04/10/24 Principal diagnosis: Non-ST segment elevation myocardial infarction. Patient is a 79-year-old male with past medical history significant for coronary artery disease with previous PCI/stenting, carotid artery disease with previous left carotid stent, diabetes mellitus, hypertension, hyperlipidemia, previous TURP, SHAKILA no longer using CPAP at home, former tobacco smoker. Of note, patient states that he has significant coronary artery disease with previous 4 stents do ne in January 2023. More recently, in February patient was brought and had a heart catheterization done March 05, 2024. He is found to have coronary disease including 50% stenosis left main, mid LAD 60 to 70% stenosis, OM1 90% stenosis, RCA night 100% stenosis with collaterals. He was also found to have 99% stenosis of left internal carotid artery. Patient was evaluated by cardiothoracic surgery, felt to be a poor surgical candidate. On March 19, 2024 patient was brought in and underwent left carotid artery stenting and balloon angioplasty. Patient was brought in April 02 and received a stent to the left circumflex artery. While at home, patient developed substernal chest pain and difficulty in breathing, which was worse on exertion. He did present to the ED back on 04/04/2024. He was found to have non-ST elevation DC. Echocardiogram estimating left ventricular ejection fraction of 60 to 65%. Mild concentric LVH. Moderate to severe mitral regurgitation as well as severe pulmonary hypertension and mild to moderate tricuspid regurgitation. Patient had subsequent heart catheterization which was Impella assisted, he had PCI/stenting x 2 to the left main into LAD/circumflex. He was brought to the intensive care unit following the procedure. At 1535 patient developed CVI/TIA symptoms including left-sided facial droop and dysarthria. His NIH was initially scored at an 8 per nursing. Code stroke was called. Brain CT did not show any acute findings. Patient's blood pressure was noted to be hypotensive during this event. Blood pressure was reportedly 80s over 40s. He did receive 1.5 L fluid bolus in the form of normal saline. Blood pressure remains kwaku inal. Neurology recommended vasopressors to improve hypotension and hopefully neurological symptoms. Follow-up carotid Doppler did not show any hemodynamically significant stenosis of right or left internal carotid arteries. The left common carotid artery stent was noted. Right vertebral artery was not visualized. Patient was started on norepinephrine which is infusing at 0.1 mcg/kg/min. Blood pressure is currently 96/58 mmHg. I did insert a left wrist radial arterial line. Patient is currently being evaluated in the intensive care unit room 258. He is alert and oriented at this time. No focal neurologic deficit on my evaluation. On 2 L/min nasal cannula. No respiratory distress. Follow-up chest x-ray showing interstitial prominence, possible pulmonary edema. He does have 2+ pitting edema to his lower extremities. He does have a urinary catheter with small amount of hematuria and urine output is in the order of 40 ml/hr. Most recent CBC: WBC count 7.5, hemoglobin 8.5, hematocrit 29.6, platelets 308. BMP: Sodium 139, testing 4.3, chloride 108, serum bicarb 18, BUN 14, creatinine 1.06, glucose 133. Troponins on arrival are elevated at 0.59, 1.18, and 1.5 respectively. Heparin since been discontinued after his heart catheterization, currently on dual antiplatelet medications including Plavix and aspirin. Right femoral access site is soft without hematoma. Progress note dated April 09, 2024. This is a 79-year-old male who is seen in room 258. He was seen in consultation yesterday. Please see the note above. He was admitted with a diagnosis of non- ST segment elevation myocardial infarction. Subsequent to that, he developed left facial droop, and dysarthria. He was thought to have a CVA. Brain scan was negative. The patient is currently on 3 L of oxygen. He is receiving 1 unit of packed red blood cells. His hemoglobin this morning was 6.8. The patient is also on Levophed at 31 mcg/min. The patient will get Lasix 60 mg IV push. Because of his high vasopressor requirements, the patient will get a TSH level checked, and cortisol level checked. Current labs include a white count 14.3, hemoglobin 8.2, hematocrit 25.8, and a platelet count of 331,000. Sodium 135, potassium 3.7, chlorides 108, CO2 18, anion gap 9, BUN 8, creatinine 0.88. Glucose is 236. Calcium 8.1. Magnesium 1.8. Chest x-ray shows a properly placed central venous catheter. There is diffuse opacities in both lungs. Progress note dated April 10, 2024. 79-year-old male seen today in room 258. He is currently on 2 L. He continues on norepinephrine at 35 mcg/min, and vasopressin at 0.03 units/min. The patient will get midodrine 10 mg 3 times a day, and hydrocortisone 100 mg IV push, then 50 mg IV, every 6 hours. We will attempt to get him off or onto a lower dose of norepinephrine. Current labs include a white count 16.2, hemoglobin 8, hematocrit 25.5, platelet count is normal. Sodium 132, potassium 4.1, chlorides 104, CO2 21, BUN 9, creatinine 0.85. Glucose is 260. Albumin is 3.4. Chest x- ray shows some bilateral airspace opacities. Objective - Vital Signs Vital signs: Vital Signs Temp 98.2 F 04/10/24 08:00 Pulse 111 H 04/10/24 12:27 Resp 14 04/10/24 08:00 BP 133/100 04/10/24 08:00 Pulse Ox 96 04/10/24 08:00 FiO2 Intake & Output 04/09/24 04/10/24 04/10/24 18:59 06:59 18:59 Intake Total 3009.632 508.852 378 Output Total 6100 1150 490 Balance -3090.368 -641.148 -112 Weight 110.2 kg Intake: IV 353 33 18 0.9 3cc/hr Pressure Bag 33 33 18 Magnesium Sulfate-D5w Pmx 100 1 gm In Dextrose/Water 1 100ml.bag @ 100 mls/hr IVPB ONCE ONE Rx#: [id number] Potassium Chloride 10 meq 200 In Water For Injection 1 100ml.bag @ 100 mls/hr IVPB Q1H [facility] Rx#: [id number] Sodium Chloride 0.9% 1, 20 000 ml @ 20 mls/hr IV . Q24H [facility] Rx#:[id number] Intake, IV Titration 791.632 225.852 Amount Norepinephrine 32 mg In 225.852 Sodium Chloride 0.9% 218 ml @ 0.03 MCG/KG/MIN 1. 567 mls/hr IV .Q24H [facility] Rx#:[id number] Norepinephrine 4 mg In 791.632 Sodium Chloride 0.9% 250 ml @ 0.03 MCG/KG/MIN 11. 853 mls/hr IV .[id number] [facility] Rx#:[id number] Oral 1580 250 360 Blood Product 285 Rc Pheresis 2 As3 Unit 285 [id number] Output: Urine 6100 1150 490 Other: Voiding Method Indwelling Catheter Indwelling Catheter Indwelling Catheter # Bowel Movements 0 ABP, PAP, CO, CI - Last Documented Arterial Blood Pressure 115/64 - Exam No acute distress, oriented 3. No respiratory distress. The patient is currently on 2 L. HEENT examination is grossly unremarkable. Mucous membranes are moist. No oral lesions. Neck supple. Full range of motion. No adenopathy thyromegaly or neck vein distention. Cardiovascular examination reveals regular rhythm rate. S1-S2 normal. No S3 or S4. Harsh systolic murmur is noted. Lungs reveal minimal basilar crackles. No wheezes. No rhonchi. Breath sounds equal. Abdomen soft bowel sounds are heard. No masses or tenderness. Extremities are intact. No cyanosis or clubbing. 2+ lower extremity pitting e lynn is noted. Skin is without rash or lesion. Neurologic examination is brief but nonfocal. - Labs CBC & Chem 7: 04/10/24 04:45 04/10/24 04:45 Labs: Abnormal Lab Results - Last 24 Hours (Table) 04/09/24 04/09/24 04/09/24 Range/Units 17:01 17:56 20:59 WBC 15.2 H (3.8-10.6) k/uL RBC 3.27 L (4.30-5.90) m/uL Hgb 8.3 L (13.0-17.5) gm/dL Hct 25.9 L (39.0-53.0) % MCV 79.4 L (80.0-100.0) fL RDW 16.4 H (11.5-15.5) % Neutrophils # (1.3-7.7) k/uL Sodium (137-145) mmol/L Carbon Dioxide (22-30) mmol/L Glucose (74-99) mg/dL POC Glucose (mg/dL) 216 H 218 H (70-110) mg/dL Total Bilirubin (0.2-1.3) mg/dL Total Protein (6.3-8.2) g/dL Albumin (3.5-5.0) g/dL 04/09/24 04/10/24 04/10/24 Range/Units 23:51 04:45 04:45 WBC 16.2 H (3.8-10.6) k/uL RBC 3.12 L (4.30-5.90) m/uL Hgb 8.0 L (13.0-17.5) gm/dL Hct 25.5 L (39.0-53.0) % MCV (80.0-100.0) fL RDW 16.9 H (11.5-15.5) % Neutrophils # 13.4 H (1.3-7.7) k/uL Sodium 132 L (137-145) mmol/L Carbon Dioxide 21 L (22-30) mmol/L Glucose 229 H (74-99) mg/dL POC Glucose (mg/dL) 243 H (70-110) mg/dL Total Bilirubin 1.6 H (0.2-1.3) mg/dL Total Protein 5.8 L (6.3-8.2) g/dL Albumin 3.4 L (3.5-5.0) g/dL /04/22 Range/Units 11:33 WBC (3.8-10.6) k/uL RBC (4.30-5.90) m/uL Hgb (13.0-17.5) gm/dL Hct (39.0-53.0) % MCV (80.0-100.0) fL RDW (11.5-15.5) % Neutrophils # (1.3-7.7) k/uL Sodium (137-145) mmol/L Carbon Dioxide (22-30) mmol/L Glucose (74-99) mg/dL POC Glucose (mg/dL) 260 H (70-110) mg/dL Total Bilirubin (0.2-1.3) mg/dL Total Protein (6.3-8.2) g/dL Albumin (3.5-5.0) g/dL Assessment and Plan Assessment: Acute non-ST elevation DC status postoperative day #3 following Impella assisted heart catheterization involving PCI to the left main into the LAD/circumflex using DK crush technique with 3.5 x 1.5 mm Xience ROCKY into circumflex and 4.0 x 18 mm Xience ROCKY left main into LAD. Possible TIA. Symptomatic hypotension, secondary to relative adrenal insufficiency. History of left carotid artery stenosis status post carotid artery stent done March 19, 2024. Severe multivessel coronary artery disease, patient has had multiple PCI/stents. Acute hypoxemic respiratory failure. Echocardiogram estimating left ventricular ejection fraction of 60 to 65%. Mild concentric LVH. Moderate to severe mitral regurgitation, as well as, severe pulmonary hypertension, and mild to moderate tricuspid regurgitation. Anemia, chronic. History of diabetes mellitus. History of hypertension. History of hyperlipidemia. History of TURP. History of obstructive sleep apnea, no longer uses CPAP at home. Obesity, with a BMI of 33.8 kg/m. Former tobacco dependence, quit smoking in 1983. Plan: Plan dated April 09, 2024. The patient is seen today in room 258. We placed a left internal jugular tr iple-lumen catheter in the place. The patient needed the catheter, for fluid administration, blood draws, etc. The patient tolerated the procedure well and there was no pneumothorax after the procedure. The patient is seen today in room 258. He is on 3 L of oxygen. He is receiving 1 unit of PRBCs for hemoglobin of 6.8. He is on norepinephrine at 31 mcg/min. Will check a TSH level, and a cortisol level. In addition, the patient takes Lasix, 60 mg IV push. Labs, x-rays, medications are reviewed. Prognosis is guarded. Will continue to follow the patient, make recommendations along the way. Plan dated April 10, 2024. A central line was placed yesterday. He continues on oxygen at 2 L. He also continues on norepinephrine at 35 mcg/min, and vasopressin at 0.03 units/min. Will add midodrine 10 mg 3 times a day, and hydrocortisone, 50 mg every 6 hours, after a initial dose of 100 mg. Labs, x-rays, medications are reviewed. The patient is complaining about the central line in the left neck area. Labs, x- rays, and all medications are reviewed. Prognosis is guarded. We will continue to follow make recommendations along the way. Time with Patient: Greater than 30
[2024-04-10 15:01] VITALS: BMI 35.9
[2024-04-10] MEDS: DEXTROSE 5% IN WATER 100 ML with AMIODARONE 150 MG IV ONE (15:13)
[2024-04-10] MEDS: AMIODARONE 360 MG in DEXTROSE 5% IN WATER 200 ML IV ONE (15:14)
[2024-04-10] MEDS: HYDROCORTISONE SUCCINATE 100 MG/2 ML VIAL IVP SCH (16:09)
[2024-04-10 16:10] LABS: Glucose,Whole Blood 238 mg/dL (70-110)
[2024-04-10 19:59] LABS: Glucose,Whole Blood 204 mg/dL (70-110)
[2024-04-10] MEDS: AMIODARONE 450 MG in DEXTROSE 5% IN WATER 250 ML IV SCH (21:59)
--- NOTE | 2024-04-10 22:15 | P.PN ---
Subjective 79-year-old male, history of coronary artery disease, carotid artery disease, obstructive sleep apnea, diabetes mellitus type 2, hypertension, who presents to the emergency department with history of recent cardiac catheterization on 02/03/2024 with 5 stents in the past. Patient states he started having chest pain and difficulty breathing 5 days ago. Patient states it does worsen with exertion. Patient states the pain radiates down both arms. Patient denies any diaphoretic episodes. Patient denies any nausea. Patient denies any abdominal pain. Patient denies a headache. Patient states that he has had no recent fever chills or cough. Patient states she has been a little more swelling in his legs Patient had a previous cardiac catheterization on 02/03/2024 and he was referred to cardiothoracic surgery for CABG evaluation of the left main disease. He met with Dr. Polanco and was deemed high risk and therefore referred for stenting and not CABG. Patient states the chest pain started on at home. It did not seem to be too bad and then on Sunday he decided to come into the hospital for evaluation. Nitropaste did not take the pain away. He states the chest pain is now gone. He also states he has had lower extremity edema ever since he had the stent of the carotid done on 03/19. Patient has been started on a heparin drip. Blood pressure 99/58, heart rate 68, pulse ox 97% on room air. Patient has been started on a heparin drip. -EKG: Sinus rhythm with first-degree block -Chest x-ray: Chronic changes without acute pulmonary process. No significant change from prior. -Laboratory studies: WBC 8.8, hemoglobin 9.2. Electrolytes within normal limits. Creatinine 1.1. Troponin 0.59, 1.18, 1.5. Urinalysis positive for RBCs and WBCs. -Home cardiac medications: Aspirin 81 mg daily, atorvastatin 40 mg at bedtime, Plavix 75 mg at bedtime, losartan 25 mg at bedtime, Toprol XL 25 mg at bedtime, nitroglycerin sublingual. -03/19/2024: Carotid artery stenosis 99% proximal left internal status post left carotid stent. -Echocardiogram performed in the office on 01/18/2024 revealed EF of 55 to 60%, severe LVH, mild aortic stenosis, mild mitral regurgitation, mild tricuspid regurgitation, PASP 42 mmHg. 24-hour interval change 04/06/2024 Patient seen and examined in room at bedside. Patient denies having any chest pain no shortness of breath. He has been maintained on a heparin drip. Patient is on nitro paste which seems to control his chest pain. Vital signs are reviewed and remained stable with blood pressure 102/66, heart rate 77, pulse ox 94% on room air. -- blood work reveals hemoglobin 7.8, sodium 136, potassium 3.8, BUN 16 creatinine 1.02. - Echocardiogram reveals EF of 60 to 65%, severe pulmonary hypertension, moderate to severe mitral regurgitation, mild to moderate tricuspid regurgitation. Make patient n.p.o. after midnight Schedule patient for left heart cath on Sunday with Dr. Roque 04/07 This is a pleasant 79 years old male who presents with signs symptoms of chest pain suspicious for non-STEMI. He had recently diagnosed with non-STEMI and he underwent PCI to left circumflex on 04/02 Also patient had shortness of breath on admission and coughing up blood. Chest x-ray on admission read as chronic changes without acute pulmonary process per radiologist. Today he still complaining from shortness of breath. We are going to repeat the chest x-ray Cardiology team also planning to repeat cardiac cath today. Patient confirms to me he has been using aspirin and Plavix at home which are resumed currently. Also he is on a heparin drip. Anemia this admission is 8-9.5, he had recent baseline about 14-15 more than 1 month ago. Patient denies any signs of overt bleeding recently. Patient states he has been constipated since last Sunday. Will going to start him on laxative Will do an anemia workup Echocardiogram is showing EF 60 to 65% with severe pulmonary hypertension and moderate to severe mitral regurgitation and mild to moderate tricuspid regurgitation 04/08 Patient yesterday underwent cardiac cath per cardiology team showing coronary artery disease with 70% left main stenosis, 20 to 30% proximal LAD stenosis, 60 to 70% mid LAD stenosis, 30% stenosis of the circumflex artery and 100% stenosis of the right coronary artery. Patient is S/p Impella protected PCI left main into LAD/ circumflex using DK crush technique with 3.5 x 15mm Xience ROCKY into circumflex and 4.0 x 18mm Xience ROCKY left main into LAD After the procedure patient was sent to the ICU where he had transient symptoms of difficulty talking and slurred speech associated with mild weakness on the right side as patient tells me, the symptoms lasted for about an hour. Code stroke was called and CT of the brain and carotid duplex ordered which were basically negative for acute findings to explain patient's symptoms. Neurology was contacted and recommended to keep her blood pressure elevated so patient was started on Levophed. However patient chronically blood pressure is 90s to 100. Prior to the procedure patient was already on aspirin, Plavix and heparin drip Hemoglobin is 7.3, anemia workup showing iron deficiency anemia. Vitamin B12 also borderline. Will give one-time dose of Furric gluconate. Monitor hemoglobin closely 06/10 Patient is tachypneic this morning with no chest pain He denies bleeding from anywhere. Hemoglobin today 6.8, 1 unit of blood transfusion is ordered. He received small dose of IV Lasix 20 mg yesterday. Currently blood pressure 118/78, also he is on Levophed 0.3 to support blood pressure given his stroke symptoms post cardiac cath. Patient is mildly tachycardic. Afebrile. Has good oxygen saturation 99 4% on 3 L. Other labs looks unremarkable. We will increase Protonix to twice daily CT of the brain and MRI of the brain are pending for his recent neurological symptoms which looks resolved now with the control of the blood pressure. I discussed with the patient his problem and management plan and all his que stions were answered 04/10 Patient remains in the ICU requiring critical care and close monitoring His blood pressure is borderline and tachycardia Patient was started on midodrine and IV cortisol and also on amiodarone drip per expert medical writer Patient is still tachypneic but his less labored. Review of systems CONSTITUTIONAL: No fever, + fatigue. HEENT: No recent visual problems or hearing problems. Denied any sore throat. GASTROINTESTINAL: No diarrhea, no nausea, no vomiting, no abdominal pain. Normoactive bowel sounds. NEUROLOGICAL: No headaches, no new weakness, no numbness. HEMATOLOGICAL: Denies any bleeding or petechiae. GENITOURINARY: Denies any burning micturition, frequency, or urgency. Active Medications Generic Name Dose Route Start Last Admin Trade Name Freq PRN Reason Stop Dose Admin Acetaminophen 650 mg 04/06/24 12:02 04/10/24 04:04 Acetaminophen Tab 325 Mg Tab PO 650 mg Q6HR PRN Administration Fever and/ or Pain Al Hydroxide/Mg Hydroxide 30 ml 04/07/24 13:45 Mag Hydrox/Al Hydrox/Simeth 30 Ml Cup PO Q4HR PRN Heartburn Alprazolam 0.25 mg 04/06/24 09:48 Alprazolam 0.25 Mg Tab PO Q6HR PRN Mild Anxiety Alprazolam 0.5 mg 04/06/24 09:48 Alprazolam 0.5 Mg Tab PO Q6HR PRN Moderate Anxiety Aspirin 81 mg 04/05/24 09:15 04/10/24 08:04 Aspirin 81 Mg PO 81 mg DAILY SUDHEER Administration Atorvastatin Calcium 40 mg 04/04/24 21:00 04/10/24 22:00 Atorvastatin 40 Mg Tab PO 40 mg HS SUDHEER Administration Bisacodyl 10 mg 04/08/24 08:30 04/08/24 08:42 Bisacodyl 5 Mg Tablet.Dr PO 10 mg DAILY PRN Administration Constipation Budesonide/Formoterol Fumarate 2 puff 04/04/24 20:00 04/10/24 20:01 Symbicort 160-4.5 Mcg Inhaler INHALATION 2 puff RT-BID SUDHEER Administration Clopidogrel Bisulfate 75 mg 04/05/24 09:15 04/10/24 08:04 Clopidogrel 75 Mg Tab PO 75 mg DAILY SUDHEER Administration Docusate Sodium 100 mg 04/07/24 21:00 04/10/24 21:59 Docusate 100 Mg Cap PO Not Given BID SUDHEER Hydrocortisone Sodium Succinate 50 mg 04/10/24 16:00 04/10/24 22:00 Hydrocortisone Succinate 100 Mg/2 Ml Vial IVP 50 mg Q6H SUDHEER Administration Norepinephrine Bitartrate 32 250 mls @ 1.567 mls/hr 04/09/24 11:45 04/10/24 16:30 mg/ Sodium Chloride IV 0.22 mcg/kg/min .Q24H SUDHEER 11.488 mls/hr Titration Protocol 0.03 MCG/KG/MIN Vasopressin 60 unit/ Sodium 153 mls @ 4.59 mls/hr 04/09/24 23:00 04/10/24 10:00 Chloride IV 0 units/min .Q24H SUDHEER 0 mls/hr Titration Protocol 0.03 UNITS/MIN Amiodarone HCl 450 mg/ 250 mls @ 16.667 mls/hr 04/10/24 21:00 04/10/24 21:59 Dextrose/Water IV 04/11/24 14:59 0.5 mg/min .Q15H SUDHEER 16.667 mls/hr Administration Protocol 0.5 MG/MIN Insulin Aspart 0 unit 04/04/24 21:00 04/10/24 22:00 Insulin Aspart (Novolog) 100 Unit/Ml Vial SQ 04/11/24 20:59 6 unit ACHS SUDHEER Administration Protocol Ipratropium Courtenay 0.5 mg 04/04/24 20:00 04/10/24 20:01 Ipratropium 0.5 Mg/2.5 Ml Nebu INHALATION 0.5 mg RT-QID SUDHEER Administration Metoprolol Succinate 25 mg 04/04/24 21:00 04/10/24 22:00 Metoprolol Succinate (Er) 25 Mg Tab.Er.24h PO 25 mg HS SUDHEER Administration Midodrine 10 mg 04/10/24 12:30 04/10/24 16:09 Midodrine 5 Mg Tab PO 10 mg AC-TID SUDHEER Administration Miscellaneous Information 1 each 04/09/24 05:34 Potassium Replacement Protocol 1 Each Misc MISCELLANE DAILY PRN Per Protocol Protocol Miscellaneous Information 1 each 04/10/24 06:13 Magnesium Replacement Protocol 1 Each Misc MISCELLANE DAILY PRN Per Protocol Protocol Nitroglycerin 0.4 mg 04/04/24 16:25 Nitroglycerin Sl Tabs 0.4 Mg Tab SUBLINGUAL Q5M PRN Chest Pain Pantoprazole Sodium 40 mg 04/09/24 09:00 04/10/24 22:00 Pantoprazole 40 Mg/10 Ml Vial IVP 40 mg BID SUDHEER Administration Polyethylene Glycol 17 gm 04/07/24 09:27 Polyethylene Glycol 3350 17 Gm Powd.Pack PO DAILY PRN Constipation Zolpidem Tartrate 5 mg 04/07/24 13:45 Zolpidem 5 Mg Tab PO HS PRN Insomnia Objective - Vital Signs Vital signs: Vital Signs Temp 98.2 F 04/10/24 08:00 Pulse 113 H 04/10/24 08:00 Resp 14 04/10/24 08:00 BP 133/100 04/10/24 08:00 Pulse Ox 96 04/10/24 08:00 FiO2 Intake & Output 12/11/24 12/12/24 12/12/24 18:59 06:59 18:59 Intake Total 3009.632 508.852 12 Output Total 6100 1150 390 Balance -3090.368 -641.148 -378 Weight 110.2 kg Intake: IV 353 33 12 0.9 3cc/hr Pressure Bag 33 33 12 Magnesium Sulfate-D5w Pmx 100 1 gm In Dextrose/Water 1 100ml.bag @ 100 mls/hr IVPB ONCE ONE Rx#: [id number] Potassium Chloride 10 meq 200 In Water For Injection 1 100ml.bag @ 100 mls/hr IVPB Q1H SUDHEER Rx#: [id number] Sodium Chloride 0.9% 1, 20 000 ml @ 20 mls/hr IV . Q24H SUDHEER Rx#:[id number] Intake, IV Titration 791.632 225.852 Amount Norepinephrine 32 mg In 225.852 Sodium Chloride 0.9% 218 ml @ 0.03 MCG/KG/MIN 1. 567 mls/hr IV .Q24H SUDHEER Rx#:[id number] Norepinephrine 4 mg In 791.632 Sodium Chloride 0.9% 250 ml @ 0.03 MCG/KG/MIN 11. 853 mls/hr IV .[id number] SUDHEER Rx#:[id number] Oral 1580 250 Blood Product 285 Rc Pheresis 2 As3 Unit 285 [id number] Output: Urine 6100 1150 390 Other: Voiding Method Indwelling Catheter Indwelling Catheter Indwelling Catheter # Bowel Movements 0 ABP, PAP, CO, CI - Last Documented Arterial Blood Pressure 115/64 - Exam -GENERAL: The patient is alert and oriented x3, not in any acute distress. Well developed, well nourished. Obese HEENT: Pupils are round and equally reacting to light. EOMI. No scleral icterus. No conjunctival pallor. Normocephalic, atraumatic. No pharyngeal erythema. No thyromegaly. CARDIOVASCULAR: S1 and S2 present. No murmurs, rubs, or gallops. -PULMONARY: Chest is clear to auscultation, no wheezing , bilateral basal crackles. Tachypneic ABDOMEN: Soft, nontender, nondistended, normoactive bowel sounds. No palpable organomegaly. MUSCULOSKELETAL: No joint swelling or deformity. EXTREMITIES: No cyanosis, clubbing, or pedal edema. NEUROLOGICAL: Gross neurological examination did not reveal any focal deficits. SKIN: No rashes. no petechiae. - Labs CBC & Chem 7: 04/10/24 04:45 04/10/24 04:45 Labs: Abnormal Lab Results - Last 24 Hours (Table) 04/09/24 04/09/24 04/09/24 Range/Units 11:30 11:44 17:01 WBC 14.3 H (3.8-10.6) k/uL RBC 3.15 L (4.30-5.90) m/uL Hgb 8.2 L (13.0-17.5) gm/dL Hct 25.8 L (39.0-53.0) % MCV (80.0-100.0) fL RDW 15.8 H (11.5-15.5) % Neutrophils # (1.3-7.7) k/uL Sodium (137-145) mmol/L Carbon Dioxide (22-30) mmol/L Glucose (74-99) mg/dL POC Glucose (mg/dL) 236 H 216 H (70-110) mg/dL Total Bilirubin (0.2-1.3) mg/dL Total Protein (6.3-8.2) g/dL Albumin (3.5-5.0) g/dL 04/09/24 04/09/24 04/09/24 Range/Units 17:56 20:59 23:51 WBC 15.2 H (3.8-10.6) k/uL RBC 3.27 L (4.30-5.90) m/uL Hgb 8.3 L (13.0-17.5) gm/dL Hct 25.9 L (39.0-53.0) % MCV 79.4 L (80.0-100.0) fL RDW 16.4 H (11.5-15.5) % Neutrophils # (1.3-7.7) k/uL Sodium (137-145) mmol/L Carbon Dioxide (22-30) mmol/L Glucose (74-99) mg/dL POC Glucose (mg/dL) 218 H 243 H (70-110) mg/dL Total Bilirubin (0.2-1.3) mg/dL Total Protein (6.3-8.2) g/dL Albumin (3.5-5.0) g/dL 04/10/24 04/10/24 Range/Units 04:45 04:45 WBC 16.2 H (3.8-10.6) k/uL RBC 3.12 L (4.30-5.90) m/uL Hgb 8.0 L (13.0-17.5) gm/dL Hct 25.5 L (39.0-53.0) % MCV (80.0-100.0) fL RDW 16.9 H (11.5-15.5) % Neutrophils # 13.4 H (1.3-7.7) k/uL Sodium 132 L (137-145) mmol/L Carbon Dioxide 21 L (22-30) mmol/L Glucose 229 H (74-99) mg/dL POC Glucose (mg/dL) (70-110) mg/dL Total Bilirubin 1.6 H (0.2-1.3) mg/dL Total Protein 5.8 L (6.3-8.2) g/dL Albumin 3.4 L (3.5-5.0) g/dL Assessment and Plan Assessment: #. Chest pain/NSTEMI -History of NSTEMI with PCI of the LAD and circumflex 02/07/2023 -Patient had cardiac cath on 04/07: Showing 70% left main stenosis, 20 to 30% proximal LAD stenosis, 60 to 70% mid LAD stenosis, 30% stenosis of the circumflex artery and 100% stenosis of the right coronary artery. Patient is S/p Impella protected PCI left main into LAD/ circumflex using DK crush technique with 3.5 x 15mm Xience ROCKY into circumflex and 4.0 x 18mm Xience ROCKY left main into LAD #. Postcardiac cath neurological symptoms of slurred speech and mild right side weakness, currently completely resolved. CT of the brain is negative. Neurology consulted to rule out stroke or others. -Could be related to hypotension postprocedure. #. Acute systolic CHF ,with ischemic cardiomyopathy with EF of 45% #. Normochromic, normocytic anemia, workup showing iron deficiency anemia. Patient s/p 1 unit of blood transfusion on 04/09 #. Hyperglycemia/diabetes mellitus; sliding scale while inpatient #. Hypertension; #. COPD/asthma; #. Hyperlipidemia; DVT prophylaxis; SCDs/IV heparin CODE STATUS; full code Plan: Continue patient in the ICU with pulmonary/critical care team consult Continue with heparin drip Patient started on amiodarone drip Continue with midodrine and IV cortisone Continue with dual antiplatelet therapy of aspirin and Plavix which are home medication. Blood pressure stable condition A amaryl is on hold, c/w insulin sliding scale, glucose currently controlled s/p cardiac cath with cardiology team (04/07) Repeat chest x-ray Monitor hemoglobin and do anemia workup. Transfuse if hemoglobin less than 7 or if patient becomes symptomatic Give laxative Neurology consult Labs and medication were reviewed.. Continue same treatment. Continue with symptomatic treatment. Resume home medication. Monitor labs and vitals. DVT and GI prophylaxis. Further recommendations as per clinical course of the patient DVT prophylaxis: heparin GI Prophylaxis: protonix Prognosis is guarded
[2024-04-11 04:14] LABS: Anisocytosis Slight; Basophils % (A) 0 %; Eosinophils % (A) 0 %; HCT 24.6 % (39.0-53.0); HGB 7.7 gm/dL (13.0-17.5); Hypochromasia Marked; Lymphocytes # (A) 1.1 k/uL (1.0-4.8); Lymphocytes % (A) 7 %; MCH 25.6 pg (25.0-35.0); MCHC 31.3 g/dL (31.0-37.0); MCV 81.7 fL (80.0-100.0); Mean Platelet Volume 7.7; Monocytes # (A) 0.7 k/uL (0-1.0); Monocytes % (A) 4 %; Neutrophils # (A) 13.6 k/uL (1.3-7.7); Neutrophils % (A) 87 %; Platelet Count 310 k/uL (150-450); Poikilocytosis Moderate; RBC 3.02 m/uL (4.30-5.90); WBC 15.6 k/uL (3.8-10.6)
[2024-04-11 04:25] LABS: Glucose,Whole Blood 264 mg/dL (70-110)
[2024-04-11 04:31] LABS: African American GFR (CKD) >90 (>60 ml/min/1.73 sqM); Anion Gap 4 mmol/L; Blood Urea Nitrogen 11 mg/dL (9-20); Calcium 8.3 mg/dL (8.4-10.2); Carbon Dioxide 24 mmol/L (22-30); Chloride 103 mmol/L (98-107); Glucose 239 mg/dL (74-99); Non-African American GFR(CKD) 82 (>60 ml/min/1.73 sqM); Potassium 3.9 mmol/L (3.5-5.1); Sodium 131 mmol/L (137-145)
[2024-04-11] MEDS: POTASSIUM CHLORIDE ER 20 MEQ TAB.ER PO SCH (06:00)
[2024-04-11 06:21] LABS: Glucose,Whole Blood 294 mg/dL (70-110)
--- NOTE | 2024-04-11 08:21 | XR ---
EXAMINATION TYPE: XR chest 1V portable DATE OF EXAM: 04/11/2024 5:17 AM COMPARISON: Chest radiographs from 04/10/2024 CLINICAL INDICATION: Male, 79 years old with history of Pneumonia; [facility] TECHNIQUE: XR chest 1V portable Frontal view of the chest. FINDINGS: Lungs/Pleura: Bibasilar atelectasis and/or airspace opacities. No evidence for pneumothorax, pleural effusion or focal consolidation. Pulmonary vascularity: Unremarkable. Heart/mediastinum: Cardiomediastinal silhouette is unremarkable. Musculoskeletal: No acute osseous pathology. Other findings: None Lines/Tubes: Left central venous catheter with distal tip at the cavoatrial junction. IMPRESSION: 1. Left central venous catheter satisfactory position. 2. Bibasilar atelectasis and/or airspace opacities. [facility], , 04/11/2024 8:18 AM
--- NOTE | 2024-04-11 10:18 | P.PN ---
Subjective 79-year-old male, history of coronary artery disease, carotid artery disease, obstructive sleep apnea, diabetes mellitus type 2, hypertension, who presents to the emergency department with history of recent cardiac catheterization on 02/03/2024 with 5 stents in the past. Patient states he started having chest pain and difficulty breathing 5 days ago. Patient states it does worsen with exertion. Patient states the pain radiates down both arms. Patient denies any diaphoretic episodes. Patient denies any nausea. Patient denies any abdominal pain. Patient denies a headache. Patient states that he has had no recent fever chills or cough. Patient states she has been a little more swelling in his legs Patient had a previous cardiac catheterization on 02/03/2024 and he was referred to cardiothoracic surgery for CABG evaluation of the left main disease. He met with Dr. Polanco and was deemed high risk and therefore referred for stenting and not CABG. Patient states the chest pain started on at home. It did not seem to be too bad and then on Sunday he decided to come into the hospital for evaluation. Nitropaste did not take the pain away. He states the chest pain is now gone. He also states he has had lower extremity edema ever since he had the stent of the carotid done on 03/19. Patient has been started on a heparin drip. Blood pressure 99/58, heart rate 68, pulse ox 97% on room air. Patient has been started on a heparin drip. -EKG: Sinus rhythm with first-degree block -Chest x-ray: Chronic changes without acute pulmonary process. No significant change from prior. -Laboratory studies: WBC 8.8, hemoglobin 9.2. Electrolytes within normal limits. Creatinine 1.1. Troponin 0.59, 1.18, 1.5. Urinalysis positive for RBCs and WBCs. -Home cardiac medications: Aspirin 81 mg daily, atorvastatin 40 mg at bedtime, Plavix 75 mg at bedtime, losartan 25 mg at bedtime, Toprol XL 25 mg at bedtime, nitroglycerin sublingual. -03/19/2024: Carotid artery stenosis 99% proximal left internal status post left carotid stent. -Echocardiogram performed in the office on 01/18/2024 revealed EF of 55 to 60%, severe LVH, mild aortic stenosis, mild mitral regurgitation, mild tricuspid regurgitation, PASP 42 mmHg. 24-hour interval change 04/06/2024 Patient seen and examined in room at bedside. Patient denies having any chest pain no shortness of breath. He has been maintained on a heparin drip. Patient is on nitro paste which seems to control his chest pain. Vital signs are reviewed and remained stable with blood pressure 102/66, heart rate 77, pulse ox 94% on room air. -- blood work reveals hemoglobin 7.8, sodium 136, potassium 3.8, BUN 16 creatinine 1.02. - Echocardiogram reveals EF of 60 to 65%, severe pulmonary hypertension, moderate to severe mitral regurgitation, mild to moderate tricuspid regurgitation. Make patient n.p.o. after midnight Schedule patient for left heart cath on Sunday with Dr. Roque 04/07 This is a pleasant 79 years old male who presents with signs symptoms of chest pain suspicious for non-STEMI. He had recently diagnosed with non-STEMI and he underwent PCI to left circumflex on 04/02 Also patient had shortness of breath on admission and coughing up blood. Chest x-ray on admission read as chronic changes without acute pulmonary process per radiologist. Today he still complaining from shortness of breath. We are going to repeat the chest x-ray Cardiology team also planning to repeat cardiac cath today. Patient confirms to me he has been using aspirin and Plavix at home which are resumed currently. Also he is on a heparin drip. Anemia this admission is 8-9.5, he had recent baseline about 14-15 more than 1 month ago. Patient denies any signs of overt bleeding recently. Patient states he has been constipated since last Sunday. Will going to start him on laxative Will do an anemia workup Echocardiogram is showing EF 60 to 65% with severe pulmonary hypertension and moderate to severe mitral regurgitation and mild to moderate tricuspid regurgitation 04/08 Patient yesterday underwent cardiac cath per cardiology team showing coronary artery disease with 70% left main stenosis, 20 to 30% proximal LAD stenosis, 60 to 70% mid LAD stenosis, 30% stenosis of the circumflex artery and 100% stenosis of the right coronary artery. Patient is S/p Impella protected PCI left main into LAD/ circumflex using DK crush technique with 3.5 x 15mm Xience ROCKY into circumflex and 4.0 x 18mm Xience ROCKY left main into LAD After the procedure patient was sent to the ICU where he had transient symptoms of difficulty talking and slurred speech associated with mild weakness on the right side as patient tells me, the symptoms lasted for about an hour. Code stroke was called and CT of the brain and carotid duplex ordered which were basically negative for acute findings to explain patient's symptoms. Neurology was contacted and recommended to keep her blood pressure elevated so patient was started on Levophed. However patient chronically blood pressure is 90s to 100. Prior to the procedure patient was already on aspirin, Plavix and heparin drip Hemoglobin is 7.3, anemia workup showing iron deficiency anemia. Vitamin B12 also borderline. Will give one-time dose of Furric gluconate. Monitor hemoglobin closely 06/10 Patient is tachypneic this morning with no chest pain He denies bleeding from anywhere. Hemoglobin today 6.8, 1 unit of blood transfusion is ordered. He received small dose of IV Lasix 20 mg yesterday. Currently blood pressure 118/78, also he is on Levophed 0.3 to support blood pressure given his stroke symptoms post cardiac cath. Patient is mildly tachycardic. Afebrile. Has good oxygen saturation 99 4% on 3 L. Other labs looks unremarkable. We will increase Protonix to twice daily CT of the brain and MRI of the brain are pending for his recent neurological symptoms which looks resolved now with the control of the blood pressure. 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 04/11 Patient feels more comfortable today, his dyspnea is better He denies chest pain He is continued on amiodarone drip Also he is on Levophed at 0.15 On exam he has better breathing and air entry on both sides with no other less wheezing Patient got 1 unit of blood transfusion on 04/09. Currently hemoglobin stable at 7.7. Patient is not getting heparin currently Active Medications Generic Name Dose Route Start Last Admin Trade Name Freq PRN Reason Stop Dose Admin Acetaminophen 650 mg 04/06/24 12:02 04/10/24 04:04 Acetaminophen Tab 325 Mg Tab PO 650 mg Q6HR PRN Administration Fever and/ or Pain Al Hydroxide/Mg Hydroxide 30 ml 04/07/24 13:45 Mag Hydrox/Al Hydrox/Simeth 30 Ml Cup PO Q4HR PRN Heartburn Alprazolam 0.25 mg 04/06/24 09:48 Alprazolam 0.25 Mg Tab PO Q6HR PRN Mild Anxiety Alprazolam 0.5 mg 04/06/24 09:48 Alprazolam 0.5 Mg Tab PO Q6HR PRN Moderate Anxiety Aspirin 81 mg 04/05/24 09:15 04/11/24 08:56 Aspirin 81 Mg PO 81 mg DAILY SUDHEER Administration Atorvastatin Calcium 40 mg 04/04/24 21:00 04/10/24 22:00 Atorvastatin 40 Mg Tab PO 40 mg HS SUDHEER Administration Bisacodyl 10 mg 04/08/24 08:30 04/08/24 08:42 Bisacodyl 5 Mg Tablet.Dr PO 10 mg DAILY PRN Administration Constipation Budesonide/Formoterol Fumarate 2 puff 04/04/24 20:00 04/10/24 20:01 Symbicort 160-4.5 Mcg Inhaler INHALATION 2 puff RT-BID SUDHEER Administration Clopidogrel Bisulfate 75 mg 04/05/24 09:15 04/11/24 08:56 Clopidogrel 75 Mg Tab PO 75 mg DAILY SUDHEER Administration Docusate Sodium 100 mg 04/07/24 21:00 04/11/24 08:56 Docusate 100 Mg Cap PO 100 mg BID SUDHEER Administration Hydrocortisone Sodium Succinate 50 mg 04/10/24 16:00 04/11/24 08:56 Hydrocortisone Succinate 100 Mg/2 Ml Vial IVP 50 mg Q6H SUDHEER Administration Norepinephrine Bitartrate 32 250 mls @ 1.567 mls/hr 04/09/24 11:45 04/11/24 08:56 mg/ Sodium Chloride IV 0.18 mcg/kg/min .Q24H SUDHEER 9.399 mls/hr Administration Protocol 0.03 MCG/KG/MIN Vasopressin 60 unit/ Sodium 153 mls @ 4.59 mls/hr 04/09/24 23:00 04/11/24 06:06 Chloride IV Not Given .Q24H SUDHEER Protocol 0.03 UNITS/MIN Amiodarone HCl 450 mg/ 250 mls @ 16.667 mls/hr 04/10/24 21:00 04/11/24 08:56 Dextrose/Water IV 04/11/24 14:59 0.5 mg/min .Q15H SUDHEER 16.667 mls/hr Administration Protocol 0.5 MG/MIN Insulin Aspart 0 unit 04/04/24 21:00 04/11/24 06:52 Insulin Aspart (Novolog) 100 Unit/Ml Vial SQ 04/11/24 20:59 9 unit ACHS SUDHEER Administration Protocol Ipratropium [place] 0.5 mg 04/04/24 20:00 04/11/24 10:15 Ipratropium 0.5 Mg/2.5 Ml Nebu INHALATION Not Given RT-QID SUDHEER Metoprolol Succinate 25 mg 04/04/24 21:00 04/10/24 22:00 Metoprolol Succinate (Er) 25 Mg Tab.Er.24h PO 25 mg HS SUDHEER Administration Midodrine 10 mg 04/10/24 12:30 04/11/24 06:52 Midodrine 5 Mg Tab PO 10 mg AC-TID SUDHEER Administration Miscellaneous Information 1 each 04/09/24 05:34 Potassium Replacement Protocol 1 Each Misc MISCELLANE DAILY PRN Per Protocol Protocol Miscellaneous Information 1 each 04/10/24 06:13 Magnesium Replacement Protocol 1 Each Misc MISCELLANE DAILY PRN Per Protocol Protocol Nitroglycerin 0.4 mg 04/04/24 16:25 Nitroglycerin Sl Tabs 0.4 Mg Tab SUBLINGUAL Q5M PRN Chest Pain Pantoprazole Sodium 40 mg 04/09/24 09:00 04/11/24 08:56 Pantoprazole 40 Mg/10 Ml Vial IVP 40 mg BID SUDHEER Administration Polyethylene Glycol 17 gm 04/07/24 09:27 Polyethylene Glycol 3350 17 Gm Powd.Pack PO DAILY PRN Constipation Zolpidem Tartrate 5 mg 04/07/24 13:45 Zolpidem 5 Mg Tab PO HS PRN Insomnia Objective - Vital Signs Vital signs: Vital Signs Temp 98.2 F 04/11/24 08:00 Pulse 67 04/11/24 10:00 Resp 18 04/11/24 10:00 BP 109/61 04/11/24 10:00 Pulse Ox 97 04/11/24 10:00 FiO2 35 04/11/24 03:00 Intake & Output 04/10/24 04/11/24 04/11/24 18:59 06:59 18:59 Intake Total 858.953 153.102 240.355 Output Total 1640 680 110 Balance -781.047 -526.898 130.355 Weight 110.2 kg 110 kg Intake: IV 36 36 6 0.9 3cc/hr Pressure Bag 36 36 6 Intake, IV Titration 262.953 117.102 234.355 Amount Amiodarone 450 mg In 182.504 Dextrose 5% in Water 250 ml @ 0.5 MG/MIN 16.667 mls/hr IV .Q15H SUDHEER Rx#: [id number] Norepinephrine 32 mg In 213.610 117.102 51.851 Sodium Chloride 0.9% 218 ml @ 0.03 MCG/KG/MIN 1. 567 mls/hr IV .Q24H SUDHEER Rx#:[id number] Vasopressin 60 unit In 49.343 Sodium Chloride 0.9% 150 ml @ 0.03 UNITS/MIN 4.59 mls/hr IV .Q24H SUDHEER Rx#: [id number] Oral 560 Output: Urine 1640 680 110 Other: Voiding Method Indwelling Catheter Indwelling Catheter Indwelling Catheter ABP, PAP, CO, CI - Last Documented Arterial Blood Pressure 40/27 - Exam -GENERAL: The patient is alert and oriented x3, not in any acute distress. Well developed, well nourished. Obese HEENT: Pupils are round and equally reacting to light. EOMI. No scleral icterus. No conjunctival pallor. Normocephalic, atraumatic. No pharyngeal erythema. No thyromegaly. CARDIOVASCULAR: S1 and S2 present. No murmurs, rubs, or gallops. -PULMONARY: Chest is clear to auscultation, no wheezing , bilateral basal crackles. Tachypneic ABDOMEN: Soft, nontender, nondistended, normoactive bowel sounds. No palpable organomegaly. MUSCULOSKELETAL: No joint swelling or deformity. EXTREMITIES: No cyanosis, clubbing, or pedal edema. NEUROLOGICAL: Gross neurological examination did not reveal any focal deficits. SKIN: No rashes. no petechiae. - Labs CBC & Chem 7: 04/11/24 03:55 04/11/24 03:55 Labs: Abnormal Lab Results - Last 24 Hours (Table) 04/10/24 04/10/24 04/10/24 Range/Units 11:33 16:07 19:56 WBC (3.8-10.6) k/uL RBC (4.30-5.90) m/uL Hgb (13.0-17.5) gm/dL Hct (39.0-53.0) % RDW (11.5-15.5) % Neutrophils # (1.3-7.7) k/uL Sodium (137-145) mmol/L Glucose (74-99) mg/dL POC Glucose (mg/dL) 260 H 238 H 204 H (70-110) mg/dL Calcium (8.4-10.2) mg/dL 04/11/24 04/11/24 04/11/24 Range/Units 03:55 03:55 04:22 WBC 15.6 H (3.8-10.6) k/uL RBC 3.02 L (4.30-5.90) m/uL Hgb 7.7 L (13.0-17.5) gm/dL Hct 24.6 L (39.0-53.0) % RDW 18.0 H (11.5-15.5) % Neutrophils # 13.6 H (1.3-7.7) k/uL Sodium 131 L (137-145) mmol/L Glucose 239 H (74-99) mg/dL POC Glucose (mg/dL) 264 H (70-110) mg/dL Calcium 8.3 L (8.4-10.2) mg/dL 04/11/24 Range/Units 06:10 WBC (3.8-10.6) k/uL RBC (4.30-5.90) m/uL Hgb (13.0-17.5) gm/dL Hct (39.0-53.0) % RDW (11.5-15.5) % Neutrophils # (1.3-7.7) k/uL Sodium (137-145) mmol/L Glucose (74-99) mg/dL POC Glucose (mg/dL) 294 H (70-110) mg/dL Calcium (8.4-10.2) mg/dL Assessment and Plan Assessment: #. Chest pain/NSTEMI -History of NSTEMI with PCI of the LAD and circumflex 02/07/2023 -Patient had cardiac cath on 04/07: Showing 70% left main stenosis, 20 to 30% proximal LAD stenosis, 60 to 70% mid LAD stenosis, 30% stenosis of the circumflex artery and 100% stenosis of the right coronary artery. Patient is S/p Impella protected PCI left main into LAD/ circumflex using DK crush technique with 3.5 x 15mm Xience ROCKY into circumflex and 4.0 x 18mm Xience ROCKY left main into LAD #. Postcardiac cath neurological symptoms of slurred speech and mild right side weakness, currently completely resolved. CT of the brain is negative. Neurology consulted to rule out stroke or others. -Could be related to hypotension postprocedure. #. Acute systolic CHF ,with ischemic cardiomyopathy with EF of 45% #. Normochromic, normocytic anemia, workup showing iron deficiency anemia. Patient s/p 1 unit of blood transfusion on 04/09 #. Hyperglycemia/diabetes mellitus; sliding scale while inpatient #. Hypertension; #. COPD/asthma; #. Hyperlipidemia; DVT prophylaxis; SCDs/IV heparin CODE STATUS; full code Plan: Continue patient in the ICU with pulmonary/critical care team consult Patient started on amiodarone drip Continue with midodrine and IV cortisone Monitor hemoglobin while he is on antiplatelet therapy. We recommend patient follow-up with GI team for his anemia upon discharge within 1 week. Placed in his discharge instruction Continue with dual antiplatelet therapy of aspirin and Plavix which are home medication. Blood pressure stable condition A amaryl is on hold, c/w insulin sliding scale, glucose currently controlled s/p cardiac cath with cardiology team (04/07) Repeat chest x-ray Monitor hemoglobin and do anemia workup. Transfuse if hemoglobin less than 7 or if patient becomes symptomatic Give laxative Neurology consult Labs and medication were reviewed.. Continue same treatment. Continue with symptomatic treatment. Resume home medication. Monitor labs and vitals. DVT and GI prophylaxis. Further recommendations as per clinical course of the patient DVT prophylaxis: heparin GI Prophylaxis: protonix Prognosis is guarded
[2024-04-11 11:20] LABS: Glucose,Whole Blood 157 mg/dL (70-110)
--- NOTE | 2024-04-11 12:56 | P.PN ---
Subjective Progress Note Date: 04/11/24 Principal diagnosis: Non-ST segment elevation myocardial infarction. Patient is a 79-year-old male with past medical history significant for coronary artery disease with previous PCI/stenting, carotid artery disease with previous left carotid stent, diabetes mellitus, hypertension, hyperlipidemia, previous TURP, SHAKILA no longer using CPAP at home, former tobacco smoker. Of note, patient states that he has significant coronary artery disease with previous 4 stents do ne in January 2023. More recently, in February patient was brought and had a heart catheterization done March 05, 2024. He is found to have coronary disease including 50% stenosis left main, mid LAD 60 to 70% stenosis, OM1 90% stenosis, RCA night 100% stenosis with collaterals. He was also found to have 99% stenosis of left internal carotid artery. Patient was evaluated by cardiothoracic surgery, felt to be a poor surgical candidate. On March 19, 2024 patient was brought in and underwent left carotid artery stenting and balloon angioplasty. Patient was brought in April 02 and received a stent to the left circumflex artery. While at home, patient developed substernal chest pain and difficulty in breathing, which was worse on exertion. He did present to the ED back on 04/04/2024. He was found to have non-ST elevation RI. Echocardiogram estimating left ventricular ejection fraction of 60 to 65%. Mild concentric LVH. Moderate to severe mitral regurgitation as well as severe pulmonary hypertension and mild to moderate tricuspid regurgitation. Patient had subsequent heart catheterization which was Impella assisted, he had PCI/stenting x 2 to the left main into LAD/circumflex. He was brought to the intensive care unit following the procedure. At 1535 patient developed CVI/TIA symptoms including left-sided facial droop and dysarthria. His NIH was initially scored at an 8 per nursing. Code stroke was called. Brain CT did not show any acute findings. Patient's blood pressure was noted to be hypotensive during this event. Blood pressure was reportedly 80s over 40s. He did receive 1.5 L fluid bolus in the form of normal saline. Blood pressure remains kwaku inal. Neurology recommended vasopressors to improve hypotension and hopefully neurological symptoms. Follow-up carotid Doppler did not show any hemodynamically significant stenosis of right or left internal carotid arteries. The left common carotid artery stent was noted. Right vertebral artery was not visualized. Patient was started on norepinephrine which is infusing at 0.1 mcg/kg/min. Blood pressure is currently 96/58 mmHg. I did insert a left wrist radial arterial line. Patient is currently being evaluated in the intensive care unit room 258. He is alert and oriented at this time. No focal neurologic deficit on my evaluation. On 2 L/min nasal cannula. No respiratory distress. Follow-up chest x-ray showing interstitial prominence, possible pulmonary edema. He does have 2+ pitting edema to his lower extremities. He does have a urinary catheter with small amount of hematuria and urine output is in the order of 40 ml/hr. Most recent CBC: WBC count 7.5, hemoglobin 8.5, hematocrit 29.6, platelets 308. BMP: Sodium 139, testing 4.3, chloride 108, serum bicarb 18, BUN 14, creatinine 1.06, glucose 133. Troponins on arrival are elevated at 0.59, 1.18, and 1.5 respectively. Heparin since been discontinued after his heart catheterization, currently on dual antiplatelet medications including Plavix and aspirin. Right femoral access site is soft without hematoma. Progress note dated April 09, 2024. This is a 79-year-old male who is seen in room 258. He was seen in consultation yesterday. Please see the note above. He was admitted with a diagnosis of non- ST segment elevation myocardial infarction. Subsequent to that, he developed left facial droop, and dysarthria. He was thought to have a CVA. Brain scan was negative. The patient is currently on 3 L of oxygen. He is receiving 1 unit of packed red blood cells. His hemoglobin this morning was 6.8. The patient is also on Levophed at 31 mcg/min. The patient will get Lasix 60 mg IV push. Because of his high vasopressor requirements, the patient will get a TSH level checked, and cortisol level checked. Current labs include a white count 14.3, hemoglobin 8.2, hematocrit 25.8, and a platelet count of 331,000. Sodium 135, potassium 3.7, chlorides 108, CO2 18, anion gap 9, BUN 8, creatinine 0.88. Glucose is 236. Calcium 8.1. Magnesium 1.8. Chest x-ray shows a properly placed central venous catheter. There is diffuse opacities in both lungs. Progress note dated April 10, 2024. 79-year-old male seen today in room 258. He is currently on 2 L. He continues on norepinephrine at 35 mcg/min, and vasopressin at 0.03 units/min. The patient will get midodrine 10 mg 3 times a day, and hydrocortisone 100 mg IV push, then 50 mg IV, every 6 hours. We will attempt to get him off or onto a lower dose of norepinephrine. Current labs include a white count 16.2, hemoglobin 8, hematocrit 25.5, platelet count is normal. Sodium 132, potassium 4.1, chlorides 104, CO2 21, BUN 9, creatinine 0.85. Glucose is 260. Albumin is 3.4. Chest x- ray shows some bilateral airspace opacities. Progress note dated April 11, 2024. 79-year-old male seen today in room 258. Currently, the patient is on 2 L of oxygen. The patient is on norepinephrine at 16 mcg/min. Vasopressin has been weaned off. The patient is also getting amiodarone 0.5 mg/min. His procalcitonin level was within normal range. The patient received hydrocortisone, and midodrine yesterday. This allowed us to reduce his vasopressor significantly. Current labs include a white count 15.6, hemoglobin 7.7, hematocrit 24.6, and a platelet count of 310,000. Sodium 131, potassium 3.9, chlorides 103, CO2 24, BUN 11, and creatinine 0.90. Glucose is 157. Calcium 8.3, with a magnesium of 2.1. Chest x-ray continues to show either bibasilar atelectasis, or infiltrates. Objective - Vital Signs Vital signs: Vital Signs Temp 98 F 04/11/24 12:00 Pulse 75 04/11/24 12:40 Resp 18 04/11/24 12:00 BP 121/71 04/11/24 12:00 Pulse Ox 97 04/11/24 12:31 FiO2 35 04/11/24 03:00 Intake & Output 04/10/24 04/11/24 04/11/24 18:59 06:59 18:59 Intake Total 858.953 153.102 272.468 Output Total 1640 680 215 Balance -781.047 -526.898 57.468 Weight 110.2 kg 110 kg Intake: IV 36 36 6 0.9 3cc/hr Pressure Bag 36 36 6 Intake, IV Titration 262.953 117.102 266.468 Amount Amiodarone 450 mg In 182.504 Dextrose 5% in Water 250 ml @ 0.5 MG/MIN 16.667 mls/hr IV .Q15H [facility] Rx#: [id number] Norepinephrine 32 mg In 213.610 117.102 83.964 Sodium Chloride 0.9% 218 ml @ 0.03 MCG/KG/MIN 1. 567 mls/hr IV .Q24H [facility] Rx#:[id number] Vasopressin 60 unit In 49.343 Sodium Chloride 0.9% 150 ml @ 0.03 UNITS/MIN 4.59 mls/hr IV .Q24H [facility] Rx#: [id number] Oral 560 Output: Urine 1640 680 215 Other: Voiding Method Indwelling Catheter Indwelling Catheter Indwelling Catheter ABP, PAP, CO, CI - Last Documented Arterial Blood Pressure 40/27 - Exam No acute distress, oriented 3. No respiratory distress. The patient is currently on 2 L. HEENT examination is grossly unremarkable. Mucous membranes are moist. No oral lesions. Neck supple. Full range of motion. No adenopathy thyromegaly or neck vein distention. Cardiovascular examination reveals regular rhythm rate. S1-S2 normal. No S3 or S4. Harsh systolic murmur is noted. Lungs reveal minimal basilar crackles. No wheezes. No rhonchi. Breath sounds equal. Abdomen soft bowel sounds are heard. No masses or tenderness. Extremities are intact. No cyanosis or clubbing. 2+ lower extremity pitting edema is noted. Skin is without rash or lesion. Neurologic examination is brief but nonfocal. - Labs CBC & Chem 7: 04/11/24 03:55 04/11/24 03:55 Labs: Abnormal Lab Results - Last 24 Hours (Table) 04/10/24 04/10/24 04/11/24 Range/Units 16:07 19:56 03:55 WBC 15.6 H (3.8-10.6) k/uL RBC 3.02 L (4.30-5.90) m/uL Hgb 7.7 L (13.0-17.5) gm/dL Hct 24.6 L (39.0-53.0) % RDW 18.0 H (11.5-15.5) % Neutrophils # 13.6 H (1.3-7.7) k/uL Sodium (137-145) mmol/L Glucose (74-99) mg/dL POC Glucose (mg/dL) 238 H 204 H (70-110) mg/dL Calcium (8.4-10.2) mg/dL 04/11/24 04/11/24 04/11/24 Range/Units 03:55 04:22 06:10 WBC (3.8-10.6) k/uL RBC (4.30-5.90) m/uL Hgb (13.0-17.5) gm/dL Hct (39.0-53.0) % RDW (11.5-15.5) % Neutrophils # (1.3-7.7) k/uL Sodium 131 L (137-145) mmol/L Glucose 239 H (74-99) mg/dL POC Glucose (mg/dL) 264 H 294 H (70-110) mg/dL Calcium 8.3 L (8.4-10.2) mg/dL 04/11/24 Range/Units 11:19 WBC (3.8-10.6) k/uL RBC (4.30-5.90) m/uL Hgb (13.0-17.5) gm/dL Hct (39.0-53.0) % RDW (11.5-15.5) % Neutrophils # (1.3-7.7) k/uL Sodium (137-145) mmol/L Glucose (74-99) mg/dL POC Glucose (mg/dL) 157 H (70-110) mg/dL Calcium (8.4-10.2) mg/dL Assessment and Plan Assessment: Acute non-ST elevation RI status postoperative day #3 following Impella assisted heart catheterization involving PCI to the left main into the LAD/circumflex using DK crush technique with 3.5 x 1.5 mm Xience ROCKY into circumflex and 4.0 x 18 mm Xience ROCKY left main into LAD. Possible TIA. Symptomatic hypotension, secondary to relative adrenal insufficiency. History of left carotid artery stenosis status post carotid artery stent done March 19, 2024. Severe multivessel coronary artery disease, patient has had multiple PCI/stents. Acute hypoxemic respiratory failure. Echocardiogram estimating left ventricular ejection fraction of 60 to 65%. Mild concentric LVH. Moderate to severe mitral regurgitation, as well as, severe pulmonary hypertension, and mild to moderate tricuspid regurgitation. Anemia, chronic. History of diabetes mellitus. History of hypertension. History of hyperlipidemia. History of TURP. History of obstructive sleep apnea, no longer uses CPAP at home. Obesity, with a BMI of 33.8 kg/m. Former tobacco dependence, quit smoking in 1983. Plan: Plan dated April 09, 2024. The patient is seen today in room 258. We placed a left internal jugular triple-lumen catheter in the place. The patient needed the catheter, for fluid administration, blood draws, etc. The patient tolerated the procedure well and there was no pneumothorax after the procedure. The patient is seen today in room 258. He is on 3 L of oxygen. He is receiving 1 unit of PRBCs for hemoglobin of 6.8. He is on norepinephrine at 31 mcg/min. Will check a TSH level, and a cortisol level. In addition, the patient takes Lasix, 60 mg IV push. Labs, x-rays, medications are reviewed. Prognosis is guarded. Will continue to follow the patient, make recommendations along the way. Plan dated April 10, 2024. A central line was placed yesterday. He continues on oxygen at 2 L. He also continues on norepinephrine at 35 mcg/min, and vasopressin at 0.03 units/min. Will add midodrine 10 mg 3 times a day, and hydrocortisone, 50 mg every 6 hours, after a initial dose of 100 mg. Labs, x-rays, medications are reviewed. The patient is complaining about the central line in the left neck area. Labs, x- rays, and all medications are reviewed. Prognosis is guarded. We will continue to follow make recommendations along the way. Plan dated April 11, 2024. The patient received hydrocortisone and midodrine. Currently, he was weaned off of vasopressin. He continues on norepinephrine, albeit at a smaller dose. The patient continues on nasal O2 at 2 L. He is on amiodarone at 0.5 mg/min. Pr ocalcitonin level was normal. Labs, x-rays, and medications are reviewed. The patient remains critically ill. The patient cannot be discharged out of the intensive care unit. We will continue to follow the patient, make recommendations along the way. Prognosis is guarded. Time with Patient: Greater than 30
--- NOTE | 2024-04-11 15:18 | P.PN ---
Subjective Progress Note Date: 04/11/24 I am following up with the patient and he feels he is doing about the same. Denies of any new neurological issues. He continues to be on norepinephrine. Objective - Vital Signs Vital signs: Vital Signs Temp 98 F 04/11/24 12:00 Pulse 60 04/11/24 14:00 Resp 17 04/11/24 14:00 BP 96/58 04/11/24 14:00 Pulse Ox 97 04/11/24 14:00 FiO2 35 04/11/24 03:00 Intake & Output 04/10/24 04/11/24 04/11/24 18:59 06:59 18:59 Intake Total 858.953 153.102 358.025 Output Total 1640 680 275 Balance -781.047 -526.898 83.025 Weight 110.2 kg 110 kg Intake: IV 36 36 6 0.9 3cc/hr Pressure Bag 36 36 6 Intake, IV Titration 262.953 117.102 352.025 Amount Amiodarone 450 mg In 268.061 Dextrose 5% in Water 250 ml @ 0.5 MG/MIN 16.667 mls/hr IV .Q15H [facility] Rx#: [id number] Norepinephrine 32 mg In 213.610 117.102 83.964 Sodium Chloride 0.9% 218 ml @ 0.03 MCG/KG/MIN 1. 567 mls/hr IV .Q24H [facility] Rx#:[id number] Vasopressin 60 unit In 49.343 Sodium Chloride 0.9% 150 ml @ 0.03 UNITS/MIN 4.59 mls/hr IV .Q24H [facility] Rx#: [id number] Oral 560 Output: Urine 1640 680 275 Other: Voiding Method Indwelling Catheter Indwelling Catheter Indwelling Catheter ABP, PAP, CO, CI - Last Documented Arterial Blood Pressure 40/27 - Exam GENERAL: The patient is lying in bed and is not in acute distress. NEUROLOGICAL: Higher mental function: The patient is awake, alert, oriented to self, place and time. Patient is following commands. No aphasia and no neglect. Cranial nerves: The pupils are round, equal and reactive to light and accommodation. Visual wiggins are full to confrontation throughout. Extraocular movement is intact no nystagmus is noted. Facial sensation is normal to touch throughout. The facial strength is normal throughout. Hearing is moderately decreased bilaterally to hand rub. Tongue is midline and moved [id number] without any difficulty. No dysarthria is noted. Shoulder shrug is normal bilaterally. Motor: The strength is 5 over 5 throughout. Normal tone and bulk. Cerebellum: Normal finger to nose bilaterally. Sensation: Sensation is normal to touch throughout. Reflexes (right/left): 2+ throughout. Plantars are downgoing bilaterally. Some of the workup during this hospital visit consisted of: Lipid panel is triglyceride of 127, cholesterol 130, LDL 76 and HDL is 27 Vitamin B12 is 380 Folate is 14 Patient hemoglobin is trending down currently 7.3. CT of the head is reported as no acute intracranial process. I personally reviewed the CT and I agree with the report. Carotid duplex is reported as no hemodynamic significant stenosis over the right or left. Left common carotid artery stent is noted. The right vertebral artery was not visualized on exam. 2D echo was reported as normal left ventricle systolic function with ejection fraction of 60%. Severe pulmonary hypertension. Moderate to severe mitral regurgitation. Repeat CT of the head is reported as no acute intracranial process or significant change from prior. - Labs CBC & Chem 7: 04/11/24 03:55 04/11/24 03:55 Labs: Abnormal Lab Results - Last 24 Hours (Table) 04/10/24 04/10/24 04/11/24 Range/Units 16:07 19:56 03:55 WBC 15.6 H (3.8-10.6) k/uL RBC 3.02 L (4.30-5.90) m/uL Hgb 7.7 L (13.0-17.5) gm/dL Hct 24.6 L (39.0-53.0) % RDW 18.0 H (11.5-15.5) % Neutrophils # 13.6 H (1.3-7.7) k/uL Sodium (137-145) mmol/L Glucose (74-99) mg/dL POC Glucose (mg/dL) 238 H 204 H (70-110) mg/dL Calcium (8.4-10.2) mg/dL 04/11/24 04/11/24 04/11/24 Range/Units 03:55 04:22 06:10 WBC (3.8-10.6) k/uL RBC (4.30-5.90) m/uL Hgb (13.0-17.5) gm/dL Hct (39.0-53.0) % RDW (11.5-15.5) % Neutrophils # (1.3-7.7) k/uL Sodium 131 L (137-145) mmol/L Glucose 239 H (74-99) mg/dL POC Glucose (mg/dL) 264 H 294 H (70-110) mg/dL Calcium 8.3 L (8.4-10.2) mg/dL 04/11/24 Range/Units 11:19 WBC (3.8-10.6) k/uL RBC (4.30-5.90) m/uL Hgb (13.0-17.5) gm/dL Hct (39.0-53.0) % RDW (11.5-15.5) % Neutrophils # (1.3-7.7) k/uL Sodium (137-145) mmol/L Glucose (74-99) mg/dL POC Glucose (mg/dL) 157 H (70-110) mg/dL Calcium (8.4-10.2) mg/dL Assessment and Plan Assessment: This is a 79-year-old gentleman with significant cardiac issues who presents emergency department on 04/04/2024 for shortness of breath and chest pain. Patient had cardiac cath yesterday and had stenting while in the ICU he had dysarthria and left facial droop. His NIH stroke scale was 7 and a code stroke was activated. His symptoms has resolved. Patient has hypotensive episodes and he is on norepinephrine as well as he has slight hypoxia some tachypnea Probable transient ischemic stroke Acute non-STEMI and patient had Impella assisted cardiac cath PCI to the left main LAD/circumflex on 04/07/2024 Somatic hypotension and patient is on norepinephrine Recent history of left carotid stent over the carotid artery on March 19, 2020 Severe multivessel coronary artery disease had multiple PCI/stents Acute hypoxic respiratory failure on nasal cannula Diastolic heart failure Anemia History of diabetes History of hypertension History of TURP History of obstructive sleep apnean Plan: Once the patient is more stable then recommend the patient to pursue MRI of the brain. Is on aspirin 81 mg as well as Plavix 75 mg per the cardiology team. Patient is on Lipitor 40 mg nightly. Continue neurochecks Cardiac monitoring Recommend avoiding hypotensive episode and patient is currently on norepinephrine recommend a blood pressure goal to be between 120-1 60. 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 Dr. Welch will resume neurology service this if needed. Dr. Eaton will resume this Sunday A.M. Time with Patient: Less than 30
[2024-04-11 16:31] LABS: Glucose,Whole Blood 182 mg/dL (70-110)
[2024-04-11] MEDS: NOREPINEPHRINE 4 MG in SODIUM CHLORIDE 0.9% 250 ML IV SCH (19:00)
[2024-04-11 19:55] LABS: Glucose,Whole Blood 209 mg/dL (70-110)
--- NOTE | 2024-04-11 21:07 | P.PN ---
Subjective Progress Note Date: 04/11/24 The patient is a 79-year-old male who is currently admitted with a non-ST elevated myocardial infarction. Yesterday he underwent stenting of his left main and left circumflex with Dr. Roque. This was a long, complex procedure with Impella. Patient had a postoperative drop in hemoglobin, for which he received 1 unit of packed RBCs. CT scan of the pelvis did not show a sizable hematoma, despite significant bruising. Overnight nursing staff states he became more hypotensive and developed A-fib with RVR. He was started on an amiodarone drip. Patient was interviewed and examined resting in the recliner chair. His breathing has significantly improved. He is now back in sinus rhythm. GENERAL: Ill-appearing, well-nourished with labored breathing. NECK: Supple without JVD or thyromegaly. LUNGS: Breath sounds diminished to auscultation bilaterally. Respiration equal and labored. No wheezes, rales or rhonchi. HEART: Regular rate and rhythm. Systolic murmur. No rubs or gallops. S1 and S2 heard. EXTREMITIES: Normal range of motion, no edema. No clubbing or cyanosis. Peripheral pulses intact and strong. Bruising noted along his right groin down into pelvis and penis. TELEMETRY: Sinus rhythm overnight LABS: WBC 15.6, hemoglobin 7.7, hematocrit 24.6, platelet 310, sodium 131, potassium 3.9, BUN 11, creatinine 0.90, magnesium 2.1 IMPRESSION: NSTEMI Status post stenting of the left main and left circumflex New onset A-fib History of mild ischemic cardiomyopathy, EF 60 to 65% Possible TIA, MRI pending Obstructive sleep apnea Diabetes mellitus type 2 Carotid artery surgery with left carotid stent 03/19/2024 Severe pulmonary hypertension Moderate to severe mitral regurgitation and mild to moderate tricuspid regurgitation Anemia, 2 g drop in hemoglobin PLAN: Repeat limited echocardiogram Transition to oral amiodarone Anemia per primary team; not a candidate for anticoagulation at this time Titrate vasopressors off of cuff pressures and wean as tolerated Further recommendations to be based on clinical course I am dictating on behalf of Dr Eliseo Michele's history/physical and assessment/plan. Objective - Vital Signs Vital signs: Vital Signs Temp 98.3 F 04/11/24 16:00 Pulse 73 04/11/24 20:50 Resp 20 04/11/24 20:30 BP 103/65 04/11/24 20:30 Pulse Ox 98 04/11/24 20:30 FiO2 35 04/11/24 03:00 Intake & Output 04/11/24 04/11/24 04/12/24 06:59 18:59 06:59 Intake Total 153.102 358.025 Output Total 680 495 50 Balance -526.898 -136.975 -50 Weight 110 kg Intake: IV 36 6 0.9 3cc/hr Pressure Bag 36 6 Intake, IV Titration 117.102 352.025 Amount Amiodarone 450 mg In 268.061 Dextrose 5% in Water 250 ml @ 0.5 MG/MIN 16.667 mls/hr IV .Q15H [facility] Rx#: [id number] Norepinephrine 32 mg In 117.102 83.964 Sodium Chloride 0.9% 218 ml @ 0.03 MCG/KG/MIN 1. 567 mls/hr IV .Q24H [facility] Rx#:[id number] Output: Urine 680 495 50 Other: Voiding Method Indwelling Catheter Indwelling Catheter ABP, PAP, CO, CI - Last Documented Arterial Blood Pressure 40/ - Labs CBC & Chem 7: 04/11/24 03:55 04/11/24 03:55 Labs: Abnormal Lab Results - Last 24 Hours (Table) 04/11/24 04/11/24 04/11/24 Range/Units 03:55 03:55 04:22 WBC 15.6 H (3.8-10.6) k/uL RBC 3.02 L (4.30-5.90) m/uL Hgb 7.7 L (13.0-17.5) gm/dL Hct 24.6 L (39.0-53.0) % RDW 18.0 H (11.5-15.5) % Neutrophils # 13.6 H (1.3-7.7) k/uL Sodium 131 L (137-145) mmol/L Glucose 239 H (74-99) mg/dL POC Glucose (mg/dL) 264 H (70-110) mg/dL Calcium 8.3 L (8.4-10.2) mg/dL 04/11/24 04/11/24 04/11/24 Range/Units 06:10 11:19 16:30 WBC (3.8-10.6) k/uL RBC (4.30-5.90) m/uL Hgb (13.0-17.5) gm/dL Hct (39.0-53.0) % RDW (11.5-15.5) % Neutrophils # (1.3-7.7) k/uL Sodium (137-145) mmol/L Glucose (74-99) mg/dL POC Glucose (mg/dL) 294 H 157 H 182 H (70-110) mg/dL Calcium (8.4-10.2) mg/dL 04/11/24 Range/Units 19:54 WBC (3.8-10.6) k/uL RBC (4.30-5.90) m/uL Hgb (13.0-17.5) gm/dL Hct (39.0-53.0) % RDW (11.5-15.5) % Neutrophils # (1.3-7.7) k/uL Sodium (137-145) mmol/L Glucose (74-99) mg/dL POC Glucose (mg/dL) 209 H (70-110) mg/dL Calcium (8.4-10.2) mg/dL
[2024-04-12 04:18] LABS: Anisocytosis Slight; HCT 24.7 % (39.0-53.0); HGB 7.5 gm/dL (13.0-17.5); Hypochromasia Marked; MCH 25.4 pg (25.0-35.0); MCHC 30.2 g/dL (31.0-37.0); MCV 84.3 fL (80.0-100.0); Mean Platelet Volume 7.5; Platelet Count 294 k/uL (150-450); Poikilocytosis Marked; RBC 2.93 m/uL (4.30-5.90); RDW 19.1 % (11.5-15.5); WBC 12.1 k/uL (3.8-10.6)
[2024-04-12 04:30] LABS: African American GFR (CKD) 88 (>60 ml/min/1.73 sqM); Anion Gap 9 mmol/L; Blood Urea Nitrogen 14 mg/dL (9-20); Calcium 8.5 mg/dL (8.4-10.2); Carbon Dioxide 20 mmol/L (22-30); Chloride 101 mmol/L (98-107); Glucose 222 mg/dL (74-99); Non-African American GFR(CKD) 76 (>60 ml/min/1.73 sqM); Potassium 3.7 mmol/L (3.5-5.1); Sodium 130 mmol/L (137-145)
[2024-04-12] MEDS: POTASSIUM CHLORIDE ER 20 MEQ TAB.ER PO SCH (06:09)
--- NOTE | 2024-04-12 08:11 | P.PN ---
Subjective Progress Note Date: 04/12/24 Principal diagnosis: Non-ST segment elevation myocardial infarction. Patient is a 79-year-old male with past medical history significant for coronary artery disease with previous PCI/stenting, carotid artery disease with previous left carotid stent, diabetes mellitus, hypertension, hyperlipidemia, previous TURP, SHAKILA no longer using CPAP at home, former tobacco smoker. Of note, patient states that he has significant coronary artery disease with previous 4 stents do ne in January 2023. More recently, in February patient was brought and had a heart catheterization done March 05, 2024. He is found to have coronary disease including 50% stenosis left main, mid LAD 60 to 70% stenosis, OM1 90% stenosis, RCA night 100% stenosis with collaterals. He was also found to have 99% stenosis of left internal carotid artery. Patient was evaluated by cardiothoracic surgery, felt to be a poor surgical candidate. On March 19, 2024 patient was brought in and underwent left carotid artery stenting and balloon angioplasty. Patient was brought in April 02 and received a stent to the left circumflex artery. While at home, patient developed substernal chest pain and difficulty in breathing, which was worse on exertion. He did present to the ED back on 04/04/2024. He was found to have non-ST elevation NM. Echocardiogram estimating left ventricular ejection fraction of 60 to 65%. Mild concentric LVH. Moderate to severe mitral regurgitation as well as severe pulmonary hypertension and mild to moderate tricuspid regurgitation. Patient had subsequent heart catheterization which was Impella assisted, he had PCI/stenting x 2 to the left main into LAD/circumflex. He was brought to the intensive care unit following the procedure. At 1535 patient developed CVI/TIA symptoms including left-sided facial droop and dysarthria. His NIH was initially scored at an 8 per nursing. Code stroke was called. Brain CT did not show any acute findings. Patient's blood pressure was noted to be hypotensive during this event. Blood pressure was reportedly 80s over 40s. He did receive 1.5 L fluid bolus in the form of normal saline. Blood pressure remains kwaku inal. Neurology recommended vasopressors to improve hypotension and hopefully neurological symptoms. Follow-up carotid Doppler did not show any hemodynamically significant stenosis of right or left internal carotid arteries. The left common carotid artery stent was noted. Right vertebral artery was not visualized. Patient was started on norepinephrine which is infusing at 0.1 mcg/kg/min. Blood pressure is currently 96/58 mmHg. I did insert a left wrist radial arterial line. Patient is currently being evaluated in the intensive care unit room 258. He is alert and oriented at this time. No focal neurologic deficit on my evaluation. On 2 L/min nasal cannula. No respiratory distress. Follow-up chest x-ray showing interstitial prominence, possible pulmonary edema. He does have 2+ pitting edema to his lower extremities. He does have a urinary catheter with small amount of hematuria and urine output is in the order of 40 ml/hr. Most recent CBC: WBC count 7.5, hemoglobin 8.5, hematocrit 29.6, platelets 308. BMP: Sodium 139, testing 4.3, chloride 108, serum bicarb 18, BUN 14, creatinine 1.06, glucose 133. Troponins on arrival are elevated at 0.59, 1.18, and 1.5 respectively. Heparin since been discontinued after his heart catheterization, currently on dual antiplatelet medications including Plavix and aspirin. Right femoral access site is soft without hematoma. Progress note dated April 09, 2024. This is a 79-year-old male who is seen in room 258. He was seen in consultation yesterday. Please see the note above. He was admitted with a diagnosis of non- ST segment elevation myocardial infarction. Subsequent to that, he developed left facial droop, and dysarthria. He was thought to have a CVA. Brain scan was negative. The patient is currently on 3 L of oxygen. He is receiving 1 unit of packed red blood cells. His hemoglobin this morning was 6.8. The patient is also on Levophed at 31 mcg/min. The patient will get Lasix 60 mg IV push. Because of his high vasopressor requirements, the patient will get a TSH level checked, and cortisol level checked. Current labs include a white count 14.3, hemoglobin 8.2, hematocrit 25.8, and a platelet count of 331,000. Sodium 135, potassium 3.7, chlorides 108, CO2 18, anion gap 9, BUN 8, creatinine 0.88. Glucose is 236. Calcium 8.1. Magnesium 1.8. Chest x-ray shows a properly placed central venous catheter. There is diffuse opacities in both lungs. Progress note dated April 10, 2024. 79-year-old male seen today in room 258. He is currently on 2 L. He continues on norepinephrine at 35 mcg/min, and vasopressin at 0.03 units/min. The patient will get midodrine 10 mg 3 times a day, and hydrocortisone 100 mg IV push, then 50 mg IV, every 6 hours. We will attempt to get him off or onto a lower dose of norepinephrine. Current labs include a white count 16.2, hemoglobin 8, hematocrit 25.5, platelet count is normal. Sodium 132, potassium 4.1, chlorides 104, CO2 21, BUN 9, creatinine 0.85. Glucose is 260. Albumin is 3.4. Chest x- ray shows some bilateral airspace opacities. Progress note dated April 11, 2024. 79-year-old male seen today in room 258. Currently, the patient is on 2 L of oxygen. The patient is on norepinephrine at 16 mcg/min. Vasopressin has been weaned off. The patient is also getting amiodarone 0.5 mg/min. His procalcitonin level was within normal range. The patient received hydrocortisone, and midodrine yesterday. This allowed us to reduce his vasopressor significantly. Current labs include a white count 15.6, hemoglobin 7.7, hematocrit 24.6, and a platelet count of 310,000. Sodium 131, potassium 3.9, chlorides 103, CO2 24, BUN 11, and creatinine 0.90. Glucose is 157. Calcium 8.3, with a magnesium of 2.1. Chest x-ray continues to show either bibasilar atelectasis, or infiltrates. Progress note dated April 12 2024. 79-year-old white male seen in room 258. The patient is currently on 2 L of oxygen. He is receiving norepinephrine at 5 mcg/min. Clinically, the patient is doing much better. He feels well. He denies any chest pain or chest discomfort. He also denies any shortness of breath, cough, wheezing, chest tightness, or phlegm production. White count of 12.1, hemoglobin 7.5, hematocrit 24.7, and platelet count of 2 94,000. Sodium 130, potassium 3.7, chlorides 101, CO2 20, BUN 14, creatinine 0.96. Objective - Vital Signs Vital signs: Vital Signs Temp 97.6 F 04/12/24 04:00 Pulse 70 04/12/24 07:00 Resp 27 H 04/12/24 07:00 BP 118/71 04/12/24 07:00 Pulse Ox 96 04/12/24 07:00 FiO2 35 04/11/24 03:00 Intake & Output 04/11/24 04/12/24 04/12/24 18:59 06:59 18:59 Intake Total 358.025 63.791 Output Total 495 785 40 Balance -136.975 -721.209 -40 Weight 106.8 kg Intake: IV 6 0.9 3cc/hr Pressure Bag 6 Intake, IV Titration 352.025 63.791 Amount Amiodarone 450 mg In 268.061 Dextrose 5% in Water 250 ml @ 0.5 MG/MIN 16.667 mls/hr IV .Q15H SUDHEER Rx#: [id number] Norepinephrine 32 mg In 83.964 63.791 Sodium Chloride 0.9% 218 ml @ 0.03 MCG/KG/MIN 1. 567 mls/hr IV .Q24H SUDHEER Rx#:[id number] Output: Urine 495 785 40 Other: Voiding Method Indwelling Catheter Indwelling Catheter # Bowel Movements 1 ABP, PAP, CO, CI - Last Documented Arterial Blood Pressure 40/27 - Exam No acute distress, oriented 3. No respiratory distress. The patient is currently on 2 L. HEENT examination is grossly unremarkable. Mucous membranes are moist. No oral lesions. Neck supple. Full range of motion. No adenopathy thyromegaly or neck vein distention. Cardiovascular examination reveals regular rhythm rate. S1-S2 normal. No S3 or S4. Harsh systolic murmur is noted. Lungs reveal minimal basilar crackles. No wheezes. No rhonchi. Breath sounds equal. Abdomen soft bowel sounds are heard. No masses or tenderness. Extremities are intact. No cyanosis or clubbing. 2+ lower extremity pitting edema is noted. Skin is without rash or lesion. Neurologic examination is brief but nonfocal. - Labs CBC & Chem 7: 04/12/24 03:54 04/12/24 03:54 Labs: Abnormal Lab Results - Last 24 Hours (Table) 04/11/24 04/11/24 04/11/24 Range/Units 11:19 16:30 19:54 WBC (3.8-10.6) k/uL RBC (4.30-5.90) m/uL Hgb (13.0-17.5) gm/dL Hct (39.0-53.0) % MCHC (31.0-37.0) g/dL RDW (11.5-15.5) % Sodium (137-145) mmol/L Carbon Dioxide (22-30) mmol/L Glucose (74-99) mg/dL POC Glucose (mg/dL) 157 H 182 H 209 H (70-110) mg/dL 04/12/24 04/12/24 Range/Units 03:54 03:54 WBC 12.1 H (3.8-10.6) k/uL RBC 2.93 L (4.30-5.90) m/uL Hgb 7.5 L (13.0-17.5) gm/dL Hct 24.7 L (39.0-53.0) % MCHC 30.2 L (31.0-37.0) g/dL RDW 19.1 H (11.5-15.5) % Sodium 130 L (137-145) mmol/L Carbon Dioxide 20 L (22-30) mmol/L Glucose 222 H (74-99) mg/dL POC Glucose (mg/dL) (70-110) mg/dL Assessment and Plan Assessment: Acute non-ST elevation NM status postoperative day #4 following Impella assisted heart catheterization involving PCI to the left main into the LAD/circumflex using DK crush technique with 3.5 x 1.5 mm Xience ROCKY into circumflex and 4.0 x 18 mm Xience ROCKY left main into LAD. Possible TIA. Symptomatic hypotension, secondary to relative adrenal insufficiency. History of left carotid artery stenosis status post carotid artery stent done March 19, 2024. Severe multivessel coronary artery disease, patient has had multiple PCI/stents. Acute hypoxemic respiratory failure. Echocardiogram estimating left ventricular ejection fraction of 60 to 65%. Mild concentric LVH. Moderate to severe mitral regurgitation, as well as, severe pulmonary hypertension, and mild to moderate tricuspid regurgitation. Anemia, chronic. History of diabetes mellitus. History of hypertension. History of hyperlipidemia. History of TURP. History of obstructive sleep apnea, no longer uses CPAP at home. Obesity, with a BMI of 33.8 kg/m. Former tobacco dependence, quit smoking in 1983. Plan: Plan dated April 09, 2024. The patient is seen today in room 258. We placed a left internal jugular triple-lumen catheter in the place. The patient needed the catheter, for fluid administration, blood draws, etc. The patient tolerated the procedure well and there was no pneumothorax after the procedure. The patient is seen today in room 258. He is on 3 L of oxygen. He is receiving 1 unit of PRBCs for hemoglobin of 6.8. He is on norepinephrine at 31 mcg/min. Will check a TSH level, and a cortisol level. In addition, the patient takes Lasix, 60 mg IV push. Labs, x-rays, medications are reviewed. Prognosis is guarded. Will continue to follow the patient, make recommendations along the way. Plan dated April 10, 2024. A central line was placed yesterday. He continues on oxygen at 2 L. He also continues on norepinephrine at 35 mcg/min, and vasopressin at 0.03 units/min. Will add midodrine 10 mg 3 times a day, and hydrocortisone, 50 mg every 6 hours, after a initial dose of 100 mg. Labs, x-rays, medications are reviewed. The dariusz henderson is complaining about the central line in the left neck area. Labs, x- rays, and all medications are reviewed. Prognosis is guarded. We will continue to follow make recommendations along the way. Plan dated April 11, 2024. The patient received hydrocortisone and midodrine. Currently, he was weaned off of vasopressin. He continues on norepinephrine, albeit at a smaller dose. The patient continues on nasal O2 at 2 L. He is on amiodarone at 0.5 mg/min. Procalcitonin level was normal. Labs, x-rays, and medications are reviewed. The patient remains critically ill. The patient cannot be discharged out of the intensive care unit. We will continue to follow the patient, make rec ommendations along the way. Prognosis is guarded. Plan dated April 12, 2024. The patient is seen today in room 258. He remains on oxygen at 2 L. His norepinephrine has been weaned down to 5 mcg/min. Labs, x-rays, and all medications are reviewed. The patient had an uneventful night. The patient is sitting in the chair next to his hospital bed. His spirits are good. He feels positive, and feels like he is improving. He denies any chest pain or chest discomfort. He is not having any difficulty with his breathing. We will continue to follow and make recommendations along the way. Time with Patient: Greater than 30
[2024-04-12] MEDS ORDERED: DEXTROSE 50% SYRINGE 50 ML IVP PRN ×2 (10:07)
[2024-04-12] MEDS: AMIODARONE 200 MG TAB PO SCH (10:21)
[2024-04-12 11:46] LABS: Glucose,Whole Blood 224 mg/dL (70-110)
[2024-04-12] MEDS: INSULIN ASPART (NovoLOG) 100 UNIT/ML VIAL SQ SCH (11:50)
--- NOTE | 2024-04-12 12:10 | P.PN ---
Subjective Progress Note Date: 04/12/24 This is Reymundo Mansfield NP, I'm dictating on behalf of Dr. Michele's H&P and A&P. Patient was interviewed and examined. Patient is a pleasant 62-year-old male who presented to the hospital with an NSTEMI and is status post stent of the left main and left circumflex. Patient reports that he is feeling okay today. Patient is alert and oriented, there is some concern that he may have also had a stroke. Patient is denying chest pain, shortness of breath, heart palpitations. GENERAL: Well-appearing, well-nourished and in no acute distress. NECK: Supple without JVD or thyromegaly. LUNGS: Breath sounds clear to auscultation bilaterally. Respiration equal and unlabored. No wheezes, rales or rhonchi. HEART: Regular rate and rhythm without murmurs, rubs or gallops. S1 and S2 heard. EXTREMITIES: Normal range of motion, no edema. No clubbing or cyanosis. Peripheral pulses intact and strong. VITALS: Temp 97.5, pulse 71, respirations 14, blood pressure 102/61, O2 saturation 97% on 2 L TELEMETRY: Atrial fibrillation with controlled ventricular response LABS: White count 12.1, hemoglobin 7.5, platelets 294, sodium 130, potassium 3.7, BUN 14, creatinine 0.96, magnesium 2.1 IMPRESSION: 1. NSTEMI 2. Status post stenting of the left main and left circumflex 3. New onset A-fib 4. History of mild ischemic cardiomyopathy, EF 60 to 65% 5. Possible TIA, MRI pending 6. Obstructive sleep apnea 7. Diabetes mellitus type 2 8. Carotid artery surgery with left carotid stent 03/19/2024 9. Severe pulmonary hypertension 10. Moderate to severe mitral regurgitation and mild to moderate tricuspid regurgitation 11. Anemia PLAN: Continue current medications as prescribed. Further recommendations based on patient's clinical course. Objective - Vital Signs Vital signs: Vital Signs Temp 97.5 F L 04/12/24 08:00 Pulse 67 04/12/24 11:00 Resp 30 H 04/12/24 11:30 BP 73/49 04/12/24 11:30 Pulse Ox 98 04/12/24 11:30 FiO2 35 04/11/24 03:00 Intake & Output 04/11/24 04/12/24 04/12/24 18:59 06:59 18:59 Intake Total 358.025 63.791 184.893 Output Total 495 785 185 Balance -136.975 -721.209 -0.107 Weight 106.8 kg Intake: IV 6 0.9 3cc/hr Pressure Bag 6 Intake, IV Titration 352.025 63.791 184.893 Amount Amiodarone 450 mg In 268.061 Dextrose 5% in Water 250 ml @ 0.5 MG/MIN 16.667 mls/hr IV .Q15H [facility] Rx#: [id number] Norepinephrine 32 mg In 83.964 63.791 Sodium Chloride 0.9% 218 ml @ 0.03 MCG/KG/MIN 1. 567 mls/hr IV .Q24H SUDHEER Rx#:[id number] Norepinephrine 4 mg In 184.893 Sodium Chloride 0.9% 250 ml @ 0.03 MCG/KG/MIN 12. 573 mls/hr IV .[id number] SUDHEER Rx#:[id number] Output: Urine 495 785 185 Other: Voiding Method Indwelling Catheter Indwelling Catheter Indwelling Catheter # Bowel Movements 1 ABP, PAP, CO, CI - Last Documented Arterial Blood Pressure 40/27 - Labs CBC & Chem 7: 04/12/24 03:54 04/12/24 03:54 Labs: Abnormal Lab Results - Last 24 Hours (Table) 04/11/24 04/11/24 04/12/24 Range/Units 16:30 19:54 03:54 WBC 12.1 H (3.8-10.6) k/uL RBC 2.93 L (4.30-5.90) m/uL Hgb 7.5 L (13.0-17.5) gm/dL Hct 24.7 L (39.0-53.0) % MCHC 30.2 L (31.0-37.0) g/dL RDW 19.1 H (11.5-15.5) % Sodium (137-145) mmol/L Carbon Dioxide (22-30) mmol/L Glucose (74-99) mg/dL POC Glucose (mg/dL) 182 H 209 H (70-110) mg/dL 04/12/24 04/12/24 Range/Units 03:54 11:44 WBC (3.8-10.6) k/uL RBC (4.30-5.90) m/uL Hgb (13.0-17.5) gm/dL Hct (39.0-53.0) % MCHC (31.0-37.0) g/dL RDW (11.5-15.5) % Sodium 130 L (137-145) mmol/L Carbon Dioxide 20 L (22-30) mmol/L Glucose 222 H (74-99) mg/dL POC Glucose (mg/dL) 224 H (70-110) mg/dL
--- NOTE | 2024-04-12 12:17 | CA ---
Transthoracic Echo Report Name: Ganesh Waldrop Age: 79 Gender: M : 1945 Exam Date: 04/11/2024 14:26 Exam Location: [facility] Ht (in): 69 Wt (lb): 242 Ordering Physician: Lauro Roque DO ([id number]) Attending/Referring Phys: Social Services Counselor Jessica Kumari, PEE Procedure CPT: Indications: re: LV function, hypotension s/p PCI Cardiac Hx: Cath Technical Quality: Fair Contrast 1: Total Dose (mL): Contrast 2: Total Dose (mL): MEASUREMENTS (Male / Female) Normal Values 2D ECHO LV Diastolic Diameter PLAX 5.6 cm 4.2 - 5.9 / 3.9 - 5.3 cm LV Systolic Diameter PLAX 3.8 cm IVS Diastolic Thickness 1.1 cm 0.6 - 1.0 / 0.6 - 0.9 cm LVPW Diastolic Thickness 0.9 cm 0.6 - 1.0 / 0.6 - 0.9 cm LV Relative Wall Thickness 0.3 RV Internal Dim ED PLAX 1.6 cm LA Systolic Diameter LX 4.5 cm 3.0 - 4.0 / 2.7 - 3.8 cm FINDINGS Left Ventricle Left ventricular ejection fraction is estimated at 50-55 %. Hypokinetic septum. Left ventricular cavity size normal. Left ventricular wall thickness normal. Right Ventricle Right Atrium Left Atrium Mildly increased left atrial diameter. Mitral Valve Aortic Valve Tricuspid Valve Pulmonic Valve Pericardium No pericardial or pleural effusion. Aorta CONCLUSIONS Indication: Acute myocardial infarction status post coronary intervention, persistent hypotension LV function of the lower limits of normal with mild septal hypokinesis No evidence of pericardial effusion Previewed by: Dr. Eliseo Michele MD (Electronically Signed) Final Date: 12 April 2024 12:17
--- NOTE | 2024-04-12 12:37 | P.PN ---
Subjective Progress Note Date: 04/12/24 79-year-old male, history of coronary artery disease, carotid artery disease, obstructive sleep apnea, diabetes mellitus type 2, hypertension, who presents to the emergency department with history of recent cardiac catheterization on 02/03/2024 with 5 stents in the past. Patient states he started having chest pain and difficulty breathing 5 days ago. Patient states it does worsen with exertion. Patient states the pain radiates down both arms. Patient denies any diaphoretic episodes. Patient denies any nausea. Patient denies any abdominal pain. Patient denies a headache. Patient states that he has had no recent fever chills or cough. Patient states she has been a little more swelling in his legs Patient had a previous cardiac catheterization on 02/03/2024 and he was referred to cardiothoracic surgery for CABG evaluation of the left main disease. He met with Dr. Polanco and was deemed high risk and therefore referred for stenting and not CABG. Patient states the chest pain started on at home. It did not seem to be too bad and then on Sunday he decided to come into the hospital for evaluation. Nitropaste did not take the pain away. He states the chest pain is now gone. He also states he has had lower extremity edema ever since he had the stent of the carotid done on 03/19. Patient has been started on a heparin drip. Blood pressure 99/58, heart rate 68, pulse ox 97% on room air. Patient has been started on a heparin drip. -EKG: Sinus rhythm with first-degree block -Chest x-ray: Chronic changes without acute pulmonary process. No significant change from prior. -Laboratory studies: WBC 8.8, hemoglobin 9.2. Electrolytes within normal limits. Creatinine 1.1. Troponin 0.59, 1.18, 1.5. Urinalysis positive for RBCs and WBCs. -Home cardiac medications: Aspirin 81 mg daily, atorvastatin 40 mg at bedtime, Plavix 75 mg at bedtime, losartan 25 mg at bedtime, Toprol XL 25 mg at bedtime, nitroglycerin sublingual. -03/19/2024: Carotid artery stenosis 99% proximal left internal status post left carotid stent. -Echocardiogram performed in the office on 01/18/2024 revealed EF of 55 to 60%, severe LVH, mild aortic stenosis, mild mitral regurgitation, mild tricuspid regurgitation, PASP 42 mmHg. 24-hour interval change 04/06/2024 Patient seen and examined in room at bedside. Patient denies having any chest pain no shortness of breath. He has been maintained on a heparin drip. Patient is on nitro paste which seems to control his chest pain. Vital signs are reviewed and remained stable with blood pressure 102/66, heart rate 77, pulse ox 94% on room air. -- blood work reveals hemoglobin 7.8, sodium 136, potassium 3.8, BUN 16 cr eatinine 1.02. - Echocardiogram reveals EF of 60 to 65%, severe pulmonary hypertension, moderate to severe mitral regurgitation, mild to moderate tricuspid regurgitation. Make patient n.p.o. after midnight Schedule patient for left heart cath on Sunday with Dr. Roque 04/07 This is a pleasant 79 years old male who presents with signs symptoms of chest pain suspicious for non-STEMI. He had recently diagnosed with non-STEMI and he underwent PCI to left circumflex on 04/02 Also patient had shortness of breath on admission and coughing up blood. Chest x-ray on admission read as chronic changes without acute pulmonary process per radiologist. Today he still complaining from shortness of breath. We are going to repeat the chest x-ray Cardiology team also planning to repeat cardiac cath today. Patient confirms to me he has been using aspirin and Plavix at home which are resumed currently. Also he is on a heparin drip. Anemia this admission is 8-9.5, he had recent baseline about 14-15 more than 1 month ago. Patient denies any signs of overt bleeding recently. Patient states he has been constipated since last Sunday. Will going to start him on laxative Will do an anemia workup Echocardiogram is showing EF 60 to 65% with severe pulmonary hypertension and moderate to severe mitral regurgitation and mild to moderate tricuspid regurgitation 04/08 Patient yesterday underwent cardiac cath per cardiology team showing coronary artery disease with 70% left main stenosis, 20 to 30% proximal LAD stenosis, 60 to 70% mid LAD stenosis, 30% stenosis of the circumflex artery and 100% stenosis of the right coronary artery. Patient is S/p Impella protected PCI left main into LAD/ circumflex using DK crush technique with 3.5 x 15mm Xience ROCKY into circumflex and 4.0 x 18mm Xience ROCKY left main into LAD After the procedure patient was sent to the ICU where he had transient symptoms of difficulty talking and slurred speech associated with mild weakness on the right side as patient tells me, the symptoms lasted for about an hour. Code stroke was called and CT of the brain and carotid duplex ordered which were basically negative for acute findings to explain patient's symptoms. Neurology was contacted and recommended to keep her blood pressure elevated so patient was started on Levophed. However patient chronically blood pressure is 90s to 100. Prior to the procedure patient was already on aspirin, Plavix and heparin drip Hemoglobin is 7.3, anemia workup showing iron deficiency anemia. Vitamin B12 also borderline. Will give one-time dose of Furric gluconate. Monitor hemoglobin closely 06/10 Patient is tachypneic this morning with no chest pain He denies bleeding from anywhere. Hemoglobin today 6.8, 1 unit of blood transfusion is ordered. He received small dose of IV Lasix 20 mg yesterday. Currently blood pressure 118/78, also he is on Levophed 0.3 to support blood pressure given his stroke symptoms post cardiac cath. Patient is mildly tachycardic. Afebrile. Has good oxygen saturation 99 4% on 3 L. Other labs looks unremarkable. We will increase Protonix to twice daily CT of the brain and MRI of the brain are pending for his recent neurological symptoms which looks resolved now with the control of the blood pressure. I discussed with the patient his problem and management plan and all his questions were answered 04/10 Patient remains in the ICU requiring critical care and close monitoring His blood pressure is borderline and tachycardia Patient was started on midodrine and IV cortisol and also on amiodarone drip per master plumber Patient is still tachypneic but his less labored. 04/11 Patient feels more comfortable today, his dyspnea is better He denies chest pain He is continued on amiodarone drip Also he is on Levophed at 0.15 On exam he has better breathing and air entry on both sides with no other less wheezing Patient got 1 unit of blood transfusion on 04/09. Currently hemoglobin stable at 7.7. Patient is not getting heparin currently 04/12-patient seen and evaluated at bedside, on evaluation patient is awake and alert, he denies feeling down but able to move bilateral upper and lower extremities patient denies feeling dizzy. Blood work reviewed hemoglobin 7.5 platelet 294's serum chemistry sodium 130 magnesium within normal limits potassium 4 -GENERAL: The patient is alert and oriented x3, not in any acute distress. Well developed, well nourished. Obese HEENT: Pupils are round and equally reacting to light. EOMI. Normocephalic, atraumatic. No pharyngeal erythema. No thyromegaly. CARDIOVASCULAR: S1 and S2 present. No murmurs, rubs, or gallops. -PULMONARY: Decreased breath sounds bilaterally, rhonchi audible ABDOMEN: Soft, nontender, nondistended, normoactive bowel sounds. No palpable organomegaly. MUSCULOSKELETAL: No joint swelling or deformity. EXTREMITIES: Extremity edema noted NEUROLOGICAL: Gross neurological examination did not reveal any focal deficits. Speech is fluent slight left-sided facial droop noted motor strength is 4 x 5 bilateral upper lower extremity Objective - Vital Signs Vital signs: Vital Signs Temp 97.5 F L 04/12/24 08:00 Pulse 71 04/12/24 08:51 Resp 6 L 04/12/24 08:30 BP 91/63 04/12/24 08:30 Pulse Ox 98 04/12/24 08:41 FiO2 35 04/11/24 03:00 Intake & Output 04/11/24 04/12/24 04/12/24 18:59 06:59 18:59 Intake Total 358.025 63.791 169.526 Output Total 495 785 80 Balance -136.975 -721.209 89.526 Weight 106.8 kg Intake: IV 6 0.9 3cc/hr Pressure Bag 6 Intake, IV Titration 352.025 63.791 169.526 Amount Amiodarone 450 mg In 268.061 Dextrose 5% in Water 250 ml @ 0.5 MG/MIN 16.667 mls/hr IV .Q15H [facility] Rx#: [id number] Norepinephrine 32 mg In 83.964 63.791 Sodium Chloride 0.9% 218 ml @ 0.03 MCG/KG/MIN 1. 567 mls/hr IV .Q24H [facility] Rx#:[id number] Norepinephrine 4 mg In 169.526 Sodium Chloride 0.9% 250 ml @ 0.03 MCG/KG/MIN 12. 573 mls/hr IV .[id number] [facility] Rx#:[id number] Output: Urine 495 785 80 Other: Voiding Method Indwelling Catheter Indwelling Catheter # Bowel Movements 1 ABP, PAP, CO, CI - Last Documented Arterial Blood Pressure 40/27 - Labs CBC & Chem 7: 04/12/24 03:54 04/12/24 11:36 Labs: Abnormal Lab Results - Last 24 Hours (Table) 04/11/24 04/11/24 04/11/24 Range/Units 11:19 16:30 19:54 WBC (3.8-10.6) k/uL RBC (4.30-5.90) m/uL Hgb (13.0-17.5) gm/dL Hct (39.0-53.0) % MCHC (31.0-37.0) g/dL RDW (11.5-15.5) % Sodium (137-145) mmol/L Carbon Dioxide (22-30) mmol/L Glucose (74-99) mg/dL POC Glucose (mg/dL) 157 H 182 H 209 H (70-110) mg/dL 04/12/24 04/12/24 Range/Units 03:54 03:54 WBC 12.1 H (3.8-10.6) k/uL RBC 2.93 L (4.30-5.90) m/uL Hgb 7.5 L (13.0-17.5) gm/dL Hct 24.7 L (39.0-53.0) % MCHC 30.2 L (31.0-37.0) g/dL RDW 19.1 H (11.5-15.5) % Sodium 130 L (137-145) mmol/L Carbon Dioxide 20 L (22-30) mmol/L Glucose 222 H (74-99) mg/dL POC Glucose (mg/dL) (70-110) mg/dL Assessment and Plan Assessment: * acute non-ST elevated ID s/p PCI to LAD and circumflex requiring Impella assisted heart catheterization * multivessel coronary artery disease * shock requiring pressor support * left-sided facial droop and dysarthria rule out CVA * new onset atrial fibrillation * ischemic cardiomyopathy acute systolic congestive heart failure ejection fraction 60 to 65% * diabetes mellitus type 2 * COPD * history of obstructive sleep apnea * history of left carotid artery stenosis status post carotid artery stent February 2020 for * acute hypoxic respiratory failure * in regards to coronary artery diseasePatient had cardiac cath on 04/07: Showing 70% left main stenosis, 20 to 30% proximal LAD stenosis, 60 to 70% mid LAD stenosis, 30% stenosis of the circumflex artery and 100% stenosis of the right coronary artery. Patient is S/p Impella protected PCI left main into LAD/ circumflex using DK crush technique with 3.5 x 15mm Xience ROCKY into circumflex and 4.0 x 18mm Xience ROCKY left main into LAD Postcardiac cath neurological symptoms of slurred speech and mild right side weakness, currently completely resolved. CT of the brain is negative. Neurology consulted to rule out stroke or others. Could be related to hypotension postprocedure. * in regards to congestive heart failure, continue guideline directed medical therapy * in regards to neurological symptoms, CT head negative, neurology following, MRI brain pending * continue patient on dual antiplatelet therapy including aspirin and Plavix * Aamaryl is on hold, c/w insulin sliding scale, glucose currently controlled * Labs and medication were reviewed.. * DVT prophylaxis: heparin * GI Prophylaxis: protonix Time with Patient: Greater than 30
[2024-04-12 16:29] LABS: Glucose,Whole Blood 226 mg/dL (70-110)
[2024-04-12 20:44] LABS: Glucose,Whole Blood 221 mg/dL (70-110)
[2024-04-13 03:00] LABS: Anisocytosis Slight; HCT 22.9 % (39.0-53.0); HGB 7.1 gm/dL (13.0-17.5); Hypochromasia Marked; MCH 26.1 pg (25.0-35.0); MCHC 31.2 g/dL (31.0-37.0); MCV 83.5 fL (80.0-100.0); Mean Platelet Volume 7.6; Platelet Count 285 k/uL (150-450); Poikilocytosis Moderate; RBC 2.74 m/uL (4.30-5.90); RDW 18.9 % (11.5-15.5); WBC 10.1 k/uL (3.8-10.6)
[2024-04-13 03:13] LABS: African American GFR (CKD) >90 (>60 ml/min/1.73 sqM); Anion Gap 4 mmol/L; Blood Urea Nitrogen 19 mg/dL (9-20); Calcium 8.3 mg/dL (8.4-10.2); Carbon Dioxide 24 mmol/L (22-30); Chloride 103 mmol/L (98-107); Glucose 167 mg/dL (74-99); Non-African American GFR(CKD) 83 (>60 ml/min/1.73 sqM); Sodium 131 mmol/L (137-145)
[2024-04-13 06:39] LABS: Glucose,Whole Blood 186 mg/dL (70-110)
--- NOTE | 2024-04-13 10:53 | P.PN ---
Subjective Progress Note Date: 04/13/24 Principal diagnosis: Non-ST segment elevation myocardial infarction. Patient is a 79-year-old male with past medical history significant for coronary artery disease with previous PCI/stenting, carotid artery disease with previous left carotid stent, diabetes mellitus, hypertension, hyperlipidemia, previous TURP, SHAKILA no longer using CPAP at home, former tobacco smoker. Of note, patient states that he has significant coronary artery disease with previous 4 stents do ne in January 2023. More recently, in February patient was brought and had a heart catheterization done March 05, 2024. He is found to have coronary disease including 50% stenosis left main, mid LAD 60 to 70% stenosis, OM1 90% stenosis, RCA night 100% stenosis with collaterals. He was also found to have 99% stenosis of left internal carotid artery. Patient was evaluated by cardiothoracic surgery, felt to be a poor surgical candidate. On March 19, 2024 patient was brought in and underwent left carotid artery stenting and balloon angioplasty. Patient was brought in April 02 and received a stent to the left circumflex artery. While at home, patient developed substernal chest pain and difficulty in breathing, which was worse on exertion. He did present to the ED back on 04/04/2024. He was found to have non-ST elevation [place]. Echocardiogram estimating left ventricular ejection fraction of 60 to 65%. Mild concentric LVH. Moderate to severe mitral regurgitation as well as severe pulmonary hypertension and mild to moderate tricuspid regurgitation. Patient had subsequent heart catheterization which was Impella assisted, he had PCI/stenting x 2 to the left main into LAD/circumflex. He was brought to the intensive care unit following the procedure. At 1535 patient developed CVI/TIA symptoms including left-sided facial droop and dysarthria. His NIH was initially scored at an 8 per nursing. Code stroke was called. Brain CT did not show any acute findings. Patient's blood pressure was noted to be hypotensive during this event. Blood pressure was reportedly 80s over 40s. He did receive 1.5 L fluid bolus in the form of normal saline. Blood pressure remains kwaku inal. Neurology recommended vasopressors to improve hypotension and hopefully neurological symptoms. Follow-up carotid Doppler did not show any hemodynamically significant stenosis of right or left internal carotid arteries. The left common carotid artery stent was noted. Right vertebral artery was not visualized. Patient was started on norepinephrine which is infusing at 0.1 mcg/kg/min. Blood pressure is currently 96/58 mmHg. I did insert a left wrist radial arterial line. Patient is currently being evaluated in the intensive care unit room 258. He is alert and oriented at this time. No focal neurologic deficit on my evaluation. On 2 L/min nasal cannula. No respiratory distress. Follow-up chest x-ray showing interstitial prominence, possible pulmonary edema. He does have 2+ pitting edema to his lower extremities. He does have a urinary catheter with small amount of hematuria and urine output is in the order of 40 ml/hr. Most recent CBC: WBC count 7.5, hemoglobin 8.5, hematocrit 29.6, platelets 308. BMP: Sodium 139, testing 4.3, chloride 108, serum bicarb 18, BUN 14, creatinine 1.06, glucose 133. Troponins on arrival are elevated at 0.59, 1.18, and 1.5 respectively. Heparin since been discontinued after his heart catheterization, currently on dual antiplatelet medications including Plavix and aspirin. Right femoral access site is soft without hematoma. Progress note dated April 09, 2024. This is a 79-year-old male who is seen in room 258. He was seen in consultation yesterday. Please see the note above. He was admitted with a diagnosis of non- ST segment elevation myocardial infarction. Subsequent to that, he developed left facial droop, and dysarthria. He was thought to have a CVA. Brain scan was negative. The patient is currently on 3 L of oxygen. He is receiving 1 unit of packed red blood cells. His hemoglobin this morning was 6.8. The patient is also on Levophed at 31 mcg/min. The patient will get Lasix 60 mg IV push. Because of his high vasopressor requirements, the patient will get a TSH level checked, and cortisol level checked. Current labs include a white count 14.3, hemoglobin 8.2, hematocrit 25.8, and a platelet count of 331,000. Sodium 135, potassium 3.7, chlorides 108, CO2 18, anion gap 9, BUN 8, creatinine 0.88. Glucose is 236. Calcium 8.1. Magnesium 1.8. Chest x-ray shows a properly placed central venous catheter. There is diffuse opacities in both lungs. Progress note dated April 10, 2024. 79-year-old male seen today in room 258. He is currently on 2 L. He continues on norepinephrine at 35 mcg/min, and vasopressin at 0.03 units/min. The patient will get midodrine 10 mg 3 times a day, and hydrocortisone 100 mg IV push, then 50 mg IV, every 6 hours. We will attempt to get him off or onto a lower dose of norepinephrine. Current labs include a white count 16.2, hemoglobin 8, hematocrit 25.5, platelet count is normal. Sodium 132, potassium 4.1, chlorides 104, CO2 21, BUN 9, creatinine 0.85. Glucose is 260. Albumin is 3.4. Chest x- ray shows some bilateral airspace opacities. Progress note dated April 11, 2024. 79-year-old male seen today in room 258. Currently, the patient is on 2 L of oxygen. The patient is on norepinephrine at 16 mcg/min. Vasopressin has been weaned off. The patient is also getting amiodarone 0.5 mg/min. His procalcitonin level was within normal range. The patient received hydrocortisone, and midodrine yesterday. This allowed us to reduce his vasopressor significantly. Current labs include a white count 15.6, hemoglobin 7.7, hematocrit 24.6, and a platelet count of 310,000. Sodium 131, potassium 3.9, chlorides 103, CO2 24, BUN 11, and creatinine 0.90. Glucose is 157. Calcium 8.3, with a magnesium of 2.1. Chest x-ray continues to show either bibasilar atelectasis, or infiltrates. Progress note dated April 12 2024. 79-year-old white male seen in room 258. The patient is currently on 2 L of oxygen. He is receiving norepinephrine at 5 mcg/min. Clinically, the patient is doing much better. He feels well. He denies any chest pain or chest discomfort. He also denies any shortness of breath, cough, wheezing, chest tightness, or phlegm production. White count of 12.1, hemoglobin 7.5, hematocrit 24.7, and platelet count of 2 94,000. Sodium 130, potassium 3.7, chlorides 101, CO2 20, BUN 14, creatinine 0.96. Progress note dated April 13, 2024. 79-year-old male who is seen today in room 258. The patient is sitting in a chair next to his hospital bed. He has been weaned off of all pressors. He is currently on nasal O2 at 2 L. The patient does not have any complaints today. He denies shortness of breath, cough, wheezing, chest tightness, phlegm production, chest pain, chest pressure, palpitations, etc. White count is 10.1, hemoglobin 7.1, hematocrit 22.9, platelet count 285,000. Sodium 131, potassium 4, chlorides 103, CO2 24, BUN 19, creatinine 0.88. Glucose 186. Calcium 8.3. Objective - Vital Signs Vital signs: Vital Signs Temp 97.4 F L 04/13/24 08:00 Pulse 78 04/13/24 09:00 Resp 19 04/13/24 09:00 BP 104/59 04/13/24 09:00 Pulse Ox 94 L 04/13/24 09:00 FiO2 35 04/11/24 03:00 Intake & Output 04/12/24 04/13/24 04/13/24 18:59 06:59 18:59 Intake Total 200.889 Output Total 528 570 260 Balance -327.111 -570 -260 Weight 106 kg Intake: Intake, IV Titration 200.889 Amount Norepinephrine 4 mg In 200.889 Sodium Chloride 0.9% 250 ml @ 0.03 MCG/KG/MIN 12. 573 mls/hr IV .[id number] [facility] Rx#:[id number] Output: Urine 528 570 260 Other: Voiding Method Indwelling Catheter Indwelling Catheter ABP, PAP, CO, CI - Last Documented Arterial Blood Pressure 40/27 - Exam No acute distress, oriented 3. No respiratory distress. The patient is currently on 2 L. HEENT examination is grossly unremarkable. Mucous membranes are moist. No oral lesions. Neck supple. Full range of motion. No adenopathy thyromegaly or neck vein distention. Cardiovascular examination reveals regular rhythm rate. S1-S2 normal. No S3 or S4. Harsh systolic murmur is noted. Lungs reveal minimal basilar crackles. No wheezes. No rhonchi. Breath sounds equal. Abdomen soft bowel sounds are heard. No masses or tenderness. Extremities are intact. No cyanosis or clubbing. 2+ lower extremity pitting edema is noted. Skin is without rash or lesion. Neurologic examination is brief but nonfocal. - Labs CBC & Chem 7: 04/13/24 02:33 12/15/24 02:33 Labs: Abnormal Lab Results - Last 24 Hours (Table) 04/12/24 04/12/24 04/12/24 Range/Units 11:44 16:27 20:41 RBC (4.30-5.90) m/uL Hgb (13.0-17.5) gm/dL Hct (39.0-53.0) % RDW (11.5-15.5) % Sodium (137-145) mmol/L Glucose (74-99) mg/dL POC Glucose (mg/dL) 224 H 226 H 221 H (70-110) mg/dL Calcium (8.4-10.2) mg/dL 04/13/24 04/13/24 04/13/24 Range/Units 02:33 02:33 06:37 RBC 2.74 L (4.30-5.90) m/uL Hgb 7.1 L (13.0-17.5) gm/dL Hct 22.9 L (39.0-53.0) % RDW 18.9 H (11.5-15.5) % Sodium 131 L (137-145) mmol/L Glucose 167 H (74-99) mg/dL POC Glucose (mg/dL) 186 H (70-110) mg/dL Calcium 8.3 L (8.4-10.2) mg/dL Assessment and Plan Assessment: Acute non-ST elevation [place] status postoperative day #4 following Impella assisted heart catheterization involving PCI to the left main into the LAD/circumflex using DK crush technique with 3.5 x 1.5 mm Xience ROCKY into circumflex and 4.0 x 18 mm Xience ROCKY left main into LAD. Possible TIA. Symptomatic hypotension, secondary to relative adrenal insufficiency. History of left carotid artery stenosis status post carotid artery stent done March 19, 2024. Severe multivessel coronary artery disease, patient has had multiple PCI/stents. Acute hypoxemic respiratory failure. Echocardiogram estimating left ventricular ejection fraction of 60 to 65%. Mild concentric LVH. Moderate to severe mitral regurgitation, as well as, severe pulmonary hypertension, and mild to moderate tricuspid regurgitation. Anemia, chronic. History of diabetes mellitus. History of hypertension. History of hyperlipidemia. History of TURP. History of obstructive sleep apnea, no longer uses CPAP at home. Obesity, with a BMI of 33.8 kg/m. Former tobacco dependence, quit smoking in 1983. Plan: Plan dated April 09, 2024. The patient is seen today in room 258. We placed a left internal jugular triple-lumen catheter in the place. The patient needed the catheter, for fluid administration, blood draws, etc. The patient tolerated the procedure well and there was no pneumothorax after the procedure. The patient is seen today in room 258. He is on 3 L of oxygen. He is receiving 1 unit of PRBCs for h emoglobin of 6.8. He is on norepinephrine at 31 mcg/min. Will check a TSH level, and a cortisol level. In addition, the patient takes Lasix, 60 mg IV push. Labs, x-rays, medications are reviewed. Prognosis is guarded. Will continue to follow the patient, make recommendations along the way. Plan dated April 10, 2024. A central line was placed yesterday. He continues on oxygen at 2 L. He also continues on norepinephrine at 35 mcg/min, and vasopressin at 0.03 units/min. Will add midodrine 10 mg 3 times a day, and hydrocortisone, 50 mg every 6 hours, after a initial dose of 100 mg. Labs, x-rays, medications are reviewed. The patient is complaining about the central line in the left neck area. Labs, x- rays, and all medications are reviewed. Prognosis is guarded. We will continue to follow make recommendations along the way. Plan dated April 11, 2024. The patient received hydrocortisone and midodrine. Currently, he was weaned off of vasopressin. He continues on norepinephrine, albeit at a smaller dose. The patient continues on nasal O2 at 2 L. He is on amiodarone at 0.5 mg/min. Procalcitonin level was normal. Labs, x-rays, and medications are reviewed. The patient remains critically ill. The patient cannot be discharged out of the intensive care unit. We will continue to follow the patient, make recommendations along the way. Prognosis is guarded. Plan dated April 12, 2024. The patient is seen today in room 258. He remains on oxygen at 2 L. His norepinephrine has been weaned down to 5 mcg/min. Labs, x-rays, and all medications are reviewed. The patient had an uneventful night. The patient is sitting in the chair next to his hospital bed. His spirits are good. He feels positive, and feels like he is improving. He denies any chest pain or chest discomfort. He is not having any difficulty with his breathing. We will continue to follow and make recommendations along the way. Plan dated April 13, 2024. The patient is seen today in room 258. He is currently on 2 L. He has been weaned off of all pressors. He has a left triple-lumen catheter in his neck area noted. The patient has no specific complaints. He is sitting in a chair next to his hospital bed. He denies any shortness of breath, cough, wheezing, or chest tightness. He also denies any chest pain or pressure. We will continue to follow the patient, make recommendations along the way. Prognosis is guarded. The patient could potentially be moved out of the ICU, later today, and sent to 3 S. floor. Time with Patient: Less than 30
--- NOTE | 2024-04-13 12:00 | P.PN ---
Subjective Progress Note Date: 04/13/24 79-year-old male, history of coronary artery disease, carotid artery disease, obstructive sleep apnea, diabetes mellitus type 2, hypertension, who presents to the emergency department with history of recent cardiac catheterization on 02/03/2024 with 5 stents in the past. Patient states he started having chest pain and difficulty breathing 5 days ago. Patient states it does worsen with exertion. Patient states the pain radiates down both arms. Patient denies any diaphoretic episodes. Patient denies any nausea. Patient denies any abdominal pain. Patient denies a headache. Patient states that he has had no recent fever chills or cough. Patient states she has been a little more swelling in his legs Patient had a previous cardiac catheterization on 02/03/2024 and he was referred to cardiothoracic surgery for CABG evaluation of the left main disease. He met with Dr. Polanco and was deemed high risk and therefore referred for stenting and not CABG. Patient states the chest pain started on at home. It did not seem to be too bad and then on Sunday he decided to come into the hospital for evaluation. Nitropaste did not take the pain away. He states the chest pain is now gone. He also states he has had lower extremity edema ever since he had the stent of the carotid done on 03/19. Patient has been started on a heparin drip. Blood pressure 99/58, heart rate 68, pulse ox 97% on room air. Patient has been started on a heparin drip. -EKG: Sinus rhythm with first-degree block -Chest x-ray: Chronic changes without acute pulmonary process. No significant change from prior. -Laboratory studies: WBC 8.8, hemoglobin 9.2. Electrolytes within normal limits. Creatinine 1.1. Troponin 0.59, 1.18, 1.5. Urinalysis positive for RBCs and WBCs. -Home cardiac medications: Aspirin 81 mg daily, atorvastatin 40 mg at bedtime, Plavix 75 mg at bedtime, losartan 25 mg at bedtime, Toprol XL 25 mg at bedtime, nitroglycerin sublingual. -03/19/2024: Carotid artery stenosis 99% proximal left internal status post left carotid stent. -Echocardiogram performed in the office on 01/18/2024 revealed EF of 55 to 60%, severe LVH, mild aortic stenosis, mild mitral regurgitation, mild tricuspid regurgitation, PASP 42 mmHg. 24-hour interval change 04/06/2024 Patient seen and examined in room at bedside. Patient denies having any chest pain no shortness of breath. He has been maintained on a heparin drip. Patient is on nitro paste which seems to control his chest pain. Vital signs are reviewed and remained stable with blood pressure 102/66, heart rate 77, pulse ox 94% on room air. -- blood work reveals hemoglobin 7.8, sodium 136, potassium 3.8, BUN 16 cr eatinine 1.02. - Echocardiogram reveals EF of 60 to 65%, severe pulmonary hypertension, moderate to severe mitral regurgitation, mild to moderate tricuspid regurgitation. Make patient n.p.o. after midnight Schedule patient for left heart cath on Sunday with Dr. Roque 04/07 This is a pleasant 79 years old male who presents with signs symptoms of chest pain suspicious for non-STEMI. He had recently diagnosed with non-STEMI and he underwent PCI to left circumflex on 04/02 Also patient had shortness of breath on admission and coughing up blood. Chest x-ray on admission read as chronic changes without acute pulmonary process per radiologist. Today he still complaining from shortness of breath. We are going to repeat the chest x-ray Cardiology team also planning to repeat cardiac cath today. Patient confirms to me he has been using aspirin and Plavix at home which are resumed currently. Also he is on a heparin drip. Anemia this admission is 8-9.5, he had recent baseline about 14-15 more than 1 month ago. Patient denies any signs of overt bleeding recently. Patient states he has been constipated since last Sunday. Will going to start him on laxative Will do an anemia workup Echocardiogram is showing EF 60 to 65% with severe pulmonary hypertension and moderate to severe mitral regurgitation and mild to moderate tricuspid regurgitation 04/08 Patient yesterday underwent cardiac cath per cardiology team showing coronary artery disease with 70% left main stenosis, 20 to 30% proximal LAD stenosis, 60 to 70% mid LAD stenosis, 30% stenosis of the circumflex artery and 100% stenosis of the right coronary artery. Patient is S/p Impella protected PCI left main into LAD/ circumflex using DK crush technique with 3.5 x 15mm Xience ROCKY into circumflex and 4.0 x 18mm Xience ROCKY left main into LAD After the procedure patient was sent to the ICU where he had transient symptoms of difficulty talking and slurred speech associated with mild weakness on the right side as patient tells me, the symptoms lasted for about an hour. Code stroke was called and CT of the brain and carotid duplex ordered which were basically negative for acute findings to explain patient's symptoms. Neurology was contacted and recommended to keep her blood pressure elevated so patient was started on Levophed. However patient chronically blood pressure is 90s to 100. Prior to the procedure patient was already on aspirin, Plavix and heparin drip Hemoglobin is 7.3, anemia workup showing iron deficiency anemia. Vitamin B12 also borderline. Will give one-time dose of Furric gluconate. Monitor hemoglobin closely 06/10 Patient is tachypneic this morning with no chest pain He denies bleeding from anywhere. Hemoglobin today 6.8, 1 unit of blood transfusion is ordered. He received small dose of IV Lasix 20 mg yesterday. Currently blood pressure 118/78, also he is on Levophed 0.3 to support blood pressure given his stroke symptoms post cardiac cath. Patient is mildly tachycardic. Afebrile. Has good oxygen saturation 99 4% on 3 L. Other labs looks unremarkable. We will increase Protonix to twice daily CT of the brain and MRI of the brain are pending for his recent neurological symptoms which looks resolved now with the control of the blood pressure. I discussed with the patient his problem and management plan and all his questions were answered 04/10 Patient remains in the ICU requiring critical care and close monitoring His blood pressure is borderline and tachycardia Patient was started on midodrine and IV cortisol and also on amiodarone drip per ammonium sulfate operator Patient is still tachypneic but his less labored. 04/11 Patient feels more comfortable today, his dyspnea is betterHe denies chest painHe is continued on amiodarone drip Also he is on Levophed at 0.15On exam he has better breathing and air entry on both sides with no other less wheezing Patient got 1 unit of blood transfusion on 04/09. Currently hemoglobin stable at 7.7. Patient is not getting heparin currently 04/12-patient seen and evaluated at bedside, on evaluation patient is awake and alert, he denies feeling down but able to move bilateral upper and lower extremities patient denies feeling dizzy. Blood work reviewed hemoglobin 7.5 platelet 294's serum chemistry sodium 130 magnesium within normal limits potassium 4 04/13- patient seen and evaluated at bedside, MRI brain pending, he remains on 2 L of oxygen, CBC reviewed hemoglobin 7.1 platelet 285, sodium 131 calcium of 8.3, patient denies having tingling numbness plan to be transferred out of ICU. GENERAL: The patient is alert and oriented x3, not in any acute distress. Well developed, well nourished. Obese HEENT: Pupils are round and equally reacting to light. EOMI. Normocephalic, atraumatic. CARDIOVASCULAR: S1 and S2 present. No murmurs, rubs, or gallops. PULMONARY: Decreased breath sounds bilaterally, rhonchi audible ABDOMEN: Soft, nontender, nondistended, normoactive bowel sounds. No palpable organomegaly. MUSCULOSKELETAL: No joint swelling or deformity. EXTREMITIES: Extremity edema noted, skin bruising noted NEUROLOGICAL: Gross neurological examination did not reveal any focal deficits. Speech is fluent slight left-sided facial droop noted motor strength is 4 x 5 bilateral upper lower extremity Objective - Vital Signs Vital signs: Vital Signs Temp 98.2 F 04/13/24 04:00 Pulse 86 04/13/24 08:38 Resp 16 04/13/24 07:00 BP 99/66 04/13/24 07:00 Pulse Ox 97 04/13/24 08:31 FiO2 35 04/11/24 03:00 Intake & Output 04/12/24 04/13/24 04/13/24 18:59 06:59 18:59 Intake Total 200.889 Output Total 528 570 35 Balance -327.111 -570 -35 Weight 106 kg Intake: Intake, IV Titration 200.889 Amount Norepinephrine 4 mg In 200.889 Sodium Chloride 0.9% 250 ml @ 0.03 MCG/KG/MIN 12. 573 mls/hr IV .[id number] COUNTS INCLUDE 234 BEDS AT THE [facility] Rx#:[id number] Output: Urine 528 570 35 Other: Voiding Method Indwelling Catheter Indwelling Catheter ABP, PAP, CO, CI - Last Documented Arterial Blood Pressure 40/27 - Labs CBC & Chem 7: 04/13/24 02:33 04/13/24 02:33 Labs: Abnormal Lab Results - Last 24 Hours (Table) 04/12/24 04/12/24 04/12/24 Range/Units 11:44 16:27 20:41 RBC (4.30-5.90) m/uL Hgb (13.0-17.5) gm/dL Hct (39.0-53.0) % RDW (11.5-15.5) % Sodium (137-145) mmol/L Glucose (74-99) mg/dL POC Glucose (mg/dL) 224 H 226 H 221 H (70-110) mg/dL Calcium (8.4-10.2) mg/dL 04/13/24 04/13/24 04/13/24 Range/Units 02:33 02:33 06:37 RBC 2.74 L (4.30-5.90) m/uL Hgb 7.1 L (13.0-17.5) gm/dL Hct 22.9 L (39.0-53.0) % RDW 18.9 H (11.5-15.5) % Sodium 131 L (137-145) mmol/L Glucose 167 H (74-99) mg/dL POC Glucose (mg/dL) 186 H (70-110) mg/dL Calcium 8.3 L (8.4-10.2) mg/dL Assessment and Plan Assessment: * acute non-ST elevated NM s/p PCI to LAD and circumflex requiring Impella assisted heart catheterization * multivessel coronary artery disease * shock requiring pressor support * left-sided facial droop and dysarthria rule out CVA * new onset atrial fibrillation * ischemic cardiomyopathy acute systolic congestive heart failure ejection fraction 60 to 65% * diabetes mellitus type 2 * COPD * history of obstructive sleep apnea * history of left carotid artery stenosis status post carotid artery stent February 2020 for * acute hypoxic respiratory failure * in regards to coronary artery diseasePatient had cardiac cath on 04/07: Showing 70% left main stenosis, 20 to 30% proximal LAD stenosis, 60 to 70% mid LAD stenosis, 30% stenosis of the circumflex artery and 100% stenosis of the right coronary artery. Patient is S/p Impella protected PCI left main into LAD/ circumflex using DK crush technique with 3.5 x 15mm Xience ROCKY into circumflex and 4.0 x 18mm Xience ROCKY left main into LAD Postcardiac cath neurological symptoms of slurred speech and mild right side weakness, currently completely resolved. CT of the brain is negative. Neurology consulted to rule out stroke or others. Could be related to hypotension postprocedure. * in regards to congestive heart failure, continue guideline directed medical therapy * in regards to neurological symptoms, CT head negative, neurology following, MRI brain pending * continue patient on dual antiplatelet therapy including aspirin and Plavix * Aamaryl is on hold, c/w insulin sliding scale, glucose currently controlled * Labs and medication were reviewed.. * DVT prophylaxis: heparin * GI Prophylaxis: protonix Time with Patient: Greater than 30
--- NOTE | 2024-04-13 12:34 | P.PN ---
Subjective Progress Note Date: 04/13/24 This is Reymundo Mansfield NP, I'm dictating on behalf of Dr. Michele's H&P and A&P. Patient was interviewed and examined. Patient is a pleasant 62-year-old male who presented to the hospital with an NSTEMI and is status post stent of the left main and left circumflex, with concern of possible stroke. Patient reports that he is feeling a lot better today. Patient's heart rate is well-controlled on current medication treatment. He is denying chest pain, shortness of breath, heart palpitations, dizziness. GENERAL: Well-appearing, well-nourished and in no acute distress. NECK: Supple without JVD or thyromegaly. LUNGS: Breath sounds clear to auscultation bilaterally. Respiration equal and unlabored. No wheezes, rales or rhonchi. HEART: Regular rate and rhythm without murmurs, rubs or gallops. S1 and S2 heard. EXTREMITIES: Normal range of motion, no edema. No clubbing or cyanosis. Peripheral pulses intact and strong. VITALS: Temp 97.4, pulse 85, respirations 18, blood pressure 107/70, O2 saturation 97% on 2 L TELEMETRY: Atrial fibrillation with controlled ventricular response LABS: White count 10.1, hemoglobin 7.1, platelets 285, sodium 131, potassium 4, BUN 19, creatinine 0.88 IMPRESSION: 1. NSTEMI 2. Status post stenting of the left main and left circumflex 3. New onset A-fib 4. History of mild ischemic cardiomyopathy, EF 60 to 65% 5. Possible TIA, MRI pending 6. Obstructive sleep apnea 7. Diabetes mellitus type 2 8. Carotid artery surgery with left carotid stent 03/19/2024 9. Severe pulmonary hypertension 10. Moderate to severe mitral regurgitation and mild to moderate tricuspid regurgitation 11. Anemia PLAN: Check total bilirubin, haptoglobin, LDH, and reticulocyte count for hemolytic anemia. Check iron and TIBC, ferritin, vitamin B12, and folic acid for other causes of anemia. Unsure of the mechanism for the dropping hemoglobin. Patient does not appear to be bleeding from any site. Continue current medications as prescribed. Further recommendations based on patient's clinical course. Objective - Vital Signs Vital signs: Vital Signs Temp 97.4 F L 04/13/24 08:00 Pulse 75 04/13/24 12:21 Resp 19 04/13/24 09:00 BP 104/59 04/13/24 09:00 Pulse Ox 94 L 04/13/24 09:00 FiO2 35 04/11/24 03:00 Intake & Output 04/12/24 04/13/24 04/13/24 18:59 06:59 18:59 Intake Total 200.889 Output Total 528 570 260 Balance -327.111 -570 -260 Weight 106 kg Intake: Intake, IV Titration 200.889 Amount Norepinephrine 4 mg In 200.889 Sodium Chloride 0.9% 250 ml @ 0.03 MCG/KG/MIN 12. 573 mls/hr IV .[id number] [facility] Rx#:[id number] Output: Urine 528 570 260 Other: Voiding Method Indwelling Catheter Indwelling Catheter ABP, PAP, CO, CI - Last Documented Arterial Blood Pressure - Labs CBC & Chem 7: 04/13/24 02:33 04/13/24 02:33 Labs: Abnormal Lab Results - Last 24 Hours (Table) 04/12/24 04/12/24 04/13/24 Range/Units 16:27 20:41 02:33 RBC 2.74 L (4.30-5.90) m/uL Hgb 7.1 L (13.0-17.5) gm/dL Hct 22.9 L (39.0-53.0) % RDW 18.9 H (11.5-15.5) % Sodium (137-145) mmol/L Glucose (74-99) mg/dL POC Glucose (mg/dL) 226 H 221 H (70-110) mg/dL Calcium (8.4-10.2) mg/dL 04/13/24 04/13/24 Range/Units 02:33 06:37 RBC (4.30-5.90) m/uL Hgb (13.0-17.5) gm/dL Hct (39.0-53.0) % RDW (11.5-15.5) % Sodium 131 L (137-145) mmol/L Glucose 167 H (74-99) mg/dL POC Glucose (mg/dL) 186 H (70-110) mg/dL Calcium 8.3 L (8.4-10.2) mg/dL
[2024-04-13 13:22] LABS: Reticulocyte % 7.5 % (0.5-2.0)
[2024-04-13 13:31] LABS: Total Bilirubin 1.2 mg/dL (0.2-1.3)
[2024-04-13 16:39] LABS: Glucose,Whole Blood 268 mg/dL (70-110)
[2024-04-13 20:12] LABS: Glucose,Whole Blood 266 mg/dL (70-110)
[2024-04-13 23:11] LABS: % Iron Saturation 4.86 (15.00-50.00)
[2024-04-13 23:48] LABS: Ferritin 86.2 ng/mL (22.0-322.0)
[2024-04-14 06:05] LABS: Glucose,Whole Blood 236 mg/dL (70-110)
[2024-04-14] MEDS: HEPARIN SODIUM,PORCINE 5,000 UNIT/ML 1 ML VIAL SQ SCH (08:32)
[2024-04-14 10:59] LABS: Anisocytosis Slight; Basophils % (A) 0 %; Eosinophils % (A) 0 %; HCT 25.9 % (39.0-53.0); HGB 7.8 gm/dL (13.0-17.5); Hypochromasia Marked; Lymphocytes # (A) 1.2 k/uL (1.0-4.8); Lymphocytes % (A) 9 %; MCH 24.9 pg (25.0-35.0); MCV 82.9 fL (80.0-100.0); Mean Platelet Volume 6.8; Monocytes # (A) 0.6 k/uL (0-1.0); Monocytes % (A) 4 %; Neutrophils % (A) 85 %; Platelet Count 320 k/uL (150-450); Poikilocytosis Moderate; RBC 3.12 m/uL (4.30-5.90); RDW 18.6 % (11.5-15.5)
[2024-04-14] MEDS: SODIUM FERRIC GLUCONAT-SUCROSE 125 MG in SODIUM CHLORIDE 0.9% 100 ML IVPB SCH (11:06)
[2024-04-14 11:09] LABS: African American GFR (CKD) >90 (>60 ml/min/1.73 sqM); Anion Gap 7 mmol/L; Blood Urea Nitrogen 21 mg/dL (9-20); Calcium 8.6 mg/dL (8.4-10.2); Carbon Dioxide 23 mmol/L (22-30); Chloride 102 mmol/L (98-107); Glucose 213 mg/dL (74-99); Non-African American GFR(CKD) 83 (>60 ml/min/1.73 sqM); Potassium 3.6 mmol/L (3.5-5.1); Sodium 132 mmol/L (137-145)
[2024-04-14 11:29] LABS: Glucose,Whole Blood 226 mg/dL (70-110)
--- NOTE | 2024-04-14 13:25 | P.PN ---
Subjective Progress Note Date: 04/14/24 On today's evaluation of 04/14/2024, the patient is resting comfortably in bed. The patient is currently on 4 L of oxygen by nasal cannula. Denies having any chest pain. Denies having any significant shortness of breath. He is awaiting MRI of the brain as the patient had an episode of seizure during this current hospital stay. Noted he has a history of coronary artery disease and is status post a complex coronary intervention requiring an Impella assisted cardiac catheterization and PCI of the left main into LAD and circumflex and placement of coronary stents. Patient is known to have severe multivessel coronary artery disease and has undergone multiple PCI and stenting and he has a preserved LV function with an ejection fraction of 6065% with moderate to severe mitral regurgitation and severe pulm hypertension. He has diabetes mellitus type 2, hypertension, hyperlipidemia, obstructive sleep apnea and BPH. He is an ex smoker. For now, the patient's white cell count is at 13 with a hemoglobin 7.8 and a platelet count of 320. Electrolytes are all within normal limits. In terms of medication, the patient is on aspirin and Plavix. The patient remains on metoprolol 25 mg XL at bedtime. The patient remains on Lipitor 40 mg p.o. daily. He remains on amiodarone 200 mg p.o. twice a day. He is receiving IV iron for a component of iron deficiency anemia. Hemoglobin today is at 7.8. Patient is also on stress dose hydrocortisone. At 1535 patient developed CVI/TIA symptoms including left-sided facial droop and dysarthria. His NIH was initially scored at an 8 per nursing. Code stroke was called. Brain CT did not show any acute findings. Patient's blood pressure was noted to be hypotensive during this event. Blood pressure was reportedly 80s over 40s. He did receive 1.5 L fluid bolus in the form of normal saline. Blood pressure remains oksana nal. Neurology recommended vasopressors to improve hypotension and hopefully neurological symptoms. Follow-up carotid Doppler did not show any hemodynamically significant stenosis of right or left internal carotid arteries. The left common carotid artery stent was noted. Right vertebral artery was not visualized. MRI of the brain to be done today. Objective - Vital Signs Vital signs: Vital Signs Temp 97.5 F L 04/14/24 08:29 Pulse 82 04/14/24 08:54 Resp 18 04/14/24 08:29 BP 126/67 04/14/24 08:29 Pulse Ox 95 04/14/24 08:29 FiO2 35 04/13/24 08:00 Intake & Output 04/13/24 04/14/24 04/14/24 18:59 06:59 18:59 Output Total 360 Balance -360 Weight 104 kg Output: Urine 360 Other: Voiding Method Urinal Toilet Toilet # Voids 2 # Bowel Movements 1 ABP, PAP, CO, CI - Last Documented Arterial Blood Pressure 40/27 - Exam No acute distress, oriented 3. No respiratory distress. The patient is currently on 4 L nasal cannula. HEENT examination is grossly unremarkable. Mucous membranes are moist. No oral lesions. Neck supple. Full range of motion. No adenopathy thyromegaly or neck vein distention. Cardiovascular examination reveals regular rhythm rate. S1-S2 normal. No S3 or S4. Harsh systolic murmur is noted. Lungs reveal minimal basilar crackles. No wheezes. No rhonchi. Breath sounds equal. Abdomen soft bowel sounds are heard. No masses or tenderness. Extremities are intact. No cyanosis or clubbing. 2+ lower extremity pitting edema is noted. Skin is without rash or lesion. Neurologic examination is brief but nonfocal. - Labs CBC & Chem 7: 04/14/24 10:29 04/14/24 10:29 Labs: Abnormal Lab Results - Last 24 Hours (Table) 04/13/24 04/13/24 04/13/24 Range/Units 12:46 12:46 16:38 Retic Count 7.5 H (0.5-2.0) % POC Glucose (mg/dL) 268 H (70-110) mg/dL Iron 18 L (65-175) UG/DL % Saturation 4.86 L (15.00-50.00) 04/13/24 04/14/24 Range/Units 20:10 06:03 Retic Count (0.5-2.0) % POC Glucose (mg/dL) 266 H 236 H (70-110) mg/dL Iron (65-175) UG/DL % Saturation (15.00-50.00) Assessment and Plan Plan: Acute non-ST elevation VT status postoperative day #4 following Impella assisted heart catheterization involving PCI to the left main into the LAD/circumflex using DK crush technique with 3.5 x 1.5 mm Xience ROCKY into circumflex and 4.0 x 18 mm Xience ROCKY left main into LAD. Possible TIA. Symptomatic hypotension, secondary to relative adrenal insufficiency. History of left carotid artery stenosis status post carotid artery stent done March 19, 2024. Severe multivessel coronary artery disease, patient has had multiple PCI/stents. Acute hypoxemic respiratory failure. Echocardiogram estimating left ventricular ejection fraction of 60 to 65%. Mild concentric LVH. Moderate to severe mitral regurgitation, as well as, severe pulmonary hypertension, and mild to moderate tricuspid regurgitation. Anemia, chronic. History of diabetes mellitus. History of hypertension. History of hyperlipidemia. History of TURP. History of obstructive sleep apnea, no longer uses CPAP at home. Obesity, with a BMI of 33.8 kg/m. Former tobacco dependence, quit smoking in 1983. Plan: Patient is currently on 4 L of O2 nasal cannula Continue aspirin and Plavix Continue metoprolol XL 25 mg at bedtime Continue amiodarone Continue statins and the patient is currently on Lipitor Discontinue stress dose hydrocortisone MRI of the brain today Increase mobility Will continue to follow
--- NOTE | 2024-04-14 13:47 | P.PN ---
Subjective Progress Note Date: 04/14/24 Principal diagnosis: Non-ST elevation myocardial infarction with TIA. Mr. Waldrop is a 79-year-old male with medical history of coronary artery disease, diabetes, hypertension, hyperlipidemia, obstructive sleep apnea on CPAP, bite disorder, benign prostatic hypertrophy, arrhythmia, nephrolithiasis and glaucoma. Patient was admitted to [facility] on April 04 with the symptoms of chest pain as well as shortness of breath for 5 days. He was evaluated and chart determined to have a coronary artery disease and with a stent was placed on March the night. Subsequent to this procedure the patient had an episode of left-sided facial weakness and slurred speech which was noted soon thereafter his NIH was 4 at that time but symptoms resolved. He was noted also to be hypotensive at the time with a blood pressure 80/[address] was negative. He was seen by neurology on April 08 and considered to have a likely TIA. He was placed on aspirin as well as Plavix and Lipitor. On rechecks April 09 to April 11 the patient was felt well and MRI was ordered to of his brain on April 09. This is pending at this time. On follow-up April 14. The patient's MRI scheduled for today. Patient feels well and his neurologic examination is fully nonfocal at this time. He is on aspirin and Plavix. His LDL was noted to be 76 and he is not on Lipitor at this time but I would recommend 40 mg of Lipitor for for his home use. Assessment: Mr. Waldrop is a 79-year-old male who suffered a TIA following stenting procedure on April 07. His symptoms appear to be the improved back to normal at this time. Plan: 1. I will follow-up the patient's MRI of the brain and make further recommendations as needed based on the results. 2. Patient should likely be able to be discharged either tomorrow or the following day based on the results of his MRI and further progress. 3. Neurology will continue to continue to follow him possibly on an intermitt ent basis if the MRI is not done today. Objective - Vital Signs Vital signs: Vital Signs Temp 97.4 F L 04/14/24 11:09 Pulse 80 04/14/24 12:04 Resp 16 04/14/24 11:09 BP 108/73 04/14/24 11:09 Pulse Ox 99 12/16/24 11:09 FiO2 35 04/13/24 08:00 Intake & Output 04/13/24 04/14/24 04/14/24 18:59 06:59 18:59 Intake Total 0 Output Total 360 Balance -360 0 Weight 104 kg Intake: Oral 0 Output: Urine 360 Other: Voiding Method Urinal Toilet Toilet # Voids 2 # Bowel Movements 1 ABP, PAP, CO, CI - Last Documented Arterial Blood Pressure 40/27 - Labs CBC & Chem 7: 04/14/24 10:29 04/14/24 10:29 Labs: Abnormal Lab Results - Last 24 Hours (Table) 04/13/24 04/13/24 04/13/24 Range/Units 12:46 16:38 20:10 WBC (3.8-10.6) k/uL RBC (4.30-5.90) m/uL Hgb (13.0-17.5) gm/dL Hct (39.0-53.0) % MCH (25.0-35.0) pg MCHC (31.0-37.0) g/dL RDW (11.5-15.5) % Neutrophils # (1.3-7.7) k/uL Sodium (137-145) mmol/L BUN (9-20) mg/dL Glucose (74-99) mg/dL POC Glucose (mg/dL) 268 H 266 H (70-110) mg/dL Iron 18 L (65-175) UG/DL % Saturation 4.86 L (15.00-50.00) 04/14/24 04/14/24 04/14/24 Range/Units 06:03 10:29 10:29 WBC 13.0 H (3.8-10.6) k/uL RBC 3.12 L (4.30-5.90) m/uL Hgb 7.8 L (13.0-17.5) gm/dL Hct 25.9 L (39.0-53.0) % MCH 24.9 L (25.0-35.0) pg MCHC 30.0 L (31.0-37.0) g/dL RDW 18.6 H (11.5-15.5) % Neutrophils # 11.0 H (1.3-7.7) k/uL Sodium 132 L (137-145) mmol/L BUN 21 H (9-20) mg/dL Glucose 213 H (74-99) mg/dL POC Glucose (mg/dL) 236 H (70-110) mg/dL Iron (65-175) UG/DL % Saturation (15.00-50.00) 04/14/24 Range/Units 11:28 WBC (3.8-10.6) k/uL RBC (4.30-5.90) m/uL Hgb (13.0-17.5) gm/dL Hct (39.0-53.0) % MCH (25.0-35.0) pg MCHC (31.0-37.0) g/dL RDW (11.5-15.5) % Neutrophils # (1.3-7.7) k/uL Sodium (137-145) mmol/L BUN (9-20) mg/dL Glucose (74-99) mg/dL POC Glucose (mg/dL) 226 H (70-110) mg/dL Iron (65-175) UG/DL % Saturation (15.00-50.00)
--- NOTE | 2024-04-14 13:57 | P.PN ---
Subjective Progress Note Date: 04/14/24 Patient is a pleasant 62-year-old male who presented to the hospital with an NSTEMI and is status post stent of the left main and left circumflex, with concern of possible stroke. Patient reports that he is feeling a lot better today. Patient's heart rate is well-controlled on current medication treatment. He is denying chest pain, shortness of breath, heart palpitations, dizziness. VITALS: Temp 97.4, pulse 85, respirations 18, blood pressure 107/70, O2 saturation 97% on 2 L TELEMETRY: Atrial fibrillation with controlled ventricular response LABS: White count 10.1, hemoglobin 7.1, platelets 285, sodium 131, potassium 4, BUN 19, creatinine 0.88 04/14/2024 Patient seen and examined. Patient has been seen by GI and is scheduled for EGD tomorrow. Anticoagulation is on hold due to anemia. Patient states that her breathing is better. She denies having any chest pain. Patient did have episod e this morning where she was hypoxic and oxygen was increased to 4 L. Patient is currently in a sinus rhythm. Blood pressure 108/73, heart rate 81, pulse ox 99% on 4 L nasal cannula. Repeat blood work reveals WBC 13, hemoglobin 7.8. Sodium 132, potassium 3.6, BUN 21 creatinine 0.88 GENERAL: Well-appearing, well-nourished and in no acute distress. NECK: Supple without JVD or thyromegaly. LUNGS: Breath sounds clear to auscultation bilaterally. Respiration equal and unlabored. No wheezes, rales or rhonchi. HEART: Regular rate and rhythm without murmurs, rubs or gallops. S1 and S2 heard. EXTREMITIES: Normal range of motion, no edema. No clubbing or cyanosis. Peripheral pulses intact and strong. IMPRESSION: 1. NSTEMI 2. Status post stenting of the left main and left circumflex 3. New onset A-fib 4. History of mild ischemic cardiomyopathy, EF 60 to 65% 5. Possible TIA, MRI pending 6. Obstructive sleep apnea 7. Diabetes mellitus type 2 8. Carotid artery surgery with left carotid stent 03/19/2024 9. Severe pulmonary hypertension 10. Moderate to severe mitral regurgitation and mild to moderate tricuspid regurgitation 11. Anemia, scheduled for EGD on Sunday PLAN: Anticoagulation is on hold due to anemia Patient is scheduled for EGD on Sunday with GI Continue patient on amiodarone 200 mg twice daily, aspirin 81 mg daily, atorvastatin 40 mg at bedtime, Plavix 75 mg daily, Toprol XL 25 mg at bedtime Start patient on anticoagulation once cleared by GI Further recommendations as patient progresses. Nurse practitioner note has been reviewed, I agree with documented findings and plan of care. Patient was seen and examined. Objective - Vital Signs Vital signs: Vital Signs Temp 97.4 F L 04/14/24 11:09 Pulse 81 04/14/24 11:09 Resp 16 04/14/24 11:09 BP 108/73 04/14/24 11:09 Pulse Ox 99 04/14/24 11:09 FiO2 35 04/13/24 08:00 Intake & Output 04/13/24 04/14/24 04/14/24 18:59 06:59 18:59 Output Total 360 Balance -360 Weight 104 kg Output: Urine 360 Other: Voiding Method Urinal Toilet Toilet # Voids 2 # Bowel Movements 1 ABP, PAP, CO, CI - Last Documented Arterial Blood Pressure 40/27 - Labs CBC & Chem 7: 04/14/24 10:29 04/14/24 10:29 Labs: Abnormal Lab Results - Last 24 Hours (Table) 04/13/24 04/13/24 04/13/24 Range/Units 12:46 12:46 16:38 WBC (3.8-10.6) k/uL RBC (4.30-5.90) m/uL Hgb (13.0-17.5) gm/dL Hct (39.0-53.0) % MCH (25.0-35.0) pg MCHC (31.0-37.0) g/dL RDW (11.5-15.5) % Neutrophils # (1.3-7.7) k/uL Retic Count 7.5 H (0.5-2.0) % Sodium (137-145) mmol/L BUN (9-20) mg/dL Glucose (74-99) mg/dL POC Glucose (mg/dL) 268 H (70-110) mg/dL Iron 18 L (65-175) UG/DL % Saturation 4.86 L (15.00-50.00) 04/13/24 04/14/24 04/14/24 Range/Units 20:10 06:03 10:29 WBC 13.0 H (3.8-10.6) k/uL RBC 3.12 L (4.30-5.90) m/uL Hgb 7.8 L (13.0-17.5) gm/dL Hct 25.9 L (39.0-53.0) % MCH 24.9 L (25.0-35.0) pg MCHC 30.0 L (31.0-37.0) g/dL RDW 18.6 H (11.5-15.5) % Neutrophils # 11.0 H (1.3-7.7) k/uL Retic Count (0.5-2.0) % Sodium (137-145) mmol/L BUN (9-20) mg/dL Glucose (74-99) mg/dL POC Glucose (mg/dL) 266 H 236 H (70-110) mg/dL Iron (65-175) UG/DL % Saturation (15.00-50.00) 04/14/24 Range/Units 10:29 WBC (3.8-10.6) k/uL RBC (4.30-5.90) m/uL Hgb (13.0-17.5) gm/dL Hct (39.0-53.0) % MCH (25.0-35.0) pg MCHC (31.0-37.0) g/dL RDW (11.5-15.5) % Neutrophils # (1.3-7.7) k/uL Retic Count (0.5-2.0) % Sodium 132 L (137-145) mmol/L BUN 21 H (9-20) mg/dL Glucose 213 H (74-99) mg/dL POC Glucose (mg/dL) (70-110) mg/dL Iron (65-175) UG/DL % Saturation (15.00-50.00)
[2024-04-14 16:11] LABS: Glucose,Whole Blood 198 mg/dL (70-110)
--- NOTE | 2024-04-14 16:48 | P.CONS ---
History of Present Illness - Reason for Consult Consult date: 04/14/24 Anemia, GI bleed Requesting physician: Krista Rosales - Chief Complaint Chest pain - History of Present Illness This a pleasant 79-year-old with significant cardiac history in the past who had presented to the emergency department on 04/04/2024 with complaints of chest p ain. Also has past medical history of diabetes and hypertension. Patient was noted to have acute coronary syndrome underwent cardiac cath on 04/07/2024 with placement of Impella and balloon angioplasty. During this hospitalization patient has had continued trending down and his hemoglobin. Patient is also reported some occasional dark stools. Gastroenterology was consulted for anemia and possible GI bleed. Patient is on aspirin and Plavix and does report that he takes Motrin daily as well. Iron studies were collected and patient had consistency with iron deficiency anemia. He denies any history of peptic ulcer disease. Denies any abdominal pain states he does get some heartburn and b elching. He has never had an EGD done. States last colonoscopy he thought was within the last few months however his last colonoscopy was in 2020 significant for colon polyps status post polypectomy. Review of Systems REVIEW OF SYSTEMS: CARDIOPULMONARY: No chest pain or shortness of breath. Gastrointestinal: No abdominal pain. Patient reports acid reflux. No nausea or vomiting. No hematemesis, coffee-ground emesis. No rectal bleeding, patient does report occasional black stool. GENITOURINARY: No dysuria or hematuria. MUSCULOSKELETAL: Reports normal range of motion., Joint pain. SKIN: No rashes. No jaundice. ENDOCRINE: No chills, fevers. No excessive weight gain or loss. No polydipsia or polyuria. PSYCHIATRIC: Unremarkable. NEUROLOGY: No change in mental status. Denies dizziness, headache. ENT: Vision unremarkable. CONSTITUTIONAL: No recent weight loss. No fever, chills, night sweats. Past Medical History Past Medical History: Coronary Artery Disease (CAD), Chest Pain / Angina, Diabetes Mellitus, Eye Disorder, Hyperlipidemia, Hypertension, Myocardial Infarction (ND), Prostate Disorder, Sleep Apnea/CPAP/BIPAP Additional Past Medical History / Comment(s): occ irregular heartrate, no cpap used- lost wt, hx grout, kidney stone, glaucoma. Last Myocardial Infarction Date:: unk History of Any Multi-Drug Resistant Organisms: None Reported Past Surgical History: Appendectomy, Heart Catheterization With Stent, Orthopedic Surgery, Prostate Surgery, Tonsillectomy Additional Past Surgical History / Comment(s): Bilateral corneal transplant, bilateral cataract surgery, left knee replacement,TURP, cardiac stents X4, 2nd right eye surgery after cataract removed. cartoid stent left 02/2024 Additional Past Anesthesia/Blood Transfusion Reaction / Comm: "hard time waking up" Date of Last Stent Placement:: 04/02/2024 Past Psychological History: No Psychological Hx Reported Smoking Status: Former smoker Past Alcohol Use History: None Reported Past Drug Use History: None Reported - Past Family History Father Additional Family Medical History / Comment(s): Triple bypass in his 80s ( at 93 years old) Brother(s) Additional Family Medical History / Comment(s): Triple bypass in his 40s (still alive in his 80s) Mother Additional Family Medical History / Comment(s): Medications and Allergies Home Medications Medication Instructions Recorded Confirmed Type Albuterol Sulfate [Albuterol 2 puff INHALATION RT-Q6H PRN 02/07/23 04/04/24 History Sulfate Hfa] Carboxymethylcellulose Sodium 1 drop BOTH EYES QID PRN 02/07/23 04/04/24 History [Refresh Tears] Glimepiride [Amaryl] 2 mg PO HS 02/07/23 04/04/24 History Clopidogrel [Plavix] 75 mg PO HS 02/19/24 04/04/24 History Losartan [Cozaar] 25 mg PO HS 02/19/24 04/04/24 History Nitroglycerin 0.4 mg SL Q5M PRN 02/19/24 04/04/24 History Atorvastatin [Lipitor] 40 mg PO HS #90 tab 03/20/24 04/04/24 Rx Aspirin 81 mg PO HS 03/28/24 04/04/24 History Fluticasone/Umeclidin/Vilanter 1 puff INHALATION RT-HS 03/28/24 04/04/24 History [Trelegy Ellipta 200-62.5-25] Ibuprofen [Motrin Ib] 400 mg PO Q6H PRN 03/28/24 04/04/24 History Metoprolol Succinate (ER) [Toprol 25 mg PO HS 03/28/24 04/04/24 History XL] Allergies Allergy/AdvReac Type Severity Reaction Status Date / Time No Known Allergies Allergy Verified 04/04/24 13:59 Physical Exam Vitals: Vital Signs Temp Pulse Pulse Resp BP BP BP 04/14/24 11:09 97.4 F L 81 16 108/73 04/14/24 08:54 82 04/14/24 08:41 82 04/14/24 08:29 97.5 F L 82 18 126/67 04/14/24 04:00 97.7 F 85 22 101/66 04/14/24 00:00 97.9 F 71 16 102/69 04/13/24 21:42 70 04/13/24 21:31 70 04/13/24 20:00 97.6 F 82 16 120/74 04/13/24 17:21 97.5 F L 71 22 118/79 04/13/24 16:05 68 04/13/24 15:56 70 04/13/24 14:00 13 04/13/24 12:21 75 04/13/24 12:12 80 04/13/24 12:00 79 13 98/65 Pulse Ox 04/14/24 11:09 99 04/14/24 08:54 04/14/24 08:41 04/14/24 08:29 95 04/14/24 04:00 94 L 04/14/24 00:00 91 L 04/13/24 21:42 04/13/24 21:31 04/13/24 20:00 93 L 04/13/24 17:21 94 L 04/13/24 16:05 04/13/24 15:56 04/13/24 14:00 04/13/24 12:21 04/13/24 12:12 04/13/24 12:00 97 Intake and Output 04/13/24 04/14/24 04/14/24 22:59 06:59 14:59 Output Total 100 Balance -100 Output: Urine 100 Other: Voiding Method Toilet Toilet Toilet # Voids 2 # Bowel Movements 1 Weight 104 kg General appearance: The patient is alert, oriented, appears in no acute distress. HET: Head is normocephalic and atraumatic. Conjunctiva pink. Sclera anicteric. Neck: Supple without lymphadenopathy. Trachea midline. Heart: Regular. Lungs: Equal expansion, normal respiratory effort. Abdomen: Soft, nontender, nondistended. Skin: No rashes. No jaundice. Extremities: Normal skin color and turgor. No pedal edema. Neurological: No focal deficits. Alert and oriented x3. Results CBC & Chem 7: 04/14/24 10:29 04/14/24 10:29 Labs: Abnormal Lab Results - Last 24 Hours (Table) 04/13/24 04/13/24 04/13/24 Range/Units 12:46 12:46 16:38 WBC (3.8-10.6) k/uL RBC (4.30-5.90) m/uL Hgb (13.0-17.5) gm/dL Hct (39.0-53.0) % MCH (25.0-35.0) pg MCHC (31.0-37.0) g/dL RDW (11.5-15.5) % Neutrophils # (1.3-7.7) k/uL Retic Count 7.5 H (0.5-2.0) % Sodium (137-145) mmol/L BUN (9-20) mg/dL Glucose (74-99) mg/dL POC Glucose (mg/dL) 268 H (70-110) mg/dL Iron 18 L (65-175) UG/DL % Saturation 4.86 L (15.00-50.00) 04/13/24 04/14/24 04/14/24 Range/Units 20:10 06:03 10:29 WBC 13.0 H (3.8-10.6) k/uL RBC 3.12 L (4.30-5.90) m/uL Hgb 7.8 L (13.0-17.5) gm/dL Hct 25.9 L (39.0-53.0) % MCH 24.9 L (25.0-35.0) pg MCHC 30.0 L (31.0-37.0) g/dL RDW 18.6 H (11.5-15.5) % Neutrophils # 11.0 H (1.3-7.7) k/uL Retic Count (0.5-2.0) % Sodium (137-145) mmol/L BUN (9-20) mg/dL Glucose (74-99) mg/dL POC Glucose (mg/dL) 266 H 236 H (70-110) mg/dL Iron (65-175) UG/DL % Saturation (15.00-50.00) // Range/Units 10:29 WBC (3.8-10.6) k/uL RBC (4.30-5.90) m/uL Hgb (13.0-17.5) gm/dL Hct (39.0-53.0) % MCH (25.0-35.0) pg MCHC (31.0-37.0) g/dL RDW (11.5-15.5) % Neutrophils # (1.3-7.7) k/uL Retic Count (0.5-2.0) % Sodium 132 L (137-145) mmol/L BUN 21 H (9-20) mg/dL Glucose 213 H (74-99) mg/dL POC Glucose (mg/dL) (70-110) mg/dL Iron (65-175) UG/DL % Saturation (15.00-50.00) Assessment and Plan (1) Anemia Narrative/Plan: 79-year-old male who came in for chest pain and acute coronary syndrome underwent cardiac catheterization with Impella and balloon angioplasty who since his admission was found to have his hemoglobin trending down with reported dark stool. No history of peptic ulcer disease in the past but does take Motrin and Aleve daily for joint pain. He is now on aspirin and Plavix. Need to consider possible peptic ulcer disease, esophagitis, gastritis, AVM or other possible etiologies. Last colonoscopy in 2020 significant for colon polyps. Recommend proceeding with diagnostic upper endoscopy to evaluate for possible upper GI bleed. Current Visit: Yes Status: Acute Code(s): D64.9 - ANEMIA, UNSPECIFIED SNOMED Code(s): 721180090 (2) Diabetes mellitus Current Visit: Yes Status: Acute Code(s): E11.9 - TYPE 2 DIABETES MELLITUS WITHOUT COMPLICATIONS SNOMED Code(s): 57931853 (3) Coronary artery disease Current Visit: Yes Status: Acute Code(s): I25.10 - ATHSCL HEART DISEASE OF [place] CORONARY ARTERY W/O ANG PCTRS SNOMED Code(s): 19158775 (4) Acute non-ST elevation myocardial infarction (NSTEMI) Current Visit: Yes Status: Acute Code(s): I21.4 - NON-ST ELEVATION (NSTEMI) MYOCARDIAL INFARCTION SNOMED Code(s): 962091822 (5) Chest pain Current Visit: No Status: Acute Code(s): R07.9 - CHEST PAIN, UNSPECIFIED SNOMED Code(s): 66226634 Plan: 1. Continue symptomatic and supportive care 2. Daily CBC, transfuse for hemoglobin less than 7 3. Protonix 40 mg daily 4. Avoid NSAIDs 5. N.p.o. after midnight 6. Will proceed with diagnostic upper endoscopy tomorrow Thank you for this consultation, we will continue to follow. Dr. Tiffanie Pena I agree with the dictator's note, documented as a scribe by Adilia Amos.
--- NOTE | 2024-04-14 20:06 | MR ---
EXAMINATION TYPE: MR brain wo con DATE OF EXAM: 04/14/2024 6:19 PM COMPARISON: 04/09/2024. CLINICAL INDICATION: Male, 79 years old with history of Dysphagia/Weakness; PHH, Dysphagia/Weakness TECHNIQUE: Multi planar, multi sequence imaging was performed through the brain including: T1, T2, In version recovery, Diffusion weighted imaging, and gradient echo imaging. No gadolinium was given. FINDINGS: Left frontal lobe T2 shine through from prior injury with surrounding gliosis on FLAIR imag ing. High d-dimer signal in the left frontal lobe outside the brain noted. Mild cerebral atrophy with proportional dilation of ventricular system. Scattered foci of high T2 signal intensity are seen w ithin the periventricular white matter. Midline structures show no abnormality. Diffusion-weighted im aging shows no evidence of restricted diffusion. The susceptibility weighted images do not reveal any evidence for micro-hemorrhage. The bone marrow signal is within normal limits. Paranasal sinuses and mastoid air cells: No significant paranasal sinus disease. Visualized orbits: Bilateral aphakia IMPRESSION: 1. No evidence of intracranial mass or acute/subacute infarct. 2. Nonspecific white matter changes, likely secondary to small vessel ischemic disease. 3. Remote injury left frontal lobe with surrounding gliosis. [facility], , 04/14/2024 8:04 PM
[2024-04-14 20:08] LABS: Glucose,Whole Blood 173 mg/dL (70-110)
[2024-04-15 06:13] LABS: Glucose,Whole Blood 145 mg/dL (70-110)
[2024-04-15 07:39] LABS: Anisocytosis Slight; HCT 25.5 % (39.0-53.0); HGB 7.8 gm/dL (13.0-17.5); Hypochromasia Marked; MCH 25.4 pg (25.0-35.0); MCHC 30.7 g/dL (31.0-37.0); MCV 82.9 fL (80.0-100.0); Mean Platelet Volume 8.2; Platelet Count 356 k/uL (150-450); Poikilocytosis Moderate; RBC 3.08 m/uL (4.30-5.90); RDW 18.7 % (11.5-15.5); WBC 12.7 k/uL (3.8-10.6)
[2024-04-15] MEDS ORDERED: LIDOCAINE 1% (10MG/ML) FOR IV START INTRADERMA PRN (07:58)
[2024-04-15 08:07] LABS: African American GFR (CKD) 78 (>60 ml/min/1.73 sqM); Anion Gap 8 mmol/L; Blood Urea Nitrogen 21 mg/dL (9-20); Calcium 8.6 mg/dL (8.4-10.2); Carbon Dioxide 28 mmol/L (22-30); Chloride 99 mmol/L (98-107); Glucose 131 mg/dL (74-99); Non-African American GFR(CKD) 67 (>60 ml/min/1.73 sqM); Potassium 3.5 mmol/L (3.5-5.1); Sodium 135 mmol/L (137-145)
--- NOTE | 2024-04-15 10:29 | P.PN ---
Subjective Progress Note Date: 04/14/24 79-year-old male, history of coronary artery disease, carotid artery disease, obstructive sleep apnea, diabetes mellitus type 2, hypertension, who presents to the emergency department with history of recent cardiac catheterization on 02/03/2024 with 5 stents in the past. Patient states he started having chest pain and difficulty breathing 5 days ago. Patient states it does worsen with exertion. Patient states the pain radiates down both arms. Patient denies any diaphoretic episodes. Patient denies any nausea. Patient denies any abdominal pain. Patient denies a headache. Patient states that he has had no recent fever chills or cough. Patient states she has been a little more swelling in his legs Patient had a previous cardiac catheterization on 02/03/2024 and he was referred to cardiothoracic surgery for CABG evaluation of the left main disease. He met with Dr. Polanco and was deemed high risk and therefore referred for stenting and not CABG. Patient states the chest pain started on at home. It did not seem to be too bad and then on Sunday he decided to come into the hospital for evaluation. Nitropaste did not take the pain away. He states the chest pain is now gone. He also states he has had lower extremity edema ever since he had the stent of the carotid done on 03/19. Patient has been started on a heparin drip. Blood pressure 99/58, heart rate 68, pulse ox 97% on room air. Patient has been started on a heparin drip. -EKG: Sinus rhythm with first-degree block -Chest x-ray: Chronic changes without acute pulmonary process. No significant change from prior. -Laboratory studies: WBC 8.8, hemoglobin 9.2. Electrolytes within normal limits. Creatinine 1.1. Troponin 0.59, 1.18, 1.5. Urinalysis positive for RBCs and WBCs. -Home cardiac medications: Aspirin 81 mg daily, atorvastatin 40 mg at bedtime, Plavix 75 mg at bedtime, losartan 25 mg at bedtime, Toprol XL 25 mg at bedtime, nitroglycerin sublingual. -03/19/2024: Carotid artery stenosis 99% proximal left internal status post left carotid stent. -Echocardiogram performed in the office on 01/18/2024 revealed EF of 55 to 60%, severe LVH, mild aortic stenosis, mild mitral regurgitation, mild tricuspid regurgitation, PASP 42 mmHg. 24-hour interval change 04/06/2024 Patient seen and examined in room at bedside. Patient denies having any chest pain no shortness of breath. He has been maintained on a heparin drip. Patient is on nitro paste which seems to control his chest pain. Vital signs are reviewed and remained stable with blood pressure 102/66, heart rate 77, pulse ox 94% on room air. -- blood work reveals hemoglobin 7.8, sodium 136, potassium 3.8, BUN 16 cr eatinine 1.02. - Echocardiogram reveals EF of 60 to 65%, severe pulmonary hypertension, moderate to severe mitral regurgitation, mild to moderate tricuspid regurgitation. Make patient n.p.o. after midnight Schedule patient for left heart cath on Sunday with Dr. Roque 04/07 This is a pleasant 79 years old male who presents with signs symptoms of chest pain suspicious for non-STEMI. He had recently diagnosed with non-STEMI and he underwent PCI to left circumflex on 04/02 Also patient had shortness of breath on admission and coughing up blood. Chest x-ray on admission read as chronic changes without acute pulmonary process per radiologist. Today he still complaining from shortness of breath. We are going to repeat the chest x-ray Cardiology team also planning to repeat cardiac cath today. Patient confirms to me he has been using aspirin and Plavix at home which are resumed currently. Also he is on a heparin drip. Anemia this admission is 8-9.5, he had recent baseline about 14-15 more than 1 month ago. Patient denies any signs of overt bleeding recently. Patient states he has been constipated since last Sunday. Will going to start him on laxative Will do an anemia workup Echocardiogram is showing EF 60 to 65% with severe pulmonary hypertension and moderate to severe mitral regurgitation and mild to moderate tricuspid regurgitation 04/08 Patient yesterday underwent cardiac cath per cardiology team showing coronary artery disease with 70% left main stenosis, 20 to 30% proximal LAD stenosis, 60 to 70% mid LAD stenosis, 30% stenosis of the circumflex artery and 100% stenosis of the right coronary artery. Patient is S/p Impella protected PCI left main into LAD/ circumflex using DK crush technique with 3.5 x 15mm Xience ROCKY into circumflex and 4.0 x 18mm Xience ROCKY left main into LAD After the procedure patient was sent to the ICU where he had transient symptoms of difficulty talking and slurred speech associated with mild weakness on the right side as patient tells me, the symptoms lasted for about an hour. Code stroke was called and CT of the brain and carotid duplex ordered which were basically negative for acute findings to explain patient's symptoms. Neurology was contacted and recommended to keep her blood pressure elevated so patient was started on Levophed. However patient chronically blood pressure is 90s to 100. Prior to the procedure patient was already on aspirin, Plavix and heparin drip Hemoglobin is 7.3, anemia workup showing iron deficiency anemia. Vitamin B12 also borderline. Will give one-time dose of Furric gluconate. Monitor hemoglobin closely 06/10 Patient is tachypneic this morning with no chest pain He denies bleeding from anywhere. Hemoglobin today 6.8, 1 unit of blood transfusion is ordered. He received small dose of IV Lasix 20 mg yesterday. Currently blood pressure 118/78, also he is on Levophed 0.3 to support blood pressure given his stroke symptoms post cardiac cath. Patient is mildly tachycardic. Afebrile. Has good oxygen saturation 99 4% on 3 L. Other labs looks unremarkable. We will increase Protonix to twice daily CT of the brain and MRI of the brain are pending for his recent neurological symptoms which looks resolved now with the control of the blood pressure. 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 04/11 Patient feels more comfortable today, his dyspnea is betterHe denies chest painHe is continued on amiodarone drip Also he is on Levophed at 0.15On exam he has better breathing and air entry on both sides with no other less wheezing Patient got 1 unit of blood transfusion on 04/09. Currently hemoglobin stable at 7.7. Patient is not getting heparin currently 04/12-patient seen and evaluated at bedside, on evaluation patient is awake and alert, he denies feeling down but able to move bilateral upper and lower extremities patient denies feeling dizzy. Blood work reviewed hemoglobin 7.5 platelet 294's serum chemistry sodium 130 magnesium within normal limits potassium 4 04/13- patient seen and evaluated at bedside, MRI brain pending, he remains on 2 L of oxygen, CBC reviewed hemoglobin 7.1 platelet 285, sodium 131 calcium of 8.3, patient denies having tingling numbness plan to be transferred out of ICU. 04/14/2024 Patient is currently sitting in the bed. Patient is in the medical floor. Awake alert and oriented. Requiring oxygen at 4 L via nasal cannula. Denies any complaints of chest pain or shortness of breath. No dizziness or ligh theadedness. Patient states that last night he noticed dark-colored stools. Hemoglobin otherwise improved from 7.1-7.8 today. Patient is also found to be iron deficient. No headache or dizziness. Laboratory data showed WBC 13.0 hemoglobin 7.8 and platelets 320 RDW was 18.6 sodium 132 potassium 3.6 chloride 102 bicarb is 23 BUN 21 and creatinine 0.88 and blood sugar 213 MRI of the brain is pending to rule out CVA. Cardiology, neurology is on board. GI was consulted. GENERAL: The patient is alert and oriented x3, not in any acute distress. Well developed, well nourished. Obese HEENT: Pupils are round and equally reacting to light. EOMI. Normocephalic, atraumatic. CARDIOVASCULAR: S1 and S2 present. No murmurs, rubs, or gallops. PULMONARY: Decreased breath sounds bilaterally, rhonchi audible ABDOMEN: Soft, nontender, nondistended, normoactive bowel sounds. No palpable organomegaly. MUSCULOSKELETAL: No joint swelling or deformity. EXTREMITIES: Extremity edema noted, skin bruising noted NEUROLOGICAL: Gross neurological examination did not reveal any focal deficits. Speech is fluent slight left-sided facial droop noted motor strength is 4 x 5 bilateral upper lower extremity Objective - Vital Signs Vital signs: Vital Signs Temp 97.5 F L 04/14/24 08:29 Pulse 82 04/14/24 08:54 Resp 18 04/14/24 08:29 BP 126/67 04/14/24 08:29 Pulse Ox 95 04/14/24 08:29 FiO2 35 04/13/24 08:00 Intake & Output 04/13/24 04/14/24 04/14/24 18:59 06:59 18:59 Output Total 360 Balance -360 Weight 104 kg Output: Urine 360 Other: Voiding Method Urinal Toilet Toilet # Voids 2 # Bowel Movements 1 ABP, PAP, CO, CI - Last Documented Arterial Blood Pressure 40/27 - Labs CBC & Chem 7: 04/15/24 06:51 04/15/24 06:51 Labs: Abnormal Lab Results - Last 24 Hours (Table) 04/13/24 04/13/24 04/13/24 Range/Units 12:46 12:46 16:38 Retic Count 7.5 H (0.5-2.0) % POC Glucose (mg/dL) 268 H (70-110) mg/dL Iron 18 L (65-175) UG/DL % Saturation 4.86 L (15.00-50.00) 04/13/24 04/14/24 Range/Units 20:10 06:03 Retic Count (0.5-2.0) % POC Glucose (mg/dL) 266 H 236 H (70-110) mg/dL Iron (65-175) UG/DL % Saturation (15.00-50.00) Assessment and Plan Assessment: Assessment: * acute non-ST elevated [place] s/p PCI to LAD and circumflex requiring Impella assi sted heart catheterization * multivessel coronary artery disease * Cardiogenic shock. Patient was requiring pressor support. * left-sided facial droop and dysarthria rule out CVA * new onset atrial fibrillation * ischemic cardiomyopathy acute systolic congestive heart failure ejection fraction 60 to 65% * diabetes mellitus type 2 * COPD * history of obstructive sleep apnea * history of left carotid artery stenosis status post carotid artery stent February 2020 for * acute hypoxic respiratory failure * Anemia due to iron deficiency and rule out GI bleed. * in regards to coronary artery diseasePatient had cardiac cath on 04/07: Showing 70% left main stenosis, 20 to 30% proximal LAD stenosis, 60 to 70% mid LAD stenosis, 30% stenosis of the circumflex artery and 100% stenosis of the right coronary artery. Patient is S/p Impella protected PCI left main into LAD/ circumflex using DK crush technique with 3.5 x 15mm Xience ROCKY into circumflex and 4.0 x 18mm Xience ROCKY left main into LAD Postcardiac cath neurological symptoms of slurred speech and mild right side weakness, currently completely resolved. CT of the brain is negative. Neurology consulted to rule out stroke or others. Could be related to hypotension postprocedure. * in regards to congestive heart failure, continue guideline directed medical therapy * in regards to neurological symptoms, CT head negative, neurology following, MRI brain pending * continue patient on dual antiplatelet therapy including aspirin and Plavix * GI was consulted due to anemia and dark-colored stools. Continue with PPI. GI is planning for EGD diagnostic tomorrow. * Aamaryl is on hold, c/w insulin sliding scale, glucose currently controlled * Labs and medication were reviewed.. * DVT prophylaxis: heparin * GI Prophylaxis: protonix Time with Patient: Greater than 30
[2024-04-15] MEDS: POTASSIUM CHLORIDE 20 MEQ in WATER FOR INJECTION 1 100ML.BAG IVPB STA (11:00)
[2024-04-15 11:30] LABS: Glucose,Whole Blood 145 mg/dL (70-110)
--- NOTE | 2024-04-15 11:47 | P.PN ---
Subjective Progress Note Date: 04/15/24 Patient is a pleasant 62-year-old male who presented to the hospital with an NSTEMI and is status post stent of the left main and left circumflex, with concern of possible stroke. Patient reports that he is feeling a lot better today. Patient's heart rate is well-controlled on current medication treatment. He is denying chest pain, shortness of breath, heart palpitations, dizziness. VITALS: Temp 97.4, pulse 85, respirations 18, blood pressure 107/70, O2 saturation 97% on 2 L TELEMETRY: Atrial fibrillation with controlled ventricular response LABS: White count 10.1, hemoglobin 7.1, platelets 285, sodium 131, potassium 4, BUN 19, creatinine 0.88 04/14/2024 Patient seen and examined. Patient has been seen by GI and is scheduled for EGD tomorrow. Anticoagulation is on hold due to anemia. Patient states that her breathing is better. She denies having any chest pain. Patient did have episod e this morning where she was hypoxic and oxygen was increased to 4 L. Patient is currently in a sinus rhythm. Blood pressure 108/73, heart rate 81, pulse ox 99% on 4 L nasal cannula. Repeat blood work reveals WBC 13, hemoglobin 7.8. Sodium 132, potassium 3.6, BUN 21 creatinine 0.88 04/15/2024 Patient seen and examined. Patient is scheduled for EGD today. He is not currently on anticoagulation for atrial fibrillation due to anemia. Blood pressure 110/75, heart rate 62, pulse ox 99% on 4 L nasal cannula. Repeat blood work reveals WBC 12.7, 7.8. BUN 21 creatinine 1.06. MRI of the brain: No evidence of intracranial mass or subacute/subacute infarct. Small vessel ischemic disease. Remote injury left frontal lobe. Examination GENERAL: Well-appearing, well-nourished and in no acute distress. NECK: Supple without JVD or thyromegaly. LUNGS: Breath sounds clear to auscultation bilaterally. Respiration equal and unlabored. No wheezes, rales or rhonchi. HEART: Regular rate and rhythm without murmurs, rubs or gallops. S1 and S2 heard. EXTREMITIES: Normal range of motion, no edema. No clubbing or cyanosis. Peripheral pulses intact and strong. IMPRESSION: 1. NSTEMI 2. Status post stenting of the left main and left circumflex 3. New onset A-fib, currently in a sinus rhythm 4. History of mild ischemic cardiomyopathy, EF 60 to 65% 5. Possible TIA, MRI pending 6. Obstructive sleep apnea 7. Diabetes mellitus type 2 8. Carotid artery surgery with left carotid stent 03/19/2024 9. Severe pulmonary hypertension 10. Moderate to severe mitral regurgitation and mild to moderate tricuspid regurgitation 11. Anemia, scheduled for EGD on Sunday PLAN: Anticoagulation is on hold due to anemia Patient is scheduled for EGD on Sunday with GI Continue patient on amiodarone 200 mg twice daily, aspirin 81 mg daily, atorvastatin 40 mg at bedtime, Plavix 75 mg daily, Toprol XL 25 mg at bedtime Start patient on anticoagulation once cleared by GI, Eliquis 5 mg twice daily Further recommendations as patient progresses. Nurse practitioner note has been reviewed, I agree with documented findings and plan of care. Patient was seen and examined. Objective - Vital Signs Vital signs: Vital Signs Temp 97.9 F 04/15/24 08:10 Pulse 62 04/15/24 08:10 Resp 16 04/15/24 08:10 BP 110/75 04/15/24 08:10 Pulse Ox 99 04/15/24 08:10 FiO2 35 04/13/24 08:00 Intake & Output 04/14/24 04/15/24 04/15/24 18:59 06:59 18:59 Intake Total 0 30 Balance 0 30 Weight 107.8 kg Intake: IV 30 Invasive Line 5 30 Oral 0 Other: Voiding Method Toilet Toilet # Voids 1 ABP, PAP, CO, CI - Last Documented Arterial Blood Pressure 40/27 - Labs CBC & Chem 7: 04/15/24 06:51 04/15/24 06:51 Labs: Abnormal Lab Results - Last 24 Hours (Table) 04/14/24 04/14/24 04/14/24 Range/Units 10:29 10:29 11:28 WBC 13.0 H (3.8-10.6) k/uL RBC 3.12 L (4.30-5.90) m/uL Hgb 7.8 L (13.0-17.5) gm/dL Hct 25.9 L (39.0-53.0) % MCH 24.9 L (25.0-35.0) pg MCHC 30.0 L (31.0-37.0) g/dL RDW 18.6 H (11.5-15.5) % Neutrophils # 11.0 H (1.3-7.7) k/uL Sodium 132 L (137-145) mmol/L BUN 21 H (9-20) mg/dL Glucose 213 H (74-99) mg/dL POC Glucose (mg/dL) 226 H (70-110) mg/dL 04/14/24 04/14/24 04/15/24 Range/Units 16:10 20:06 06:12 WBC (3.8-10.6) k/uL RBC (4.30-5.90) m/uL Hgb (13.0-17.5) gm/dL Hct (39.0-53.0) % MCH (25.0-35.0) pg MCHC (31.0-37.0) g/dL RDW (11.5-15.5) % Neutrophils # (1.3-7.7) k/uL Sodium (137-145) mmol/L BUN (9-20) mg/dL Glucose (74-99) mg/dL POC Glucose (mg/dL) 198 H 173 H 145 H (70-110) mg/dL 04/15/24 04/15/24 Range/Units 06:51 06:51 WBC 12.7 H (3.8-10.6) k/uL RBC 3.08 L (4.30-5.90) m/uL Hgb 7.8 L (13.0-17.5) gm/dL Hct 25.5 L (39.0-53.0) % MCH (25.0-35.0) pg MCHC 30.7 L (31.0-37.0) g/dL RDW 18.7 H (11.5-15.5) % Neutrophils # (1.3-7.7) k/uL Sodium 135 L (137-145) mmol/L BUN 21 H (9-20) mg/dL Glucose 131 H (74-99) mg/dL POC Glucose (mg/dL) (70-110) mg/dL
[2024-04-15] MEDS ORDERED: PROPOFOL 10 MG/ML 20 ML VIAL IV ONE (12:59)
[2024-04-15] MEDS ORDERED: LIDOCAINE 1% INJ 10MG/ML (20 ML MDV) ONE (12:59)
[2024-04-15] MEDS: IV FLUID CONTINUATION 1,000 ML IV ONE (13:02)
--- NOTE | 2024-04-15 13:08 | P.PCN ---
Date of Procedure: 04/15/24 Procedure(s) Performed: BRIEF HISTORY: Patient is a 79-year-old, pleasant, white male admitted to hospital with acute IA approximately 10 days ago. He status post angioplasty with stent placement. Since being in the hospital he has been gradually dropping his hemoglobin from 12 to 6.8 g/dL requiring 1 unit of PRBC transfusion and intermittent dark-colored stools. He is on schedule of endoscopy to evaluate further. PROCEDURE PERFORMED: Esophagogastroduodenoscopy with biopsy PREOPERATIVE DIAGNOSIS: Anemia and intermittent black tarry stools IV sedation per anesthesia. PROCEDURE: After informed consent was obtained, the patient was brought into the endoscopy unit. IV sedation was administered by Anesthesia under continuous monitoring. Initially the Olympus GIF-140 video endoscope was inserted into the mouth. Esophagus intubated without any difficulty. It was gradually advanced into the stomach and duodenum and carefully examined. The bulb and the second part of the duodenum appeared normal. The scope at this time was withdrawn to the stomach, adequately insufflated with air, and upon careful examination, mucosa of the antrum had a 5 mm antral ulcer which was biopsied. Antral erosive gastritis also noted. Mucosa of the, body, cardia and the fundus appeared normal. The scope was then withdrawn into the esophagus. The GE junction was located at 39 cm from the incisors. The esophagus appeared normal. There were whitish plaques noted in the entire esophagus consistent with Dione esophagitis and biopsies were done from this area. The proximal esophagus appeared normal and the patient tolerated the procedure well. IMPRESSION: 1. Small 5 mm nonbleeding antral ulcer status post biopsy. 2. Antral erosive gastritis. 3. 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 Continue with Protonix 40 mg daily. Monitor CBC. Advance to regular diet. Await biopsy results..
--- NOTE | 2024-04-15 13:58 | P.PN ---
Subjective Progress Note Date: 04/15/24 Principal diagnosis: Transient ischemic attack in the setting of non-ST elevation myocardial infarction. Mr. Waldrop is a 79-year-old male with medical history of coronary artery disease, diabetes, hypertension, hyperlipidemia, obstructive sleep apnea on CPAP, bite disorder, benign prostatic hypertrophy, arrhythmia, nephrolithiasis and glaucoma. Patient was admitted to [facility] on April 04 with the symptoms of chest pain as well as shortness of breath for 5 days. He was evaluated and chart determined to have a coronary artery disease and with a stent was placed on March the night. Subsequent to this procedure the patient had an episode of left-sided facial weakness and slurred speech which was noted soon thereafter his NIH was 4 at that time but symptoms resolved. He was noted also to be hypotensive at the time with a blood pressure 80/[address] was negative. He was seen by neurology on April 08 and considered to have a likely TIA. He was placed on aspirin as well as Plavix and Lipitor. On rechecks April 09 to April 11 the patient was felt well and MRI was ordered to of his brain on April 09. This is pending at this time. On follow-up April 14, the patient's MRI scheduled for today. Patient feels well and his neurologic examination is fully nonfocal at this time. He is on aspirin and Plavix. His LDL was noted to be 76 and he is not on Lipitor at this time but I would recommend 40 mg of Lipitor for for his home use. On reevaluation March 16, his MRI was performed and reveals no acute infarct with evidence of small vessel disease and a prior left frontal lobe infarct. The patient feels well. He went for a scope today of unknown nature possibly transesophageal echocardiogram. His neurologic exam is nonfocal and he is stable for discharge as per neurology. Assessment: Mr. Waldrop is a 79-year-old male who suffered a TIA following stenting procedure on April 07. His symptoms appear to be the improved back to normal at this time. Plan: 1. This patient's MRI is not consistent with acute stroke. He is currently being managed on aspirin 81 mg as well as Plavix 85 mg daily and this should continue into the outpatient realm in addition to the consideration of Lipitor 10 to 20 mg for an LDL of 76. 2. Neurology will tentatively sign off the patient. Please reconsult if acute or concerning neurologic issues exist. Objective - Vital Signs Vital signs: Vital Signs Temp 97.7 F 04/15/24 11:13 Pulse 62 04/15/24 11:13 Resp 17 04/15/24 11:13 BP 116/74 04/15/24 11:13 Pulse Ox 98 04/15/24 11:13 FiO2 35 04/13/24 08:00 Intake & Output 04/14/24 04/15/24 04/15/24 18:59 06:59 18:59 Intake Total 0 230 Balance 0 230 Weight 107.8 kg Intake: IV 230 Invasive Line 5 30 Oral 0 Other: Voiding Method Toilet Toilet Toilet # Voids 1 ABP, PAP, CO, CI - Last Documented Arterial Blood Pressure 40/27 - Labs CBC & Chem 7: 04/15/24 06:51 04/15/24 06:51 Labs: Abnormal Lab Results - Last 24 Hours (Table) 04/14/24 04/14/24 04/15/24 Range/Units 16:10 20:06 06:12 WBC (3.8-10.6) k/uL RBC (4.30-5.90) m/uL Hgb (13.0-17.5) gm/dL Hct (39.0-53.0) % MCHC (31.0-37.0) g/dL RDW (11.5-15.5) % Sodium (137-145) mmol/L BUN (9-20) mg/dL Glucose (74-99) mg/dL POC Glucose (mg/dL) 198 H 173 H 145 H (70-110) mg/dL 04/15/24 04/15/24 04/15/24 Range/Units 06:51 06:51 11:28 WBC 12.7 H (3.8-10.6) k/uL RBC 3.08 L (4.30-5.90) m/uL Hgb 7.8 L (13.0-17.5) gm/dL Hct 25.5 L (39.0-53.0) % MCHC 30.7 L (31.0-37.0) g/dL RDW 18.7 H (11.5-15.5) % Sodium 135 L (137-145) mmol/L BUN 21 H (9-20) mg/dL Glucose 131 H (74-99) mg/dL POC Glucose (mg/dL) 145 H (70-110) mg/dL
--- NOTE | 2024-04-15 14:05 | XR ---
EXAMINATION TYPE: XR chest 1V portable DATE OF EXAM: 04/15/2024 1:52 PM COMPARISON: Chest radiographs from04/11/2024 CLINICAL INDICATION: Male, 79 years old with history of shortness of breath; [facility] TECHNIQUE: XR chest 1V portable Frontal view of the chest. FINDINGS: Lungs/Pleura: There is no evidence of pleural effusion, focal consolidation, or pneumothorax. Pulmonary vascularity: Unremarkable. Heart/mediastinum: Cardiomediastinal silhouette is enlarged. Musculoskeletal: No acute osseous pathology. Other findings: None Left central venous catheter with tip in superior cavoatrial junction. IMPRESSION: Similar cardiomegaly and mild pulmonary vascular congestion. Correlate with BNP for congestive heart failure. [facility], , 04/15/2024 2:03 PM
[2024-04-15 16:41] LABS: Glucose,Whole Blood 197 mg/dL (70-110)
--- NOTE | 2024-04-15 17:50 | P.PN ---
Subjective Progress Note Date: 04/15/24 On today's evaluation of 04/14/2024, the patient is resting comfortably in bed. The patient is currently on 4 L of oxygen by nasal cannula. Denies having any chest pain. Denies having any significant shortness of breath. He is awaiting MRI of the brain as the patient had an episode of seizure during this current hospital stay. Noted he has a history of coronary artery disease and is status post a complex coronary intervention requiring an Impella assisted cardiac catheterization and PCI of the left main into LAD and circumflex and placement of coronary stents. Patient is known to have severe multivessel coronary artery disease and has undergone multiple PCI and stenting and he has a preserved LV function with an ejection fraction of 6065% with moderate to severe mitral regurgitation and severe pulm hypertension. He has diabetes mellitus type 2, hypertension, hyperlipidemia, obstructive sleep apnea and BPH. He is an ex smoker. For now, the patient's white cell count is at 13 with a hemoglobin 7.8 and a platelet count of 320. Electrolytes are all within normal limits. In terms of medication, the patient is on aspirin and Plavix. The patient remains on metoprolol 25 mg XL at bedtime. The patient remains on Lipitor 40 mg p.o. daily. He remains on amiodarone 200 mg p.o. twice a day. He is receiving IV iron for a component of iron deficiency anemia. Hemoglobin today is at 7.8. Patient is also on stress dose hydrocortisone. At 1535 patient developed CVI/TIA symptoms including left-sided facial droop and dysarthria. His NIH was initially scored at an 8 per nursing. Code stroke was called. Brain CT did not show any acute findings. Patient's blood pressure was noted to be hypotensive during this event. Blood pressure was reportedly 80s over 40s. He did receive 1.5 L fluid bolus in the form of normal saline. Blood pressure remains oksana nal. Neurology recommended vasopressors to improve hypotension and hopefully neurological symptoms. Follow-up carotid Doppler did not show any hemodynamically significant stenosis of right or left internal carotid arteries. The left common carotid artery stent was noted. Right vertebral artery was not visualized. MRI of the brain to be done today. On 04/15/2024, the patient is essentially unchanged. The patient is resting comfortably in bed and the patient remains on oxygen 4 L/min nasal cannula. Complaining of some oral dryness. MRI of the brain was done yesterday and it showed no evidence of an acute stroke. There was other abnormalities including some nonspecific white matter changes likely secondary to small vessel ischemia. Remote injury also involving the left frontal lobe was seen along with some gliosis. Medications are unchanged. The patient remains on aspirin, Plavix, amiodarone 200 mg p.o. twice daily and metoprolol 25 mg XL 1 tablet a day. Blood pressure is stable. He is on midodrine. He is on heparin subcu for DVT prophylaxis. He also is anemic with iron deficiency anemia and the patient is receiving IV iron. Hemoglobin today is at 7.8 with a white cell count of 12.7 and platelet count of 356. BUN is 21 with a creatinine of 1.06. Sodium levels at 135. Objective - Vital Signs Vital signs: Vital Signs Temp 97.7 F 04/15/24 11:13 Pulse 62 04/15/24 11:13 Resp 17 04/15/24 11:13 BP 116/74 04/15/24 11:13 Pulse Ox 98 04/15/24 11:13 FiO2 35 04/13/24 08:00 Intake & Output 04/14/24 04/15/24 04/15/24 18:59 06:59 18:59 Intake Total 0 30 Balance 0 30 Weight 107.8 kg Intake: IV 30 Invasive Line 5 30 Oral 0 Other: Voiding Method Toilet Toilet Toilet # Voids 1 ABP, PAP, CO, CI - Last Documented Arterial Blood Pressure 40/27 - Exam No acute distress, oriented 3. No respiratory distress. The patient is currently on 4 L nasal cannula. HEENT examination is grossly unremarkable. Mucous membranes are moist. No oral lesions. Neck supple. Full range of motion. No adenopathy thyromegaly or neck vein distention. Cardiovascular examination reveals regular rhythm rate. S1-S2 normal. No S3 or S4. Harsh systolic murmur is noted. Lungs reveal minimal basilar crackles. No wheezes. No rhonchi. Breath sounds equal. Abdomen soft bowel sounds are heard. No masses or tenderness. Extremities are intact. No cyanosis or clubbing. 2+ lower extremity pitting edema is noted. Skin is without rash or lesion. Neurologic examination is brief but nonfocal. - Labs CBC & Chem 7: 04/15/24 06:51 04/15/24 06:51 Labs: Abnormal Lab Results - Last 24 Hours (Table) 04/14/24 04/14/24 04/15/24 Range/Units 16:10 20:06 06:12 WBC (3.8-10.6) k/uL RBC (4.30-5.90) m/uL Hgb (13.0-17.5) gm/dL Hct (39.0-53.0) % MCHC (31.0-37.0) g/dL RDW (11.5-15.5) % Sodium (137-145) mmol/L BUN (9-20) mg/dL Glucose (74-99) mg/dL POC Glucose (mg/dL) 198 H 173 H 145 H (70-110) mg/dL 04/15/24 04/15/24 04/15/24 Range/Units 06:51 06:51 11:28 WBC 12.7 H (3.8-10.6) k/uL RBC 3.08 L (4.30-5.90) m/uL Hgb 7.8 L (13.0-17.5) gm/dL Hct 25.5 L (39.0-53.0) % MCHC 30.7 L (31.0-37.0) g/dL RDW 18.7 H (11.5-15.5) % Sodium 135 L (137-145) mmol/L BUN 21 H (9-20) mg/dL Glucose 131 H (74-99) mg/dL POC Glucose (mg/dL) 145 H (70-110) mg/dL Assessment and Plan Plan: Acute non-ST elevation [place] status postoperative day #4 following Impella assisted heart catheterization involving PCI to the left main into the LAD/circumflex using DK crush technique with 3.5 x 1.5 mm Xience ROCKY into circumflex and 4.0 x 18 mm Xience ROCKY left main into LAD. Possible TIA. Neurologically stable and the MRI of the brain shows remote infarct, no acute changes, chronic small vessel ischemic changes bilaterally History of left carotid artery stenosis status post carotid artery stent done March 19, 2024. Severe multivessel coronary artery disease, patient has had multiple PCI/stents. Acute hypoxemic respiratory failure, Echocardiogram estimating left ventricular ejection fraction of 60 to 65%. Mild concentric LVH. Moderate to severe mitral regurgitation, as well as, severe pulmonary hypertension, and mild to moderate tricuspid regurgitation. Anemia, chronic. History of diabetes mellitus. History of hypertension. History of hyperlipidemia. History of TURP. History of obstructive sleep apnea, no longer uses CPAP at home. Obesity, with a BMI of 33.8 kg/m. Former tobacco dependence, quit smoking in 1983. Plan: Patient is currently on 4 L of O2 nasal cannula, wean FiO2 as tolerated to maintain saturation above 90% Continue aspirin and Plavix Continue metoprolol XL 25 mg at bedtime Continue amiodarone Continue statins and the patient is currently on Lipitor Discontinue stress dose hydrocortisone MRI of the brain was noted, no acute abnormalities Increase mobility Will continue to follow
[2024-04-15] MEDS: LACTATED RINGERS 1,000 ML IV SCH (18:45)
[2024-04-15 20:09] LABS: Glucose,Whole Blood 229 mg/dL (70-110)
[2024-04-16 05:46] LABS: Glucose,Whole Blood 145 mg/dL (70-110)
[2024-04-16 06:36] LABS: Anisocytosis Slight; Basophils % (A) 0 %; Eosinophils # (A) 0.1 k/uL (0-0.7); Eosinophils % (A) 1 %; HCT 25.2 % (39.0-53.0); HGB 7.7 gm/dL (13.0-17.5); Hypochromasia Marked; Lymphocytes # (A) 1.8 k/uL (1.0-4.8); Lymphocytes % (A) 15 %; MCH 25.4 pg (25.0-35.0); MCHC 30.5 g/dL (31.0-37.0); MCV 83.5 fL (80.0-100.0); Mean Platelet Volume 7.3; Monocytes # (A) 0.6 k/uL (0-1.0); Monocytes % (A) 5 %; Neutrophils # (A) 9.6 k/uL (1.3-7.7); Neutrophils % (A) 78 %; Platelet Count 331 k/uL (150-450); Poikilocytosis Moderate; RBC 3.02 m/uL (4.30-5.90); RDW 19.3 % (11.5-15.5); WBC 12.3 k/uL (3.8-10.6)
[2024-04-16 06:58] LABS: African American GFR (CKD) 83 (>60 ml/min/1.73 sqM); Anion Gap 3 mmol/L; Blood Urea Nitrogen 19 mg/dL (9-20); Calcium 8.4 mg/dL (8.4-10.2); Carbon Dioxide 26 mmol/L (22-30); Chloride 104 mmol/L (98-107); Glucose 137 mg/dL (74-99); Non-African American GFR(CKD) 72 (>60 ml/min/1.73 sqM); Potassium 3.4 mmol/L (3.5-5.1); Sodium 133 mmol/L (137-145)
[2024-04-16] MEDS: FLUCONAZOLE 100 MG TAB PO SCH (09:49)
[2024-04-16] MEDS: FUROSEMIDE 10 MG/ML 2 ML VIAL IV ONE (10:06)
--- NOTE | 2024-04-16 10:53 | P.PN ---
Subjective Progress Note Date: 04/15/24 79-year-old male, history of coronary artery disease, carotid artery disease, obstructive sleep apnea, diabetes mellitus type 2, hypertension, who presents to the emergency department with history of recent cardiac catheterization on 02/03/2024 with 5 stents in the past. Patient states he started having chest pain and difficulty breathing 5 days ago. Patient states it does worsen with exertion. Patient states the pain radiates down both arms. Patient denies any diaphoretic episodes. Patient denies any nausea. Patient denies any abdominal pain. Patient denies a headache. Patient states that he has had no recent fever chills or cough. Patient states she has been a little more swelling in his legs Patient had a previous cardiac catheterization on 02/03/2024 and he was referred to cardiothoracic surgery for CABG evaluation of the left main disease. He met with Dr. Polanco and was deemed high risk and therefore referred for stenting and not CABG. Patient states the chest pain started on at home. It did not seem to be too bad and then on Sunday he decided to come into the hospital for evaluation. Nitropaste did not take the pain away. He states the chest pain is now gone. He also states he has had lower extremity edema ever since he had the stent of the carotid done on 03/19. Patient has been started on a heparin drip. Blood pressure 99/58, heart rate 68, pulse ox 97% on room air. Patient has been started on a heparin drip. -EKG: Sinus rhythm with first-degree block -Chest x-ray: Chronic changes without acute pulmonary process. No significant change from prior. -Laboratory studies: WBC 8.8, hemoglobin 9.2. Electrolytes within normal limits. Creatinine 1.1. Troponin 0.59, 1.18, 1.5. Urinalysis positive for RBCs and WBCs. -Home cardiac medications: Aspirin 81 mg daily, atorvastatin 40 mg at bedtime, Plavix 75 mg at bedtime, losartan 25 mg at bedtime, Toprol XL 25 mg at bedtime, nitroglycerin sublingual. -03/19/2024: Carotid artery stenosis 99% proximal left internal status post left carotid stent. -Echocardiogram performed in the office on 01/18/2024 revealed EF of 55 to 60%, severe LVH, mild aortic stenosis, mild mitral regurgitation, mild tricuspid regurgitation, PASP 42 mmHg. 24-hour interval change 04/06/2024 Patient seen and examined in room at bedside. Patient denies having any chest pain no shortness of breath. He has been maintained on a heparin drip. Patient is on nitro paste which seems to control his chest pain. Vital signs are reviewed and remained stable with blood pressure 102/66, heart rate 77, pulse ox 94% on room air. -- blood work reveals hemoglobin 7.8, sodium 136, potassium 3.8, BUN 16 cr eatinine 1.02. - Echocardiogram reveals EF of 60 to 65%, severe pulmonary hypertension, moderate to severe mitral regurgitation, mild to moderate tricuspid regurgitation. Make patient n.p.o. after midnight Schedule patient for left heart cath on Sunday with Dr. Roque 04/07 This is a pleasant 79 years old male who presents with signs symptoms of chest pain suspicious for non-STEMI. He had recently diagnosed with non-STEMI and he underwent PCI to left circumflex on 04/02 Also patient had shortness of breath on admission and coughing up blood. Chest x-ray on admission read as chronic changes without acute pulmonary process per radiologist. Today he still complaining from shortness of breath. We are going to repeat the chest x-ray Cardiology team also planning to repeat cardiac cath today. Patient confirms to me he has been using aspirin and Plavix at home which are resumed currently. Also he is on a heparin drip. Anemia this admission is 8-9.5, he had recent baseline about 14-15 more than 1 month ago. Patient denies any signs of overt bleeding recently. Patient states he has been constipated since last Sunday. Will going to start him on laxative Will do an anemia workup Echocardiogram is showing EF 60 to 65% with severe pulmonary hypertension and moderate to severe mitral regurgitation and mild to moderate tricuspid regurgitation 04/08 Patient yesterday underwent cardiac cath per cardiology team showing coronary artery disease with 70% left main stenosis, 20 to 30% proximal LAD stenosis, 60 to 70% mid LAD stenosis, 30% stenosis of the circumflex artery and 100% stenosis of the right coronary artery. Patient is S/p Impella protected PCI left main into LAD/ circumflex using DK crush technique with 3.5 x 15mm Xience ROCKY into circumflex and 4.0 x 18mm Xience ROCKY left main into LAD After the procedure patient was sent to the ICU where he had transient symptoms of difficulty talking and slurred speech associated with mild weakness on the right side as patient tells me, the symptoms lasted for about an hour. Code stroke was called and CT of the brain and carotid duplex ordered which were basically negative for acute findings to explain patient's symptoms. Neurology was contacted and recommended to keep her blood pressure elevated so patient was started on Levophed. However patient chronically blood pressure is 90s to 100. Prior to the procedure patient was already on aspirin, Plavix and heparin drip Hemoglobin is 7.3, anemia workup showing iron deficiency anemia. Vitamin B12 also borderline. Will give one-time dose of Furric gluconate. Monitor hemoglobin closely 06/10 Patient is tachypneic this morning with no chest pain He denies bleeding from anywhere. Hemoglobin today 6.8, 1 unit of blood transfusion is ordered. He received small dose of IV Lasix 20 mg yesterday. Currently blood pressure 118/78, also he is on Levophed 0.3 to support blood pressure given his stroke symptoms post cardiac cath. Patient is mildly tachycardic. Afebrile. Has good oxygen saturation 99 4% on 3 L. Other labs looks unremarkable. We will increase Protonix to twice daily CT of the brain and MRI of the brain are pending for his recent neurological symptoms which looks resolved now with the control of the blood pressure. I discussed with the patient his problem and management plan and all his questions were answered 04/10 Patient remains in the ICU requiring critical care and close monitoring His blood pressure is borderline and tachycardia Patient was started on midodrine and IV cortisol and also on amiodarone drip per museum assistant Patient is still tachypneic but his less labored. 04/11 Patient feels more comfortable today, his dyspnea is betterHe denies chest painHe is continued on amiodarone drip Also he is on Levophed at 0.15On exam he has better breathing and air entry on both sides with no other less wheezing Patient got 1 unit of blood transfusion on 04/09. Currently hemoglobin stable at 7.7. Patient is not getting heparin currently 04/12-patient seen and evaluated at bedside, on evaluation patient is awake and alert, he denies feeling down but able to move bilateral upper and lower extremities patient denies feeling dizzy. Blood work reviewed hemoglobin 7.5 platelet 294's serum chemistry sodium 130 magnesium within normal limits potassium 4 04/13- patient seen and evaluated at bedside, MRI brain pending, he remains on 2 L of oxygen, CBC reviewed hemoglobin 7.1 platelet 285, sodium 131 calcium of 8.3, patient denies having tingling numbness plan to be transferred out of ICU. 04/14/2024 Patient is currently sitting in the bed. Patient is in the medical floor. Awake alert and oriented. Requiring oxygen at 4 L via nasal cannula. Denies any complaints of chest pain or shortness of breath. No dizziness or ligh theadedness. Patient states that last night he noticed dark-colored stools. Hemoglobin otherwise improved from 7.1-7.8 today. Patient is also found to be iron deficient. No headache or dizziness. Laboratory data showed WBC 13.0 hemoglobin 7.8 and platelets 320 RDW was 18.6 sodium 132 potassium 3.6 chloride 102 bicarb is 23 BUN 21 and creatinine 0.88 and blood sugar 213 MRI of the brain is pending to rule out CVA. Cardiology, neurology is on board. GI was consulted. 04/15/2024 Patient is resting in the bed. Awake alert and oriented x 3. Requiring 4 L oxygen via nasal cannula. Hemoglobin is fairly stable. Patient underwent EGD today showed small 5 mm nonbleeding antral ulcer s/p biopsy, antral erosive gastritis. Multiple whitish plaques throughout the entire esophagus consistent with Dione esophagitis. Patient was started on Diflucan. Otherwise MRI of the brain was done yesterday which showed no evidence of intracranial mass or acute/subacute infarct. Remote injury left frontal lobe with surrounding gliosis. Laboratory data showed WBC 12.7 hemoglobin 7.8 and platelets 356 sodium 135 potassium 3.5 chloride 99 bicarb is 28 BUN 21 creatinine 1.06 and blood sugar 131 GENERAL: The patient is alert and oriented x3, not in any acute distress. Well developed, well nourished. Obese HEENT: Pupils are round and equally reacting to light. EOMI. Normocephalic, atraumatic. CARDIOVASCULAR: S1 and S2 present. No murmurs, rubs, or gallops. PULMONARY: Decreased breath sounds bilaterally, rhonchi audible ABDOMEN: Soft, nontender, nondistended, normoactive bowel sounds. No palpable organomegaly. MUSCULOSKELETAL: No joint swelling or deformity. EXTREMITIES: Extremity edema noted, skin bruising noted NEUROLOGICAL: Gross neurological examination did not reveal any focal deficits. Speech is fluent slight left-sided facial droop noted motor strength is 4 x 5 bilateral upper lower extremity Objective - Vital Signs Vital signs: Vital Signs Temp 97.9 F 04/15/24 08:10 Pulse 62 04/15/24 08:10 Resp 16 04/15/24 08:10 BP 110/75 04/15/24 08:10 Pulse Ox 99 04/15/24 08:10 FiO2 35 04/13/24 08:00 Intake & Output 04/14/24 04/15/24 04/15/24 18:59 06:59 18:59 Intake Total 0 30 Balance 0 30 Weight 107.8 kg Intake: IV 30 Invasive Line 5 30 Oral 0 Other: Voiding Method Toilet Toilet Toilet # Voids 1 ABP, PAP, CO, CI - Last Documented Arterial Blood Pressure 40/27 - Labs CBC & Chem 7: 04/16/24 06:06 04/16/24 06:06 Labs: Abnormal Lab Results - Last 24 Hours (Table) 04/14/24 04/14/24 04/14/24 Range/Units 10:29 10:29 11:28 WBC 13.0 H (3.8-10.6) k/uL RBC 3.12 L (4.30-5.90) m/uL Hgb 7.8 L (13.0-17.5) gm/dL Hct 25.9 L (39.0-53.0) % MCH 24.9 L (25.0-35.0) pg MCHC 30.0 L (31.0-37.0) g/dL RDW 18.6 H (11.5-15.5) % Neutrophils # 11.0 H (1.3-7.7) k/uL Sodium 132 L (137-145) mmol/L BUN 21 H (9-20) mg/dL Glucose 213 H (74-99) mg/dL POC Glucose (mg/dL) 226 H (70-110) mg/dL 04/14/24 04/14/24 04/15/24 Range/Units 16:10 20:06 06:12 WBC (3.8-10.6) k/uL RBC (4.30-5.90) m/uL Hgb (13.0-17.5) gm/dL Hct (39.0-53.0) % MCH (25.0-35.0) pg MCHC (31.0-37.0) g/dL RDW (11.5-15.5) % Neutrophils # (1.3-7.7) k/uL Sodium (137-145) mmol/L BUN (9-20) mg/dL Glucose (74-99) mg/dL POC Glucose (mg/dL) 198 H 173 H 145 H (70-110) mg/dL 04/15/24 04/15/24 Range/Units 06:51 06:51 WBC 12.7 H (3.8-10.6) k/uL RBC 3.08 L (4.30-5.90) m/uL Hgb 7.8 L (13.0-17.5) gm/dL Hct 25.5 L (39.0-53.0) % MCH (25.0-35.0) pg MCHC 30.7 L (31.0-37.0) g/dL RDW 18.7 H (11.5-15.5) % Neutrophils # (1.3-7.7) k/uL Sodium 135 L (137-145) mmol/L BUN 21 H (9-20) mg/dL Glucose 131 H (74-99) mg/dL POC Glucose (mg/dL) (70-110) mg/dL Assessment and Plan Assessment: Assessment: * acute non-ST elevated [place] s/p PCI to LAD and circumflex requiring Impella assisted heart catheterization * multivessel coronary artery disease * Cardiogenic shock. Patient was requiring pressor support. * left-sided facial droop and dysarthria rule out CVA * new onset atrial fibrillation * ischemic cardiomyopathy acute systolic congestive heart failure ejection fra ction 60 to 65% * diabetes mellitus type 2 * COPD * history of obstructive sleep apnea * history of left carotid artery stenosis status post carotid artery stent February 2020 for * acute hypoxic respiratory failure * Anemia/acute blood loss anemia due to GI bleed status post EGD. * Iron deficiency anemia * Candidal esophagitis * in regards to coronary artery diseasePatient had cardiac cath on 04/07: Showing 70% left main stenosis, 20 to 30% proximal LAD stenosis, 60 to 70% mid LAD carlos nosis, 30% stenosis of the circumflex artery and 100% stenosis of the right coronary artery. Patient is S/p Impella protected PCI left main into LAD/ circumflex using DK crush technique with 3.5 x 15mm Xience ROCKY into circumflex and 4.0 x 18mm Xience ROCKY left main into LAD Postcardiac cath neurological symptoms of slurred speech and mild right side weakness, currently completely resolved. CT of the brain is negative. Neurology consulted to rule out stroke or others. Could be related to hypotension postprocedure. * in regards to congestive heart failure, continue guideline directed medical therapy * in regards to neurological symptoms, CT head negative, neurology following, MRI brain pending * continue patient on dual antiplatelet therapy including aspirin and Plavix * GI was consulted due to anemia and dark-colored stools. Continue with PPI. Status post EGD.. Continue with PPI and Diflucan. * Aamaryl is on hold, c/w insulin sliding scale, glucose currently controlled * Labs and medication were reviewed.. * DVT prophylaxis: heparin * GI Prophylaxis: protonix Time with Patient: Greater than 30
[2024-04-16 11:48] LABS: Glucose,Whole Blood 187 mg/dL (70-110)
--- NOTE | 2024-04-16 12:04 | P.PN ---
Subjective Progress Note Date: 04/16/24 Principal diagnosis: Anemia This a pleasant 79-year-old with significant cardiac history in the past who had presented to the emergency department on 04/04/2024 with complaints of chest pain. Also has past medical history of diabetes and hypertension. Patient was noted to have acute coronary syndrome underwent cardiac cath on 04/07/2024 with placement of Impella and balloon angioplasty. During this hospitalization patient has had continued trending down and his hemoglobin. Patient is also reported some occasional dark stools. Gastroenterology was consulted for anemia and possible GI bleed. Patient is on aspirin and Plavix and does report that he takes Motrin daily as well. Iron studies were collected and patient had consistency with iron deficiency anemia. He denies any history of peptic ulcer disease. Denies any abdominal pain states he does get some heartburn and belching. He has never had an EGD done. States last colonoscopy he thought was within the last few months however his last colonoscopy was in 2020 significant for colon polyps status post polypectomy. 04/16/2024 Patient seen and examined today as a follow-up. Denies any abdominal pain, mika ck stool, nausea or vomiting. Yesterday he underwent upper endoscopy with findings of small 5 mm nonbleeding antral ulcer, antral erosive gastritis and multiple light plaques throughout the entire esophagus consistent with Dione esophagitis. Patient was started on fluconazole. Hemoglobin stable at 7.7 Objective - Vital Signs Vital signs: Vital Signs Temp 98.4 F 04/16/24 03:43 Pulse 62 04/16/24 03:43 Resp 17 04/16/24 03:43 BP 94/58 04/16/24 03:43 Pulse Ox 94 L 04/16/24 03:43 FiO2 35 04/13/24 08:00 Intake & Output 04/15/24 04/16/24 04/16/24 18:59 06:59 18:59 Intake Total 440 60 180 Output Total 0 Balance 440 60 180 Weight 109 kg Intake: IV 260 60 Invasive Line 5 60 60 Oral 180 180 Output: Urine 0 Other: Voiding Method Toilet Toilet # Voids 1 ABP, PAP, CO, CI - Last Documented Arterial Blood Pressure 40/27 - Exam General appearance: The patient is alert, oriented, appears in no acute distress. HET: Head is normocephalic and atraumatic. Conjunctiva pink. Sclera anicteric. Neck: Supple without lymphadenopathy. Abdomen: Soft, nontender, nondistended. Extremities: Normal skin color and turgor. No pedal edema Skin: No rashes, no jaundice Neurological: No focal deficits. Alert and oriented. - Labs CBC & Chem 7: 04/16/24 06:06 04/16/24 06:06 Labs: Abnormal Lab Results - Last 24 Hours (Table) 04/15/24 04/15/24 04/15/24 Range/Units 11:28 16:38 20:07 WBC (3.8-10.6) k/uL RBC (4.30-5.90) m/uL Hgb (13.0-17.5) gm/dL Hct (39.0-53.0) % MCHC (31.0-37.0) g/dL RDW (11.5-15.5) % Neutrophils # (1.3-7.7) k/uL Sodium (137-145) mmol/L Potassium (3.5-5.1) mmol/L Glucose (74-99) mg/dL POC Glucose (mg/dL) 145 H 197 H 229 H (70-110) mg/dL 04/16/24 04/16/24 04/16/24 Range/Units 05:44 06:06 06:06 WBC 12.3 H (3.8-10.6) k/uL RBC 3.02 L (4.30-5.90) m/uL Hgb 7.7 L (13.0-17.5) gm/dL Hct 25.2 L (39.0-53.0) % MCHC 30.5 L (31.0-37.0) g/dL RDW 19.3 H (11.5-15.5) % Neutrophils # 9.6 H (1.3-7.7) k/uL Sodium 133 L (137-145) mmol/L Potassium 3.4 L (3.5-5.1) mmol/L Glucose 137 H (74-99) mg/dL POC Glucose (mg/dL) 145 H (70-110) mg/dL Assessment and Plan (1) Anemia Narrative/Plan: 79-year-old male who came in for chest pain and acute coronary syndrome underwent cardiac catheterization with Impella and balloon angioplasty who since his admission was found to have his hemoglobin trending down with reported dark stool. No history of peptic ulcer disease in the past but does take Motrin and Aleve daily for joint pain. He is now on aspirin and Plavix. Need to consider possible peptic ulcer disease, esophagitis, gastritis, AVM or other possible etiologies. Last colonoscopy in 2020 significant for colon polyps. Patient underwent EGD yesterday with findings of small antral ulcer, antral erosive gastritis and multiple white plaques throughout entire esophagus consistent with Dione esophagitis. Status post biopsy. Possible anemia/GI bleed could be secondary to the above findings. Recommend continuing Protonix 40 mg daily, and patient started on fluconazole. Current Visit: Yes Status: Acute Code(s): D64.9 - ANEMIA, UNSPECIFIED SNOMED Code(s): 619331357 (2) Diabetes mellitus Current Visit: Yes Status: Acute Code(s): E11.9 - TYPE 2 DIABETES MELLITUS WITHOUT COMPLICATIONS SNOMED Code(s): 89540979 (3) Coronary artery disease Current Visit: Yes Status: Acute Code(s): I25.10 - ATHSCL HEART DISEASE OF [place] CORONARY ARTERY W/O ANG PCTRS SNOMED Code(s): 33894949 (4) Acute non-ST elevation myocardial infarction (NSTEMI) Current Visit: Yes Status: Acute Code(s): I21.4 - NON-ST ELEVATION (NSTEMI) MYOCARDIAL INFARCTION SNOMED Code(s): 942932128 (5) Chest pain Current Visit: No Status: Acute Code(s): R07.9 - CHEST PAIN, UNSPECIFIED SNOMED Code(s): 72158758 Plan: 1. Continue symptomatic and supportive care 2. Fluconazole 100 mg daily x 5 days 3. Protonix 40 mg daily 4. Avoid NSAIDs 5. Diet as tolerated 6. May resume anticoagulation Thank you for this consultation, patient is cleared from gastroenterology for discharge. Follow-up in 1 to [address] Tiffanie Pena I agree with the dictator's note, documented as a scribe by Adilia Amos.
--- NOTE | 2024-04-16 12:21 | P.PN ---
Subjective Progress Note Date: 04/16/24 Patient is a pleasant 62-year-old male who presented to the hospital with an NSTEMI and is status post stent of the left main and left circumflex, with concern of possible stroke. Patient reports that he is feeling a lot better today. Patient's heart rate is well-controlled on current medication treatment. He is denying chest pain, shortness of breath, heart palpitations, dizziness. VITALS: Temp 97.4, pulse 85, respirations 18, blood pressure 107/70, O2 saturation 97% on 2 L TELEMETRY: Atrial fibrillation with controlled ventricular response LABS: White count 10.1, hemoglobin 7.1, platelets 285, sodium 131, potassium 4, BUN 19, creatinine 0.88 04/14/2024 Patient seen and examined. Patient has been seen by GI and is scheduled for EGD tomorrow. Anticoagulation is on hold due to anemia. Patient states that her breathing is better. She denies having any chest pain. Patient did have episod e this morning where she was hypoxic and oxygen was increased to 4 L. Patient is currently in a sinus rhythm. Blood pressure 108/73, heart rate 81, pulse ox 99% on 4 L nasal cannula. Repeat blood work reveals WBC 13, hemoglobin 7.8. Sodium 132, potassium 3.6, BUN 21 creatinine 0.88 04/15/2024 Patient seen and examined. Patient is scheduled for EGD today. He is not currently on anticoagulation for atrial fibrillation due to anemia. Blood pressure 110/75, heart rate 62, pulse ox 99% on 4 L nasal cannula. Repeat blood work reveals WBC 12.7, 7.8. BUN 21 creatinine 1.06. MRI of the brain: No evidence of intracranial mass or subacute/subacute infarct. Small vessel ischemic disease. Remote injury left frontal lobe. 04/16/2024 Patient seen and examined. Yesterday patient underwent EGD with biopsy which revealed small 5 mm nonbleeding antral ulcer s/p biopsy, antral erosive gastriti s, multiple whitish plaques throughout the entire esophagus consistent with Dione esophagitis. Patient is cleared by GI to resume anticoagulation. Patient will also continue on dual antiplatelet therapy due to recent stenting. Patient is having some increased shortness of breath today and 1 dose of IV Lasix 20 mg ordered. Blood pressure 94/58, heart rate in the 60s, pulse ox 94% on 4 L nasal cannula. Patient denies having any chest pain. He states his breathing is okay. Examination GENERAL: Well-appearing, well-nourished and in no acute distress. NECK: Supple without JVD or thyromegaly. LUNGS: Breath sounds clear to auscultation bilaterally. Respiration equal and unlabored. No wheezes, rales or rhonchi. HEART: Regular rate and rhythm without murmurs, rubs or gallops. S1 and S2 heard. EXTREMITIES: No edema. No clubbing or cyanosis. Peripheral pulses intact and strong. IMPRESSION: 1. NSTEMI 2. Status post stenting of the left main and left circumflex 3. New onset A-fib, currently in a sinus rhythm 4. History of mild ischemic cardiomyopathy, EF 60 to 65% 5. Possible TIA, MRI pending 6. Obstructive sleep apnea 7. Diabetes mellitus type 2 8. Carotid artery surgery with left carotid stent 03/19/2024 9. Severe pulmonary hypertension 10. Moderate to severe mitral regurgitation and mild to moderate tricuspid regurgitation 11. Anemia, EGD revealed a nonbleeding antral ulcer and antral erosive gastritis, Dione esophagitis PLAN: GI has cleared patient for anticoagulation, patient started on Eliquis 5 mg twice daily Continue patient on dual antiplatelet therapy due to recent stenting Continue patient on amiodarone 200 mg twice daily, atorvastatin 40 mg at bedtime, Toprol XL decreased to 12.5 mg at bedtime Blood pressure is borderline and beta-valerie will be decreased to 12.5 mg 1 dose of IV Lasix 20 mg now Further recommendations as patient progresses. Nurse practitioner note has been reviewed, I agree with documented findings and plan of care. Patient was seen and examined. Objective - Vital Signs Vital signs: Vital Signs Temp 98.4 F 04/16/24 03:43 Pulse 62 04/16/24 03:43 Resp 17 04/16/24 03:43 BP 94/58 04/16/24 03:43 Pulse Ox 94 L 04/16/24 03:43 FiO2 35 04/13/24 08:00 Intake & Output 04/15/24 04/16/24 04/16/24 18:59 06:59 18:59 Intake Total 440 60 180 Output Total 0 Balance 440 60 180 Weight 109 kg Intake: IV 260 60 Invasive Line 5 60 60 Oral 180 180 Output: Urine 0 Other: Voiding Method Toilet Toilet # Voids 1 ABP, PAP, CO, CI - Last Documented Arterial Blood Pressure 40/27 - Labs CBC & Chem 7: 04/16/24 06:06 04/16/24 06:06 Labs: Abnormal Lab Results - Last 24 Hours (Table) 04/15/24 04/15/24 04/15/24 Range/Units 11:28 16:38 20:07 WBC (3.8-10.6) k/uL RBC (4.30-5.90) m/uL Hgb (13.0-17.5) gm/dL Hct (39.0-53.0) % MCHC (31.0-37.0) g/dL RDW (11.5-15.5) % Neutrophils # (1.3-7.7) k/uL Sodium (137-145) mmol/L Potassium (3.5-5.1) mmol/L Glucose (74-99) mg/dL POC Glucose (mg/dL) 145 H 197 H 229 H (70-110) mg/dL 04/16/24 04/16/24 04/16/24 Range/Units 05:44 06:06 06:06 WBC 12.3 H (3.8-10.6) k/uL RBC 3.02 L (4.30-5.90) m/uL Hgb 7.7 L (13.0-17.5) gm/dL Hct 25.2 L (39.0-53.0) % MCHC 30.5 L (31.0-37.0) g/dL RDW 19.3 H (11.5-15.5) % Neutrophils # 9.6 H (1.3-7.7) k/uL Sodium 133 L (137-145) mmol/L Potassium 3.4 L (3.5-5.1) mmol/L Glucose 137 H (74-99) mg/dL POC Glucose (mg/dL) 145 H (70-110) mg/dL
[2024-04-16] MEDS: POTASSIUM CHLORIDE ER 20 MEQ TAB.ER PO STA (12:37)
--- NOTE | 2024-04-16 16:04 | P.PN ---
Subjective Progress Note Date: 04/16/24 On today's evaluation of 04/14/2024, the patient is resting comfortably in bed. The patient is currently on 4 L of oxygen by nasal cannula. Denies having any chest pain. Denies having any significant shortness of breath. He is awaiting MRI of the brain as the patient had an episode of seizure during this current hospital stay. Noted he has a history of coronary artery disease and is status post a complex coronary intervention requiring an Impella assisted cardiac catheterization and PCI of the left main into LAD and circumflex and placement of coronary stents. Patient is known to have severe multivessel coronary artery disease and has undergone multiple PCI and stenting and he has a preserved LV function with an ejection fraction of 6065% with moderate to severe mitral regurgitation and severe pulm hypertension. He has diabetes mellitus type 2, hypertension, hyperlipidemia, obstructive sleep apnea and BPH. He is an ex smoker. For now, the patient's white cell count is at 13 with a hemoglobin 7.8 and a platelet count of 320. Electrolytes are all within normal limits. In terms of medication, the patient is on aspirin and Plavix. The patient remains on metoprolol 25 mg XL at bedtime. The patient remains on Lipitor 40 mg p.o. daily. He remains on amiodarone 200 mg p.o. twice a day. He is receiving IV iron for a component of iron deficiency anemia. Hemoglobin today is at 7.8. Patient is also on stress dose hydrocortisone. At 1535 patient developed CVI/TIA symptoms including left-sided facial droop and dysarthria. His NIH was initially scored at an 8 per nursing. Code stroke was called. Brain CT did not show any acute findings. Patient's blood pressure was noted to be hypotensive during this event. Blood pressure was reportedly 80s over 40s. He did receive 1.5 L fluid bolus in the form of normal saline. Blood pressure remains oksana nal. Neurology recommended vasopressors to improve hypotension and hopefully neurological symptoms. Follow-up carotid Doppler did not show any hemodynamically significant stenosis of right or left internal carotid arteries. The left common carotid artery stent was noted. Right vertebral artery was not visualized. MRI of the brain to be done today. On 04/15/2024, the patient is essentially unchanged. The patient is resting comfortably in bed and the patient remains on oxygen 4 L/min nasal cannula. Complaining of some oral dryness. MRI of the brain was done yesterday and it showed no evidence of an acute stroke. There was other abnormalities including some nonspecific white matter changes likely secondary to small vessel ischemia. Remote injury also involving the left frontal lobe was seen along with some gliosis. Medications are unchanged. The patient remains on aspirin, Plavix, amiodarone 200 mg p.o. twice daily and metoprolol 25 mg XL 1 tablet a day. Blood pressure is stable. He is on midodrine. He is on heparin subcu for DVT prophylaxis. He also is anemic with iron deficiency anemia and the patient is receiving IV iron. Hemoglobin today is at 7.8 with a white cell count of 12.7 and platelet count of 356. BUN is 21 with a creatinine of 1.06. Sodium levels at 135. On 04/16/2024, the patient is being seen for a follow-up. The patient is currently calm and comfortable, still on oxygen at 2 L/min nasal cannula. Failed to come off the oxygen as the patient showed oxygen saturation on room air oxygen with a pulse ox of 85%. Based on that, we will going to arrange home O2 for this patient. Noted his chest x-ray from yesterday was still showing a component of cardiomegaly and pulm vascular congestion. No chest pain. No angina. He remains on aspirin and he remains on anticoagulation with Eliquis. His blood work from today shows a WBC count of 12.3, hemoglobin 7.7, stable compared to yesterday and a platelet count of 331. BUN is 19 with a creatinine of 1.0 and the sodium level is at 133. The patient's blood pressure is soft at 94/63.. His current cardiac rhythm is sinus. Noted his echocardiogram showed mild ischemic cardiomyopathy, preserved LV function, moderate to severe mitral regurgitation with mild to moderate tricuspid regurgitation. He remains on Diflucan for candidal esophagitis. His beta-valerie dose has been has been reduced to metoprolol XL 12.5 mg p.o. daily as the patient was having some borderline hypotension. Objective - Vital Signs Vital signs: Vital Signs Temp 98.1 F 04/16/24 08:00 Pulse 68 04/16/24 08:00 Resp 17 04/16/24 08:00 BP 99/53 04/16/24 08:00 Pulse Ox 92 L 04/16/24 08:00 FiO2 35 04/13/24 08:00 Intake & Output 04/15/24 04/16/24 04/16/24 18:59 06:59 18:59 Intake Total 440 60 210 Output Total 0 Balance 440 60 210 Weight 109 kg Intake: IV 260 60 30 Invasive Line 5 60 60 30 Oral 180 180 Output: Urine 0 Other: Voiding Method Toilet Toilet # Voids 1 ABP, PAP, CO, CI - Last Documented Arterial Blood Pressure 40/27 - Exam No acute distress, oriented 3. No respiratory distress. The patient is currently on 2 L nasal cannula. HEENT examination is grossly unremarkable. Mucous membranes are moist. No oral lesions. Neck supple. Full range of motion. No adenopathy thyromegaly or neck vein distention. Cardiovascular examination reveals regular rhythm rate. S1-S2 normal. No S3 or S4. Harsh systolic murmur is noted. Lungs reveal minimal basilar crackles. No wheezes. No rhonchi. Breath sounds equal. Abdomen soft bowel sounds are heard. No masses or tenderness. Extremities are intact. No cyanosis or clubbing. 2+ lower extremity pitting edema is noted. Skin is without rash or lesion. Neurologic examination is brief but nonfocal. - Labs CBC & Chem 7: 04/16/24 06:06 04/16/24 06:06 Labs: Abnormal Lab Results - Last 24 Hours (Table) 04/15/24 04/15/24 04/15/24 Range/Units 11:28 16:38 20:07 WBC (3.8-10.6) k/uL RBC (4.30-5.90) m/uL Hgb (13.0-17.5) gm/dL Hct (39.0-53.0) % MCHC (31.0-37.0) g/dL RDW (11.5-15.5) % Neutrophils # (1.3-7.7) k/uL Sodium (137-145) mmol/L Potassium (3.5-5.1) mmol/L Glucose (74-99) mg/dL POC Glucose (mg/dL) 145 H 197 H 229 H (70-110) mg/dL 04/16/24 04/16/24 04/16/24 Range/Units 05:44 06:06 06:06 WBC 12.3 H (3.8-10.6) k/uL RBC 3.02 L (4.30-5.90) m/uL Hgb 7.7 L (13.0-17.5) gm/dL Hct 25.2 L (39.0-53.0) % MCHC 30.5 L (31.0-37.0) g/dL RDW 19.3 H (11.5-15.5) % Neutrophils # 9.6 H (1.3-7.7) k/uL Sodium 133 L (137-145) mmol/L Potassium 3.4 L (3.5-5.1) mmol/L Glucose 137 H (74-99) mg/dL POC Glucose (mg/dL) 145 H (70-110) mg/dL Assessment and Plan Plan: Acute non-ST elevation [place] status postoperative day #4 following Impella assisted heart catheterization involving PCI to the left main into the LAD/circumflex using DK crush technique with 3.5 x 1.5 mm Xience ROCKY into circumflex and 4.0 x 18 mm Xience ROCKY left main into LAD. Possible TIA. Neurologically stable and the MRI of the brain shows remote infarct, no acute changes, chronic small vessel ischemic changes bilaterally History of left carotid artery stenosis status post carotid artery stent done March 19, 2024. Severe multivessel coronary artery disease, patient has had multiple PCI/stents. Acute hypoxemic respiratory failure, the patient remains on 2 L of oxygen by nasal cannula. Most recent chest x-ray shows cardiomegaly and pulm vascular congestion/CHF. Echocardiogram estimating left ventricular ejection fraction of 60 to 65%. Mild concentric LVH. Moderate to severe mitral regurgitation, as well as, severe pulmonary hypertension, and mild to moderate tricuspid regurgitation. Anemia, chronic. History of diabetes mellitus. History of hypertension. History of hyperlipidemia. History of TURP. History of obstructive sleep apnea, no longer uses CPAP at home. Obesity, with a BMI of 33.8 kg/m. Former tobacco dependence, quit smoking in 1983. Plan: Patient is currently on 2 L of O2 nasal cannula, wean FiO2 as tolerated to maintain saturation above 90% Arrange for home O2 Continue aspirin and Plavix Continue metoprolol XL 12.5 mg at bedtime Continue amiodarone Continue statins and the patient is currently on Lipitor Discontinue stress dose hydrocortisone MRI of the brain was noted, no acute abnormalities May need to restart diuretics at a lower dose as long as blood pressure tolerates Increase mobility Will continue to follow
[2024-04-16 16:22] LABS: Glucose,Whole Blood 124 mg/dL (70-110)
[2024-04-16 19:26] LABS: Glucose,Whole Blood 159 mg/dL (70-110)
[2024-04-16] MEDS: METOPROLOL SUCCINATE (ER) 25 MG TAB.ER.24H PO SCH (20:17)
[2024-04-16] MEDS: APIXABAN 5 MG TAB PO SCH (20:17)
[2024-04-17 02:06] VITALS: RESP 16
[2024-04-17 05:47] LABS: Glucose,Whole Blood 181 mg/dL (70-110)
[2024-04-17 07:30] LABS: Anisocytosis Moderate; HCT 26.8 % (39.0-53.0); HGB 7.9 gm/dL (13.0-17.5); Hypochromasia Marked; MCH 25.1 pg (25.0-35.0); MCHC 29.6 g/dL (31.0-37.0); MCV 84.8 fL (80.0-100.0); Mean Platelet Volume 7.4; Platelet Count 384 k/uL (150-450); Poikilocytosis Marked; RBC 3.17 m/uL (4.30-5.90); RDW 20.5 % (11.5-15.5)
[2024-04-17 08:11] LABS: African American GFR (CKD) 68 (>60 ml/min/1.73 sqM); Anion Gap 6 mmol/L; Blood Urea Nitrogen 19 mg/dL (9-20); Calcium 8.7 mg/dL (8.4-10.2); Carbon Dioxide 27 mmol/L (22-30); Chloride 102 mmol/L (98-107); Glucose 147 mg/dL (74-99); Non-African American GFR(CKD) 59 (>60 ml/min/1.73 sqM); Potassium 3.6 mmol/L (3.5-5.1); Sodium 135 mmol/L (137-145)
[2024-04-17 08:30] VITALS: TEMP 98.2
[2024-04-17] MEDS: POTASSIUM CHLORIDE ER 20 MEQ TAB.ER PO STA (10:15)
[2024-04-17] MEDS: FUROSEMIDE 40 MG TAB PO SCH (10:15)
--- NOTE | 2024-04-17 11:29 | P.PN ---
Subjective Progress Note Date: 04/17/24 Patient is a pleasant 62-year-old male who presented to the hospital with an NSTEMI and is status post stent of the left main and left circumflex, with concern of possible stroke. Patient reports that he is feeling a lot better today. Patient's heart rate is well-controlled on current medication treatment. He is denying chest pain, shortness of breath, heart palpitations, dizziness. VITALS: Temp 97.4, pulse 85, respirations 18, blood pressure 107/70, O2 saturation 97% on 2 L TELEMETRY: Atrial fibrillation with controlled ventricular response LABS: White count 10.1, hemoglobin 7.1, platelets 285, sodium 131, potassium 4, BUN 19, creatinine 0.88 04/14/2024 Patient seen and examined. Patient has been seen by GI and is scheduled for EGD tomorrow. Anticoagulation is on hold due to anemia. Patient states that her breathing is better. She denies having any chest pain. Patient did have episod e this morning where she was hypoxic and oxygen was increased to 4 L. Patient is currently in a sinus rhythm. Blood pressure 108/73, heart rate 81, pulse ox 99% on 4 L nasal cannula. Repeat blood work reveals WBC 13, hemoglobin 7.8. Sodium 132, potassium 3.6, BUN 21 creatinine 0.88 04/15/2024 Patient seen and examined. Patient is scheduled for EGD today. He is not currently on anticoagulation for atrial fibrillation due to anemia. Blood pressure 110/75, heart rate 62, pulse ox 99% on 4 L nasal cannula. Repeat blood work reveals WBC 12.7, 7.8. BUN 21 creatinine 1.06. MRI of the brain: No evidence of intracranial mass or subacute/subacute infarct. Small vessel ischemic disease. Remote injury left frontal lobe. 04/16/2024 Patient seen and examined. Yesterday patient underwent EGD with biopsy which revealed small 5 mm nonbleeding antral ulcer s/p biopsy, antral erosive gastriti s, multiple whitish plaques throughout the entire esophagus consistent with Dione esophagitis. Patient is cleared by GI to resume anticoagulation. Patient will also continue on dual antiplatelet therapy due to recent stenting. Patient is having some increased shortness of breath today and 1 dose of IV Lasix 20 mg ordered. Blood pressure 94/58, heart rate in the 60s, pulse ox 94% on 4 L nasal cannula. Patient denies having any chest pain. He states his breathing is okay. 04/17/2024 Patient seen and examined. Patient was started on anticoagulation yesterday as well as dual antiplatelet therapy due to recent stenting. Beta-valerie was also decreased to 12.5 mg due to low blood pressure readings. Patient received 1 dose of IV Lasix yesterday. Blood pressure 102/49, heart rate 63, pulse ox 95% on 2 L nasal cannula. Repeat blood work reveals improvement of hemoglobin to 7.9, WBC is 11. BUN 19 creatinine 1.18. Patient states that his breathing is better today. He has been set up for home oxygen therapy with plan for discharge home today. Examination GENERAL: Well-appearing, well-nourished and in no acute distress. NECK: Supple without JVD or thyromegaly. LUNGS: Breath sounds clear to auscultation bilaterally. Respiration equal and unlabored. No wheezes, rales or rhonchi. HEART: Regular rate and rhythm without murmurs, rubs or gallops. S1 and S2 heard. EXTREMITIES: No edema. No clubbing or cyanosis. Peripheral pulses intact and strong. IMPRESSION: 1. NSTEMI 2. Status post stenting of the left main and left circumflex 3. New onset A-fib, currently in a sinus rhythm 4. History of mild ischemic cardiomyopathy, EF 60 to 65% 5. Possible TIA, MRI pending 6. Obstructive sleep apnea 7. Diabetes mellitus type 2 8. Carotid artery surgery with left carotid stent 03/19/2024 9. Severe pulmonary hypertension 10. Moderate to severe mitral regurgitation and mild to moderate tricuspid regurgitation 11. Anemia, EGD revealed a nonbleeding antral ulcer and antral erosive gastritis, Dione esophagitis PLAN: Continue patient on Eliquis 5 mg twice daily Continue patient on dual antiplatelet therapy due to recent stenting Continue patient on amiodarone 200 mg twice daily, atorvastatin 40 mg at bedtime Discontinue beta-valerie due to hypotension Patient is cleared for discharge from cardiology and may follow-up in the office in 1 to 2 weeks. Nurse practitioner note has been reviewed, I agree with documented findings and plan of care. Patient was seen and examined. Objective - Vital Signs Vital signs: Vital Signs Temp 97.2 F L 04/17/24 03:35 Pulse 63 04/17/24 03:35 Resp 16 04/17/24 03:35 BP 102/49 04/17/24 03:35 Pulse Ox 95 04/17/24 03:35 FiO2 35 04/13/24 08:00 Intake & Output 04/16/24 04/17/24 04/17/24 18:59 06:59 18:59 Intake Total 1120 20 20 Balance 1120 20 20 Weight 108 kg Intake: IV 40 20 20 Invasive Line 5 40 20 20 Oral 1080 Other: Voiding Method Toilet # Voids 2 1 # Bowel Movements 0 ABP, PAP, CO, CI - Last Documented Arterial Blood Pressure - Labs CBC & Chem 7: 04/17/24 06:47 04/17/24 06:47 Labs: Abnormal Lab Results - Last 24 Hours (Table) 04/16/24 04/16/24 04/16/24 Range/Units 11:47 16:20 19:24 WBC (3.8-10.6) k/uL RBC (4.30-5.90) m/uL Hgb (13.0-17.5) gm/dL Hct (39.0-53.0) % MCHC (31.0-37.0) g/dL RDW (11.5-15.5) % Sodium (137-145) mmol/L Glucose (74-99) mg/dL POC Glucose (mg/dL) 187 H 124 H 159 H (70-110) mg/dL 04/17/24 04/17/24 04/17/24 Range/Units 05:44 06:47 06:47 WBC 11.0 H (3.8-10.6) k/uL RBC 3.17 L (4.30-5.90) m/uL Hgb 7.9 L (13.0-17.5) gm/dL Hct 26.8 L (39.0-53.0) % MCHC 29.6 L (31.0-37.0) g/dL RDW 20.5 H (11.5-15.5) % Sodium 135 L (137-145) mmol/L Glucose 147 H (74-99) mg/dL POC Glucose (mg/dL) 181 H (70-110) mg/dL
[2024-04-17 11:35] LABS: Glucose,Whole Blood 181 mg/dL (70-110)
[2024-04-17 12:39] VITALS: BP 95/59; PULSE 67
--- NOTE | 2024-04-17 13:56 | P.PN ---
Subjective Progress Note Date: 04/16/24 79-year-old male, history of coronary artery disease, carotid artery disease, obstructive sleep apnea, diabetes mellitus type 2, hypertension, who presents to the emergency department with history of recent cardiac catheterization on 02/03/2024 with 5 stents in the past. Patient states he started having chest pain and difficulty breathing 5 days ago. Patient states it does worsen with exertion. Patient states the pain radiates down both arms. Patient denies any diaphoretic episodes. Patient denies any nausea. Patient denies any abdominal pain. Patient denies a headache. Patient states that he has had no recent fever chills or cough. Patient states she has been a little more swelling in his legs Patient had a previous cardiac catheterization on 02/03/2024 and he was referred to cardiothoracic surgery for CABG evaluation of the left main disease. He met with Dr. Polanco and was deemed high risk and therefore referred for stenting and not CABG. Patient states the chest pain started on at home. It did not seem to be too bad and then on Sunday he decided to come into the hospital for evaluation. Nitropaste did not take the pain away. He states the chest pain is now gone. He also states he has had lower extremity edema ever since he had the stent of the carotid done on 03/19. Patient has been started on a heparin drip. Blood pressure 99/58, heart rate 68, pulse ox 97% on room air. Patient has been started on a heparin drip. -EKG: Sinus rhythm with first-degree block -Chest x-ray: Chronic changes without acute pulmonary process. No significant change from prior. -Laboratory studies: WBC 8.8, hemoglobin 9.2. Electrolytes within normal limits. Creatinine 1.1. Troponin 0.59, 1.18, 1.5. Urinalysis positive for RBCs and WBCs. -Home cardiac medications: Aspirin 81 mg daily, atorvastatin 40 mg at bedtime, Plavix 75 mg at bedtime, losartan 25 mg at bedtime, Toprol XL 25 mg at bedtime, nitroglycerin sublingual. -03/19/2024: Carotid artery stenosis 99% proximal left internal status post left carotid stent. -Echocardiogram performed in the office on 01/18/2024 revealed EF of 55 to 60%, severe LVH, mild aortic stenosis, mild mitral regurgitation, mild tricuspid regurgitation, PASP 42 mmHg. 24-hour interval change 04/06/2024 Patient seen and examined in room at bedside. Patient denies having any chest pain no shortness of breath. He has been maintained on a heparin drip. Patient is on nitro paste which seems to control his chest pain. Vital signs are reviewed and remained stable with blood pressure 102/66, heart rate 77, pulse ox 94% on room air. -- blood work reveals hemoglobin 7.8, sodium 136, potassium 3.8, BUN 16 cr eatinine 1.02. - Echocardiogram reveals EF of 60 to 65%, severe pulmonary hypertension, moderate to severe mitral regurgitation, mild to moderate tricuspid regurgitation. Make patient n.p.o. after midnight Schedule patient for left heart cath on Sunday with Dr. Roque 04/07 This is a pleasant 79 years old male who presents with signs symptoms of chest pain suspicious for non-STEMI. He had recently diagnosed with non-STEMI and he underwent PCI to left circumflex on 04/02 Also patient had shortness of breath on admission and coughing up blood. Chest x-ray on admission read as chronic changes without acute pulmonary process per radiologist. Today he still complaining from shortness of breath. We are going to repeat the chest x-ray Cardiology team also planning to repeat cardiac cath today. Patient confirms to me he has been using aspirin and Plavix at home which are resumed currently. Also he is on a heparin drip. Anemia this admission is 8-9.5, he had recent baseline about 14-15 more than 1 month ago. Patient denies any signs of overt bleeding recently. Patient states he has been constipated since last Sunday. Will going to start him on laxative Will do an anemia workup Echocardiogram is showing EF 60 to 65% with severe pulmonary hypertension and moderate to severe mitral regurgitation and mild to moderate tricuspid regurgitation 04/08 Patient yesterday underwent cardiac cath per cardiology team showing coronary artery disease with 70% left main stenosis, 20 to 30% proximal LAD stenosis, 60 to 70% mid LAD stenosis, 30% stenosis of the circumflex artery and 100% stenosis of the right coronary artery. Patient is S/p Impella protected PCI left main into LAD/ circumflex using DK crush technique with 3.5 x 15mm Xience ROCKY into circumflex and 4.0 x 18mm Xience ROCKY left main into LAD After the procedure patient was sent to the ICU where he had transient symptoms of difficulty talking and slurred speech associated with mild weakness on the right side as patient tells me, the symptoms lasted for about an hour. Code stroke was called and CT of the brain and carotid duplex ordered which were basically negative for acute findings to explain patient's symptoms. Neurology was contacted and recommended to keep her blood pressure elevated so patient was started on Levophed. However patient chronically blood pressure is 90s to 100. Prior to the procedure patient was already on aspirin, Plavix and heparin drip Hemoglobin is 7.3, anemia workup showing iron deficiency anemia. Vitamin B12 also borderline. Will give one-time dose of Furric gluconate. Monitor hemoglobin closely 06/10 Patient is tachypneic this morning with no chest pain He denies bleeding from anywhere. Hemoglobin today 6.8, 1 unit of blood transfusion is ordered. He received small dose of IV Lasix 20 mg yesterday. Currently blood pressure 118/78, also he is on Levophed 0.3 to support blood pressure given his stroke symptoms post cardiac cath. Patient is mildly tachycardic. Afebrile. Has good oxygen saturation 99 4% on 3 L. Other labs looks unremarkable. We will increase Protonix to twice daily CT of the brain and MRI of the brain are pending for his recent neurological symptoms which looks resolved now with the control of the blood pressure. 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 04/11 Patient feels more comfortable today, his dyspnea is betterHe denies chest painHe is continued on amiodarone drip Also he is on Levophed at 0.15On exam he has better breathing and air entry on both sides with no other less wheezing Patient got 1 unit of blood transfusion on 04/09. Currently hemoglobin stable at 7.7. Patient is not getting heparin currently 04/12-patient seen and evaluated at bedside, on evaluation patient is awake and alert, he denies feeling down but able to move bilateral upper and lower extremities patient denies feeling dizzy. Blood work reviewed hemoglobin 7.5 platelet 294's serum chemistry sodium 130 magnesium within normal limits potassium 4 04/13- patient seen and evaluated at bedside, MRI brain pending, he remains on 2 L of oxygen, CBC reviewed hemoglobin 7.1 platelet 285, sodium 131 calcium of 8.3, patient denies having tingling numbness plan to be transferred out of ICU. 04/14/2024 Patient is currently sitting in the bed. Patient is in the medical floor. Awake alert and oriented. Requiring oxygen at 4 L via nasal cannula. Denies any complaints of chest pain or shortness of breath. No dizziness or ligh theadedness. Patient states that last night he noticed dark-colored stools. Hemoglobin otherwise improved from 7.1-7.8 today. Patient is also found to be iron deficient. No headache or dizziness. Laboratory data showed WBC 13.0 hemoglobin 7.8 and platelets 320 RDW was 18.6 sodium 132 potassium 3.6 chloride 102 bicarb is 23 BUN 21 and creatinine 0.88 and blood sugar 213 MRI of the brain is pending to rule out CVA. Cardiology, neurology is on board. GI was consulted. 04/15/2024 Patient is resting in the bed. Awake alert and oriented x 3. Requiring 4 L oxygen via nasal cannula. Hemoglobin is fairly stable. Patient underwent EGD today showed small 5 mm nonbleeding antral ulcer s/p biopsy, antral erosive gastritis. Multiple whitish plaques throughout the entire esophagus consistent with Dione esophagitis. Patient was started on Diflucan. Otherwise MRI of the brain was done yesterday which showed no evidence of intracranial mass or acute/subacute infarct. Remote injury left frontal lobe with surrounding gliosis. Laboratory data showed WBC 12.7 hemoglobin 7.8 and platelets 356 sodium 135 potassium 3.5 chloride 99 bicarb is 28 BUN 21 creatinine 1.06 and blood sugar 131 04/16/2024 Patient is sitting in the chair. Awake alert and oriented x 3. Requiring 2 L oxygen via nasal cannula. Patient was given extra dose of IV Lasix due to vascular congestion on chest x-ray. No complaints of chest pain or shortness of breath. No nausea or vomiting. Home oxygen is being arranged. Continue with PPI. Hemoglobin is fairly stable. Anticipate discharge in next 24 hours. GENERAL: The patient is alert and oriented x3, not in any acute distress. Well developed, well nourished. Obese HEENT: Pupils are round and equally reacting to light. EOMI. Normocephalic, atraumatic. CARDIOVASCULAR: S1 and S2 present. No murmurs, rubs, or gallops. PULMONARY: Decreased breath sounds bilaterally, rhonchi audible ABDOMEN: Soft, nontender, nondistended, normoactive bowel sounds. No palpable organomegaly. MUSCULOSKELETAL: No joint swelling or deformity. EXTREMITIES: Trace lower extremity extremity edema noted, skin bruising noted NEUROLOGICAL: Gross neurological examination did not reveal any focal deficits. Speech is fluent. Motor strength is 4 x 5 bilateral upper lower extremity Objective - Vital Signs Vital signs: Vital Signs Temp 98.3 F 04/16/24 19:53 Pulse 76 04/16/24 20:39 Resp 20 04/16/24 19:53 BP 101/66 04/16/24 19:53 Pulse Ox 94 L 04/16/24 19:53 FiO2 35 04/13/24 08:00 Intake & Output 04/16/24 04/16/24 04/17/24 06:59 18:59 06:59 Intake Total 60 1140 20 Output Total 0 Balance 60 1140 20 Weight 109 kg Intake: IV 60 60 20 Invasive Line 5 60 60 20 Oral 1080 Output: Urine 0 Other: Voiding Method Toilet Toilet # Voids 2 1 # Bowel Movements 0 ABP, PAP, CO, CI - Last Documented Arterial Blood Pressure 40/27 - Labs CBC & Chem 7: 04/17/24 06:47 04/17/24 06:47 Labs: Abnormal Lab Results - Last 24 Hours (Table) 04/16/24 04/16/24 04/16/24 Range/Units 05:44 06:06 06:06 WBC 12.3 H (3.8-10.6) k/uL RBC 3.02 L (4.30-5.90) m/uL Hgb 7.7 L (13.0-17.5) gm/dL Hct 25.2 L (39.0-53.0) % MCHC 30.5 L (31.0-37.0) g/dL RDW 19.3 H (11.5-15.5) % Neutrophils # 9.6 H (1.3-7.7) k/uL Sodium 133 L (137-145) mmol/L Potassium 3.4 L (3.5-5.1) mmol/L Glucose 137 H (74-99) mg/dL POC Glucose (mg/dL) 145 H (70-110) mg/dL 04/16/24 04/16/24 04/16/24 Range/Units 11:47 16:20 19:24 WBC (3.8-10.6) k/uL RBC (4.30-5.90) m/uL Hgb (13.0-17.5) gm/dL Hct (39.0-53.0) % MCHC (31.0-37.0) g/dL RDW (11.5-15.5) % Neutrophils # (1.3-7.7) k/uL Sodium (137-145) mmol/L Potassium (3.5-5.1) mmol/L Glucose (74-99) mg/dL POC Glucose (mg/dL) 187 H 124 H 159 H (70-110) mg/dL Assessment and Plan Assessment: Assessment: * acute non-ST elevated IL s/p PCI to LAD and circumflex requiring Impella assisted heart catheterization * multivessel coronary artery disease * Cardiogenic shock. Patient was requiring pressor support. * left-sided facial droop and dysarthria rule out CVA * new onset atrial fibrillation * ischemic cardiomyopathy acute systolic congestive heart failure ejection fraction 60 to 65% * diabetes mellitus type 2 * COPD * history of obstructive sleep apnea * history of left carotid artery stenosis status post carotid artery stent February 2020 for * acute hypoxic respiratory failure * Anemia/acute blood loss anemia due to GI bleed status post EGD. * Iron deficiency anemia * Candidal esophagitis * in regards to coronary artery diseasePatient had cardiac cath on 04/07: Showing 70% left main stenosis, 20 to 30% proximal LAD stenosis, 60 to 70% mid LAD stenosis, 30% stenosis of the circumflex artery and 100% stenosis of the right coronary artery. Patient is S/p Impella protected PCI left main into LAD/ circumflex using DK crush technique with 3.5 x 15mm Xience ROCKY into circumflex and 4.0 x 18mm Xience ROCKY left main into LAD Postcardiac cath neurological symptoms of slurred speech and mild right side weakness, currently completely resolved. CT of the brain is negative. Neurology consulted to rule out stroke or others. Could be related to hypotension postprocedure. * in regards to congestive heart failure, continue guideline directed medical therapy. Start back on Eliquis. * in regards to neurological symptoms, CT head negative, neurology following, MRI brain pending * continue patient on dual antiplatelet therapy including aspirin and Plavix * GI was consulted due to anemia and dark-colored stools. Continue with PPI. Status post EGD.. Continue with PPI and Diflucan. * Aamaryl is on hold, c/w insulin sliding scale, glucose currently controlled * Labs and medication were reviewed.. * DVT prophylaxis: heparin * GI Prophylaxis: protonix Time with Patient: Greater than 30
--- NOTE | 2024-04-17 18:36 | P.PN ---
Subjective Progress Note Date: 04/17/24 On today's evaluation of 04/14/2024, the patient is resting comfortably in bed. The patient is currently on 4 L of oxygen by nasal cannula. Denies having any chest pain. Denies having any significant shortness of breath. He is awaiting MRI of the brain as the patient had an episode of seizure during this current hospital stay. Noted he has a history of coronary artery disease and is status post a complex coronary intervention requiring an Impella assisted cardiac catheterization and PCI of the left main into LAD and circumflex and placement of coronary stents. Patient is known to have severe multivessel coronary artery disease and has undergone multiple PCI and stenting and he has a preserved LV function with an ejection fraction of 6065% with moderate to severe mitral regurgitation and severe pulm hypertension. He has diabetes mellitus type 2, hypertension, hyperlipidemia, obstructive sleep apnea and BPH. He is an ex smoker. For now, the patient's white cell count is at 13 with a hemoglobin 7.8 and a platelet count of 320. Electrolytes are all within normal limits. In terms of medication, the patient is on aspirin and Plavix. The patient remains on metoprolol 25 mg XL at bedtime. The patient remains on Lipitor 40 mg p.o. daily. He remains on amiodarone 200 mg p.o. twice a day. He is receiving IV iron for a component of iron deficiency anemia. Hemoglobin today is at 7.8. Patient is also on stress dose hydrocortisone. At 1535 patient developed CVI/TIA symptoms including left-sided facial droop and dysarthria. His NIH was initially scored at an 8 per nursing. Code stroke was called. Brain CT did not show any acute findings. Patient's blood pressure was noted to be hypotensive during this event. Blood pressure was reportedly 80s over 40s. He did receive 1.5 L fluid bolus in the form of normal saline. Blood pressure remains oksana nal. Neurology recommended vasopressors to improve hypotension and hopefully neurological symptoms. Follow-up carotid Doppler did not show any hemodynamically significant stenosis of right or left internal carotid arteries. The left common carotid artery stent was noted. Right vertebral artery was not visualized. MRI of the brain to be done today. On 04/15/2024, the patient is essentially unchanged. The patient is resting comfortably in bed and the patient remains on oxygen 4 L/min nasal cannula. Complaining of some oral dryness. MRI of the brain was done yesterday and it showed no evidence of an acute stroke. There was other abnormalities including some nonspecific white matter changes likely secondary to small vessel ischemia. Remote injury also involving the left frontal lobe was seen along with some gliosis. Medications are unchanged. The patient remains on aspirin, Plavix, amiodarone 200 mg p.o. twice daily and metoprolol 25 mg XL 1 tablet a day. Blood pressure is stable. He is on midodrine. He is on heparin subcu for DVT prophylaxis. He also is anemic with iron deficiency anemia and the patient is receiving IV iron. Hemoglobin today is at 7.8 with a white cell count of 12.7 and platelet count of 356. BUN is 21 with a creatinine of 1.06. Sodium levels at 135. On 04/16/2024, the patient is being seen for a follow-up. The patient is currently calm and comfortable, still on oxygen at 2 L/min nasal cannula. Failed to come off the oxygen as the patient showed oxygen saturation on room air oxygen with a pulse ox of 85%. Based on that, we will going to arrange home O2 for this patient. Noted his chest x-ray from yesterday was still showing a component of cardiomegaly and pulm vascular congestion. No chest pain. No angina. He remains on aspirin and he remains on anticoagulation with Eliquis. His blood work from today shows a WBC count of 12.3, hemoglobin 7.7, stable compared to yesterday and a platelet count of 331. BUN is 19 with a creatinine of 1.0 and the sodium level is at 133. The patient's blood pressure is soft at 94/63.. His current cardiac rhythm is sinus. Noted his echocardiogram showed mild ischemic cardiomyopathy, preserved LV function, moderate to severe mitral regurgitation with mild to moderate tricuspid regurgitation. He remains on Diflucan for candidal esophagitis. His beta-valerie dose has been has been reduced to metoprolol XL 12.5 mg p.o. daily as the patient was having some borderline hypotension. On 04/17/2024, the patient is being seen for a follow-up. Patient is doing well. He remains on oxygen 2 L/min nasal cannula and the patient has qualified for home O2. This will be arranged for the patient. Doing well. No chest pain. No significant shortness of breath. The BUN is 19 with a creatinine of 1.1. Sodium levels at 135, hemoglobin is at 7.9 with a white cell count of 11.0. Remains essentially on the same medications. Remains on Lasix 40 mg p.o. daily. Remains on anticoagulation with Eliquis. Remains on Plavix. Remains on amiodarone. He is also completing a course of Diflucan regarding esophageal candidiasis. Objective - Vital Signs Vital signs: Vital Signs Temp 98.2 F 04/17/24 08:00 Pulse 68 04/17/24 08:00 Resp 16 04/17/24 08:00 BP 90/60 04/17/24 08:00 Pulse Ox 95 04/17/24 08:00 FiO2 35 04/13/24 08:00 Intake & Output 04/16/24 04/17/24 04/17/24 18:59 06:59 18:59 Intake Total 1120 20 260 Balance 1120 20 260 Weight 108 kg Intake: IV 40 20 20 Invasive Line 5 40 20 20 Oral 1080 240 Other: Voiding Method Toilet # Voids 2 1 # Bowel Movements 0 ABP, PAP, CO, CI - Last Documented Arterial Blood Pressure 40/27 - Exam No acute distress, oriented 3. No respiratory distress. The patient is currently on 2 L nasal cannula. HEENT examination is grossly unremarkable. Mucous membranes are moist. No oral lesions. Neck supple. Full range of motion. No adenopathy thyromegaly or neck vein distention. Cardiovascular examination reveals regular rhythm rate. S1-S2 normal. No S3 or S4. Harsh systolic murmur is noted. Lungs reveal minimal basilar crackles. No wheezes. No rhonchi. Breath sounds equal. Abdomen soft bowel sounds are heard. No masses or tenderness. Extremities are intact. No cyanosis or clubbing. 2+ lower extremity pitting edema is noted. Skin is without rash or lesion. Neurologic examination is brief but nonfocal. - Labs CBC & Chem 7: 04/17/24 06:47 04/17/24 06:47 Labs: Abnormal Lab Results - Last 24 Hours (Table) 04/16/24 04/16/24 04/16/24 Range/Units 11:47 16:20 19:24 WBC (3.8-10.6) k/uL RBC (4.30-5.90) m/uL Hgb (13.0-17.5) gm/dL Hct (39.0-53.0) % MCHC (31.0-37.0) g/dL RDW (11.5-15.5) % Sodium (137-145) mmol/L Glucose (74-99) mg/dL POC Glucose (mg/dL) 187 H 124 H 159 H (70-110) mg/dL 04/17/24 04/17/24 04/17/24 Range/Units 05:44 06:47 06:47 WBC 11.0 H (3.8-10.6) k/uL RBC 3.17 L (4.30-5.90) m/uL Hgb 7.9 L (13.0-17.5) gm/dL Hct 26.8 L (39.0-53.0) % MCHC 29.6 L (31.0-37.0) g/dL RDW 20.5 H (11.5-15.5) % Sodium 135 L (137-145) mmol/L Glucose 147 H (74-99) mg/dL POC Glucose (mg/dL) 181 H (70-110) mg/dL Assessment and Plan Plan: Acute non-ST elevation AK status postoperative day #4 following Impella assisted heart catheterization involving PCI to the left main into the LAD/circumflex using DK crush technique with 3.5 x 1.5 mm Xience ROCKY into circumflex and 4.0 x 18 mm Xience ROCKY left main into LAD. Possible TIA. Neurologically stable and the MRI of the brain shows remote infarct, no acute changes, chronic small vessel ischemic changes bilaterally History of left carotid artery stenosis status post carotid artery stent done March 19, 2024. Severe multivessel coronary artery disease, patient has had multiple PCI/stents. Acute hypoxemic respiratory failure, the patient remains on 2 L of oxygen by nasal cannula. Most recent chest x-ray shows cardiomegaly and pulm vascular congestion/CHF. Echocardiogram estimating left ventricular ejection fraction of 60 to 65%. Mild concentric LVH. Moderate to severe mitral regurgitation, as well as, severe pulmonary hypertension, and mild to moderate tricuspid regurgitation. Paroxysmal A-fib, current rhythm is sinus Anemia, chronic. History of diabetes mellitus. History of hypertension. History of hyperlipidemia. History of TURP. History of obstructive sleep apnea, no longer uses CPAP at home. Obesity, with a BMI of 33.8 kg/m. Former tobacco dependence, quit smoking in 1983. Plan: The patient is to be discharged home today on oxygen at 2 L Arrange for home O2 Continue Plavix Continue metoprolol XL 12.5 mg at bedtime Continue amiodarone Anticoagulation with Eliquis Completed course of Diflucan Continue statins and the patient is currently on Lipitor MRI of the brain was noted, no acute abnormalities Continue Lasix Increase mobility Monitor hemoglobin on outpatient basis Home today
--- NOTE | 2024-04-18 09:47 | CDI ---
Documentation Clarification Form Date: 04/18/2024 09:01:34 AM From: Neha Pickett RN, CCDS Phone: [phone] Admit Date: 04/07/2024 12:36:00 PM Patient Name: Ganesh Waldrop Visit Number: [id number] Discharge Date: 04/17/2024 03:20:00 PM ATTENTION: The Clinical Documentation Specialists (CDI) and [facility] Coding Staff appreciate your assistance in clarifying documentation. Please respond to the clarification below the line at the bottom and electronically sign. The CDI & [facility] Coding staff will review the response and follow-up if needed. Please note: Queries are made part of the Legal Health Record. If you have any questions, please contact the author of this message via ITS. DoctorAshleigh Rosales Conflicting documentation has been found in the medical record. As attending physician, please provide clarification. 04/14 progress note: Ischemic cardiomyopathy acute systolic congestive heart failure ejection fraction 60 to 65% 04/07 progress note: possible acute systolic CHF, with ischemic cardiomyopathy with EF OF 45% 04/09 progress note: Diastolic heart failure History/Risk Factors: Coronary Artery Disease (CAD), Chest Pain / Angina, Diabetes Mellitus, Eye Disorder, Hyperlipidemia, Hypertension, Myocardial Infarction (MS), Prostate disorder Clinical Indicators: 79-year-old male who presents to ED with chest pain and difficulty breathing 5 days ago. 04/07 VS: 92/57 78 18 98 92% RA 04/07 EKG: SR with first Degree AV Block vent rate 83 04/07 Mild prominence of the interstitial markings when compared to the recent chest x-ray may relate to developing infectious/inflammatory process. Correlate with clinical evaluation. ECHO: Normal LV systolic function with an ejection fraction of 60-65% Severe pulmonary hypertension Moderate to severe mitral regurgitation Mild to moderate tricuspid regurgitation Treatment: Cardiac, Telemetry monitoring Lasix 40 MG IV Once 04/08 Lasix 60 MG IV Once 04/09 Lipitor 40 MG PO HS Please clarify which diagnosis is most appropriate: [ x ] Acute Diastolic heart failure LVEF 60-65% per ECHO (04/05/24) [ ] Other (please specify) [ ] Unable to determine (Template Last Revised: June 2020) MTDD
== END 2024-04-17 15:20 | disposition home health service (06) | DRG 216 ==
LOC: EC 12:15 → 3SCARD 16:28 → OBSVTOIN 04-07 12:36 → 2SICU 04-07 13:53 → 3SCARD 04-13 17:54
PROVIDERS: ADMIT Hospitalist; ATTEND Hospitalist
PROC: B2111ZZ Fluoroscopy of Multiple Coronary Arteries using Low Osmolar Contrast (ICD-10-PCS; 2024-04-07)
PROC: B240ZZ3 Ultrasonography of Single Coronary Artery, Intravascular (ICD-10-PCS; 2024-04-07)
PROC: 02HA3RJ Insertion of Short-term External Heart Assist System into Heart, Intraoperative, Percutaneous Approach (ICD-10-PCS; principal; 2024-04-07 09:30)
PROC: 4A023N7 Measurement of Cardiac Sampling and Pressure, Left Heart, Percutaneous Approach (ICD-10-PCS; 2024-04-07 09:30)
PROC: 5A0221D Assistance with Cardiac Output using Impeller Pump, Continuous (ICD-10-PCS; 2024-04-07 09:30)
PROC: 02F03ZZ Fragmentation in Coronary Artery, One Artery, Percutaneous Approach (ICD-10-PCS; 2024-04-07 09:30)
PROC: 027135Z Dilation of Coronary Artery, Two Arteries with Two Drug-eluting Intraluminal Devices, Percutaneous Approach (ICD-10-PCS; 2024-04-07 09:30)
PROC: 03HY32Z Insertion of Monitoring Device into Upper Artery, Percutaneous Approach (ICD-10-PCS; 2024-04-08)
PROC: 4A133B1 Monitoring of Arterial Pressure, Peripheral, Percutaneous Approach (ICD-10-PCS; 2024-04-08)
PROC: 4A133J1 Monitoring of Arterial Pulse, Peripheral, Percutaneous Approach (ICD-10-PCS; 2024-04-08)
PROC: 02HV33Z Insertion of Infusion Device into Superior Vena Cava, Percutaneous Approach (ICD-10-PCS; 2024-04-09)
PROC: 3E043XZ Introduction of Vasopressor into Central Vein, Percutaneous Approach (ICD-10-PCS; 2024-04-09)
PROC: 30233N1 Transfusion of Nonautologous Red Blood Cells into Peripheral Vein, Percutaneous Approach (ICD-10-PCS; 2024-04-09)
PROC: 0DB78ZX Excision of Stomach, Pylorus, Via Natural or Artificial Opening Endoscopic, Diagnostic (ICD-10-PCS; 2024-04-15)
DX: I21.4 Non-ST elevation (NSTEMI) myocardial infarction (principal); I50.31 Acute diastolic (congestive) heart failure; J96.01 Acute respiratory failure with hypoxia; K25.4 Chronic or unspecified gastric ulcer with hemorrhage; K29.61 Other gastritis with bleeding; B37.81 Candidal esophagitis; E27.40 Unspecified adrenocortical insufficiency; G45.9 Transient cerebral ischemic attack, unspecified; I11.0 Hypertensive heart disease with heart failure; R56.9 Unspecified convulsions; I27.22 Pulmonary hypertension due to left heart disease; I48.0 Paroxysmal atrial fibrillation; E11.65 Type 2 diabetes mellitus with hyperglycemia; J44.89 Other specified chronic obstructive pulmonary disease; G93.89 Other specified disorders of brain; Z95.828 Presence of other vascular implants and grafts; Z68.33 Body mass index [BMI] 33.0-33.9, adult; Z79.02 Long term (current) use of antithrombotics/antiplatelets; E66.9 Obesity, unspecified; D50.0 Iron deficiency anemia secondary to blood loss (chronic); I08.3 Combined rheumatic disorders of mitral, aortic and tricuspid valves; I25.10 Atherosclerotic heart disease of native coronary artery without angina pectoris; I25.5 Ischemic cardiomyopathy; I95.89 Other hypotension; E78.5 Hyperlipidemia, unspecified; R29.810 Facial weakness; R47.1 Dysarthria and anarthria; R29.708 NIHSS score 8; G47.33 Obstructive sleep apnea (adult) (pediatric); N40.0 Benign prostatic hyperplasia without lower urinary tract symptoms; R31.9 Hematuria, unspecified; Z96.652 Presence of left artificial knee joint; Z79.84 Long term (current) use of oral hypoglycemic drugs; Z87.891 Personal history of nicotine dependence; Z79.82 Long term (current) use of aspirin; Z79.899 Other long term (current) drug therapy; Z79.51 Long term (current) use of inhaled steroids; Z95.5 Presence of coronary angioplasty implant and graft; I25.2 Old myocardial infarction; Z86.0100 Personal history of colon polyps, unspecified; Z90.79 Acquired absence of other genital organ(s)
CPT/HCPCS: 33990; 36410; 36415; 43239; 70450; 70551; 71045; 71046; 74176; 76937; 80048; 80053; 80061; 80076; 81001; 81003; 82247; 82533; 82607; 82728; 82746; 83010; 83540; 83550; 83615; 83735; 84132; 84145; 84443; 84484; 85025; 85027; 85045; 85610; 85730; 86850; 86900; 86901; 86920; 87086; 88305; 88312; 88342; 92972; 92978; 92979; 93005; 93306; 93308; 93458; 93880; 94640; 96365; 96366; 99291

== ENCOUNTER → 2024-09-09 | Day surgery (SDC) | payer MEDICARE ==
[~2024-09-09] MED LIST changes: -ALPRAZolam 0.25 MG TAB PO PRN; -ALPRAZolam 0.5 MG TAB PO PRN; -ASPIRIN 325 MG TAB PO ONE; -ATORVASTATIN 80 MG TAB PO ONE; -NITROGLYCERIN SL TABS 0.4 MG TAB SUBLINGUAL PRN; +SODIUM CHLORIDE 0.9% 500 ML 500 ML IV SCH
[2024-09-09] MEDS: IV FLUID CONTINUATION 1,000 ML IV ONE (10:36)
[2024-09-09] MEDS: BENZOCAINE SPRAY 1 EACH MM ONE ×2 (12:16→12:30)
[2024-09-09] MEDS: MIDAZOLAM 2 MG/2 ML VIAL IVP ONE (12:30)
[2024-09-09] MEDS: fentaNYL (PF) 50 MCG/1 ML VIAL IVP ONE (12:30)
[2024-09-09 12:48] VITALS: BP 125/72; PULSE 83; RESP 14
--- NOTE | 2024-09-09 13:29 | P.TEE ---
Description of Procedure(s): Procedure performed: Transesophageal Echocardiogram with color flow doppler, pulsed wave doppler and continuous wave doppler, moderate conscious sedation Moderate conscious sedation: Moderate conscious sedation was supplied with direct supervision of myself using Versed and Fentanyl. Complications: none Indications: Mitral regurgitation PROCEDURE: After the risks, benefits and alternatives of the above mentioned procedure was explained in detail with the patient, informed consent was obtained. Patient was brought to the lab in a fasting state. Patient was given IV Versed and Fentanyl for sedation. The throat was sprayed with Hurricane to anesthetize the throat. A lubricated Omni probe was then introduced into the esophagus and stomach and multiple views were obtained. 2D echo with color flow doppler, pulsed wave doppler and continuous wave doppler was utilized. Agitated saline bubbles were injected to assess for any intra-atrial shunt. The probe was then removed. Patient tolerated the procedure well. Patient was transferred to the post procedure area in stable and satisfactory condition. FINDINGS: 1. The aortic valve is tricuspid with normal function. 2. There is prolapse of P2 segment with severe mitral regurgitation and eccentric jet. Systolic flow reversal in the right upper pulmonary vein. Pisa radius 1.6 cm with Nyquist 40 consistent with severe mitral regurgitation. 3. Tricuspid valve appears to be normal with mild to moderate tricuspid regurgitation. 4. The interatrial septum is intact. No evidence of PFO. 5. Left atrial appendage is free of clot. 6. Left ventricular ejection fraction 55%
== END ==
LOC: CATHCVL 09:39
PROVIDERS: ATTEND Internal Medicine
DX: I08.1 Rheumatic disorders of both mitral and tricuspid valves (principal); I25.10 Atherosclerotic heart disease of native coronary artery without angina pectoris; E66.9 Obesity, unspecified; G47.33 Obstructive sleep apnea (adult) (pediatric); E11.9 Type 2 diabetes mellitus without complications; I10 Essential (primary) hypertension; I48.91 Unspecified atrial fibrillation; E78.2 Mixed hyperlipidemia; Z79.01 Long term (current) use of anticoagulants; Z79.02 Long term (current) use of antithrombotics/antiplatelets; Z79.84 Long term (current) use of oral hypoglycemic drugs; Z79.899 Other long term (current) drug therapy
CPT/HCPCS: 93312; 93320; 93325; J2250; J3010

== ENCOUNTER 2024-11-13 10:06 | Observation (INO) | payer MEDICARE ==
[2024-11-13 10:51] LABS: Basophils # (A) 0.07 10*3/uL (0.00-0.10); Basophils % (A) 1.0 %; Eosinophils # (A) 0.04 10*3/uL (0.04-0.35); Eosinophils % (A) 0.5 %; HCT 30.3 % (39.6-50.0); HGB 8.1 g/dL (13.0-17.0); Lymphocytes # (A) 1.26 10*3/uL (0.90-5.00); Lymphocytes % (A) 17.2 %; MCH 18.5 pg (27.0-32.0); MCHC 26.7 g/dL (32.0-37.0); MCV 69.0 fL (80.0-97.0); Monocytes # (A) 0.44 10*3/uL (0.20-1.00); Monocytes % (A) 6.0 %; Neutrophils # (A) 5.49 10*3/uL (1.80-7.70); Neutrophils % (A) 75.0 %; Platelet Count 236 10*3/uL (140-440); RBC 4.39 10*6/uL (4.40-5.60); RDW 19.5 % (11.5-14.5); WBC 7.32 10*3/uL (4.50-10.00)
[2024-11-13 11:00] LABS: INR 1.2 (<1.2); Partial Thromboplastin Time 27.7 sec (22.0-30.0); Prothrombin Time 12.7 sec (10.0-12.5)
--- NOTE | 2024-11-13 11:16 | XR ---
EXAMINATION TYPE: XR chest 2V DATE OF EXAM: 11/13/2024 10:45 AM COMPARISON: Chest radiographs from 04/15/2024 CLINICAL INDICATION: Male, 79 years old with history of Chest Pain; TECHNIQUE: XR chest 2V Frontal and lateral views of the chest. FINDINGS: Lungs/Pleura: No evidence of focal consolidation or pneumothorax. Blunting of the costophrenic angles is present. Pulmonary vascularity: Pulmonary vascular congestion. Heart/mediastinum: Cardiomediastinal silhouette is enlarged. Musculoskeletal: No acute osseous pathology. IMPRESSION: Cardiomegaly, pulmonary vascular congestion and bilateral pleural effusions. Correlate with BNP for c ongestive heart failure. [facility], , 11/13/2024 11:14 AM
[2024-11-13 11:24] LABS: ALT 9 U/L (4-49); AST 21 U/L (17-59); African American GFR (CKD) 89 (>60 ml/min/1.73 sqM); Albumin 3.9 g/dL (3.5-5.0); Alkaline Phosphatase 59 U/L (38-126); Anion Gap 14 mmol/L; Blood Urea Nitrogen 13 mg/dL (9-20); Calcium 9.4 mg/dL (8.4-10.2); Carbon Dioxide 23 mmol/L (22-30); Chloride 103 mmol/L (98-107); Glucose 112 mg/dL (74-99); Magnesium 2.0 mg/dL (1.6-2.3); Non-African American GFR(CKD) 77 (>60 ml/min/1.73 sqM); Potassium 4.2 mmol/L (3.5-5.1); Sodium 140 mmol/L (137-145); Total Protein 6.8 g/dL (6.3-8.2)
[2024-11-13] MEDS: ASPIRIN 81 MG PO STA (11:28)
[2024-11-13 11:31] LABS: NT-Pro-B-Type Natriuretic Pept 3510 pg/mL
[2024-11-13] MEDS ORDERED: NALOXONE 0.4 MG/ML 1 ML VIAL IV PRN (11:59)
[2024-11-13] MEDS ORDERED: ONDANSETRON 4 MG/2 ML VIAL IVP PRN (11:59)
--- NOTE | 2024-11-13 12:01 | ED ---
General Adult HPI - General Chief complaint: Chest Pain Stated complaint: Chest pain Time Seen by Provider: 11/13/24 10:16 Source: patient, RN notes reviewed, old records reviewed Mode of arrival: ambulatory Limitations: no limitations - History of Present Illness Initial comments: 79-year-old male who presents emergency department complaining of 79-year-old male who presents emergency department complaining of chest pain and shortness of breath. I was contacted by Dr. Roque prior to his arrival. He is receiving outpatient workup for eventual mitral valve clipping procedure however patient has been dealing with intermittent chest pain as well as intermittent exertional dyspnea for the last few days to weeks and presents for further evaluation at this time. Does have a history of CAD with multiple cardiac stents, CHF. States he has noticed worsening lower extremity pitting edema, worsening exertional dyspnea, worsening orthopnea, with intermittent chest pain. States chest pain is not specific when it is present. Is substernal/left-sided and does not radiate. No diaphoresis. No nausea. Currently has no chest pain. Was sent for cardiac workup and admission at this point. He was in agreement this plan. - Related Data Home Medications Medication Instructions Recorded Confirmed Albuterol Sulfate [Albuterol 2 puff INHALATION RT-Q4H PRN 02/07/23 11/13/24 Sulfate Hfa] Glimepiride [Amaryl] 2 mg PO DAILY 02/07/23 11/13/24 Nitroglycerin 0.4 mg SL Q5M PRN 02/19/24 11/13/24 Fluticasone/Umeclidin/Vilanter 1 puff INHALATION RT-DAILY 03/28/24 11/13/24 [Trelegy Ellipta 200-62.5-25] Atorvastatin [Lipitor] 40 mg PO HS 09/05/24 11/13/24 Midodrine [ProAmatine] 5 mg PO TID 09/05/24 11/13/24 Amiodarone [Cordarone] 100 mg PO DAILY 11/13/24 11/13/24 Apixaban [Eliquis] 2.5 mg PO BID 11/13/24 11/13/24 Brinzolamide [Brinzolamide 1%] 1 drop BOTH EYES TID 11/13/24 11/13/24 Furosemide [Lasix] 20 mg PO DAILY 11/13/24 11/13/24 Linaclotide [Linzess] 290 mcg PO DAILY 11/13/24 11/13/24 Previous Rx's Medication Instructions Recorded Clopidogrel [Plavix] 75 mg PO DAILY #30 tab 04/17/24 Allergies Allergy/AdvReac Type Severity Reaction Status Date / Time No Known Allergies Allergy Verified 11/13/24 12:47 Review of Systems ROS Statement: Those systems with pertinent positive or pertinent negative responses have been documented in the HPI. Review of Systems: CONST: Denies fever EYES: Denies blurry vision ENT: Denies nasal congestion C/V: Denies Chest pain RESP: Endorses exertional shortness of breath GI: Denies abdominal pain : Denies dysuria SKIN: Denies rash. MSK: Denies joint pain. NEURO: Denies headache ROS Other: All systems not noted in ROS Statement are negative. Past Medical History Past Medical History: Coronary Artery Disease (CAD), Chest Pain / Angina, CVA/TIA, Diabetes Mellitus, Eye Disorder, Hyperlipidemia, Hypertension, Myoca rdial Infarction (PR), Prostate Disorder, Sleep Apnea/CPAP/BIPAP Additional Past Medical History / Comment(s): occ irregular heartrate, no cpap used- lost wt, hx gout, kidney stone, glaucoma, CVA x 2 most recent 2023 - sometimes difficulty finding words Last Myocardial Infarction Date:: unk History of Any Multi-Drug Resistant Organisms: None Reported Past Surgical History: Appendectomy, Heart Catheterization With Stent, Orthopedic Surgery, Prostate Surgery, Tonsillectomy Additional Past Surgical History / Comment(s): Bilateral corneal transplant, bilateral cataract surgery, left knee replacement,TURP, cardiac stents X 7, 2nd right eye surgery after cataract removed. cartoid stent left 02/2024 Additional Past Anesthesia/Blood Transfusion Reaction / Comment(s): "hard time waking up" Date of Last Stent Placement:: 04/02/2024 Past Psychological History: No Psychological Hx Reported Smoking Status: Former smoker - Past Family History Father Additional Family Medical History / Comment(s): Triple bypass in his 80s ( at 93 years old) Brother(s) Additional Family Medical History / Comment(s): Triple bypass in his 40s (still alive in his 80s) Mother Additional Family Medical History / Comment(s): General Exam - General Exam Comments Initial Comments: General: Appears in no acute distress. HEAD: Normal with no signs of head trauma. EYES: PERRLA, EOMI, conjunctiva normal, no discharge. ENT: Hearing grossly intact, normal oropharynx. RESPIRATORY: Clear breath sounds bilaterally. No wheezes, rales, or rhonchi. C/V: Regular rate and rhythm. S1 and S2 auscultated, significant lower extremity pitting edema, peripheral pulses 2+ and intact throughout ABD: Abd is soft, nontender, nondistended EXT: Normal range of motion, no obvious deformity SKIN: No rashes or lesions observed on exposed skin. NEURO: Alert and oriented x 4. Limitations: no limitations Course Vital Signs 11/13/24 11/13/24 10:09 11:20 Temperature 97.7 F Pulse Rate 85 77 Respiratory 16 16 Rate Blood Pressure 127/77 132/84 O2 Sat by Pulse 96 94 L Oximetry Medical Decision Making - Medical Decision Making Was pt. sent in by a medical professional or institution (, PA, SUPERVISOR [employer] MAN[employer]URING, urgent care, hospital, or usp...) When possible be specific @ -Dr. Roque contacted the ER prior to patient's arrival to update me on his requested workup. Did you speak to anyone other than the patient for history (EMS, parent, family, police, friend...)? What history was obtained from this source @ -No Did you review nursing and triage notes (agree or disagree)? Why? @ -I reviewed and agree with nursing and triage notes Were old charts reviewed (outside hosp., previous admission, EMS record, old EKG, old radiological studies, urgent care reports/EKG's, usp records)? Report findings @ -Reviewed prior EKGs from March 2024 with no significant acute change. Differential Diagnosis (chest pain, altered mental status, abdominal pain women, abdominal pain men, vaginal bleeding, weakness, fever, dyspnea, syncope, headache, dizziness, GI bleed, back pain, seizure, CVA, palpatations, mental health, musculoskeletal)? @ -CHF, CAD, ACS. This list is not all inclusive. EKG interpreted by me (3pts min.). @ -As above X-rays interpreted by me (1pt min.). @ -Chest x-ray shows bilateral pulmonary vascular congestion with bilateral pleural effusions. CT interpreted by me (1pt min.). @ -None done U/S interpreted by me (1pt. min.). @ -None done What testing was considered but not performed or refused? (CT, X-rays, U/S, labs)? Why? @ -None What meds were considered but not given or refused? Why? @ -None Did you discuss the management of the patient with other professionals (professionals i.e. DrAshleigh, PA, SUPERVIS[employer]URING, lab, RT, psych nurse, social secretary, rouge presser, teacher, pharmaceutical officer, correctional case records supervisor)? Give summary @ -Discussed with the admitting team, [facility] Dr. Dale who accepted the admission. Was smoking cessation discussed for >3mins.? @ -No Was critical care preformed (if so, how long)? @ -No Were there social determinants of health that impacted care today? How? (Homelessness, low income, unemployed, alcoholism, drug addiction, transportation, low edu. Level, literacy, decrease access to med. care, senior care, rehab)? @ -No Was there de-escalation of care discussed even if they declined (Discuss DNR or withdrawal of care, Hospice)? DNR status @ -No What co-morbidities impacted this encounter? (DM, HTN, Smoking, COPD, CAD, Cancer, CVA, ARF, Chemo, Hep., AIDS, mental health diagnosis, sleep apnea, morb id obesity)? @ -CAD, CHF Was patient admitted / discharged? Hospital course, mention meds given and route, prescriptions, significant lab abnormalities, going to OR and other pertinent info. @ -Based on patient's presentation physical exam, presents emergency department for admission. Suspicion for possible ACS versus CHF. Sent by his roof painter for admission. Vital signs within acceptable limits. We will obtain cardiac workup. Patient was in agreement this plan. Given 3 and 24 mg of aspirin. EKG shows no signs of acute ischemia. Chest x-ray consistent with CHF and pleural effusions. Laboratory studies remarkable for chronic anemia of 8.1 which is within his baseline, undetectable troponin, as well as an elevated BNP of 3500. I updated the patient. Appears to be CHF related. Will trend troponins and admit the patient. Remains chest pain-free at this time. Patient started on IV Lasix. He accepted admission. Discussed with the admitting team, [facility] Dr. Dale who accepted the admission. Undiagnosed new problem with uncertain prognosis? @ -No Drug Therapy requiring intensive monitoring for toxicity (Heparin, Nitro, Insulin, Cardizem)? @ -No Were any procedures done? @ -No Diagnosis/symptom? @ -CHF exacerbation, chest pain Acute, or Chronic, or Acute on Chronic? @ -Acute Uncomplicated (without systemic symptoms) or Complicated (systemic symptoms)? @ -Complicated Side effects of treatment? @ -No Exacerbation, Progression, or Severe Exacerbation? @ -No Poses a threat to life or bodily function? How? (Chest pain, USA, PR, pneumonia, PE, COPD, DKA, ARF, appy, cholecystitis, CVA, Diverticulitis, Homicidal, Suicidal, threat to staff... and all critical care pts) @ -Yes - Lab Data Result diagrams: 11/13/24 10:33 11/13/24 10:33 Lab Results 11/13/24 11/13/24 11/13/24 Range/Units 10:33 10:33 10:33 WBC 7.32 (4.50-10.00) 10*3/uL RBC 4.39 L (4.40-5.60) 10*6/uL Hgb 8.1 L (13.0-17.0) g/dL Hct 30.3 L (39.6-50.0) % MCV 69.0 L (80.0-97.0) fL MCH 18.5 L (27.0-32.0) pg MCHC 26.7 L (32.0-37.0) g/dL Plt Count 236 (140-440) 10*3/uL MPV 8.8 L (9.5-12.2) fL Immature Gran % (Auto) 0.3 % Neutrophils % 75.0 % Lymphocytes % 17.2 % Monocytes % 6.0 % Eosinophils % 0.5 % Basophils % 1.0 % Immature Gran # 0.02 (0.00-0.04) 10*3/uL Neutrophils # 5.49 (1.80-7.70) 10*3/uL Lymphocytes # 1.26 (0.90-5.00) 10*3/uL Monocytes # 0.44 (0.20-1.00) 10*3/uL Eosinophils # 0.04 (0.04-0.35) 10*3/uL Basophils # 0.07 (0.00-0.10) 10*3/uL PT 12.7 H (10.0-12.5) sec INR 1.2 H (<1.2) APTT 27.7 (22.0-30.0) sec Sodium 140 (137-145) mmol/L Potassium 4.2 (3.5-5.1) mmol/L Chloride 103 (98-107) mmol/L Carbon Dioxide 23 (22-30) mmol/L Anion Gap 14 mmol/L BUN 13 (9-20) mg/dL Creatinine 0.95 (0.66-1.25) mg/dL Est GFR (CKD-EPI)AfAm 89 (>60 ml/min/1.73 sqM) Est GFR (CKD-EPI)NonAf 77 (>60 ml/min/1.73 sqM) Glucose 112 H (74-99) mg/dL Calcium 9.4 (8.4-10.2) mg/dL Magnesium 2.0 (1.6-2.3) mg/dL Total Bilirubin 1.0 (0.2-1.3) mg/dL AST 21 (17-59) U/L ALT 9 (4-49) U/L Alkaline Phosphatase 59 (38-126) U/L Troponin I (0.000-0.034) ng/mL NT-Pro-B Natriuret Pep 3510 pg/mL Total Protein 6.8 (6.3-8.2) g/dL Albumin 3.9 (3.5-5.0) g/dL / Range/Units 10:33 WBC (4.50-10.00) 10*3/uL RBC (4.40-5.60) 10*6/uL Hgb (13.0-17.0) g/dL Hct (39.6-50.0) % MCV (80.0-97.0) fL MCH (27.0-32.0) pg MCHC (32.0-37.0) g/dL Plt Count (140-440) 10*3/uL MPV (9.5-12.2) fL Immature Gran % (Auto) % Neutrophils % % Lymphocytes % % Monocytes % % Eosinophils % % Basophils % % Immature Gran # (0.00-0.04) 10*3/uL Neutrophils # (1.80-7.70) 10*3/uL Lymphocytes # (0.90-5.00) 10*3/uL Monocytes # (0.20-1.00) 10*3/uL Eosinophils # (0.04-0.35) 10*3/uL Basophils # (0.00-0.10) 10*3/uL PT (10.0-12.5) sec INR (<1.2) APTT (22.0-30.0) sec Sodium (137-145) mmol/L Potassium (3.5-5.1) mmol/L Chloride (98-107) mmol/L Carbon Dioxide (22-30) mmol/L Anion Gap mmol/L BUN (9-20) mg/dL Creatinine (0.66-1.25) mg/dL Est GFR (CKD-EPI)AfAm (>60 ml/min/1.73 sqM) Est GFR (CKD-EPI)NonAf (>60 ml/min/1.73 sqM) Glucose (74-99) mg/dL Calcium (8.4-10.2) mg/dL Magnesium (1.6-2.3) mg/dL Total Bilirubin (0.2-1.3) mg/dL AST (17-59) U/L ALT (4-49) U/L Alkaline Phosphatase (38-126) U/L Troponin I <0.012 (0.000-0.034) ng/mL NT-Pro-B Natriuret Pep pg/mL Total Protein (6.3-8.2) g/dL Albumin (3.5-5.0) g/dL - EKG Data -: EKG Interpreted by Me EKG Comments: 12-lead Electrocardiogram Interpretation Note EKG was reviewed and interpreted by myself. 12-lead ECG performed at 1017 is interpreted by me as revealing normal sinus rhythm at a rate of 85 beats per m inute. [place] is normal. IA interval is 206 ms, QRS duration is 96 ms, QTc is 455 ms. . There were no ST or T wave abnormalities to suggest myocardial ischemia or injury. R wave progression across the precordium was satisfactory. By my interpretation this EKG is non-diagnostic for acute ischemia. Disposition Clinical Impression: CHF exacerbation, Chest pain Disposition: ADMITTED IP TO THIS [facility] Condition: Stable Referrals: Alex Villarreal DO [Primary Care Provider] - 1-2 days Time of Disposition: 14:36
[2024-11-13] MEDS ORDERED: ALBUTEROL NEBULIZED 2.5 MG/3 ML INHALATION PRN (12:53)
--- NOTE | 2024-11-13 12:57 | P.HPIM ---
History of Present Illness H&P Date: 11/13/24 History of present illness; patient 79-year-old gentleman with past medical history significant for coronary artery disease, atrial fibrillation, ischemic cardiomyopathy, diabetes mellitus presents the ER because of chest pain. Patient states he was all right last night when he started experiencing chest pain that was central in location, pressure-like, nonradiating,no aggravating or relieving factor associated with this chest pain. Patient was complaining of shortness of breath at the time. There was no complaint of orthopnea or PND. There was no episode of diaphoresis during this episode of chest pain. Patient denies any palpitation. There is no complaint of orthopnea or PND. Denies any nausea, vomiting abdominal pain. Patient denies any complaint of dizziness. There is no complaint of headache. Patient chest pain persisted throughout the night, this morning patient had appointment with his learning designer at which time he was told to come to the ER Initial lab work done in the ER showed WBC 7.32, hemoglobin 8.1, platelet count 236, sodium 140, potassium 4.2, BUN 13, creatinine 0.95, glucose 112, calcium 9.4, magnesium 2, bilirubin 1 troponin 0.012, proBNP 3510, Chest x-ray done in the ER Showed cardiomegaly, pulmonary congestion and bilateral pleural effusions Patient admitted to internal medicine service REVIEW OF SYSTEMS: CONSTITUTIONAL: No fever, no malaise, no fatigue. HEENT: No recent visual problems or hearing problems. Denied any sore throat. CARDIOVASCULAR: As mentioned above PULMONARY: As mentioned above GASTROINTESTINAL: No diarrhea, no nausea, no vomiting, no abdominal pain. NEUROLOGICAL: No headaches, no weakness, no numbness. HEMATOLOGICAL: Denies any bleeding or petechiae. GENITOURINARY: Denies any burning micturition, frequency, or urgency. MUSCULOSKELETAL/RHEUMATOLOGICAL: Denies any joint pain, swelling, or any muscle pain. ENDOCRINE: Denies any polyuria or polydipsia. The rest of the 14-point review of systems is negative. PHYSICAL EXAMINATION: GENERAL: The patient is alert and oriented x3, not in any acute distress. Well developed, well nourished. HEENT: Pupils are round and equally reacting to light. EOMI. No scleral icterus. No conjunctival pallor. Normocephalic, atraumatic. No pharyngeal erythema. No thyromegaly. CARDIOVASCULAR: S1 and S2 present. No murmurs, rubs, or gallops. PULMONARY: Chest is clear to auscultation, no wheezing or crackles. ABDOMEN: Soft, nontender, nondistended, normoactive bowel sounds. No palpable organomegaly. MUSCULOSKELETAL: No joint swelling or deformity. EXTREMITIES: No cyanosis, clubbing, or pedal edema. NEUROLOGICAL: Gross neurological examination did not reveal any focal deficits. SKIN: No rashes. Assessment and plan Chest pain, rule out acute coronary syndrome Acute on chronic systolic CHF History of A-fib Obstructive sleep apnea Diabetes mellitus type 2 Carotid artery surgery with left carotid stent 03/19/2024 Severe pulmonary hypertension Monitor vital signs Monitor CBC Monitor CMP Continue telemetry monitoring Trend troponin Ordered strict I's and O's Order daily weights Start IV Lasix 40mg every 12 Resume Eliquis Resume amiodarone Ordered breathing treatment Consult cardiology Labs and medication were reviewed.. Continue same treatment. Continue with symptomatic treatment. Resume home medication. Monitor labs and vitals. DVT and GI prophylaxis. Further recommendations as per clinical course of the patient Dictation was produced using trend.ly dictation software. please excuse any grammatical, word or spelling errors. Past Medical History Past Medical History: Coronary Artery Disease (CAD), Chest Pain / Angina, CVA/TIA, Diabetes Mellitus, Eye Disorder, Hyperlipidemia, Hypertension, Myocardial Infarction (HI), Prostate Disorder, Sleep Apnea/CPAP/BIPAP Additional Past Medical History / Comment(s): occ irregular heartrate, no cpap used- lost wt, hx gout, kidney stone, glaucoma, CVA x 2 most recent 2023 - sometimes difficulty finding words Last Myocardial Infarction Date:: unk History of Any Multi-Drug Resistant Organisms: None Reported Past Surgical History: Appendectomy, Heart Catheterization With Stent, Orthopedic Surgery, Prostate Surgery, Tonsillectomy Additional Past Surgical History / Comment(s): Bilateral corneal transplant, b ilateral cataract surgery, left knee replacement,TURP, cardiac stents X 7, 2nd right eye surgery after cataract removed. cartoid stent left 02/2024 Additional Past Anesthesia/Blood Transfusion Reaction / Comment(s): "hard time waking up" Date of Last Stent Placement:: 04/02/2024 Past Psychological History: No Psychological Hx Reported Smoking Status: Former smoker - Past Family History Father Additional Family Medical History / Comment(s): Triple bypass in his 80s ( at 93 years old) Brother(s) Additional Family Medical History / Comment(s): Triple bypass in his 40s (still alive in his 80s) Mother Additional Family Medical History / Comment(s): Medications and Allergies Home Medications Medication Instructions Recorded Confirmed Type Albuterol Sulfate [Albuterol 2 puff INHALATION RT-Q6H PRN 02/07/23 09/09/24 History Sulfate Hfa] Carboxymethylcellulose Sodium 1 drop BOTH EYES QID PRN 02/07/23 09/09/24 History [Refresh Tears] Glimepiride [Amaryl] 2 mg PO HS 02/07/23 09/09/24 History Nitroglycerin 0.4 mg SL Q5M PRN 02/19/24 09/05/24 History Fluticasone/Umeclidin/Vilanter 1 puff INHALATION BID 03/28/24 09/09/24 History [Trelegy Ellipta 200-62.5-25] Apixaban [Eliquis] 5 mg PO BID #60 tab 04/17/24 09/09/24 Rx Clopidogrel [Plavix] 75 mg PO DAILY #30 tab 04/17/24 09/09/24 Rx bisacodyL [Dulcolax] 10 mg PO DAILY PRN #20 tab 04/17/24 09/05/24 Rx Amiodarone [Cordarone] 100 mg PO BID 09/05/24 09/09/24 History Atorvastatin [Lipitor] 10 mg PO HS 09/05/24 09/09/24 History Furosemide [Lasix] 10 mg PO DAILY 09/05/24 09/09/24 History Midodrine [ProAmatine] 5 mg PO AC-TID 09/05/24 09/09/24 History Pantoprazole [Protonix] 40 mg PO BID PRN 09/05/24 09/05/24 History Allergies Allergy/AdvReac Type Severity Reaction Status Date / Time No Known Allergies Allergy Verified 11/13/24 12:47 Physical Exam Vitals: Vital Signs Temp Pulse Resp BP Pulse Ox 11/13/24 11:20 77 16 132/84 94 L 11/13/24 10:09 97.7 F 85 16 127/77 96 Intake and Output 07/11/13/24 11/13/24 22:59 06:59 14:59 Other: Weight 96.162 kg Results CBC & Chem 7: 11/13/24 10:33 11/13/24 10:33 Labs: Abnormal Lab Results - Last 24 Hours (Table) 11/13/24 11/13/24 11/13/24 Range/Units 10:33 10:33 10:33 RBC 4.39 L (4.40-5.60) 10*6/uL Hgb 8.1 L (13.0-17.0) g/dL Hct 30.3 L (39.6-50.0) % MCV 69.0 L (80.0-97.0) fL MCH 18.5 L (27.0-32.0) pg MCHC 26.7 L (32.0-37.0) g/dL MPV 8.8 L (9.5-12.2) fL PT 12.7 H (10.0-12.5) sec INR 1.2 H (<1.2) Glucose 112 H (74-99) mg/dL
[2024-11-13] MEDS: FUROSEMIDE 10 MG/ML 4 ML VIAL IV STA (13:07)
[2024-11-13] MEDS: APIXABAN 5 MG TAB PO STA (14:41)
[2024-11-13] MEDS: CLOPIDOGREL 75 MG TAB PO STA (14:42)
[2024-11-13] MEDS: AMIODARONE 100 MG TAB PO STA (14:42)
[2024-11-13] MEDS: TIOTROPIUM 2.5 MCG INHALER INHALATION STA (15:53)
[2024-11-13] MEDS: MIDODRINE 5 MG TAB PO SCH (18:03)
[2024-11-13 19:44] LABS: Glucose,Whole Blood 145 mg/dL (70-110)
[2024-11-13] MEDS: APIXABAN 5 MG TAB PO SCH (20:25)
[2024-11-13] MEDS: FUROSEMIDE 10 MG/ML 4 ML VIAL IV SCH (20:25)
[2024-11-13] MEDS: DORZOLAMIDE HCL 2% DROPS 10 ML BTL BOTH EYES SCH (20:29)
[2024-11-14 07:39] VITALS: BP 114/75; PULSE 73; TEMP 98
[2024-11-14] MEDS: DAPAGLIFLOZIN PROPANEDIOL 10 MG TABLET PO SCH (08:26)
[2024-11-14] MEDS: CLOPIDOGREL 75 MG TAB PO SCH (08:26)
[2024-11-14] MEDS: TIOTROPIUM 2.5 MCG INHALER INHALATION SCH (08:42)
[2024-11-14] MEDS: SYMBICORT 160-4.5 MCG INHALER INHALATION SCH (08:42)
[2024-11-14] MEDS ORDERED: ENOXAPARIN 40 MG/0.4 ML SYRINGE SQ SCH (09:00)
[2024-11-14 09:04] VITALS: RESP 17
--- NOTE | 2024-11-14 10:03 | P.CRDCN ---
History of Present Illness History of present illness: HISTORY OF PRESENT ILLNESS: This is a 79-year-old male with a past medical history significant for coronary artery disease with previous stenting, mild ischemic cardiomyopathy, hyperlipid emia with statin intolerance, hypertension, obstructive sleep apnea, carotid stenosis, mitral regurgitation, and paroxysmal atrial fibrillation. Patient follows in the office with Dr. Roque. We have been asked to see the patient in consultation for shortness of breath. Patient examined at the bedside. Patient was seen yesterday in the cardiology office and was directed to come to the emergency room. Patient reports he has been having shortness of breath for the past few days. He also reports increased lower extremity edema and weight gain due to fluid retention at home. DIAGNOSTICS: - EKG reveals sinus mechanism with PVCs. - Chest xray cardiomegaly, pulmonary vascular congestion and bilateral pleural effusions. - Laboratory data: Troponin negative x 3. proBNP 3510. - Current home cardiac medications include Lipitor 40 mg at night, Plavix 75 mg daily, midodrine 5 mg 3 times daily, amiodarone 100 mg daily, Eliquis 2.5 mg twice a day, Lasix 20 mg daily. -Patient underwent TOSHIA in August 2024 revealing aortic valve tricuspid normal function, prolapse of P2 segment with severe mitral regurgitation and an eccentric jet. Systolic flow reversal in the right pulmonary vein. Tricuspid valve appears to be normal with mild to moderate tricuspid regurgitation. No evidence of PFO. Left atrial appendage free of clot. Ejection fraction 55% - Most recent echocardiogram obtained in July 2024 reveals ejection fraction 55%, moderate concentric LVH, severe MR, mild TR. - Cardiac catheterization history: March 2024 revealing 70% left main stenosis, 2030% proximal LAD stenosis, mid LAD 60 to 70% stenosis, circumflex 30% stenosis, RCA 100% stenosis with [id number] collaterals. Patient underwent Impella protected PCI of left main into LAD and circumflex using DK crush technique. Patient also underwent stenting of circumflex. REVIEW OF SYSTEMS: At the time of my exam: CONSTITUTIONAL: Denies fever or chills. HEENT: Denies blurred vision, vision changes, or eye pain. Denies hemoptysis CARDIOVASCULAR: Denies chest pain. Denies orthopnea. Denies PND. Denies palpitations RESPIRATORY: Denies shortness of breath. GASTROINTESTINAL: Denies abdominal pain. Denies nausea or vomiting. HEMATOLOGIC: Denies bleeding disorders. GENITOURINARY: Denies any blood in urine. SKIN: Denies pruitis. Denies rash. PHYSICAL EXAM: VITAL SIGNS: Reviewed. GENERAL: Well-developed in no acute distress. HEENT: Head is normocephalic. Pupils are equal, round. Sclerae anicteric. Mucous membranes of the mouth are moist. Neck supple. No JVD or thyromegaly LUNGS: Respirations even and unlabored. Lungs essentially clear to auscultation bilaterally. HEART: Regular rate and rhythm. S1 and S2 heard. Systolic murmur noted ABDOMEN: Soft. Nondistended. Nontender. EXTREMITIES: Normal range of motion. No clubbing or cyanosis. Peripheral pulses intact. Bilateral pitting lower extremity NEUROLOGIC: Awake and alert. Oriented x 3. ASSESSMENT: Shortness of breath Acute on chronic heart failure with preserved EF Coronary artery disease with previous stenting, most recently of PCI of left main into LAD and circumflex, 03/2024 History of mild ischemic cardiomyopathy with improved EF Severe mitral regurgitation Moderate concentric LVH Hypertension Hyperlipidemia with statin intolerance Obstructive sleep apnea Carotid stenosis Paroxysmal atrial fibrillation PLAN: Obtain 2D echo to assess cardiac structure and function Resume home cardiac medications Continue IV Lasix 40 mg every 12 hours Daily weights, accurate intake and output, monitoring of kidney function Further recommendations pending patient course Nurse practitioner note has been reviewed by physician. Signing provider agrees with the documented findings, assessment, and plan of care documented by PRINT LINE INSPECTOR as a scribe. Past Medical History Past Medical History: Coronary Artery Disease (CAD), Chest Pain / Angina, CVA/TIA, Diabetes Mellitus, Eye Disorder, Hyperlipidemia, Hypertension, Myocardial Infarction (ID), Prostate Disorder, Sleep Apnea/CPAP/BIPAP Additional Past Medical History / Comment(s): occ irregular heartrate, no cpap used- lost wt, hx gout, kidney stone, glaucoma, CVA x 2 most recent 2023 - sometimes difficulty finding words Last Myocardial Infarction Date:: unk History of Any Multi-Drug Resistant Organisms: None Reported Past Surgical History: Appendectomy, Heart Catheterization With Stent, Orthopedic Surgery, Prostate Surgery, Tonsillectomy Additional Past Surgical History / Comment(s): Bilateral corneal transplant, bilateral cataract surgery, left knee replacement,TURP, cardiac stents X 7, 2nd right eye surgery after cataract removed. cartoid stent left 02/2024 Past Anesthesia/Blood Transfusion Reactions: Previous Problems w/ Anesthesia Additional Past Anesthesia/Blood Transfusion Reaction / Comment(s): "hard time waking up" Date of Last Stent Placement:: 04/02/2024 Past Psychological History: No Psychological Hx Reported Smoking Status: Former smoker Past Alcohol Use History: None Reported Additional Past Alcohol Use History / Comment(s): Quit smoking 1982 Past Drug Use History: None Reported - Past Family History Father Additional Family Medical History / Comment(s): Triple bypass in his 80s ( at 93 years old) Brother(s) Additional Family Medical History / Comment(s): Triple bypass in his 40s (still alive in his 80s) Mother Additional Family Medical History / Comment(s): Medications and Allergies Home Medications Medication Instructions Recorded Confirmed Type Albuterol Sulfate [Albuterol 2 puff INHALATION RT-Q4H PRN 02/07/23 11/13/24 History Sulfate Hfa] Glimepiride [Amaryl] 2 mg PO DAILY 02/07/23 11/13/24 History Nitroglycerin 0.4 mg SL Q5M PRN 02/19/24 11/13/24 History Fluticasone/Umeclidin/Vilanter 1 puff INHALATION RT-DAILY 03/28/24 11/13/24 History [Trelegy Ellipta 200-62.5-25] Clopidogrel [Plavix] 75 mg PO DAILY #30 tab 04/17/24 11/13/24 Rx Atorvastatin [Lipitor] 40 mg PO HS 09/05/24 11/13/24 History Midodrine [ProAmatine] 5 mg PO TID 09/05/24 11/13/24 History Amiodarone [Cordarone] 100 mg PO DAILY 11/13/24 11/13/24 History Apixaban [Eliquis] 2.5 mg PO BID 11/13/24 11/13/24 History Brinzolamide [Brinzolamide 1%] 1 drop BOTH EYES TID 11/13/24 11/13/24 History Furosemide [Lasix] 20 mg PO DAILY 11/13/24 11/13/24 History Linaclotide [Linzess] 290 mcg PO DAILY 11/13/24 11/13/24 History Allergies Allergy/AdvReac Type Severity Reaction Status Date / Time No Known Allergies Allergy Verified 11/13/24 12:47 Physical Exam Vitals: Vital Signs Temp Pulse Pulse Resp BP BP Pulse Ox 11/14/24 08:00 17 11/14/24 07:00 98 F 73 18 114/75 93 L 11/14/24 06:29 75 20 102/73 96 11/14/24 00:05 98.3 F 79 18 93/60 95 11/13/24 19:02 98.1 F 68 18 104/65 96 11/13/24 17:11 97.7 F 76 15 109/75 96 11/13/24 16:47 98.4 F 76 16 113/71 96 11/13/24 14:43 74 16 99/64 97 11/13/24 11:20 77 16 132/84 94 L 11/13/24 10:09 97.7 F 85 16 127/77 96 Intake and Output 11/13/24 11/14/24 11/14/24 22:59 06:59 14:59 Other: # Voids 1 2 Weight 96.162 kg Results 11/14/24 06:24 11/13/24 10:33 Cardiac Enzymes 11/13/24 11/13/24 11/13/24 Range/Units 10:33 10:33 14:14 AST 21 (17-59) U/L Troponin I <0.012 <0.012 (0.000-0.034) ng/mL 11/13/24 Range/Units 16:55 AST (17-59) U/L Troponin I <0.012 (0.000-0.034) ng/mL Coagulation 11/13/24 Range/Units 10:33 PT 12.7 H (10.0-12.5) sec APTT 27.7 (22.0-30.0) sec CBC 11/13/24 Range/Units 10:33 WBC 7.32 (4.50-10.00) 10*3/uL RBC 4.39 L (4.40-5.60) 10*6/uL Hgb 8.1 L (13.0-17.0) g/dL Hct 30.3 L (39.6-50.0) % Plt Count 236 (140-440) 10*3/uL Comprehensive Metabolic Panel 11/13/24 Range/Units 10:33 Sodium 140 (137-145) mmol/L Potassium 4.2 (3.5-5.1) mmol/L Chloride 103 (98-107) mmol/L Carbon Dioxide 23 (22-30) mmol/L BUN 13 (9-20) mg/dL Creatinine 0.95 (0.66-1.25) mg/dL Glucose 112 H (74-99) mg/dL Calcium 9.4 (8.4-10.2) mg/dL AST 21 (17-59) U/L ALT 9 (4-49) U/L Alkaline Phosphatase 59 (38-126) U/L Total Protein 6.8 (6.3-8.2) g/dL Albumin 3.9 (3.5-5.0) g/dL Current Medications Generic Name Dose Route Start Last Admin Trade Name Freq PRN Reason Stop Dose Admin Albuterol Sulfate 2.5 mg 11/13/24 12:53 Albuterol Nebulized 2.5 Mg/3 Ml INHALATION RT-Q4H PRN Shortness Of Breath Amiodarone HCl 100 mg 11/14/24 09:00 Amiodarone 100 Mg Tab PO DAILY SUDHEER Apixaban 5 mg 11/13/24 21:00 11/14/24 08:26 Apixaban 5 Mg Tab PO 5 mg BID SUDHEER Administration Protocol Budesonide/Formoterol Fumarate 2 puff 11/14/24 08:00 11/14/24 08:42 Symbicort 160-4.5 Mcg Inhaler INHALATION 2 puff RT-BID SUDHEER Administration Clopidogrel Bisulfate 75 mg 11/14/24 09:00 11/14/24 08:26 Clopidogrel 75 Mg Tab PO 75 mg DAILY SUDHEER Administration Dapagliflozin 10 mg 11/14/24 09:00 11/14/24 08:26 Dapagliflozin Propanediol 10 Mg Tablet PO 10 mg DAILY SUDHEER Administration Dorzolamide HCl 1 drops 11/13/24 16:00 11/13/24 20:29 Dorzolamide Hcl 2% Drops 10 Ml Btl BOTH EYES Not Given TID SUDHEER Furosemide 40 mg 11/13/24 21:00 11/14/24 08:27 Furosemide 10 Mg/Ml 4 Ml Vial IV 40 mg Q12HR SUDHEER Administration Midodrine 5 mg 11/13/24 17:30 11/14/24 06:30 Midodrine 5 Mg Tab PO 5 mg TID-W/MEALS SUDHEER Administration Naloxone HCl 0.2 mg 11/13/24 11:59 Naloxone 0.4 Mg/Ml 1 Ml Vial IV Q2M PRN Opioid Reversal Ondansetron HCl 4 mg 11/13/24 11:59 Ondansetron 4 Mg/2 Ml Vial IVP Q8HR PRN Nausea And Vomiting Tiotropium [place] 2 puff 11/14/24 08:00 11/14/24 08:42 Tiotropium 2.5 Mcg Inhaler INHALATION 2 puff RT-DAILY SUDHEER Administration Intake and Output 11/13/24 11/14/24 11/14/24 22:59 06:59 14:59 Other: # Voids 1 2 Weight 96.162 kg 11/13/24 10:33 11/13/24 10:33
[2024-11-14 10:17] LABS: HCT 31.2 % (39.6-50.0); HGB 8.3 g/dL (13.0-17.0); MCH 18.5 pg (27.0-32.0); MCHC 26.6 g/dL (32.0-37.0); MCV 69.6 FL (80.0-97.0); NRBC Per 100 WBC 0 X 10*3/uL (0.00-0.01); Platelet Count 267 X 10*3/uL (140-440); RBC 4.48 X 10*6/uL (4.40-5.60); RDW 19.4 % (11.5-14.5); WBC 8.30 X 10*3/uL (4.50-10.00)
[2024-11-14] MEDS: AMIODARONE 100 MG TAB PO SCH (10:21)
--- NOTE | 2024-11-14 10:24 | CA ---
Transthoracic Echo Report Name: Ganesh Waldrop Age: 79 Gender: M : 1945 Exam Date: 11/14/2024 07:37 Exam Location: [facility] Ht (in): 70 Wt (lb): 212 Ordering Physician: Ann Rodriguez Attending/Referring Phys: [id number], Jennifer Hadoop Developer Jessica Kumari RDCS Procedure CPT: Indications: CHF, systolic murmur Cardiac Hx: Technical Quality: Fair Contrast 1: Total Dose (mL): Contrast 2: Total Dose (mL): MEASUREMENTS (Male / Female) Normal Values 2D ECHO LV Diastolic Diameter PLAX 5.0 cm 4.2 - 5.9 / 3.9 - 5.3 cm LV Systolic Diameter PLAX 3.1 cm IVS Diastolic Thickness 1.4 cm 0.6 - 1.0 / 0.6 - 0.9 cm LVPW Diastolic Thickness 1.4 cm 0.6 - 1.0 / 0.6 - 0.9 cm LV Relative Wall Thickness 0.6 RV Internal Dim ED PLAX 2.6 cm LVOT Diameter 1.9 cm LA Systolic Diameter LX 5.4 cm 3.0 - 4.0 / 2.7 - 3.8 cm LV Diastolic Volume MOD BP 135.2 cm??? 67 - 155 / 56 - 104 cm??? LV Systolic Volume MOD BP 39.3 cm??? 22 - 58 / 19 - 49 cm??? LV Ejection Fraction MOD BP 71.0 % >= 55 % LV Cardiac Index MOD BP 3395.4 cm???/min???m??? LV Diastolic Volume MOD 4C 129.1 cm??? LV Systolic Volume MOD 4C 33.4 cm??? LV Ejection Fraction MOD 4C 74.2 % LV Cardiac Index MOD 4C 3388.4 cm???/min???m??? LV Diastolic Length 4C 9.0 cm LV Systolic Length 4C 7.4 cm LV Diastolic Volume MOD 2C 136.4 cm??? LV Systolic Volume MOD 2C 46.4 cm??? LV Ejection Fraction MOD 2C 66.0 % LV Cardiac Index MOD 2C 3185.1 cm???/min???m??? LV Diastolic Length 2C 9.5 cm LV Systolic Length 2C 7.4 cm LA Volume 117.6 cm??? 18 - 58 / 22 - 52 cm??? LA Volume Index 53.4 cm???/m??? 16 - 28 cm???/m??? M-MODE Aortic Root Diameter MM 3.4 cm LA Systolic Diameter MM 5.6 cm LA Ao Ratio MM 1.7 AV Cusp Separation MM 1.6 cm DOPPLER AV Peak Velocity 195.0 cm/s AV Peak Gradient 15.2 mmHg AV Mean Velocity 135.7 cm/s AV Mean Gradient 8.2 mmHg AV Velocity Time Integral 41.3 cm LVOT Peak Velocity 92.4 cm/s LVOT Peak Gradient 3.4 mmHg LVOT Velocity Time Integral 21.4 cm LVOT Stroke Volume 61.7 cm??? LVOT Stroke Volume Index 28.8 ml/m??? LVOT Cardiac Index 2183.2 cm???/min???m??? AV Area Cont Eq vti 1.5 cm??? AV Area Cont Eq pk 1.4 cm??? MV Area PHT 3.1 cm??? Mitral E Point Velocity 138.4 cm/s Mitral A Point Velocity 138.0 cm/s Mitral E to A Ratio 1.0 MV Deceleration Time 242.0 ms TR Peak Velocity 419.1 cm/s TR Peak Gradient 70.3 mmHg Right Atrial Pressure 20.0 mmHg Pulmonary Artery Systolic Pressu 90.3 mmHg Right Ventricular Systolic Press 90.3 mmHg FINDINGS Left Ventricle Left ventricular ejection fraction is estimated at 60-65 %. Moderately increased septal wall thickness. Normal left ventricular systolic function with no obvious regional wall motion abnormalities. Left ventricular cavity size normal. Right Ventricle Normal right ventricular size and function. Severe pulmonary hypertension. Right Atrium Mild right atrial dilatation. Left Atrium Severely increased left atrial diameter. Severely increased left atrial volume. Mitral Valve Prolapse of the anterior mitral valve leaflet. Severe mitral regurgitation. Posteriorly directed mitral regurgitation jet. Mitral annular calcification. No mitral stenosis. Aortic Valve Trileaflet aortic valve. No aortic stenosis. No aortic regurgitation. Diffuse thickening (sclerosis) of the aortic valve cusps without reduced excursion. Tricuspid Valve Structurally normal tricuspid valve. Mild tricuspid regurgitation. No tricuspid stenosis. Pulmonic Valve Structurally normal pulmonic valve. Trace pulmonic regurgitation. No pulmonic stenosis. Pericardium No pericardial or pleural effusion. Aorta Normal size aortic root and proximal ascending aorta. CONCLUSIONS Normal LV systolic function. The EF is 60 to 65%. LVH was seen as well Prolapsing of the anterior mitral leaflet with severe MR directed posteriorly Aortic sclerosis with no stenosis or insufficiency Severe pulmonary hypertension No pericardial effusion Previewed by: Dr. Nakul Patrick MD (Electronically Signed) Final Date: 14 November 2024 10:23
[2024-11-14 10:31] LABS: ALT 8 U/L (10-49); AST 12 U/L (14-35); Albumin 3.8 g/dL (3.8-4.9); Albumin/Globulin Ratio 1.46 Ratio (1.60-3.17); Alkaline Phosphatase 59 U/L (41-126); Anion Gap 12.80 mmol/L (4.00-12.00); BUN/Creat Ratio 9.73 Ratio (12.00-20.00); Blood Urea Nitrogen 10.7 mg/dL (9.0-27.0); Calcium 8.7 mg/dL (8.7-10.3); Carbon Dioxide 24.2 mmol/L (21.6-31.8); Chloride 103 mmol/L (96-109); Globulin 2.6 g/dL (1.6-3.3); Glucose 82 mg/dL (70-110); Potassium 3.5 mmol/L (3.5-5.5); Sodium 140 mmol/L (135-145); Total Protein 6.4 g/dL (6.2-8.2)
[2024-11-14 10:50] LABS: Basophils # (A) 0.06 X 10*3/uL (0.00-0.10); Basophils % (A) 0.7 %; Eosinophils # (A) 0.12 X 10*3/uL (0.04-0.35); Eosinophils % (A) 1.4 %; Immature Grans, Automated 0.40 %; Lymphocytes # (A) 1.42 X 10*3/uL (0.90-5.00); Lymphocytes % (A) 17.1 %; Microcytosis (M) 2+ (None Seen); Monocytes # (A) 0.45 X 10*3/uL (0.20-1.00); Monocytes % (A) 5.4 %; Neutrophils # (A) 6.22 X 10*3/uL (1.80-7.70); Neutrophils % (A) 75.0 %
--- NOTE | 2024-11-14 14:48 | P.DS ---
Providers Date of admission: 11/13/24 12:00 Attending physician: John Dale MD Consults: 11/13/24 11:59 Consult Physician Routine Consulting Provider: [facility] Consult Reason/Comments: chf, chest pain. sent by roque Do you want consulting provider notified?: Yes Primary care physician: Alex Villarreal [facility] Course: Discharge Diagnosis: Chest pain with shortness of breath Hospital Course: 79-year-old gentleman with past medical history significant for coronary artery disease, atrial fibrillation, ischemic cardiomyopathy, diabetes mellitus presents the ER because of chest pain. Patient states he was all right last night when he started experiencing chest pain that was central in location, pressure-like, nonradiating,no aggravating or relieving factor associated with this chest pain. Patient was complaining of shortness of breath at the time. There was no complaint of orthopnea or PND. There was no episode of diaphoresis during this episode of chest pain. Patient denies any palpitation. There is no complaint of orthopnea or PND. Denies any nausea, vomiting abdominal pain. Patient denies any complaint of dizziness. There is no complaint of headache. Patient chest pain persisted throughout the night, this morning patient had appointment with his track production engineer at which time he was told to come to the ER Initial lab work done in the ER showed WBC 7.32, hemoglobin 8.1, platelet count 236, sodium 140, potassium 4.2, BUN 13, creatinine 0.95, glucose 112, calcium 9.4, magnesium 2, bilirubin 1 troponin 0.012, proBNP 3510, Chest x-ray done in the ER Showed cardiomegaly, pulmonary congestion and bilateral pleural effusions Patient admitted to internal medicine service During the course of his hospital stay, patient seen and evaluated by cardiology. Patient placed on cardiac telemetry and IV Lasix. His daily weights, intake and output, and kidney functions were monitored. Medications reviewed and optimized. An echocardiogram to assess cardiac structure and function was performed indicating normal LV systolic function with EF 60 to 65%. LVH present, prolapsing of the anterior mitral leaflet with severe MR directed posteriorly. Furthermore aortic stenosis with no stenosis or insufficiency as well as severe pulmonary hypertension noted. No pericardial effusion appreciated. Currently, patient hemodynamically stable, no longer complaining of shortness of breath, and medically optimized for discharge home. Patient to follow-up with track production engineer and PCP in 1 week's time. Patient seen and examined at bedside. 11/14/2024 Vital signs reviewed and stable. REVIEW OF SYSTEMS: CONSTITUTIONAL: No fever, no malaise, no fatigue. HEENT: No recent visual problems or hearing problems. Denied any sore throat. CARDIOVASCULAR: As mentioned above PULMONARY: As mentioned above GASTROINTESTINAL: No diarrhea, no nausea, no vomiting, no abdominal pain. NEUROLOGICAL: No headaches, no weakness, no numbness. HEMATOLOGICAL: Denies any bleeding or petechiae. GENITOURINARY: Denies any burning micturition, frequency, or urgency. MUSCULOSKELETAL/RHEUMATOLOGICAL: Denies any joint pain, swelling, or any muscle pain. ENDOCRINE: Denies any polyuria or polydipsia. A total of rater than 30 minutes of time were spent preparing this complex discharge summary. Patient was discharged on 11/14/2024. Patient Condition at Discharge: Stable Plan - Discharge Summary Discharge Rx Participant: Yes New Discharge Prescriptions: Continue Glimepiride [Amaryl] 2 mg PO DAILY Albuterol Sulfate [Albuterol Sulfate Hfa] 2 puff INHALATION RT-Q4H PRN PRN Reason: Shortness Of Breath Nitroglycerin 0.4 mg SL Q5M PRN PRN Reason: Chest Pain Atorvastatin [Lipitor] 40 mg PO HS Linaclotide [Linzess] 290 mcg PO DAILY Apixaban [Eliquis] 2.5 mg PO BID Amiodarone [Cordarone] 100 mg PO DAILY Fluticasone/Umeclidin/Vilanter [Trelegy Ellipta 200-62.5-25] 1 puff INHALATION RT-DAILY Clopidogrel [Plavix] 75 mg PO DAILY #30 tab Midodrine [ProAmatine] 5 mg PO TID Furosemide [Lasix] 20 mg PO DAILY Brinzolamide [Brinzolamide 1%] 1 drop BOTH EYES TID Discharge Medication List Albuterol Sulfate [Albuterol Sulfate Hfa] 2 puff INHALATION RT-Q4H PRN 02/07/23 [History] Glimepiride [Amaryl] 2 mg PO DAILY 02/07/23 [History] Nitroglycerin 0.4 mg SL Q5M PRN 02/19/24 [History] Fluticasone/Umeclidin/Vilanter [Trelegy Ellipta 200-62.5-25] 1 puff INHALATION RT-DAILY 03/28/24 [History] Clopidogrel [Plavix] 75 mg PO DAILY #30 tab 04/17/24 [Rx] Atorvastatin [Lipitor] 40 mg PO HS 09/05/24 [History] Midodrine [ProAmatine] 5 mg PO TID 09/05/24 [History] Amiodarone [Cordarone] 100 mg PO DAILY 11/13/24 [History] Apixaban [Eliquis] 2.5 mg PO BID 11/13/24 [History] Brinzolamide [Brinzolamide 1%] 1 drop BOTH EYES TID 11/13/24 [History] Furosemide [Lasix] 20 mg PO DAILY 11/13/24 [History] Linaclotide [Linzess] 290 mcg PO DAILY 11/13/24 [History] Follow up Appointment(s)/Referral(s): Lauro Roque DO [STAFF PHYSICIAN] - 11/24/24 11:00 am Alex Villarreal DO [Primary Care Provider] - 1-2 days (please call for an appointment) Patient Instructions/Handouts: Heart Failure (GEN), Shortness of Breath (DC) Discharge Disposition: HOME SELF-CARE
[2024-11-14] MEDS ORDERED: FUROSEMIDE 40 MG TAB PO SCH (16:00)
== END 2024-11-14 14:27 | disposition home or self-care (01) ==
LOC: EC 10:06 → 6NMEDSUR 12:00
PROVIDERS: ADMIT Internal Medicine; ATTEND Internal Medicine
DX: R07.89 Other chest pain (principal); I11.0 Hypertensive heart disease with heart failure; I50.43 Acute on chronic combined systolic (congestive) and diastolic (congestive) heart failure; I25.10 Atherosclerotic heart disease of native coronary artery without angina pectoris; D64.9 Anemia, unspecified; I48.0 Paroxysmal atrial fibrillation; I25.5 Ischemic cardiomyopathy; E11.9 Type 2 diabetes mellitus without complications; G47.33 Obstructive sleep apnea (adult) (pediatric); I27.20 Pulmonary hypertension, unspecified; E78.5 Hyperlipidemia, unspecified; I65.29 Occlusion and stenosis of unspecified carotid artery; I49.3 Ventricular premature depolarization; I08.1 Rheumatic disorders of both mitral and tricuspid valves; Z79.84 Long term (current) use of oral hypoglycemic drugs; Z79.51 Long term (current) use of inhaled steroids; Z79.01 Long term (current) use of anticoagulants; Z79.02 Long term (current) use of antithrombotics/antiplatelets; Z79.899 Other long term (current) drug therapy; Z88.8 Allergy status to other drugs, medicaments and biological substances; Z95.5 Presence of coronary angioplasty implant and graft; Z95.828 Presence of other vascular implants and grafts; Z87.891 Personal history of nicotine dependence
CPT/HCPCS: 96376 ×2; 96374; 99285; 36415; 94640 ×2; 93005; 93306; 83880; 80053 ×2; 83735; 84484; 85025 ×2; 85610; 85730; 71046; G0378 ×2; J1938 ×2